=== PATIENT | female | born 1970 | race Caucasian/White ===

== ENCOUNTER 2020-05-02 20:05 | Inpatient (IN) ==
[2020-05-02] MEDS ORDERED: ONDANSETRON INJ 2 MG/ML 2 ML VIAL IV STA (20:33)
[2020-05-02] MEDS ORDERED: fentaNYL citrate 100 MCG/2 ML VIAL IV STA (20:33)
[2020-05-02 20:41] LABS: Basophils # (auto) 0.02 K/uL (0-0.2); Basophils % (auto) 0.2 %; Eosinophils # (auto) 0.12 K/uL (0-0.5); Eosinophils % (auto) 1.2 %; Hematocrit (blood only) 40.6 % (37-47); Hemoglobin 13.2 g/dL (12.0-16.0); Immature Granulocytes # (auto) 0.01 K/uL (0.00-0.02); Immature Granulocytes % (auto) 0.1 %; Lymphocytes # (auto) 3.33 K/uL (1.2-3.4); Mean Corpuscular Hemoglobin 27.8 pg (25-34); Mean Corpuscular Hgb Conc 32.5 g/dL (32-36); Mean Corpuscular Volume 85.7 fL (80-100); Mean Platelet Volume 11.4 fL (7.4-10.4); Monocytes % (auto) 7.9 %; Neutrophils # (auto) 5.82 K/uL (1.4-6.5); Neutrophils % (auto) 57.6 %; Platelet Count 267 K/uL (130-400); RDW Coefficient of Variation 12.8 % (11.5-14.5); RDW Standard Deviation 40.5 fL (36.4-46.3); Red Blood Count 4.74 M/uL (4.2-5.4)
--- NOTE | 2020-05-02 20:41 | Emergency Department Note ---
History of Present Illness General Chief complaint: Neuro Symptoms/Deficit Stated complaint: Eval for stoke symptoms, history of stroke Time Seen by Provider: 05/02/20 20:23 Source: patient History of Present Illness Provider complaint: Left-sided weakness Onset (ago): week(s) Location: face and lower extremity Radiation: non-radiation Severity: moderate Pain Consistency: + constant Maximum Pain Intensity: 5 Quality: + other (Weakness) Relieved By: + none Associated symptoms: + other (Left arm pain from contractures); no chest pain, no cough, no fever/chills, no headaches, no nausea/vomiting and no shortness of breath Treatments prior to arrival: other (Baclofen) This is a 49-year-old female with a history of prior CVA presenting with left- sided weakness starting 2 weeks ago. The patient stated that on her previous stroke she had left-sided weakness but had recovery of her strength in her leg and resolution of her facial droop. She normally walks independently without a cane or walker. She does have chronic contracture and weakness to the left arm. She states 2 weeks ago she started having drooling and left facial droop with weakness in the left arm. She has not been able to get around and her has been helping her. She did not come into the hospital because she was afraid of COVID-19. She denies any headache or injury. She has had no fevers, cough or cold symptoms, chest pain, vomiting or abdominal pain. She does complain of pain to the left arm which is chronic for her. She has chronic pain from her contractures and takes baclofen which did not help her today. She also took some Ativan which did not help. She denies any shortness of breath other than her chronic shortness of breath from her COPD which is unchanged. She does continue to smoke. She did take an extra aspirin today. Home Medications Home Medications Medication Instructions Recorded Confirmed Type aspirin [Aspir-81] 81 mg PO DAILY 09/03/19 05/02/20 History lisinopril 20 mg PO DAILY 09/03/19 05/02/20 History baclofen 20 mg PO TID 01/19/20 05/02/20 History omeprazole 20 mg PO BID 01/19/20 05/02/20 History levetiracetam 0 mg PO BID 02/03/20 05/02/20 History lorazepam [Ativan] 1 mg PO BID PRN 02/03/20 05/02/20 History ondansetron HCl [Zofran] 4 mg PO Q8H PRN 02/03/20 05/02/20 History rosuvastatin 40 mg PO DAILY 05/02/20 05/02/20 History gabapentin 300 mg PO BID 05/03/20 05/03/20 History Allergies Allergy/AdvReac Type Severity Reaction Status Date / Time cephalexin [From Keflex] Allergy Unknown Hives Verified 05/02/20 21:51 codeine Allergy Unknown Hives Verified 05/02/20 21:51 hydromorphone Allergy Unknown Difficulty Verified 05/02/20 21:51 Breathing Penicillins Allergy Unknown Hives Verified 05/02/20 21:51 bupropion [From Wellbutrin] AdvReac Unknown Seizure Verified 05/02/20 21:51 Past Med/Surg History Medical History Anxiety Bipolar 1 disorder Fibromyalgia History of stroke (Acute) Surgical History No pertinent past surgical history Family History Other No pertinent family history Social History Smoking Status: Current every day smoker Tobacco Type: Cigarettes Hx Substance Use: No Preferred Language: Georgian Visual Impairment: No Limitations Hearing Ability: Normal marital status: Current Living Situation: Family current occupational status: unemployed Feels Safe at Home: Yes Review of Systems See HPI for pertinent positives & negatives. and A total of 10 systems reviewed and were otherwise negative Physical Exam Vital Signs Vital Signs - 24 hr 05/02/20 20:09 05/02/20 20:22 05/02/20 20:32 Temperature 37.5 C Temperature Source Oral Pulse Rate 106 H 102 H 93 H Pulse Rate [Right Finger] Pulse Rate from SpO2 Sensor 114 H 94 H Respiratory Rate 12 22 17 Blood Pressure 135/98 135/98 135/86 Blood Pressure [Right Arm] Blood Pressure Mean 108 110 104 Blood Pressure Mean [Right Arm] Pulse Oximetry 95 93 94 Oxygen Delivery Method Sepsis Recent Fever Within 48 Hours No Sepsis New/Unexplained Change in Mental Status No Sepsis Action Taken by Nursing No Action Required 05/02/20 20:33 05/02/20 20:40 05/02/20 21:21 Temperature Temperature Source Pulse Rate 102 H 98 H Pulse Rate [Right Finger] Pulse Rate from SpO2 Sensor 103 H 100 H 81 Respiratory Rate 18 22 Blood Pressure 134/93 Blood Pressure [Right Arm] Blood Pressure Mean 100 Blood Pressure Mean [Right Arm] Pulse Oximetry 96 96 93 Oxygen Delivery Method Sepsis Recent Fever Within 48 Hours Sepsis New/Unexplained Change in Mental Status Sepsis Action Taken by Nursing 05/02/20 21:22 05/02/20 21:23 05/02/20 21:30 Temperature Temperature Source Pulse Rate Pulse Rate [Right Finger] 83 Pulse Rate from SpO2 Sensor 79 66 Respiratory Rate 19 Blood Pressure Blood Pressure [Right Arm] 134/94 Blood Pressure Mean Blood Pressure Mean [Right Arm] 107 Pulse Oximetry 95 98 95 Oxygen Delivery Method Sepsis Recent Fever Within 48 Hours Sepsis New/Unexplained Change in Mental Status Sepsis Action Taken by Nursing 05/02/20 21:31 05/02/20 21:40 05/02/20 22:01 Temperature Temperature Source Pulse Rate Pulse Rate [Right Finger] Pulse Rate from SpO2 Sensor 73 72 74 Respiratory Rate Blood Pressure 119/81 107/64 Blood Pressure [Right Arm] Blood Pressure Mean 83 72 Blood Pressure Mean [Right Arm] Pulse Oximetry 94 95 97 Oxygen Delivery Method Sepsis Recent Fever Within 48 Hours Sepsis New/Unexplained Change in Mental Status Sepsis Action Taken by Nursing 05/02/20 22:02 05/02/20 22:10 05/02/20 22:20 Temperature Temperature Source Pulse Rate Pulse Rate [Right Finger] Pulse Rate from SpO2 Sensor 74 77 73 Respiratory Rate Blood Pressure Blood Pressure [Right Arm] Blood Pressure Mean Blood Pressure Mean [Right Arm] Pulse Oximetry 95 94 96 Oxygen Delivery Method Sepsis Recent Fever Within 48 Hours Sepsis New/Unexplained Change in Mental Status Sepsis Action Taken by Nursing 05/02/20 22:30 05/02/20 22:31 05/02/20 22:40 Temperature Temperature Source Pulse Rate Pulse Rate [Right Finger] Pulse Rate from SpO2 Sensor 80 77 93 H Respiratory Rate Blood Pressure 122/80 Blood Pressure [Right Arm] Blood Pressure Mean 99 Blood Pressure Mean [Right Arm] Pulse Oximetry 97 96 93 Oxygen Delivery Method Sepsis Recent Fever Within 48 Hours Sepsis New/Unexplained Change in Mental Status Sepsis Action Taken by Nursing 05/03/20 00:37 Temperature Temperature Source Pulse Rate 93 H Pulse Rate [Right Finger] Pulse Rate from SpO2 Sensor Respiratory Rate 18 Blood Pressure 123/89 Blood Pressure [Right Arm] Blood Pressure Mean Blood Pressure Mean [Right Arm] Pulse Oximetry 96 Oxygen Delivery Method Room Air Sepsis Recent Fever Within 48 Hours Sepsis New/Unexplained Change in Mental Status Sepsis Action Taken by Nursing Constitutional: Vital signs reviewed. Eyes: Pupils are equal round reactive to light. Conjunctiva are noninjected. ENT: Pharynx is clear without erythema or exudate. Mucous membranes are moist. Neck supple without meningeal signs. Respiratory: Clear to auscultation bilaterally. Breath sounds are equal bilaterally. Cardiovascular: Regular rate and rhythm. No rubs or gallops. GI: Soft, nondistended and nontender. Bowel sounds are present. Musculoskeletal: No peripheral edema. Contracture of the left arm with normal distal pulses and without edema. Integumentary: No cyanosis. or jaundice. Neurologic: The patient is awake and alert. Cranial nerves II-XII are intact. No facial droop is noted. 3 out of 5 strength in the left lower extremity. Sensation is intact to light touch all extremities. Normal speech. Psychiatric: Normal affect. Not anxious appearing. Course Administered Medications Morphine Sulfate (Morphine Sulfate) 3 mg IV Q4H PRN PRN Reason: Pain Stop: 05/17/20 00:13 Last Admin: 05/03/20 00:22 Dose: 3 mg Documented by: [id number] Discontinued Medications Fentanyl Citrate (Fentanyl Citrate) 50 mcg IV NOW STA Stop: 05/02/20 20:34 Last Admin: 05/02/20 20:43 Dose: 50 mcg Documented by: [id number] Lorazepam (Ativan) 1 mg SL NOW STA Stop: 05/02/20 23:52 Last Admin: 05/02/20 23:56 Dose: 1 mg Documented by: [id number] Ondansetron HCl (Zofran) 4 mg IV NOW STA Stop: 05/02/20 20:34 Last Admin: 05/02/20 20:43 Dose: 4 mg Documented by: [id number] Medical Decision Making Differential Diagnosis CVA, ICH, intracranial mass, chronic pain syndrome, metabolic derangement Medical Records Attestation: I reviewed the patient's medical records. The patient was seen here in January for left arm pain from contractures. Home Medications Current Medication List: was personally reviewed by me Laboratory Data Attestation: I reviewed the patient's lab results. Result diagrams: 05/02/20 20:19 05/02/20 20:19 Lab Results 05/02/20 05/02/20 05/02/20 Range/Units 20:19 20:19 20:19 WBC 10.10 (4.8-10.8) K/uL RBC 4.74 (4.2-5.4) M/uL Hgb 13.2 (12.0-16.0) g/dL Hct 40.6 (37-47) % MCV 85.7 (80-100) fL MCH 27.8 (25-34) pg MCHC 32.5 (32-36) g/dL RDW Std Deviation 40.5 (36.4-46.3) fL RDW Coeff of Damian 12.8 (11.5-14.5) % Plt Count 267 (130-400) K/uL MPV 11.4 H (7.4-10.4) fL Immature Gran % (Auto) 0.1 % Neut % (Auto) 57.6 % Lymph % (Auto) 33.0 % [place] % (Auto) 7.9 % Eos % (Auto) 1.2 % Baso % (Auto) 0.2 % Neut # (Auto) 5.82 (1.4-6.5) K/uL Lymph # (Auto) 3.33 (1.2-3.4) K/uL [place] # (Auto) 0.80 H (0.11-0.59) K/uL Eos # (Auto) 0.12 (0-0.5) K/uL Baso # (Auto) 0.02 (0-0.2) K/uL Immature Gran # (Auto) 0.01 (0.00-0.02) K/uL PT 11.0 (9.0-12.0) Seconds INR 1.0 (0.9-1.1) APTT 23.6 (21.0-31.0) Seconds PTT Ratio 0.8 Sodium 141 (136-145) mmol/L Potassium 4.0 (3.5-5.1) mmol/L Chloride 107 (98-107) mmol/L Carbon Dioxide 26 (21-32) mmol/L Anion Gap 8.0 (3-11) BUN 16 (7-18) mg/dl Creatinine 1.10 (0.6-1.2) mg/dl Est Cr Clr Drug Dosing 47.9 ml/min Est GFR ( Amer) 67.3 Est GFR (Non-Af Amer) 58.1 BUN/Creatinine Ratio 14.9 (10-20) Glucose 173 H (70-99) mg/dl Calcium 9.8 (8.5-10.1) mg/dl Magnesium 1.8 (1.8-2.4) mg/dl Total Bilirubin 0.4 (0.2-1) mg/dl AST 22 (15-37) U/L ALT 22 (12-78) U/L Alkaline Phosphatase 76 (45-117) U/L Troponin I < 0.015 (0-0.045) ng/ml Total Protein 8.0 (6.4-8.2) gm/dl Albumin 3.9 (3.4-5.0) gm/dl Globulin 4.1 H (2.5-4.0) gm/dl Albumin/Globulin Ratio 1.0 (0.9-2) Imaging Data Radiologist's Impression: CT OF THE HEAD WITHOUT CONTRAST CLINICAL HISTORY: Stroke evaluation COMPARISON STUDY: Head CT January 19, 2020. CT DOSE: 1074.96 mGy.cm TECHNIQUE: Helical axial images of the head were obtained without IV contrast. Automated exposure control was utilized for the study. A dose lowering technique was utilized adhering to the principles of ALARA. FINDINGS: No acute intracranial hemorrhage, midline shift or mass effect is present. The ventricular system is stable. Multiple areas of encephalomalacia within the right cerebral hemisphere with volume loss are unchanged since head CT of January 19, 2020. No findings to suggest acute dural sinus thrombosis or acute territorial infarct. The basilar cisterns are patent. There are no extra axial collections. There are no significant calvarial abnormalities. IMPRESSION: 1. No acute intracranial findings. 2. No change in multiple areas of encephalomalacia within the right cerebral hemisphere with volume loss since prior head CT. These findings are chronic and favor infarcts. ACT 112: Negative or not required by law. Electronically signed by: Michael Arango M.D. 05/02/2020 8:57 PM Dictated: 05/02/202054 Transcribed: 05/02/202054 ECG Data Attestation: I personally reviewed and interpreted this ECG as follows: Indication: + other (Stroke symptoms) Rate (beats per minute): 99 Rhythm: + normal sinus ECG Intervals/blocks: no Left bundle branch block ECG ST segments: no ST elevation ECG Findings: + Other (Limited interpretation due to baseline artifact.); no PVCs Blood Pressure Blood Pressure Findings: Elevated blood pressure Blood Pressure Disposition: Referred to patients primary care provider MDM Narrative I did evaluate the patient as noted above. IV access was established. I did treat the patient with IV fentanyl and Zofran. I did place an order for continuous cardiac monitoring. The monitor showed normal sinus rhythm with a rate of 98 I did order and personally review the patient's 12-lead EKG as described above. There is motion artifact limiting interpretation but no obvious signs of acute ischemia are noted. I did order and review the patient's blood work as noted in the electronic medical record. CBC does not demonstrate leukocytosis or anemia. Electrolytes are unremarkable. I did order a CT of the head. I did review the images myself as well as the radiology report as described above. There is no evidence of acute intracranial abnormality. I did reassess the patient. She is feeling better. She is able to move her left arm better. She states that she has had intermittent weakness over the past 2 weeks. Given her prior history of stroke I did recommend hospitalization and MRI. I did discuss case with the hospitalist and case management rn. Impression & Plan Acute left-sided muscle weakness, Chronic pain of left upper extremity Discharge Plan Visit Data Chief Complaint: Neuro Symptoms/Deficit Stated Complaint: Eval for stoke symptoms, history of stroke ED Provider: Blaze Diaz Discharge Problem: Acute left-sided muscle weakness, Chronic pain of left upper extremity Patient Disposition: Being Evaluated by Hospitalist Condition: Good Discharge Instructions Interventions: ED Discharge Assessment Last Done: 05/03/20 00:37 Forms Stand Alone Forms: [employer] Prescriptions Prescriptions: No Action baclofen 20 mg tablet 20 mg PO TID RF: 0 omeprazole 20 mg capsule,delayed release(DR/EC) 20 mg PO BID RF: 0 ondansetron HCl [Zofran] 4 mg tablet 4 mg PO Q8H PRN (Reason: Nausea) RF: 0 levetiracetam 750 mg tablet 0 mg PO BID RF: 0 lorazepam [Ativan] 1 mg tablet 1 mg PO BID PRN (Reason: Anxiety) RF: 0 lisinopril 20 mg Tablet 20 mg PO DAILY RF: 0 aspirin [Aspir-81] 81 mg Tablet,Delayed Release (Dr/Ec) 81 mg PO DAILY RF: 0 rosuvastatin 40 mg tablet 40 mg PO DAILY RF: 0 gabapentin 300 mg capsule 300 mg PO BID RF: 0 Referrals Referrals: Denia Rivera MD [Primary Care Provider] -
[2020-05-02 20:51] LABS: Partial Thromboplastin Ratio 0.8; Partial Thromboplastin Time 23.6 Seconds (21.0-31.0)
[2020-05-02 20:53] LABS: Alanine Aminotransferase 22 U/L (12-78); Albumin Level 3.9 gm/dl (3.4-5.0); Aspartate Aminotransferase 22 U/L (15-37); BUN Creatinine Ratio 14.9 (10-20); Blood Urea Nitrogen 16 mg/dl (7-18); Calcium 9.8 mg/dl (8.5-10.1); Carbon Dioxide 26 mmol/L (21-32); Chloride 107 mmol/L (98-107); Creatinine Clr Calc Pharmacy 47.9 ml/min; Est GFR (African American) 67.3; Est GFR (Non-African American) 58.1; Glucose 173 mg/dl (70-99); Magnesium 1.8 mg/dl (1.8-2.4); Sodium 141 mmol/L (136-145)
[2020-05-02 20:57] LABS: Alkaline Phosphatase 76 U/L (45-117); Bilirubin,Total 0.4 mg/dl (0.2-1); Globulin 4.1 gm/dl (2.5-4.0); Troponin I < 0.015 ng/ml (0-0.045)
--- NOTE | 2020-05-02 20:59 | CT Scan Report ---
CT OF THE HEAD WITHOUT CONTRAST CLINICAL HISTORY: Stroke evaluation COMPARISON STUDY: Head CT January 19, 2020. CT DOSE: 1074.96 mGy.cm TECHNIQUE: Helical axial images of the head were obtained without IV contrast. Automated exposure con trol was utilized for the study. A dose lowering technique was utilized adhering to the principles o f ALARA. FINDINGS: No acute intracranial hemorrhage, midline shift or mass effect is present. The ventricular system is stable. Multiple areas of encephalomalacia within the right cerebral hemisphere with volume loss are unchanged since head CT of January 19, 2020. No findings to suggest acute dural sinus thrombos is or acute territorial infarct. The basilar cisterns are patent. There are no extra axial collection s. There are no significant calvarial abnormalities. IMPRESSION: 1. No acute intracranial findings. 2. No change in multiple areas of encephalomalacia within the right cerebral hemisphere with volume l oss since prior head CT. These findings are chronic and favor infarcts. ACT 112: Negative or not required by law. Electronically signed by: Michael Arango M.D. 05/02/2020 8:57 PM
[2020-05-02] MEDS ORDERED: LORazepam 1 MG TAB SL STA (23:51)
[2020-05-03] MEDS ORDERED: LORazepam 1 MG TAB PO PRN (00:14)
[2020-05-03] MEDS: MoRPHine SULFATE 4 MG/ML 1 ML CARP\\VIAL IV PRN ×2 (00:22→08:04)
[2020-05-03] MEDS ORDERED: ONDANSETRON INJ 2 MG/ML 2 ML VIAL IV PRN (00:59)
[2020-05-03] MEDS ORDERED: NITROGLYCERIN SL 0.4 MG/TAB TAB SL PRN (00:59)
[2020-05-03] MEDS ORDERED: ACETAMINOPHEN 325 MG TAB PO PRN (00:59)
[2020-05-03] MEDS ORDERED: HydrALAZINE HCL 20 MG/ML VIAL IV PRN (00:59)
[2020-05-03] MEDS ORDERED: PHARMACIST DISCHARGE MED REC CONSULT PRN (00:59)
[2020-05-03] MEDS ORDERED: SODIUM CHLORIDE 0.9% 1000ML 1,000 ML IV SCH (00:59)
--- NOTE | 2020-05-03 01:13 | History and Physical Report ---
DATE OF ADMISSION: 05/02/2020 CHIEF COMPLAINT: Left-sided weakness. HISTORY OF PRESENT ILLNESS: This is a 49-year-old female with past medical history significant for diet-controlled diabetes, hyperlipidemia, COPD, mild hypertension, chronic ischemic right MCA stroke with left spastic hemiplegia, GERD, atherosclerosis of aorta, depression, tobacco use disorder, complex partial seizures, anxiety who lives at home with her comes here because of increasing left sided weakness. The patient says she has stroke in 2016. She has since has some weakness in the left side and contractures in left extremities, but since about 2 weeks ago, the weakness is more, she also complains of on and off left facial droop. She normally walks independently without a cane or walker, but she thinks now she requires some support. She did not come earlier because of concern about COVID-19. Because it was not getting better and also she says she has some difficulty with speech came to ER today.But speech seems okay now. CT of the head was okay. Resting comfortably and hemodynamically stable. Complains of pain in the contractures and requests for pain medications. She also says she has some nausea, not able to eat much, ongoing for about a month now. She thinks she is dehydrated. Denies any fever, chills, no cough, no shortness of breath, no loss of sense of smell or taste. Has some headache. No blurred visions. No runny nose, no sore throat, no abdominal pain. Normal bowel and bladder movements. No rash. ALLERGIES: WELLBUTRIN, CODEINE, HYDROMORPHONE, KEFLEX, PENICILLIN G. PAST MEDICAL HISTORY: As mentioned above. PAST SURGICAL HISTORY: Enlargement of the left breast with implant, foot surgery, laparoscopic cholecystectomy, total abdominal hysterectomy with removal of the tubes. MEDICATIONS: The patient is on Crestor 40 mg p.o. daily, omeprazole 20 mg p.o. b.i.d., Zofran 4 mg p.o. 8 hours p.r.n., gabapentin 300 mg 1 a.m. and 2 at bedtime, baclofen 20 mg p.o. b.i.d., Ativan 1 mg p.o. b.i.d. p.r.n., Keppra 1500 mg p.o. b.i.d., aspirin 81 mg p.o. daily, Breo Ellipta 100/25 mcg 1 puff daily, lisinopril 20 mg p.o. daily. FAMILY HISTORY: Significant for maternal aunt has colon cancer. Mother has stroke. SOCIAL HISTORY: , smokes 1 pack a day for 37 years. No alcohol, no drug use. REVIEW OF SYMPTOMS: As per HPI. Rest of review of symptoms negative. PHYSICAL EXAMINATION: GENERAL: The patient is of moderate build, not in acute distress. VITAL SIGNS: Temperature 37.5, pulse 83, respiratory rate of 19, blood pressure 122/80, oxygen 93%. HEENT: No pallor, no icterus. Pupils equal, round, reactive to light. Extraocular muscles intact. NECK: No JVD, no neck masses. CARDIOVASCULAR: S1, S2, regular rate and rhythm, no murmur, no gallop. RESPIRATORY SYSTEM: Normal AP diameter. No accessory muscle use. No wheezing, no crackles. ABDOMEN: Soft, bowel sounds are present. Nontender. No distention. CENTRAL NERVOUS SYSTEM: Alert and oriented x3. Cannot move her left extremities, left lower extremity has contractures. Speech is clear. Mild left facial droop. Sensation is intact, position sense intact. Able to lift her right sided extremities. EXTREMITIES: No edema, no erythema seen. LABORATORY DATA: WBC 10.1, hemoglobin 13.2, hematocrit 40.6, platelets 267. PT 11, INR 1, APTT 23.6. Sodium 141, potassium 4, chloride 107, bicarbonate 26, BUN 16, creatinine 1.1, serum glucose 173, calcium 9.8, magnesium 1.8, total bilirubin 0.4, AST 22, ALT 22, alkaline phosphatase 76. Troponin I less than 0.015. IMAGING: CT of the head, no acute intracranial findings, no change in multiple areas of encephalomalacia within the right cerebral hemisphere with volume loss since prior head CT, these findings are chronic and favors infarcts. EKG: Poor data quality. Normal sinus rhythm with rate of 99, nonspecific ST abnormality. ASSESSMENT AND PLAN: This is a 49-year-old female who presents with history of CVA with left sided weakness comes with increased weakness in the left side. 1. Stroke-like symptoms, history of cerebrovascular accident in 2016 with left sided spastic hemiplegia with contractures: Ambulates without support at home, able to ambulate in the ER today with difficulty as per patient.,Increased left sided weakness since last [address] of the head is unremarkable. We will do a full stroke workup with MRI scan, echo, carotid Doppler, speech evaluation and neuro evaluation in a.m. Monitor in the tele floor. Continue her home aspirin and statin for now and hold lisinopril for permissive hypotension until MRI scans comes back. 2. History of mild chronic obstructive pulmonary disease: Continue home inhalers, currently stable. 3. Hyperlipidemia: Continue statin. Follow fasting lipid profile. 4. Gastroesophageal reflux disease: Continue Prilosec. 5. History of complex partial seizures. Continue her Keppra. 6. History of chronic pain from contractures: Continue her baclofen and gabapentin plus IV morphine p.r.n. 7. Anxiety: On Ativan p.r.n. 8. Htn. Holding lisinopril as above. iv hydralazine prn 9. Deep venous thrombosis prophylaxis: Sequential compression devices. DISPOSITION: Closely monitor in the tele floor. Level 1 full code. Expect discharge home and follow with family doctor. Social Service to help with discharge planning. ONESIMO
[2020-05-03] MEDS ORDERED: GADOBUTROL 65ML VIAL IV PRN (06:05)
--- NOTE | 2020-05-03 07:23 | Magnetic Resonance Report ---
MRI OF THE BRAIN COMBO CLINICAL HISTORY: Strokelike symptoms. Facial droop. COMPARISON STUDY: CT of the brain dated 05/02/2020. TECHNIQUE: MRI of the brain was performed utilizing various T1 and T2-weighted sequences in the axial , sagittal, and coronal planes. Contrast-enhanced sequences were acquired following the administratio n of 5.3 cc of Gadavist. FINDINGS: Brain parenchyma: There is age-related involutional change noting mild subcortical and periventricul ar microangiopathic disease. Foci of encephalomalacia throughout the right MCA territory is consisten t with a remote infarct. Wallerian degeneration is noted in the right aspect of the taylor. There is no hemorrhage or mass effect. There is no restricted diffusion to suggest acute ischemia. No enhancing mass lesion is identified on the postcontrast images. Uribe-white matter differentiation is preserved. No extra-axial fluid collection is seen. The cerebellar tonsils are normal in configuration. Ventricles, sulci, and cisterns: Prominent secondary to involutional change. There is ex vacuo dilata tion of the right lateral ventricle. Pituitary and sella: Unremarkable. Intracranial vasculature: Normal flow voids are maintained at the skull base. Orbits: The bony orbits are grossly intact. Orbital contents are normal in appearance. Sinuses and mastoids: Clear. Calvarium: Unremarkable. Cervical cord: Partially visualized cervical spinal cord is normal in morphology and signal intensity . IMPRESSION: 1. There is no acute intracranial abnormality. 2. Remote right MCA territory infarct. ACT 112: Negative or not required by law. Electronically signed by: Darwin Banks M.D. 05/03/2020 7:22 AM
--- NOTE | 2020-05-03 07:31 | Ultrasound Report ---
ULTRASOUND OF THE CAROTID ARTERIES CLINICAL HISTORY: Strokelike symptoms. Facial droop. COMPARISON STUDY: No priors. TECHNIQUE: Real-time, grayscale, and color Doppler sonography of the carotid arteries is performed. I mages are reviewed in the transverse and longitudinal planes. FINDINGS: Blood pressures were not assessed. The carotid arteries are patent bilaterally and demonstrate antegrade flow. There is mild atheroscler otic plaque seen in the carotid bulb. Normal doppler arterial waveforms are seen throughout. Velocity measurements are listed below. Common carotid peak systolic velocity (cm/sec): RIGHT: 72 LEFT: 76 ICA proximal peak systolic velocity (cm/sec): RIGHT: 68 LEFT: 93 ICA mid peak systolic velocity (cm/sec): RIGHT: 53 LEFT: 69 ICA distal peak systolic velocity (cm/sec): RIGHT: 78 LEFT: 87 ICA/CC peak systolic ratio: RIGHT: 1.1 LEFT: 1.2 Antegrade flow was shown in the vertebral arteries. The external carotid arteries are patent. Scattered low suspicion thyroid nodules measure up to 1.4 cm. IMPRESSION: 1. There is no sonographic evidence of hemodynamically significant stenosis in the right or left [place] arterial system. 2. Antegrade flow is shown in the vertebral arteries. ACT 112: Negative or not required by law. Electronically signed by: Darwin Banks M.D. 05/03/2020 7:30 AM
[2020-05-03 07:41] LABS: Basophils # (auto) 0.02 K/uL (0-0.2); Basophils % (auto) 0.3 %; Eosinophils % (auto) 1.5 %; Hematocrit (blood only) 39.8 % (37-47); Hemoglobin 12.9 g/dL (12.0-16.0); Immature Granulocytes # (auto) 0.02 K/uL (0.00-0.02); Immature Granulocytes % (auto) 0.3 %; Lymphocytes # (auto) 2.56 K/uL (1.2-3.4); Lymphocytes % (auto) 38.8 %; Mean Corpuscular Hemoglobin 27.9 pg (25-34); Mean Corpuscular Hgb Conc 32.4 g/dL (32-36); Mean Corpuscular Volume 86.1 fL (80-100); Mean Platelet Volume 11.1 fL (7.4-10.4); Monocytes # (auto) 0.64 K/uL (0.11-0.59); Monocytes % (auto) 9.7 %; Neutrophils # (auto) 3.26 K/uL (1.4-6.5); Neutrophils % (auto) 49.4 %; Platelet Count 228 K/uL (130-400); RDW Standard Deviation 41.4 fL (36.4-46.3); Red Blood Count 4.62 M/uL (4.2-5.4)
[2020-05-03 07:56] LABS: Estimated Average Glucose 131 mg/dl; Hemoglobin A1C 6.2 % (4.5-5.6)
[2020-05-03] MEDS: BACLOFEN 20 MG TAB PO SCH ×2 (08:08→13:14)
[2020-05-03 08:09] LABS: BUN Creatinine Ratio 20.7 (10-20); Calcium 9.2 mg/dl (8.5-10.1); Creatinine Clr Calc Pharmacy 53.4 ml/min; Est GFR (African American) 81.4; Est GFR (Non-African American) 70.2; Potassium 3.9 mmol/L (3.5-5.1)
[2020-05-03] MEDS ORDERED: PANTOprazole 40 MG TAB PO SCH (09:00)
[2020-05-03] MEDS ORDERED: ROSUVASTATIN CALCIUM 20 MG TAB PO SCH (09:00)
[2020-05-03] MEDS ORDERED: GABAPENTIN 300 MG CAP PO SCH ×2 (09:00→21:00)
[2020-05-03] MEDS ORDERED: ASPIRIN 81 MG ECTAB PO SCH (09:00)
[2020-05-03] MEDS ORDERED: levETIRAcetam 250 MG TAB PO SCH (09:00)
[2020-05-03] MEDS ORDERED: levETIRAcetam 500 MG TAB PO SCH (09:00)
[2020-05-03] MEDS ORDERED: MoRPHine SULFATE 4 MG/ML 1 ML CARP\\VIAL IV STA (10:45)
[2020-05-03] MEDS ORDERED: dexAMETHasone 4 MG in SYRINGE 0 ML IV SCH (11:00)
--- NOTE | 2020-05-03 11:01 | Consultation Report ---
DATE OF CONSULTATION: 05/03/2020 NEUROLOGY CONSULTATION CHIEF COMPLAINT: Left-sided weakness. 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 She does have a history of prior stroke in 2016. As a result of the previous stroke, she does have chronic left-sided weakness with spasticity and contractures. However, they have noticed in the last 2 weeks, the weakness seems to have progressed and has noted an intermittent left facial droop. She does walk with a cane and/or walker, but has noticed she is requiring more support. She did not present earlier to the hospital due to the concern for the COVID pandemic. As her symptoms had not improved and was noting some intermittent speech difficulty, she decided to come to the Emergency Department yesterday. At the time of arrival, her speech was okay. CT of the head was negative for acute hemorrhage or ischemic stroke. She was noting some pain on the left side predominantly where her contractures are. Otherwise, she denies any fever, chills or shortness of breath. ALLERGIES: WELLBUTRIN, CODEINE, HYDROMORPHONE, KEFLEX, AND PENICILLIN. PAST MEDICAL HISTORY: Ischemic right MCA stroke with residual left-sided weakness, type 2 diabetes, hyperlipidemia, COPD, hypertension, gastroesophageal reflux disease, depression, anxiety, and symptomatic epilepsy. PAST SURGICAL HISTORY: She has history of breast implant, foot surgery, laparoscopic cholecystectomy, total abdominal hysterectomy. MEDICATIONS: She is on Crestor 40 mg daily, omeprazole 20 mg twice daily, Zofran 4 mg as needed, gabapentin 300 mg in the morning and 600 mg at bedtime, baclofen 20 mg twice daily, Ativan 1 mg twice daily as needed. She is also on Keppra 1500 mg twice daily, aspirin 81 mg daily and lisinopril 20 mg daily. FAMILY HISTORY: Maternal aunt had colon cancer and her mother had a stroke. SOCIAL HISTORY: She is . She smokes 1 pack of cigarettes per day for 37 years. No alcohol or polysubstance abuse. REVIEW OF SYSTEMS: A 15-point review of systems was conducted and negative except as noted above in the HPI. PHYSICAL EXAMINATION: VITAL SIGNS: 130/83 mmHg, pulse was 58, respiratory rate was 20, temperature is 37.1, O2 sat was 97% on room air. EXAM: Constitutional: appears chronically ill, older than stated age Head and Face: normocephalic and atraumatic Eyes: normal lids, normal conjunctiva Neck: supple Respiratory: normal effort Cardiovascular: normal pulses Abdomen: non distended Skin: no rashes, lesions, or ulcers noted Psychiatric: normal mood NEUROLOGIC EXAMINATION: Appearance: no acute distress Orientation: awake, alert and oriented x 3 Mental Status: alert Memory: Ok Attention: normal Knowledge: appropriate Language: no aphasia Speech: no dysarthria Cranial Nerves: CN 2 - no visual defect on confrontation and pupils round, equal, reactive to light CN 3, 4, 6 - extra-ocular movements intact CN 5 - facial sensation intact CN 7 - left facial droop CN 8 - intact hearing CN 9, 10 - palate symmetric CN 11 - good shoulder shrug CN 12 - tongue midline Gait: deferrred Coordination: No tremor Sensory: intact to light touch Muscle Tone: right sided spasticity with fingers contracted Muscle exam: Residual right sided weakness compared to the left (UE>LE) Reflexes: DIAGNOSTIC AND LABORATORY TESTING: WBC is 6.60, hemoglobin is 12.9, platelet count is 228. INR is 1.0. Sodium is 143, potassium 3.9, chloride is 109, BUN is 20, creatinine is 0.94, hemoglobin A1c is 6.2, calcium is 9.2. LDL cholesterol is 89. Urinalysis showed 1+ protein and trace glucose, 5-10 epithelial cells, no bacteria. Transthoracic echocardiogram showed a normal left ventricular chamber size, ejection fraction was 55%-60%. Interatrial septum is intact with no evidence of an atrial septal defect. Injection of contrast documented no intraatrial shunt. No pericardial effusion. MRI of the brain without contrast: No acute intracranial abnormality. Remote right MCA territory infarct. There is no hemorrhage or mass effect. No restricted diffusion to suggest acute ischemia. Carotid ultrasound: There was no sonographic evidence of hemodynamically significant stenosis in the right or left carotid arterial system. ASSESSMENT AND PLAN: A 49-year-old woman with a history of prior right MCA ischemic stroke with residual left-sided weakness and spasticity, on aspirin and high intensity statin; admitted with progressive left-sided weakness over the last 2 weeks. Vital signs are stable with no signs of increased blood pressure. MRI brain with and without contrast was negative for ischemic stroke. Differential diagnosis certainly includes decompensation of prior ischemic stroke. Agree with continuing aspirin 81 mg daily and Crestor 40 mg daily for secondary stroke prevention. She is currently on Keppra 1500 mg twice daily for symptomatic epilepsy. Agree with PT, OT as there may be a component of deconditioning. Recommend restarting home Neurontin 300 mg TID and continue Baclofen 20 mg BID for spasticity as she believes the pain was contributing to her weakness. Follow up with Neurology as outpatient for spasticity in 8 weeks. Please call with any further questions or concerns. MTDD
--- NOTE | 2020-05-03 11:16 | Hospitalist Progress Note ---
Date of Service May 03, 2020 Assessment & Plan (1) History of stroke: -As per emergency room notes 05/02/2020 "This is a 49-year-old female with a history of prior CVA presenting with left-sided weakness starting 2 weeks ago. The patient stated that on her previous stroke she had left-sided weakness but had recovery of her strength in her leg and resolution of her facial droop. She normally walks independently without a cane or walker. She does have chronic contracture and weakness to the left arm. She states 2 weeks ago she started having drooling and left facial droop with weakness in the left arm. She has not been able to get around and her has been helping her. She did not come into the hospital because she was afraid of COVID-19. She denies any headache or injury. She has had no fevers, cough or cold symptoms, chest pain, vomiting or abdominal pain. She does complain of pain to the left arm which is chronic for her. She has chronic pain from her contractures and takes baclofen which did not help her today. She also took some Ativan which did not help. She denies any shortness of breath other than her chronic shortness of breath from her COPD which is unchanged. She does continue to smoke. She did take an extra aspirin today." -05/02/[address] " No acute intracranial findings. No change in multiple areas of encephalomalacia within the right cerebral hemisphere with volume loss since prior head CT. These findings are chronic and favor infarcts." -05/03/2020 Brain MRI: ". There is no acute intracranial abnormality. Remote right MCA territory infarct." -05/03/2020 "There is no sonographic evidence of hemodynamically significant stenosis in the right or left carotid arterial system. Antegrade flow is shown in the vertebral arteries." -The admitting hospitalist questions whether patient's symptoms as sequelae to old strokes and started aspirin daily. appreciate neurology consultation recommendations -The main issue as seen by day time hospitalist on 05/03/2020 is patient with pain of left hand and left hand contracture (chronic) that is painful despite recent morphine doses, already on baclofen and gabapentin History of complex partial seizures -Continue home dose Keppra as 1500 mg BID (2) Left hand pain: History of chronic pain from contractures -patient reports left had contractures are chronic but more painful -management as below (3) Left leg pain: -her left foot is in varus position and this is also chronic, she also reports leg pain -PT/OT evaluations -patient currently declining imaging of extremities and insists she had imaging before that ruled out fractures, she reports history of neck surgery in the past with hardware, hospitalist empirically starting decadron 4 mg IV q8 hours to see if any relief for pain of left extremities. request orthopedic consult and pain management consult Hypertension -can continue home dose lisinopril Anxiety -On Ativan p.r.n. Hyperlipidemia -on statin. -patient received IV fluids, check creatinine kinase History of mild chronic obstructive pulmonary disease -Continue home inhalers, on room air Gastroesophageal reflux disease -Continue Prilosec. Deep venous thrombosis prophylaxis: heparin subcutananeous Admission and Anticipated Discharge Date Admission Date: May 02, 2020 Subjective -The main issue as seen by day time hospitalist on 05/03/2020 is patient with pain of left hand and left hand contracture (chronic) that is painful despite recent morphine doses, already on baclofen and gabapentin no dizziness. no headache. denies recent neck trauma. no vomiting. no chest pain. no shortness of breath. on room air Review of Systems Review of Systems: All systems reviewed & are unremarkable except as noted in Subjective Physical Exam Eyes: PERRL, conjunctivae normal, anicteric sclerae EOM intact bilaterally ENMT: external ear and nose normal, oropharynx normal Neck: trachea midline, no thyromegaly normal visual inspection Respiratory: normal respiratory effort, lungs clear to auscultation Cardiovascular: Rate/Rhythm: regular rate and regular rhythm Gastrointestinal (Abdomen): normal bowel sounds, soft, nontender, no hepatosplenomegaly Musculoskeletal: left hand in a claw like position, left foot in varus position Neurologic: PERRL, EOMI, accommodation nl, no face palsy, no dysarthria Psychiatric: A+Ox3, euthymic affect Results & Data Results & Data ([facility]) Vital Signs (Past 12 Hours) Vital Signs Temp Pulse Pulse Resp BP BP Pulse Ox 05/03/20 11:04 36.7 C 76 17 143/98 H 94 05/03/20 08:00 58 L 05/03/20 07:45 37.1 C 71 20 130/83 97 05/03/20 01:00 69 05/03/20 00:50 36.9 C 74 18 113/76 95 05/03/20 00:37 93 H 18 123/89 96
[2020-05-03] MEDS ORDERED: POLYETHYLENE (MIRALAX) 17 GM PACK PO PRN (11:27)
[2020-05-03] MEDS ORDERED: SENNA 8.6 MG TAB PO SCH (11:45)
--- NOTE | 2020-05-03 18:27 | Discharge Summary ---
Date of Service May 03, 2020 Admission HPI Per Admitting Provider HISTORY OF PRESENT ILLNESS: This is a 49-year-old female with past medical history significant for diet-controlled diabetes, hyperlipidemia, COPD, mild hypertension, chronic ischemic right MCA stroke with left spastic hemiplegia, GERD, atherosclerosis of aorta, depression, tobacco use disorder, complex partial seizures, anxiety who lives at home with her comes here because of increasing left sided weakness. The patient says she has stroke in 2016. She has since has some weakness in the left side and contractures in left extremities, but since about 2 weeks ago, the weakness is more, she also complains of on and off left facial droop. She normally walks independently without a cane or walker, but she thinks now she requires some support. She did not come earlier because of concern about COVID-19. Because it was not getting better and also she says she has some difficulty with speech came to ER today.But speech seems okay now. CT of the head was okay. Resting comfortably and hemodynamically stable. Complains of pain in the contractures and requests for pain medications. She also says she has some nausea, not able to eat much, ongoing for about a month now. She thinks she is dehydrated. Denies any fever, chills, no cough, no shortness of breath, no loss of sense of smell or taste. Has some headache. No blurred visions. No runny nose, no sore throat, no abdominal pain. Normal bowel and bladder movements. No rash. Principal Diagnosis History of stroke in the past Left Hand pain, left leg pain Elevated creatinine kinase Hyperlipidemia History of complex partial seizures History of mild chronic obstructive pulmonary disease Discharge Exam Eyes PERRL, conjunctivae normal, anicteric sclerae EOM intact bilaterally ENMT external ear and nose normal, oropharynx normal Neck trachea midline, no thyromegaly normal visual inspection Respiratory normal respiratory effort, lungs clear to auscultation Cardiovascular Rate/Rhythm: regular rate and regular rhythm Gastrointestinal (Abdomen) normal bowel sounds, soft, nontender, no hepatosplenomegaly Musculoskeletal left hand contracture, left leg in varus Neurologic PERRL, EOMI, accommodation nl, no face palsy, no dysarthria Psychiatric A+Ox3, euthymic affect Discharge Data Allergies Allergy/AdvReac Type Severity Reaction Status Date / Time cephalexin [From Keflex] Allergy Unknown Hives Verified 05/02/20 21:51 codeine Allergy Unknown Hives Verified 05/02/20 21:51 hydromorphone Allergy Unknown Difficulty Verified 05/02/20 21:51 Breathing Penicillins Allergy Unknown Hives Verified 05/02/20 21:51 bupropion [From Wellbutrin] AdvReac Unknown Seizure Verified 05/02/20 21:51 Consultations 05/02/20 21:20 ED Decision to Admit Stat 05/03/20 00:59 Consult Case Management - Discharge Planning Routine Consult Case Management - Discharge Planning Routine 05/03/20 08:00 Consult Neurology Routine 05/03/20 10:47 Consult Pain Management Routine 05/03/20 10:48 Consult Orthopedic Surgery Routine Ordered Studies 05/02/20 20:33 CT head/brain wo con Stat 05/03/20 00:59 MR brain wo/w con Routine US carotid doppler BI Routine Hospital Course (1) History of stroke: -As per emergency room notes 05/02/2020 "This is a 49-year-old female with a history of prior CVA presenting with left-sided weakness starting 2 weeks ago. The patient stated that on her previous stroke she had left-sided weakness but had recovery of her strength in her leg and resolution of her facial droop. She normally walks independently without a cane or walker. She does have chronic contracture and weakness to the left arm. She states 2 weeks ago she started having drooling and left facial droop with weakness in the left arm. She has not been able to get around and her has been helping her. She did not come into the hospital because she was afraid of COVID-19. She denies any headache or injury. She has had no fevers, cough or cold symptoms, chest pain, vomiting or abdominal pain. She does complain of pain to the left arm which is chronic for her. She has chronic pain from her contractures and takes baclofen which did not help her today. She also took some Ativan which did not help. She denies any shortness of breath other than her chronic shortness of breath from her COPD which is unchanged. She does continue to smoke. She did take an extra aspirin today." -05/02/[address] " No acute intracranial findings. No change in multiple areas of encephalomalacia within the right cerebral hemisphere with volume loss since prior head CT. These findings are chronic and favor infarcts." -05/03/2020 Brain MRI: ". There is no acute intracranial abnormality. Remote right MCA territory infarct." -05/03/2020 "There is no sonographic evidence of hemodynamically significant stenosis in the right or left carotid arterial system. Antegrade flow is shown in the vertebral arteries." -The admitting hospitalist questions whether patient's symptoms as sequelae to old strokes and started aspirin daily. appreciate neurology consultation recommendations -The main issue as seen by day time hospitalist on 05/03/2020 is patient with pain of left hand and left hand contracture (chronic) that is painful despite recent morphine doses, already on baclofen and gabapentin hospitalist empirically starting decadron 4 mg IV q8 h, patient with improvements in pain, neurology doctor Dr. Keys discussed with me of increasing the gabapentin from 300 mg BID to TID, instead of waiting for further evaluation from pain management or orthopedics, patient wished to go home as she did not feel that she can tolerate spending a night in hospital away from her family History of complex partial seizures -Continue home dose Keppra as 1500 mg BID (2) Left hand pain: History of chronic pain from contractures -patient reports left had contractures are chronic but more painful -management as below (3) Left leg pain: -her left foot is in varus position and this is also chronic, she also reports leg pain -PT/OT evaluations -patient currently declining imaging of extremities and insists she had imaging before that ruled out fractures, she reports history of neck surgery in the past with hardware, ours to see if any relief for pain of left extremities. Hypertension -can continue home dose lisinopril Anxiety Hyperlipidemia -on statin. -check creatinine kinase 471 but patient had IV fluids and pain resolving with IV steroids and she wished to go home History of mild chronic obstructive pulmonary disease -Continue home inhalers, on room air Gastroesophageal reflux disease -Continue Prilosec. Total Time Total Time Spent Total Time Spent (In Minutes): 40 minutes Total Time Includes: Examination of the Patient, Discharge Planning, Medication Reconciliation and Communication With Other Providers Discharge Plan Discharge Items Patient Disposition: Home - Self-Care Reason For Visit: LEFT SIDED WEAKNESS Discharge Diagnosis: History of stroke in the past Left Hand pain, left leg pain Elevated creatinine kinase Hyperlipidemia History of complex partial seizures History of mild chronic obstructive pulmonary disease Condition on Discharge: Good Activity: Per Instructions section Non-emergency contact: Primary Care Provider Call non-emergency contact if: you have any medication questions Follow-up/Referrals: Denia Rivera MD [Primary Care Provider] - Diet: Carb Consistent or DM2 and Heart Healthy Addtl Attending Provider Instructions: discharge medications sent electronically to [address] , [place] [address] patient should follow up with primary medical doctor for checking of creatinine kinase levels Addtl Ice Rink Attendant Provider Instructions: continue aspirin 81 mg daily and rosuvastatin 40 mg daily Neurology recommend restarting home Neurontin 300 mg TID and continue Baclofen 20 mg BID for spasticity as she believes the pain was contributing to her weakness. Follow up with Neurology as outpatient for spasticity in 8 weeks. patient should see primary medical doctor and follow up with Neurology [address] [place] [address] , [place] [address] at [facility] Pending Studies at Discharge: No Stand-Alone Forms: [facility], Smoking Cessation Medications and DC Order Prescriptions: New levetiracetam [Keppra] 500 mg Tablet 1,500 mg PO BID 30 Days Qty: 180 RF: 0 baclofen 20 mg Tablet 20 mg PO TID 30 Days Qty: 90 RF: 0 gabapentin 300 mg Capsule 300 mg PO TID 30 Days Qty: 90 RF: 0 Continued baclofen 20 mg tablet 20 mg PO TID RF: 0 omeprazole 20 mg capsule,delayed release(DR/EC) 20 mg PO BID RF: 0 ondansetron HCl [Zofran] 4 mg tablet 4 mg PO Q8H PRN (Reason: Nausea) RF: 0 lorazepam [Ativan] 1 mg tablet 1 mg PO BID PRN (Reason: Anxiety) RF: 0 lisinopril 20 mg Tablet 20 mg PO DAILY RF: 0 aspirin [Aspir-81] 81 mg Tablet,Delayed Release (Dr/Ec) 81 mg PO DAILY RF: 0 rosuvastatin 40 mg tablet 40 mg PO DAILY RF: 0 Discontinued levetiracetam 750 mg tablet 0 mg PO BID RF: 0 gabapentin 300 mg capsule 300 mg PO BID RF: 0 Discharge Orders: Discharge Order (Routine); Ordered 05/03/20 Ordered By: Brad Lion/Other Patient Handouts: Prediabetes, A1C Admission Data Admit Date/Time: 05/02/20 23:57 Attending Provider: Brad Morales Admit Provider: Abiodun Langston Primary Care Provider: Denia Rivera Other Providers: Abiodun Langston ; Jessica Ingram ; Daryl Boo ; Jessica Stauffer ; Federico Keys ; Jennifer Crook ; Cristian Banegas
[2020-05-03] MEDS ORDERED: HEPARIN SOD 5,000 UNIT/0.5 ML VIAL SQ SCH (21:00)
--- NOTE | 2020-05-03 22:30 | Electrocardiogram Report ---
Test Reason : Blood Pressure : / mmHG Vent. Rate : 099 BPM Atrial Rate : 099 BPM P-R Int : 134 ms QRS Dur : 076 ms QT Int : 354 ms P-R-T Axes : 105 043 050 degrees QTc Int : 454 ms Poor data quality, interpretation may be adversely affected Normal sinus rhythm When compared with ECG of 19-JAN-2020 18:00, Vent. rate has increased BY 33 BPM Confirmed by Nba Tavares ([id number]) on 05/03/2020 10:30:39 PM Referred By: REFERRED SELF Confirmed By:Nba Tavares
[2020-05-04] MEDS ORDERED: lisinopriL 20 MG TAB PO SCH (09:00)
--- NOTE | 2020-05-04 15:18 | Communication Note ---
Date of Service: May 04, 2020 pt was discharged priorto being seen
--- NOTE | 2020-05-10 10:47 | Discharge Summary ---
Date of Service May 10, 2020 Admission HPI Per Admitting Provider HISTORY OF PRESENT ILLNESS: This is a 49-year-old female with past medical history significant for diet-controlled diabetes, hyperlipidemia, COPD, mild hypertension, chronic ischemic right MCA stroke with left spastic hemiplegia, GERD, atherosclerosis of aorta, depression, tobacco use disorder, complex partial seizures, anxiety who lives at home with her comes here because of increasing left sided weakness. The patient says she has stroke in 2016. She has since has some weakness in the left side and contractures in left extremities, but since about 2 weeks ago, the weakness is more, she also complains of on and off left facial droop. She normally walks independently without a cane or walker, but she thinks now she requires some support. She did not come earlier because of concern about COVID-19. Because it was not getting better and also she says she has some difficulty with speech came to ER today.But speech seems okay now. CT of the head was okay. Resting comfortably and hemodynamically stable. Complains of pain in the contractures and requests for pain medications. She also says she has some nausea, not able to eat much, ongoing for about a month now. She thinks she is dehydrated. Denies any fever, chills, no cough, no shortness of breath, no loss of sense of smell or taste. Has some headache. No blurred visions. No runny nose, no sore throat, no abdominal pain. Normal bowel and bladder movements. No rash. Discharge Data Allergies Allergy/AdvReac Type Severity Reaction Status Date / Time cephalexin [From Keflex] Allergy Unknown Hives Verified 05/07/20 06:23 codeine Allergy Unknown Hives Verified 05/07/20 06:23 hydromorphone Allergy Unknown Difficulty Verified 05/07/20 06:23 Breathing Penicillins Allergy Unknown Hives Verified 05/07/20 06:23 bupropion [From Wellbutrin] AdvReac Unknown Seizure Verified 05/07/20 06:23 Consultations 05/02/20 21:20 ED Decision to Admit Stat 05/03/20 00:59 Consult Case Management - Discharge Planning Routine Consult Case Management - Discharge Planning Routine 05/03/20 08:00 Consult Neurology Routine 05/03/20 10:47 Consult Pain Management Routine 05/03/20 10:48 Consult Orthopedic Surgery Routine Ordered Studies 05/02/20 20:33 CT head/brain wo con Stat 05/03/20 00:59 MR brain wo/w con Routine US carotid doppler BI Routine Discharge Plan Discharge Items Patient Disposition: Home - Self-Care Reason For Visit: LEFT SIDED WEAKNESS Discharge Diagnosis: History of stroke in the past Left Hand pain, left leg pain Elevated creatinine kinase Hyperlipidemia History of complex partial seizures History of mild chronic obstructive pulmonary disease Condition on Discharge: Good Activity: Per Instructions section Non-emergency contact: Primary Care Provider Call non-emergency contact if: you have any medication questions Follow-up/Referrals: Denia Rivera MD [Primary Care Provider] - Diet: Carb Consistent or DM2 and Heart Healthy Addtl Attending Provider Instructions: discharge medications sent electronically to [facility] [address] [place] [address] , [place] [address] patient should follow up with primary medical doctor for checking of creatinine kinase levels Addtl [employer] Provider Instructions: continue aspirin 81 mg daily and rosuvastatin 40 mg daily Neurology recommend restarting home Neurontin 300 mg TID and continue Baclofen 20 mg BID for spasticity as she believes the pain was contributing to her weakness. Follow up with Neurology as outpatient for spasticity in 8 weeks. patient should see primary medical doctor and follow up with Neurology [address] [place] [address] , [place] [address] at [facility] Pending Studies at Discharge: No Stand-Alone Forms: [facility] [employer], Smoking Cessation Medications and DC Order Prescriptions: New levetiracetam [Keppra] 500 mg Tablet 1,500 mg PO BID 30 Days Qty: 180 RF: 0 gabapentin 300 mg Capsule 300 mg PO TID 30 Days Qty: 90 RF: 0 Continued baclofen 20 mg tablet 20 mg PO TID RF: 0 omeprazole 20 mg capsule,delayed release(DR/EC) 20 mg PO BID RF: 0 lisinopril 20 mg Tablet 20 mg PO QAM RF: 0 aspirin [Aspir-81] 81 mg Tablet,Delayed Release (Dr/Ec) 81 mg PO QAM RF: 0 rosuvastatin 40 mg tablet 40 mg PO DAILY RF: 0 Discontinued levetiracetam 750 mg tablet 0 mg PO BID RF: 0 gabapentin 300 mg capsule 300 mg PO BID RF: 0 No Action lorazepam 1 mg tablet 1 mg PO BID PRN (Reason: Sleep or Pain) RF: 0 Discharge Orders: Discharge Order (Routine); Ordered 05/03/20 Ordered By: Brad Lion/Other Patient Handouts: Prediabetes, A1C Admission Data Admit Date/Time: 05/02/20 23:57 Attending Provider: Brad Morales Admit Provider: Abiodun Langston Primary Care Provider: Denia Rivera Other Providers: Abiodun Langston ; Jessica Ingram ; Daryl Boo Kathleen ; Federico Keys ; Jennifer Crook ; Cristian Banegas Other Interventions: Discharge Summary Assessment (RN) Last Done: 05/03/20 18:42 DC Date/Time DO NOT enter until pt leaves facility: 05/03/20 19:52
--- NOTE | 2020-05-10 10:49 | Orthopedic Consultation ---
Date of Consultation May 10, 2020 Assessment & Plan (1) Chronic pain of left upper extremity: patient was discharged prior to my ability to consult Present on Admission?: Yes History of Present Illness Attending Physician: Brad Morales MD Allergies Allergy/AdvReac Type Severity Reaction Status Date / Time cephalexin [From Keflex] Allergy Unknown Hives Verified 05/07/20 06:23 codeine Allergy Unknown Hives Verified 05/07/20 06:23 hydromorphone Allergy Unknown Difficulty Verified 05/07/20 06:23 Breathing Penicillins Allergy Unknown Hives Verified 05/07/20 06:23 bupropion [From Wellbutrin] AdvReac Unknown Seizure Verified 05/07/20 06:23 Home Medications Home Medications Medication Instructions Recorded Confirmed Type aspirin [Aspir-81] 81 mg PO QAM 09/03/19 05/07/20 History lisinopril 20 mg PO QAM 09/03/19 05/07/20 History baclofen 20 mg PO TID 01/19/20 05/07/20 History omeprazole 20 mg PO BID 01/19/20 05/07/20 History rosuvastatin 40 mg PO DAILY 05/02/20 05/07/20 History gabapentin 300 mg PO TID 30 Days #90 cap 05/03/20 05/07/20 Rx levetiracetam [Keppra] 1,500 mg PO BID 30 Days #180 tab 05/03/20 05/07/20 Rx lorazepam 1 mg PO BID PRN 05/06/20 05/07/20 History Patient History Medical History Anxiety Bipolar 1 disorder Fibromyalgia History of stroke (Acute) Surgical History No pertinent past surgical history Family History Other No pertinent family history Social History Smoking Status: Current every day smoker Tobacco Type: Cigarettes Hx Alcohol Use: Yes Alcohol type: beer Hx Substance Use: No Preferred Language: Iranian Communication Ability: Effective Visual Impairment: No Limitations Hearing Ability: Normal Beliefs That Will Affect Care: None marital status: Current Living Situation: Spouse current occupational status: unemployed Feels Safe at Home: Yes
== END 2020-05-03 19:52 | disposition home or self-care (01) | DRG 57 ==
LOC: ED 20:05 → 2S 23:57

== ENCOUNTER 2020-06-17 15:41 | Inpatient (IN) ==
[~2020-06-17 15:41] MED LIST: RAPID SEQUENCE INDUCTION BAG ONE
--- NOTE | 2020-06-17 16:09 | Emergency Department Note ---
Impression & Plan Unresponsive episode, History of CVA (cerebrovascular accident), Respiratory failure, Pupil dilation ED Provider Note NAME: GAIL ARREOLA AGE: 49 SEX: F : 1970 ARRIVES VIA: Ambulance INFORMANT: [ems] ED PROVIDER(S): [Darwin Hutson MD] First patient contact was when the ambulance brought her into the room. I did meet her in the room. CHIEF COMPLAINT: Unresponsive HISTORY OF PRESENT ILLNESS: The patient is a 49-year-old female who presents to the ER by EMS for an unresponsive episode. She was last seen well at [id number], an hour and a half ago. The patient's left the house at the request of his to olive picker a soda for her, when he returned, she seemed less responsive and within a very short timeframe became more and more unresponsive and sleepy. He was concerned and called EMS.. There was concern for potential overdose versus stroke. EMS did administer Narcan x2 intranasally. There was no response. Her pupils were noted to be quite dilated. The patient was breathing shallow. The patient was given some [id number] ventilations. The EMS team attempted to place an oral and nasal airway however, the patient did remove these devices. BSG was noted to be just over 100. The patient was noted to have some contraction deformities to her left upper extremity but these were by report chronic. Patient has had a previous stroke. She is on Keppra, no reported seizure activity. Given the circumstances, no further history obtainable. The patient is unresponsive. REVIEW OF SYSTEMS: Unobtainable given the unresponsive state. PMHx/PSHx: See Below SOCIAL HISTORY: See Below. PHYSICAL EXAM: GENERAL: Patient is in no acute distress. Quite somnolent/lethargic. HEENT: No acute trauma, normocephalic atraumatic, mucous membranes moist, no nasal congestion, no scleral icterus. Pupils are dilated and equal bilaterally. NECK: No stridor, no adenopathy, no meningismus, trachea is midline. LUNGS: Clear to auscultation bilaterally, no wheeze, no rhonchi, breath sounds equal. Shallow respiratory effort, decreased respiratory rate. HEART: Without murmurs gallops or rubs, regular rate and rhythm. ABDOMEN: Soft, nontender, bowel sounds positive, no hernias, no peritonitis. EXTREMITIES: No cyanosis or edema. There were some contracture deformities to the left upper extremity, no obvious acute trauma by my exam. There is an IO line in the left proximal humerus. NEUROLOGIC: There is no gag reflex. The patient responds to loud voice in that she opens her eyes. Minimal response to sternal rub. Pupils are large and dilated bilaterally, the pupils are equal bilaterally. SKIN: No rash, no jaundice, no diaphoresis. DIFFERENTIAL DIAGNOSIS: Infection, dehydration, metabolic abnormality, overdose, intracranial bleeding, stroke or TIA, hypo/hyperglycemia, electrolyte disturbance, anemia, hypoxia, cardiac sources, intracerebral event, toxicologic, neurologic, as well as other pathologies. EMERGENCY DEPARTMENT COURSE/PROCEDURES: ECG: Indication was unresponsive episode and possible stroke. The ECG shows a normal sinus rhythm with a rate of 70. There is no ST elevation, no PVCs. The QTc is 481. Continuous Cardiac Monitoring: An order was placed for continuous cardiac monitoring. The monitor shows a rate of 68 with normal sinus rhythm. Critical Care Note: I have personally spent greater than 66 minutes of critical care time in the direct management of this patient. This includes bedside care, interpretation of diagnostic studies, and testing, discussion with consultants, patient, and family members, and other required patient management activities. This 66 minutes is in excess of all separately billable procedures. Intubation: This procedure was performed by me. Patient received 6 mg of etomidate IV, 100 mg of succinylcholine IV. The patient was hyper oxygenated. Using rapid technique, the patient was intubated with a [place] two blade. Some suction was required. No complication. The endotracheal tube was placed at 21 centimeters at the the lips. Good O2 saturation noted afterwards. Good CO2 color change. Breath sounds equal bilaterally. Post intubation chest x-ray demonstrated the tube to be slightly high. The tube was advanced to 1 cm by respiratory care. MEDICAL DECISION MAKING: There is no leukocytosis or concerning anemia. There is a normal platelet count. No coagulopathy. ABG shows no acidosis, the PO2 was high, no CO2 retention. No significant electrolyte abnormality or kidney failure. No worrisome liver enzyme elevation. The patient appeared to be in a euthyroid state. ECG showed a sinus rhythm, no acute ischemia. Cardiac enzyme testing x1 is not consistent with acute cardiac injury. Urinalysis does not show infection. Urine tox does not show ecstasy. Alcohol level was undetectable. Chest film did not show pneumonia or CHF. Brain CT showed an old stroke, no acute bleed or mass-effect. A CT angiogram of the brain and neck were performed, there was some occasional narrowing but there was no thrombosis/vessel occlusion. No aneurysm. On exam, the patient presented unresponsive. She responded by opening her eyes to very loud noise. Minimal response to pain. There was no gag reflex and she had a decreased respiratory rate. The patient was aggressively managed given her circumstances. She was intubated to protect her airway and to address her respiratory failure. There were no complications with this procedure. The patient had 2 IVs initiated. We did use the left upper extremity in the right lower extremity. She received a liter of saline for hydration. She was placed on a propofol drip to help with sedation. The patient is stable. She is intubated. The cause for her presentation is unclear. I did speak to the at length. He does have concerns about possible overdose. This certainly would be a possibility with her dilated pu pils. Stroke was considered a possibility however, the story was not consistent with any weakness or slurred speech or any sudden change in her neurologic function. It was more consistent with a slow decline in her mental state. I do not think the patient is a candidate for TPA. I am not convinced this is a stroke although I suppose a midbrain stroke could cause her presentation. Overdose of course could cause her presentation as well. I did consider a seizure-like event with a post ictal phase however, no seizure activity was witnessed. I spoke to the at length, I talked to case management. I did speak with the bindery worker here at our hospital. I spoke with the on-call hospitalist. Admission is certainly warranted. Further work-up is warranted. Past Med/Surg History Medical History Anxiety Bipolar 1 disorder Fibromyalgia History of stroke Seizure disorder Surgical History History of cholecystectomy History of hysterectomy Family History (Updated 06/17/20 @ 19:21 by Nini Titus PA-C) Other Stroke Social History Smoking Status: Current every day smoker Tobacco Type: Cigarettes Hx Alcohol Use: Yes Alcohol type: beer Hx Substance Use: No Preferred Language: Polish Communication Ability: Effective Visual Impairment: No Limitations Hearing Ability: Normal Beliefs That Will Affect Care: None marital status: Current Living Situation: Spouse current occupational status: unemployed Feels Safe at Home: Yes Allergies Allergies Allergy/AdvReac Type Severity Reaction Status Date / Time cephalexin [From Keflex] Allergy Unknown Hives Verified 05/07/20 06:23 codeine Allergy Unknown Hives Verified 05/07/20 06:23 hydromorphone Allergy Unknown Difficulty Verified 05/07/20 06:23 Breathing Penicillins Allergy Unknown Hives Verified 05/07/20 06:23 bupropion [From Wellbutrin] AdvReac Unknown Seizure Verified 05/07/20 06:23 Home Meds Home Medications Medication Instructions Recorded Confirmed aspirin [Aspir-81] 81 mg PO QAM 09/03/19 06/17/20 lisinopril 20 mg PO QAM 09/03/19 06/17/20 baclofen 20 mg PO BID PRN 01/19/20 06/17/20 omeprazole 20 mg PO BID 01/19/20 06/17/20 rosuvastatin 40 mg PO DAILY 05/02/20 06/17/20 lorazepam 1 mg PO BID PRN 05/06/20 06/17/20 duloxetine 30 mg PO DAILY 06/17/20 06/17/20 fluticasone furoate-vilanterol 1 inh INHALATION DAILY 06/17/20 06/17/20 [Breo Ellipta] gabapentin See Rx Instructions .ROUTE .COMPLEX 06/17/20 06/17/20 levetiracetam 1,500 mg PO BID 06/17/20 06/17/20 Results & Data (ED) Vital Signs Vital Signs - 24 hr 06/17/20 15:30 06/17/20 15:50 06/17/20 15:54 Temperature 36.8 C Temperature Source Oral Pulse Rate 92 H 82 78 Pulse Rate from SpO2 Sensor 84 Respiratory Rate 12 18 Respiratory Effort / Characteristics Spontaneous Respiratory Depth Shallow Blood Pressure 139/87 139/87 Blood Pressure Mean 104 109 Blood Pressure Position Lying Pulse Oximetry 98 100 100 Oxygen Delivery Method Non-rebreather Fraction of Inspired Oxygen 60 Sepsis Recent Fever Within 48 Hours No Sepsis New/Unexplained Change in Mental Status Yes Sepsis Action Taken by Nursing No Action Required End-Tidal CO2 36 Pulse Oximetry Post Tiitration 06/17/20 15:56 06/17/20 16:00 06/17/20 16:15 Temperature Temperature Source Pulse Rate 101 H 88 73 Pulse Rate from SpO2 Sensor 101 H 88 70 Respiratory Rate Respiratory Effort / Characteristics Respiratory Depth Blood Pressure Blood Pressure Mean Blood Pressure Position Pulse Oximetry 100 100 100 Oxygen Delivery Method Fraction of Inspired Oxygen Sepsis Recent Fever Within 48 Hours Sepsis New/Unexplained Change in Mental Status Sepsis Action Taken by Nursing End-Tidal CO2 35 36 Pulse Oximetry Post Tiitration 06/17/20 16:16 06/17/20 16:20 06/17/20 16:30 Temperature Temperature Source Pulse Rate 73 66 Pulse Rate from SpO2 Sensor 72 65 Respiratory Rate 18 Respiratory Effort / Characteristics Respiratory Depth Blood Pressure 121/84 119/84 Blood Pressure Mean 92 91 Blood Pressure Position Pulse Oximetry 100 99 100 Oxygen Delivery Method Mechanical Vent Fraction of Inspired Oxygen Sepsis Recent Fever Within 48 Hours Sepsis New/Unexplained Change in Mental Status Sepsis Action Taken by Nursing End-Tidal CO2 36 33 Pulse Oximetry Post Tiitration 06/17/20 16:31 06/17/20 16:45 06/17/20 16:46 Temperature Temperature Source Pulse Rate 64 64 61 Pulse Rate from SpO2 Sensor 63 Respiratory Rate Respiratory Effort / Characteristics Respiratory Depth Blood Pressure 138/97 Blood Pressure Mean 108 Blood Pressure Position Pulse Oximetry 100 Oxygen Delivery Method Fraction of Inspired Oxygen Sepsis Recent Fever Within 48 Hours Sepsis New/Unexplained Change in Mental Status Sepsis Action Taken by Nursing End-Tidal CO2 33 Pulse Oximetry Post Tiitration 06/17/20 16:50 06/17/20 17:00 06/17/20 17:17 Temperature Temperature Source Pulse Rate 58 L Pulse Rate from SpO2 Sensor Respiratory Rate 18 Respiratory Effort / Characteristics Respiratory Depth Blood Pressure Blood Pressure Mean Blood Pressure Position Pulse Oximetry 100 100 100 Oxygen Delivery Method Fraction of Inspired Oxygen 50 40 40 Sepsis Recent Fever Within 48 Hours Sepsis New/Unexplained Change in Mental Status Sepsis Action Taken by Nursing End-Tidal CO2 37 Pulse Oximetry Post Tiitration 06/17/20 17:34 06/17/20 17:35 06/17/20 17:45 Temperature Temperature Source Pulse Rate 63 64 57 L Pulse Rate from SpO2 Sensor 63 65 58 L Respiratory Rate Respiratory Effort / Characteristics Respiratory Depth Blood Pressure 154/92 H 141/86 H Blood Pressure Mean 109 105 Blood Pressure Position Pulse Oximetry 100 100 100 Oxygen Delivery Method Fraction of Inspired Oxygen Sepsis Recent Fever Within 48 Hours Sepsis New/Unexplained Change in Mental Status Sepsis Action Taken by Nursing End-Tidal CO2 39 39 36 Pulse Oximetry Post Tiitration 06/17/20 17:46 06/17/20 18:00 06/17/20 18:01 Temperature Temperature Source Pulse Rate 55 L 55 L 52 L Pulse Rate from SpO2 Sensor 56 L 53 L Respiratory Rate Respiratory Effort / Characteristics Respiratory Depth Blood Pressure 118/81 Blood Pressure Mean 95 Blood Pressure Position Pulse Oximetry 100 100 Oxygen Delivery Method Fraction of Inspired Oxygen Sepsis Recent Fever Within 48 Hours Sepsis New/Unexplained Change in Mental Status Sepsis Action Taken by Nursing End-Tidal CO2 36 34 34 Pulse Oximetry Post Tiitration 06/17/20 18:09 06/17/20 18:15 06/17/20 18:30 Temperature Temperature Source Pulse Rate 53 L 55 L Pulse Rate from SpO2 Sensor 54 L 54 L Respiratory Rate Respiratory Effort / Characteristics Respiratory Depth Blood Pressure 112/78 126/86 Blood Pressure Mean 89 103 Blood Pressure Position Pulse Oximetry 100 100 Oxygen Delivery Method Mechanical Vent Mechanical Vent Mechanical Vent Fraction of Inspired Oxygen Sepsis Recent Fever Within 48 Hours Sepsis New/Unexplained Change in Mental Status Sepsis Action Taken by Nursing End-Tidal CO2 33 33 Pulse Oximetry Post Tiitration 100 06/17/20 18:45 06/17/20 19:00 06/17/20 19:15 Temperature Temperature Source Pulse Rate 55 L 60 57 L Pulse Rate from SpO2 Sensor 56 L 63 57 L Respiratory Rate Respiratory Effort / Characteristics Respiratory Depth Blood Pressure 135/88 145/97 H 140/97 Blood Pressure Mean 102 112 107 Blood Pressure Position Pulse Oximetry 100 100 100 Oxygen Delivery Method Mechanical Vent Mechanical Vent Mechanical Vent Fraction of Inspired Oxygen Sepsis Recent Fever Within 48 Hours Sepsis New/Unexplained Change in Mental Status Sepsis Action Taken by Nursing End-Tidal CO2 31 31 34 Pulse Oximetry Post Tiitration Home Medications Current Medication List: was personally reviewed by me Laboratory Data Attestation: I reviewed the patient's lab results. Result diagrams: 06/17/20 15:09 06/17/20 15:09 Lab Results 06/17/20 06/17/20 06/17/20 Range/Units 15:09 15:09 15:09 WBC 7.79 (4.8-10.8) K/uL RBC 4.52 (4.2-5.4) M/uL Hgb 12.6 (12.0-16.0) g/dL POC Hgb (12.0-16.0) g/dl Hct 38.8 (37-47) % POC Hct (37-47) % MCV 85.8 (80-100) fL MCH 27.9 (25-34) pg MCHC 32.5 (32-36) g/dL RDW Std Deviation 42.6 (36.4-46.3) fL RDW Coeff of Damian 13.5 (11.5-14.5) % Plt Count 192 (130-400) K/uL MPV 11.4 H (7.4-10.4) fL Immature Gran % (Auto) 0.4 % Neut % (Auto) 50.4 % Lymph % (Auto) 43.1 % [place] % (Auto) 5.0 % Eos % (Auto) 1.0 % Baso % (Auto) 0.1 % Neut # (Auto) 3.92 (1.4-6.5) K/uL Lymph # (Auto) 3.36 (1.2-3.4) K/uL [place] # (Auto) 0.39 (0.11-0.59) K/uL Eos # (Auto) 0.08 (0-0.5) K/uL Baso # (Auto) 0.01 (0-0.2) K/uL Immature Gran # (Auto) 0.03 H (0.00-0.02) K/uL ESR (0-21) mm/hr PT 10.6 (9.0-12.0) Seconds INR 1.0 (0.9-1.1) APTT 22.8 (21.0-31.0) Seconds PTT Ratio 0.8 ABG pH (7.35-7.45) ABG pCO2 (35-46) mmHg ABG pO2 (80-95) mmHg ABG HCO3 (19-24) mmol/L ABG O2 Saturation (90-95) % ABG Base Excess (-9-1.8) mEq/L Joseph Test (Pos) Barometric Pressure mm/Hg Oxygen Given POC Sodium (135-144) mmol/L Sodium 143 (136-145) mmol/L POC Potassium (3.3-5.0) mmol/L Potassium 4.1 (3.5-5.1) mmol/L POC Chloride (101-112) mmol/L Chloride 107 (98-107) mmol/L Carbon Dioxide 29 (21-32) mmol/L POC Total CO2 (24-31) mmol/L Anion Gap 7.0 (3-11) POC Anion Gap (16-25) mmol/L POC BUN (7-18) mg/dl BUN 9 (7-18) mg/dl Creatinine 0.77 (0.6-1.2) mg/dl POC Creatinine (0.6-1.3) mg/dl Est Cr Clr Drug Dosing Not Reportable Est GFR ( Amer) 103.6 Est GFR (Non-Af Amer) 89.4 BUN/Creatinine Ratio 11.6 (10-20) Glucose 106 H (70-99) mg/dl POC Glucose (other) (70-99) mg/dl Calcium 9.1 (8.5-10.1) mg/dl POC Ioniz Calcium Don (1.12-1.32) mmol/l Magnesium 2.1 (1.8-2.4) mg/dl Total Bilirubin 0.3 (0.2-1) mg/dl AST 23 (15-37) U/L ALT 24 (12-78) U/L Alkaline Phosphatase 58 (45-117) U/L Troponin I < 0.015 (0-0.045) ng/ml C-Reactive Protein (0-0.29) mg/dl Total Protein 7.1 (6.4-8.2) gm/dl Albumin 3.6 (3.4-5.0) gm/dl Globulin 3.5 (2.5-4.0) gm/dl Albumin/Globulin Ratio 1.0 (0.9-2) TSH 0.750 (0.300-4.500) uIu/ml Urine Color Urine Appearance (Clear) Urine pH (4.5-7.5) Ur Specific [place] (1.000-1.030) Urine Protein (Negative) Urine Glucose (UA) (Negative) Urine Ketones (Negative) Urine Blood (Negative) Urine Nitrite (Negative) Urine Bilirubin (Negative) Urine Urobilinogen (Negative) Ur Leukocyte Esterase (Negative) Urine Opiates Screen (Neg) Ur Methadone, Qual (Neg) Urine Barbiturates (Neg) Ur Phencyclidine (PCP) (Neg) U Amphetamin/Meth Scrn (Neg) MDMA (Ecstasy) Screen (Neg) U Benzodiazepines Scrn (Neg) Ur Cocaine Metabolite (Neg) U Marijuana (THC) Screen (Neg) Ethyl Alcohol mg/dL (0-3) mg/dl 06/17/20 06/17/20 06/17/20 Range/Units 15:09 15:09 16:15 WBC (4.8-10.8) K/uL RBC (4.2-5.4) M/uL Hgb (12.0-16.0) g/dL POC Hgb 12.6 (12.0-16.0) g/dl Hct (37-47) % POC Hct 37 (37-47) % MCV (80-100) fL MCH (25-34) pg MCHC (32-36) g/dL RDW Std Deviation (36.4-46.3) fL RDW Coeff of Damian (11.5-14.5) % Plt Count (130-400) K/uL MPV (7.4-10.4) fL Immature Gran % (Auto) % Neut % (Auto) % Lymph % (Auto) % [place] % (Auto) % Eos % (Auto) % Baso % (Auto) % Neut # (Auto) (1.4-6.5) K/uL Lymph # (Auto) (1.2-3.4) K/uL [place] # (Auto) (0.11-0.59) K/uL Eos # (Auto) (0-0.5) K/uL Baso # (Auto) (0-0.2) K/uL Immature Gran # (Auto) (0.00-0.02) K/uL ESR 12 (0-21) mm/hr PT (9.0-12.0) Seconds INR (0.9-1.1) APTT (21.0-31.0) Seconds PTT Ratio ABG pH (7.35-7.45) ABG pCO2 (35-46) mmHg ABG pO2 (80-95) mmHg ABG HCO3 (19-24) mmol/L ABG O2 Saturation (90-95) % ABG Base Excess (-9-1.8) mEq/L Joseph Test (Pos) Barometric Pressure mm/Hg Oxygen Given POC Sodium 141 (135-144) mmol/L Sodium (136-145) mmol/L POC Potassium 4.1 (3.3-5.0) mmol/L Potassium (3.5-5.1) mmol/L POC Chloride 104 (101-112) mmol/L Chloride (98-107) mmol/L Carbon Dioxide (21-32) mmol/L POC Total CO2 27 (24-31) mmol/L Anion Gap (3-11) POC Anion Gap 16.0 (16-25) mmol/L POC BUN 8 (7-18) mg/dl BUN (7-18) mg/dl Creatinine (0.6-1.2) mg/dl POC Creatinine 0.7 (0.6-1.3) mg/dl Est Cr Clr Drug Dosing Est GFR ( Amer) Est GFR (Non-Af Amer) BUN/Creatinine Ratio (10-20) Glucose (70-99) mg/dl POC Glucose (other) 111 H (70-99) mg/dl Calcium (8.5-10.1) mg/dl POC Ioniz Calcium Don 1.15 (1.12-1.32) mmol/l Magnesium (1.8-2.4) mg/dl Total Bilirubin (0.2-1) mg/dl AST (15-37) U/L ALT (12-78) U/L Alkaline Phosphatase (45-117) U/L Troponin I (0-0.045) ng/ml C-Reactive Protein < 0.29 (0-0.29) mg/dl Total Protein (6.4-8.2) gm/dl Albumin (3.4-5.0) gm/dl Globulin (2.5-4.0) gm/dl Albumin/Globulin Ratio (0.9-2) TSH (0.300-4.500) uIu/ml Urine Color Urine Appearance (Clear) Urine pH (4.5-7.5) Ur Specific [place] (1.000-1.030) Urine Protein (Negative) Urine Glucose (UA) (Negative) Urine Ketones (Negative) Urine Blood (Negative) Urine Nitrite (Negative) Urine Bilirubin (Negative) Urine Urobilinogen (Negative) Ur Leukocyte Esterase (Negative) Urine Opiates Screen (Neg) Ur Methadone, Qual (Neg) Urine Barbiturates (Neg) Ur Phencyclidine (PCP) (Neg) U Amphetamin/Meth Scrn (Neg) MDMA (Ecstasy) Screen (Neg) U Benzodiazepines Scrn (Neg) Ur Cocaine Metabolite (Neg) U Marijuana (THC) Screen (Neg) Ethyl Alcohol mg/dL (0-3) mg/dl 06/17/20 06/17/20 06/17/20 Range/Units 16:31 16:31 16:42 WBC (4.8-10.8) K/uL RBC (4.2-5.4) M/uL Hgb (12.0-16.0) g/dL POC Hgb (12.0-16.0) g/dl Hct (37-47) % POC Hct (37-47) % MCV (80-100) fL MCH (25-34) pg MCHC (32-36) g/dL RDW Std Deviation (36.4-46.3) fL RDW Coeff of Damian (11.5-14.5) % Plt Count (130-400) K/uL MPV (7.4-10.4) fL Immature Gran % (Auto) % Neut % (Auto) % Lymph % (Auto) % [place] % (Auto) % Eos % (Auto) % Baso % (Auto) % Neut # (Auto) (1.4-6.5) K/uL Lymph # (Auto) (1.2-3.4) K/uL [place] # (Auto) (0.11-0.59) K/uL Eos # (Auto) (0-0.5) K/uL Baso # (Auto) (0-0.2) K/uL Immature Gran # (Auto) (0.00-0.02) K/uL ESR (0-21) mm/hr PT (9.0-12.0) Seconds INR (0.9-1.1) APTT (21.0-31.0) Seconds PTT Ratio ABG pH (7.35-7.45) ABG pCO2 (35-46) mmHg ABG pO2 (80-95) mmHg ABG HCO3 (19-24) mmol/L ABG O2 Saturation (90-95) % ABG Base Excess (-9-1.8) mEq/L Joseph Test (Pos) Barometric Pressure mm/Hg Oxygen Given POC Sodium (135-144) mmol/L Sodium (136-145) mmol/L POC Potassium (3.3-5.0) mmol/L Potassium (3.5-5.1) mmol/L POC Chloride (101-112) mmol/L Chloride (98-107) mmol/L Carbon Dioxide (21-32) mmol/L POC Total CO2 (24-31) mmol/L Anion Gap (3-11) POC Anion Gap (16-25) mmol/L POC BUN (7-18) mg/dl BUN (7-18) mg/dl Creatinine (0.6-1.2) mg/dl POC Creatinine (0.6-1.3) mg/dl Est Cr Clr Drug Dosing Est GFR ( Amer) Est GFR (Non-Af Amer) BUN/Creatinine Ratio (10-20) Glucose (70-99) mg/dl POC Glucose (other) (70-99) mg/dl Calcium (8.5-10.1) mg/dl POC Ioniz Calcium Don (1.12-1.32) mmol/l Magnesium (1.8-2.4) mg/dl Total Bilirubin (0.2-1) mg/dl AST (15-37) U/L ALT (12-78) U/L Alkaline Phosphatase (45-117) U/L Troponin I (0-0.045) ng/ml C-Reactive Protein (0-0.29) mg/dl Total Protein (6.4-8.2) gm/dl Albumin (3.4-5.0) gm/dl Globulin (2.5-4.0) gm/dl Albumin/Globulin Ratio (0.9-2) TSH (0.300-4.500) uIu/ml Urine Color Yellow Urine Appearance Clear (Clear) Urine pH 5.5 (4.5-7.5) Ur Specific [place] 1.016 (1.000-1.030) Urine Protein Negative (Negative) Urine Glucose (UA) Negative (Negative) Urine Ketones Negative (Negative) Urine Blood Negative (Negative) Urine Nitrite Negative (Negative) Urine Bilirubin Negative (Negative) Urine Urobilinogen Negative (Negative) Ur Leukocyte Esterase Negative (Negative) Urine Opiates Screen Neg (Neg) Ur Methadone, Qual Neg (Neg) Urine Barbiturates Neg (Neg) Ur Phencyclidine (PCP) Neg (Neg) U Amphetamin/Meth Scrn Neg (Neg) MDMA (Ecstasy) Screen Pos H (Neg) U Benzodiazepines Scrn Neg (Neg) Ur Cocaine Metabolite Neg (Neg) U Marijuana (THC) Screen Neg (Neg) Ethyl Alcohol mg/dL < 3.0 (0-3) mg/dl 06/17/20 Range/Units 16:42 WBC (4.8-10.8) K/uL RBC (4.2-5.4) M/uL Hgb (12.0-16.0) g/dL POC Hgb (12.0-16.0) g/dl Hct (37-47) % POC Hct (37-47) % MCV (80-100) fL MCH (25-34) pg MCHC (32-36) g/dL RDW Std Deviation (36.4-46.3) fL RDW Coeff of Damian (11.5-14.5) % Plt Count (130-400) K/uL MPV (7.4-10.4) fL Immature Gran % (Auto) % Neut % (Auto) % Lymph % (Auto) % [place] % (Auto) % Eos % (Auto) % Baso % (Auto) % Neut # (Auto) (1.4-6.5) K/uL Lymph # (Auto) (1.2-3.4) K/uL [place] # (Auto) (0.11-0.59) K/uL Eos # (Auto) (0-0.5) K/uL Baso # (Auto) (0-0.2) K/uL Immature Gran # (Auto) (0.00-0.02) K/uL ESR (0-21) mm/hr PT (9.0-12.0) Seconds INR (0.9-1.1) APTT (21.0-31.0) Seconds PTT Ratio ABG pH 7.42 (7.35-7.45) ABG pCO2 42 (35-46) mmHg ABG pO2 240 H (80-95) mmHg ABG HCO3 27 H (19-24) mmol/L ABG O2 Saturation 99.7 H (90-95) % ABG Base Excess 2.4 H (-9-1.8) mEq/L Joseph Test POS (Pos) Barometric Pressure 734.5 mm/Hg Oxygen Given 60% O2 POC Sodium (135-144) mmol/L Sodium (136-145) mmol/L POC Potassium (3.3-5.0) mmol/L Potassium (3.5-5.1) mmol/L POC Chloride (101-112) mmol/L Chloride (98-107) mmol/L Carbon Dioxide (21-32) mmol/L POC Total CO2 (24-31) mmol/L Anion Gap (3-11) POC Anion Gap (16-25) mmol/L POC BUN (7-18) mg/dl BUN (7-18) mg/dl Creatinine (0.6-1.2) mg/dl POC Creatinine (0.6-1.3) mg/dl Est Cr Clr Drug Dosing Est GFR ( Amer) Est GFR (Non-Af Amer) BUN/Creatinine Ratio (10-20) Glucose (70-99) mg/dl POC Glucose (other) (70-99) mg/dl Calcium (8.5-10.1) mg/dl POC Ioniz Calcium Don (1.12-1.32) mmol/l Magnesium (1.8-2.4) mg/dl Total Bilirubin (0.2-1) mg/dl AST (15-37) U/L ALT (12-78) U/L Alkaline Phosphatase (45-117) U/L Troponin I (0-0.045) ng/ml C-Reactive Protein (0-0.29) mg/dl Total Protein (6.4-8.2) gm/dl Albumin (3.4-5.0) gm/dl Globulin (2.5-4.0) gm/dl Albumin/Globulin Ratio (0.9-2) TSH (0.300-4.500) uIu/ml Urine Color Urine Appearance (Clear) Urine pH (4.5-7.5) Ur Specific [place] (1.000-1.030) Urine Protein (Negative) Urine Glucose (UA) (Negative) Urine Ketones (Negative) Urine Blood (Negative) Urine Nitrite (Negative) Urine Bilirubin (Negative) Urine Urobilinogen (Negative) Ur Leukocyte Esterase (Negative) Urine Opiates Screen (Neg) Ur Methadone, Qual (Neg) Urine Barbiturates (Neg) Ur Phencyclidine (PCP) (Neg) U Amphetamin/Meth Scrn (Neg) MDMA (Ecstasy) Screen (Neg) U Benzodiazepines Scrn (Neg) Ur Cocaine Metabolite (Neg) U Marijuana (THC) Screen (Neg) Ethyl Alcohol mg/dL (0-3) mg/dl Administered Medications Propofol (Diprivan) 1,000 mg in 100 mls @ 3.888 mls/hr IV .Q24H [facility]; Protocol Stop: 06/20/20 15:59 Last Titration: 06/17/20 19:04 Dose: 12 mcg/kg/min, 3.9 mls/hr Documented by: [id number] Titration: 06/17/20 17:43 Dose: 10 mcg/kg/min, 3.2 mls/hr Documented by: [id number] Admin: 06/17/20 17:15 Dose: 5 mcg/kg/min, 1.6 mls/hr Documented by: [id number] Cosigned by: [id number] Discontinued Medications Sodium Chloride (Nss 1000ml) 1,000 mls @ 999 mls/hr IV .Q1H1M [facility] Stop: 06/17/20 17:15 Last Infusion: 06/17/20 18:03 Dose: 0 mls/hr Documented by: [id number] Admin: 06/17/20 16:55 Dose: 999 mls/hr Documented by: [id number] Ioversol (Optiray 320 125ml) 119 ml IV ONCE ONE Stop: 06/17/20 17:02 Last Admin: 06/17/20 17:06 Dose: 119 ml Documented by: [id number] Miscellaneous (Rapid Sequence Induction Bag) Confirm Administered Dose 1 ea .ROUTE .STK-MED ONE Stop: 06/17/20 15:39 Last Admin: 06/17/20 17:44 Dose: 1 ea Documented by: [id number] Imaging Data Radiologist's Impression: XR chest 1V portable HISTORY: 49 years-old Female intubation acute respiratory failure COMPARISON: Chest radiograph 05/05/2020 TECHNIQUE: Supine portable AP view of the chest. FINDINGS: Endotracheal tube terminates 2.5 cm superior to the isa. Cardiomediastinal and hilar silhouettes are within normal limits. No pneumothorax, pleural effusion, airspace consolidation or overt pulmonary edema. Degenerative changes of the shoulders and spine. Cholecystectomy. Mild gaseous distention of the colon. IMPRESSION: 1. Endotracheal tube terminates 2.5 cm superior to the isa. 2. The lungs appear clear. CT head/brain wo con CLINICAL HISTORY: 49 years-old Female with poss bleed. Acutely altered mental status with respiratory failure TECHNIQUE: Multiple axial CT images of the head were obtained without contrast. A dose lowering technique was utilized adhering to the principles of ALARA. COMPARISON: EGA had neck of same day, head CT 05/02/2020, MRI brain 05/03/2020. FINDINGS: No acute intracranial hemorrhage, midline shift, intracranial mass, hydrocephalus, territorial ischemia or abnormal extra-axial collection. Multiple areas of remote infarct with encephalomalacia redemonstrated throughout the ri ght cerebral hemisphere with ex vacuo ventriculomegaly of the right lateral ventricle, unchanged. The calvarium is intact. Secretions are noted within the nasopharynx. Partially imaged endotracheal tube. The paranasal sinuses, mastoid air cells, and middle ear cavities are clear. IMPRESSION: Chronic findings as above without acute intracranial abnormality. CT angio neck with con, CT angio head w con CLINICAL HISTORY: 49 years-old Female with poss stroke. Acute strokelike symptoms COMPARISON STUDY: Head CT of same day TECHNIQUE: Following the IV administration of 119 mL of Optiray 320, CT angiogram of the head and neck was performed from the aortic arch to the skull apex. Images are reviewed in the axial, sagittal, and coronal planes. 3-D MIPS images are created and assessed. IV contrast was administered without complication. All measurements were calculated based on NASCET criteria. A dose lowering technique was utilized adhering to the principles of ALARA. CT DOSE: 1022.94 mGy.cm FINDINGS: Imaged opacified pulmonary artery is unremarkable. Three-vessel morphology of the thoracic aortic arch. There is patency of the innominate and image bilateral subclavian arteries. Patent common and internal carotid arteries. Mild mixed plaque of the left carotid bulb results in less than 50% luminal narrowing. Moderate focal luminal narrowing involves the proximal right M1 segment, image 354 series 4. The left middle cerebral artery is patent. Anterior cerebral arteries are patent and unremarkable. Dominant left vertebral artery. Developmentally diminutive right vertebral artery probably terminates into the right PICA. Diminutive and patent basilar artery with origin of the left posterior cerebral artery. The bilateral posterior cerebral arteries are widely patent. The cerebral venous sinuses are patent. No abnormal intracranial enhancement. Multifocal areas of encephalomalacia throughout the right cerebral hemisphere from remote infarct redemonstrated. Endotracheal tube is noted within the trachea, distal tip not imaged on the axial series. Tracheal secretions. Enteric tube is noted within the esophagus, distal tip not imaged. No pneumothorax. Areas of nonspecific subcutaneous emphysema of the anterior right upper chest. Heterogeneous thyroid. Moderate secretions within the oral pharynx. Anterior fusion hardware C4-C6 appears intact. No acute fracture. IMPRESSION: 1. Moderate focal area of narrowing involves the proximal right M1 segment. 2. Mild mixed plaque of the left carotid bulb and proximal left ICA results in less than 50% luminal narrowing. 3. Otherwise unremarkable CTA of the head and neck. 4. Moderate secretions within the airway with partially imaged endotracheal and enteric tubes. 5. Encephalomalacia from multiple remote right cerebral hemisphere infarct redemonstrated. Blood Pressure Blood Pressure Findings: Elevated blood pressure Blood Pressure Disposition: further management by hospitalist Discharge Plan Visit Data Chief Complaint: Altered Mental Status Stated Complaint: OVERDOSE ED Provider: Darwin Hutson Discharge Problem: Unresponsive episode, History of CVA (cerebrovascular accident), Respiratory failure, Pupil dilation Patient Disposition: Admitted As Inpatient Condition: Serious Discharge Instructions Interventions: ED Discharge Assessment Last Done: 06/17/20 19:27 Forms Stand Alone Forms: [employer] [facility] [email or web address] Prescriptions Prescriptions: No Action baclofen 20 mg tablet 20 mg PO BID PRN (Reason: Muscle Spasm) RF: 0 omeprazole 20 mg capsule,delayed release(DR/EC) 20 mg PO BID RF: 0 lorazepam 1 mg tablet 1 mg PO BID PRN (Reason: Sleep or Pain/Muscle Spasm) RF: 0 lisinopril 20 mg Tablet 20 mg PO QAM RF: 0 aspirin [Aspir-81] 81 mg Tablet,Delayed Release (Dr/Ec) 81 mg PO QAM RF: 0 rosuvastatin 40 mg tablet 40 mg PO DAILY RF: 0 gabapentin 300 mg capsule See Rx Instructions .ROUTE .COMPLEX RF: 0 levetiracetam 750 mg tablet 1,500 mg PO BID RF: 0 duloxetine 30 mg capsule,delayed release(DR/EC) 30 mg PO DAILY RF: 0 Breo Ellipta 100-25 mcg/dose blister with device 1 inh INHALATION DAILY RF: 0 Referrals Referrals: Denia Rivera MD [Primary Care Provider] - Discharge Problem: Respiratory failure Qualifiers: Chronicity: acute Respiratory failure complication: unspecified whether with hypoxia or hypercapnia Qualified Code(s): J96.00 - Acute respiratory failure, unspecified whether with hypoxia or hypercapnia
[2020-06-17] MEDS ORDERED: SODIUM CHLORIDE 0.9% 1000ML 1,000 ML IV SCH (16:15)
--- NOTE | 2020-06-17 16:17 | XRay Report ---
XR chest 1V portable HISTORY: 49 years-old Female intubation acute respiratory failure COMPARISON: Chest radiograph 05/05/2020 TECHNIQUE: Supine portable AP view of the chest. FINDINGS: Endotracheal tube terminates 2.5 cm superior to the isa. Cardiomediastinal and hilar silhouettes a re within normal limits. No pneumothorax, pleural effusion, airspace consolidation or overt pulmonary edema. Degenerative changes of the shoulders and spine. Cholecystectomy. Mild gaseous distention of the colon. IMPRESSION: 1. Endotracheal tube terminates 2.5 cm superior to the isa. 2. The lungs appear clear. ACT 112: Negative or not required by law. The above report was generated using voice recognition software. It may contain grammatical, syntax o r spelling errors. Electronically signed by: Quang Isaacs M.D. 06/17/2020 4:16 PM
[2020-06-17 16:19] LABS: Basophils # (auto) 0.01 K/uL (0-0.2); Basophils % (auto) 0.1 %; Eosinophils # (auto) 0.08 K/uL (0-0.5); Hematocrit (blood only) 38.8 % (37-47); Hemoglobin 12.6 g/dL (12.0-16.0); Immature Granulocytes # (auto) 0.03 K/uL (0.00-0.02); Immature Granulocytes % (auto) 0.4 %; Lymphocytes # (auto) 3.36 K/uL (1.2-3.4); Lymphocytes % (auto) 43.1 %; Mean Corpuscular Hemoglobin 27.9 pg (25-34); Mean Corpuscular Hgb Conc 32.5 g/dL (32-36); Mean Corpuscular Volume 85.8 fL (80-100); Mean Platelet Volume 11.4 fL (7.4-10.4); Monocytes # (auto) 0.39 K/uL (0.11-0.59); Neutrophils # (auto) 3.92 K/uL (1.4-6.5); Neutrophils % (auto) 50.4 %; Platelet Count 192 K/uL (130-400); RDW Coefficient of Variation 13.5 % (11.5-14.5); RDW Standard Deviation 42.6 fL (36.4-46.3); Red Blood Count 4.52 M/uL (4.2-5.4); White Blood Count 7.79 K/uL (4.8-10.8)
[2020-06-17 16:27] LABS: iSTAT Creatinine 0.7 mg/dl (0.6-1.3); iSTAT Hemoglobin 12.6 g/dl (12.0-16.0); iSTAT Ionized Calcium 1.15 mmol/l (1.12-1.32); iSTAT Potassium 4.1 mmol/L (3.3-5.0)
[2020-06-17] MEDS ORDERED: SUCCINYLCHOLINE CHLORIDE 20 MG/ML 10 ML VIAL IV ONE (16:29)
[2020-06-17] MEDS ORDERED: ETOMIDATE 2 MG/ML 20 ML VIAL IV ONE (16:29)
[2020-06-17 16:30] LABS: Partial Thromboplastin Ratio 0.8; Partial Thromboplastin Time 22.8 Seconds (21.0-31.0); Prothrombin Time 10.6 Seconds (9.0-12.0)
[2020-06-17 16:37] LABS: Alanine Aminotransferase 24 U/L (12-78); Albumin Level 3.6 gm/dl (3.4-5.0); Aspartate Aminotransferase 23 U/L (15-37); BUN Creatinine Ratio 11.6 (10-20); Blood Urea Nitrogen 9 mg/dl (7-18); Calcium 9.1 mg/dl (8.5-10.1); Carbon Dioxide 29 mmol/L (21-32); Chloride 107 mmol/L (98-107); Est GFR (African American) 103.6; Est GFR (Non-African American) 89.4; Glucose 106 mg/dl (70-99); Magnesium 2.1 mg/dl (1.8-2.4); Potassium 4.1 mmol/L (3.5-5.1); Sodium 143 mmol/L (136-145)
[2020-06-17 16:48] LABS: Alkaline Phosphatase 58 U/L (45-117); Bilirubin,Total 0.3 mg/dl (0.2-1); Globulin 3.5 gm/dl (2.5-4.0); Total Protein 7.1 gm/dl (6.4-8.2); Troponin I < 0.015 ng/ml (0-0.045)
[2020-06-17 16:48] LABS: Appearance Urine Clear (Clear); Bilirubin Urine Negative (Negative); Blood Urine Negative (Negative); Color Urine Yellow; Glucose Urine UA Negative (Negative); Ketones Urine Negative (Negative); Leukocyte Esterase Urine Negative (Negative); Nitrite Urine Negative (Negative); Protein Urine Negative (Negative); Specific Gravity Urine 1.016 (1.000-1.030); Urobilinogen Urine Negative (Negative); pH Urine 5.5 (4.5-7.5)
[2020-06-17 17:00] LABS: Base Excess ABG 2.4 mEq/L (-9-1.8); HCO3 ABG 27 mmol/L (19-24); Oxygen Saturation ABG 99.7 % (90-95); PCO2 ABG 42 mmHg (35-46); PO2 ABG 240 mmHg (80-95); pH ABG 7.42 (7.35-7.45)
[2020-06-17 17:01] LABS: Allen Test POS (Pos)
[2020-06-17] MEDS ORDERED: OPTIRAY 320 125ml IV ONE (17:01)
[2020-06-17] MEDS: propofoL 1,000 MG/100 ML VIAL IV SCH (17:15)
[2020-06-17 17:16] LABS: Amphetamines+Metham, Urine Neg (Neg); Barbiturates, Urine Neg (Neg); Benzodiazepine, Urine Neg (Neg); Cocaine, Urine Neg (Neg); MDMA (Ecstacy), Urine Pos (Neg); Methadone, Urine Neg (Neg); Opiate, Urine Neg (Neg); Phencyclidine, Urine Neg (Neg)
--- NOTE | 2020-06-17 17:39 | CT Scan Report ---
CT head/brain wo con CLINICAL HISTORY: 49 years-old Female with poss bleed. Acutely altered mental status with respirator y failure TECHNIQUE: Multiple axial CT images of the head were obtained without contrast. A dose lowering tech nique was utilized adhering to the principles of ALARA. COMPARISON: EGA had neck of same day, head CT 05/02/2020, MRI brain 05/03/2020. FINDINGS: No acute intracranial hemorrhage, midline shift, intracranial mass, hydrocephalus, territorial ischem ia or abnormal extra-axial collection. Multiple areas of remote infarct with encephalomalacia redemon strated throughout the right cerebral hemisphere with ex vacuo ventriculomegaly of the right lateral ventricle, unchanged. The calvarium is intact. Secretions are noted within the nasopharynx. Partially imaged endotracheal t ube. The paranasal sinuses, mastoid air cells, and middle ear cavities are clear. IMPRESSION: Chronic findings as above without acute intracranial abnormality. ACT 112: Negative or not required by law. The above report was generated using voice recognition software. It may contain grammatical, syntax o r spelling errors. Electronically signed by: Quang Isaacs M.D. 06/17/2020 5:38 PM
--- NOTE | 2020-06-17 17:54 | CT Scan Report ---
CT angio neck with con, CT angio head w con CLINICAL HISTORY: 49 years-old Female with poss stroke. Acute strokelike symptoms COMPARISON STUDY: Head CT of same day TECHNIQUE: Following the IV administration of 119 mL of Optiray 320, CT angiogram of the head and nec k was performed from the aortic arch to the skull apex. Images are reviewed in the axial, sagittal, a nd coronal planes. 3-D MIPS images are created and assessed. IV contrast was administered without com plication. All measurements were calculated based on NASCET criteria. A dose lowering technique was utilized adhering to the principles of ALARA. CT DOSE: 1022.94 mGy.cm FINDINGS: Imaged opacified pulmonary artery is unremarkable. Three-vessel morphology of the thoracic aortic arc h. There is patency of the innominate and image bilateral subclavian arteries. Patent common and inte rnal carotid arteries. Mild mixed plaque of the left carotid bulb results in less than 50% luminal na rrowing. Moderate focal luminal narrowing involves the proximal right M1 segment, image 354 series 4. The left middle cerebral artery is patent. Anterior cerebral arteries are patent and unremarkable. D ominant left vertebral artery. Developmentally diminutive right vertebral artery probably terminates into the right PICA. Diminutive and patent basilar artery with origin of the left posterior cer ebral artery. The bilateral posterior cerebral arteries are widely patent. The cerebral venous sinuse s are patent. No abnormal intracranial enhancement. Multifocal areas of encephalomalacia throughout t he right cerebral hemisphere from remote infarct redemonstrated. Endotracheal tube is noted within the trachea, distal tip not imaged on the axial series. Tracheal se cretions. Enteric tube is noted within the esophagus, distal tip not imaged. No pneumothorax. Areas o f nonspecific subcutaneous emphysema of the anterior right upper chest. Heterogeneous thyroid. Modera te secretions within the oral pharynx. Anterior fusion hardware C4-C6 appears intact. No acute fractu re. IMPRESSION: 1. Moderate focal area of narrowing involves the proximal right M1 segment. 2. Mild mixed plaque of the left carotid bulb and proximal left ICA results in less than 50% luminal narrowing. 3. Otherwise unremarkable CTA of the head and neck. 4. Moderate secretions within the airway with partially imaged endotracheal and enteric tubes. 5. Encephalomalacia from multiple remote right cerebral hemisphere infarct redemonstrated. ACT 112: Negative or not required by law. The above report was generated using voice recognition software. It may contain grammatical, syntax o r spelling errors. Electronically signed by: Quang Isaacs M.D. 06/17/2020 5:53 PM
--- NOTE | 2020-06-17 18:50 | History & Physical Report ---
Date of Service June 17, 2020 Assessment & Plan (1) Unresponsive episode: Pt is 49 y/o F with PMH diet-controlled DM II, HTN, hyperlipidemia, COPD, h/o ischemic right MCA stroke with left spastic hemiplegia, GERD, atherosclerosis of aorta, depression, bipolar, tobacco use disorder, complex partial seizures, anxiety presented to ER for unresponsiveness. Reported pt unresponsive episode this afternoon approx 15 minutes after drinking soda. was away for 30 minutes prior to her drinking soda. Upon ER arrival it was noted patient had enlarged pupils. Patient was reported to initially slightly flutter eyes to verbal stimuli then was minimally responsive to sternal rub. Patient was sedated and intubated. In ER unremarkable labs, UA clear, urine drug screen positive for ecstasy with further reference lab pending. Negative for ETOH CXR: 1. Endotracheal tube terminates 2.5 cm superior to the isa. 2. The lungs appear clear. CT HEAD: Chronic findings as above without acute intracranial abnormality. CTA HEAD & CTA NECK IMPRESSION: 1. Moderate focal area of narrowing involves the proximal right M1 segment. 2. Mild mixed plaque of the left carotid bulb and proximal left ICA results in less than 50% luminal narrowing. 3. Otherwise unremarkable CTA of the head and neck. 4. Moderate secretions within the airway with partially imaged endotracheal and enteric tubes. 5. Encephalomalacia from multiple remote right cerebral hemisphere infarct redemonstrated. DDX: seizure, aspiration, drug use/overdose, stroke Pt to ICU Lactate, procalcitonin, prolactin, ESR, CRP, blood cultures pending Start zosyn for possible aspiration Neurology consult, may need to consider MRI, EEG Further plan per child welfare caseworker (2) History of CVA (cerebrovascular accident): H/O ischemic right MCA stroke with left spastic hemiplegia On Aspirin, rosuvastatin at home (3) Seizure disorder: On levetiracetam at home (4) Bipolar 1 disorder: On duloxetine, ativan at home (5) HTN (hypertension): On lisinopril at home Admit ICU Full Code as per discussion with pt's Follows with Dr Bryce Harris for routine care Pt was seen and care coordinated with Dr Morales. See addendum History of Present Illness Chief Complaint: unresponsive Primary Care Provider: Denia Harris MD Pt is 49 y/o F with PMH diet-controlled DM II, HTN, hyperlipidemia, COPD, h/o ischemic right MCA stroke with left spastic hemiplegia, GERD, atherosclerosis of aorta, depression, bipolar, tobacco use disorder, complex partial seizures, anxiety presented to ER for unresponsiveness. History obtained from ER provider secondary to patient being intubated. It is reported that patient asked her to go get her set up around 2:30 PM today. reported he was away from hospital approximately 30 minutes and returned. Reports patient drank some of her soda. He states approximately 15 minutes later checked on patient he thought she was sleeping however found patient was unarousable. EMS was called. reported he was concerned patient may have overdosed on her home medications. It is reported patient was given Narcan x 2 doses without response. EMS reported shallow breathing and was given some [id number] ventilations, oral and nasal airway attempted however, the patient removed devices. BSG was noted to be just over 100 Upon ER arrival it was noted patient had enlarged pupils. Patient was reported to initially slightly flutter eyes to verbal stimuli then was minimally responsive to sternal rub. Patient was sedated and intubated. In ER unremarkable labs, UA clear, urine drug screen positive for ecstasy with further reference lab pending. Negative for EtOH Allergies Allergy/AdvReac Type Severity Reaction Status Date / Time cephalexin [From Keflex] Allergy Unknown Hives Verified 05/07/20 06:23 codeine Allergy Unknown Hives Verified 05/07/20 06:23 hydromorphone Allergy Unknown Difficulty Verified 05/07/20 06:23 Breathing Penicillins Allergy Unknown Hives Verified 05/07/20 06:23 bupropion [From Wellbutrin] AdvReac Unknown Seizure Verified 05/07/20 06:23 Home Medications Home Medications Medication Instructions Recorded Confirmed Type aspirin [Aspir-81] 81 mg PO QAM 09/03/19 06/17/20 History lisinopril 20 mg PO QAM 09/03/19 06/17/20 History baclofen 20 mg PO BID PRN 01/19/20 06/17/20 History omeprazole 20 mg PO BID 01/19/20 06/17/20 History rosuvastatin 40 mg PO DAILY 05/02/20 06/17/20 History lorazepam 1 mg PO BID PRN 05/06/20 06/17/20 History duloxetine 30 mg PO DAILY 06/17/20 06/17/20 History fluticasone furoate-vilanterol 1 inh INHALATION DAILY 06/17/20 06/17/20 History [Breo Ellipta] gabapentin See Rx Instructions .ROUTE .COMPLEX 06/17/20 06/17/20 History levetiracetam 1,500 mg PO BID 06/17/20 06/17/20 History Past Med/Surg History Medical History Anxiety Bipolar 1 disorder Fibromyalgia History of stroke Seizure disorder Surgical History History of cholecystectomy History of hysterectomy Family History (Updated 06/17/20 @ 19:21 by Nini Titus PA-C) Other Stroke Social History Smoking Status: Current every day smoker Tobacco Type: Cigarettes Hx Alcohol Use: Yes Alcohol type: beer Hx Substance Use: No Preferred Language: Korean Communication Ability: Effective Visual Impairment: No Limitations Hearing Ability: Normal Beliefs That Will Affect Care: None marital status: Current Living Situation: Spouse current occupational status: unemployed Feels Safe at Home: Yes Review of Systems Review of Systems: Unobtainable due to endotracheal tube Physical Exam Physical Exam: General: pt sedated and intubated, obese Head: normocephalic, atraumatic Eyes: left pupil approx 4mm, right pupil approx 3mm, sluggish reactions to light, conjunctiva non-injected, anicteric ENT: normal inspection external ears, nose Neck: supple, trachea midline Lungs: +intubated, Breath sounds present throughout CV: regular rhythm, bradycardia, rate 56, no murmur, no pretibial edema Abd: normal BS, soft Ext: no cyanosis or erythema noted; left shoulder with IO in place; left hand contracted Neuro: sedated and intubated, does start to move arms Skin: warm, dry Results & Data Results & Data ([facility]) Vital Signs (Past 12 Hours) Vital Signs Temp Pulse Resp BP Pulse Ox 06/17/20 18:01 52 L 100 06/17/20 18:00 55 L 118/81 06/17/20 17:46 55 L 100 06/17/20 17:45 57 L 141/86 H 100 06/17/20 17:35 64 154/92 H 100 06/17/20 17:34 63 100 06/17/20 17:17 58 L 18 100 06/17/20 17:00 100 06/17/20 16:50 100 06/17/20 16:46 61 138/97 06/17/20 16:45 64 06/17/20 16:31 64 100 06/17/20 16:30 66 119/84 100 06/17/20 16:20 18 99 06/17/20 16:16 73 121/84 100 06/17/20 16:15 73 100 06/17/20 16:00 88 100 06/17/20 15:56 101 H 100 06/17/20 15:54 78 139/87 100 06/17/20 15:50 82 18 100 06/17/20 15:30 36.8 C 92 H 12 139/87 98 Laboratory Results Short CBC 06/17/20 Range/Units 15:09 WBC 7.79 (4.8-10.8) K/uL Hgb 12.6 (12.0-16.0) g/dL Hct 38.8 (37-47) % Plt Count 192 (130-400) K/uL BMP 06/17/20 15:09 Sodium 143 Potassium 4.1 Chloride 107 Carbon Dioxide 29 BUN 9 Creatinine 0.77 Glucose 106 H Calcium 9.1 Cardiac Enzymes 06/17/20 Range/Units 15:09 Troponin I < 0.015 (0-0.045) ng/ml Liver Function 06/17/20 Range/Units 15:09 Total Bilirubin 0.3 (0.2-1) mg/dl AST 23 (15-37) U/L ALT 24 (12-78) U/L Alkaline Phosphatase 58 (45-117) U/L Albumin 3.6 (3.4-5.0) gm/dl Urine 06/17/20 Range/Units 16:31 Urine Color Yellow Urine Appearance Clear (Clear) Urine pH 5.5 (4.5-7.5) Ur Specific Rosamond 1.016 (1.000-1.030) Urine Protein Negative (Negative) Urine Glucose (UA) Negative (Negative) Diagnostic Findings CT HEAD IMPRESSION: Chronic findings as above without acute intracranial abnormality. CTA HEAD & CTA NECK IMPRESSION: 1. Moderate focal area of narrowing involves the proximal right M1 segment. 2. Mild mixed plaque of the left carotid bulb and proximal left ICA results in less than 50% luminal narrowing. 3. Otherwise unremarkable CTA of the head and neck. 4. Moderate secretions within the airway with partially imaged endotracheal and enteric tubes. 5. Encephalomalacia from multiple remote right cerebral hemisphere infarct redemonstrated. CXR: IMPRESSION: 1. Endotracheal tube terminates 2.5 cm superior to the isa. 2. The lungs appear clear. Code Status & VTE Plan VTE Prophylaxis Plan VTE Prophylaxis will be ordered: Yes Supervising Physician Co-Signing Physician Notes I, Dr. Brad Morales, have seen and examined the patient Shagufta Rhodes with physician commercial assistant On physical Exam General/Neuro: intubated, on IV Propofol, patient was able to move the arms and the legs with tactile stimuli so at the time of hospitalist exam in the ER the Propofol had to be titrated up by nurse to prevent patient from self-extubation Lungs: on mechanical ventilation Heart: regular rate Abdomen: soft Assessment and Plan -This is a patient with stroke history and also has been on Keppra as seizure prophylaxis. She was at home and after drinking soda she was later found presumed to be sleeping but was found by family to be unresponsive. Patient was intubated on presentation to the ED. Patients at the bedside when hospitalist team came by to assess patient. His only corroboration of symptoms was that patient has been having vomiting recently for 3 weeks but she has been able to keep down fluids such as sodas. There are no witnessed generalized convulsions -although initial ED imaging does not show any lung infiltrates, hospitalist team questions whether patient could have had an aspiration event at home. Will empirically start IV antibiotics of Zosyn -initial CTA scans does not indicate a stroke but a Brain MRI may give more information. Neurology consult will be requested -hospitalist discussed with ICU team and there are no urgent plans to extubate for now. Likely that patient will be monitored overnight and then ICU team can determine whether patient is ready to be weaned off mechanical ventilation -agree with other assessment and plans as documented by physician commercial assistant My colleague hospitalist will be following the patient starting on 06/18/2020, appreciate the assistance of the ICU physician and ICU team
[2020-06-17] MEDS ORDERED: ICU PROTOCOL FOR HYPERGLYCEMIA PRN (20:04)
[2020-06-17] MEDS ORDERED: PIPERACILL/TAZOBAC CONSULT ACTIVE PRN (20:10)
--- NOTE | 2020-06-17 20:14 | Critical Care Consultation ---
Date of Consultation June 17, 2020 Assessment & Plan (1) Admitted to intensive care unit: Reason Critically Ill: 49-year-old female presenting with altered mental status of unknown source requiring endotracheal intubation for airway protection. NEURO - * CAM ICU: Unable to assess secondary to level of sedation. * Unresponsive/AMS: * Requiring endotracheal intubation for airway protection. * Not responsive to Narcan x2. * Known history of CVA and seizure disorder. No focal seizure activity noted pre-or post intubation. * Currently appropriately sedated with propofol. * CT head and CTA head/neck without acute findings. * Patient responds to painful stimuli and was attempting to remove ET tube on low-dose sedation. * Will add MRI brain. * A.m. EEG. CARDIAC/VASCULAR - * History of hypertension. * Continue home medications when appropriate. * Monitor on telemetry. RESPIRATORY - * Respiratory failure: * In the setting of altered mental status. * Wean down ventilator settings as tolerated. GI/NUTRITION - * N.p.o. * OG in place * Prophylaxis: Famotidine RENAL/LYTES - * No acute electrolyte derangements * IVF: Normosol at 80 mL's per hour - * No concerns at this time. * Flowers in place - Strict I&Os. ENDO - * No history of diabetes or hypothyroidism. * BSGs per unit protocol. ISS --> gtt per unit policy. HEME - * Stable H&H. ID - * Initially concerned with aspiration. * Chest x-ray without acute infiltrative findings. * On minimal ventilator settings at this point. * Lactate and pro-Yaron unremarkable. * No need for antibiotics at this point. LINES/IV ACCESS - * PIVs x3 * ET tube * Flowers catheter DVT PROPHYLAXIS - * Heparin * SCDs I have personally spent 45 minutes of critical care time in the direct management of this patient. This is a life/limb threatening event. This includes time spent evaluating patient, direct bedside care, chart review, placing orders, interpretation of diagnostic studies, discussion with consultants, patient, and family members, as well as other required patient management activities. This time is exclusive of all separately billable procedures, and teaching time and separate from and in addition to any other critical care service time. Thank you for allowing us to participate in the care of this patient. Please refer to my attending physician's documentation for any further recommendations. (2) Unresponsive episode: (3) Respiratory failure: (4) Seizure disorder: (5) HTN (hypertension): (6) History of stroke: (7) Anxiety: (8) Chronic pain of left upper extremity: (9) History of CVA (cerebrovascular accident): History of Present Illness Attending Physician: Brad Morales MD History of Present Illness Patient is an unfortunate 49-year-old female with a significant past medical history of CVA with LEFT-sided spastic hemiparesis, chronic pain of the LEFT upper extremity, and recent diagnosis of seizure disorder. Patient also has a history of hypertension. Apparently, patient was noted to be somewhat drowsy this afternoon. She was requesting soda and when her went to the store and return, she was noted to be at least somewhat awake enough to drink a bit of the soda. Shortly after, she was noted to be obtunded and difficult to arouse. EMS was contacted. Patient had nasal and oral airways placed which she did remove herself. She received Narcan without resolve symptoms. Upon arrival in the emergency department, she was increasingly obtunded and not protecting her airway. No seizure activity was noted. The patient was emergently intubated and placed on propofol. CT and CTA of the head and neck demonstrate no acute findings otherwise. Apparently, by the time the hospitalist team was evaluated the patient, she was attempting to self extubate. Her propofol was titrated up at this point. Case had been reviewed with my attending physician who evaluated the patient in the emergency department prior to my arrival. Plans for emergent MRI discussed with at bedside. Allergies Allergy/AdvReac Type Severity Reaction Status Date / Time cephalexin [From Keflex] Allergy Unknown Hives Verified 05/07/20 06:23 codeine Allergy Unknown Hives Verified 05/07/20 06:23 hydromorphone Allergy Unknown Difficulty Verified 05/07/20 06:23 Breathing Penicillins Allergy Unknown Hives Verified 05/07/20 06:23 bupropion [From Wellbutrin] AdvReac Unknown Seizure Verified 05/07/20 06:23 Home Medications Home Medications Medication Instructions Recorded Confirmed Type aspirin [Aspir-81] 81 mg PO QAM 09/03/19 06/17/20 History lisinopril 20 mg PO QAM 09/03/19 06/17/20 History baclofen 20 mg PO BID PRN 01/19/20 06/17/20 History omeprazole 20 mg PO BID 01/19/20 06/17/20 History rosuvastatin 40 mg PO DAILY 05/02/20 06/17/20 History lorazepam 1 mg PO BID PRN 05/06/20 06/17/20 History duloxetine 30 mg PO DAILY 06/17/20 06/17/20 History fluticasone furoate-vilanterol 1 inh INHALATION DAILY 06/17/20 06/17/20 History [Breo Ellipta] gabapentin See Rx Instructions .ROUTE .COMPLEX 06/17/20 06/17/20 History levetiracetam 1,500 mg PO BID 06/17/20 06/17/20 History Patient History Medical History Anxiety Bipolar 1 disorder Fibromyalgia History of stroke HTN (hypertension) Seizure disorder Surgical History History of cholecystectomy History of hysterectomy Family History Other Stroke Social History Smoking Status: Current every day smoker Tobacco Type: Cigarettes Hx Alcohol Use: Yes Alcohol type: beer Hx Substance Use: No Preferred Language: Liberian Communication Ability: Unable Visual Impairment: No Limitations Hearing Ability: Normal Beliefs That Will Affect Care: None marital status: Current Living Situation: Spouse current occupational status: unemployed Other Information That Helps Us Care for You: No Feels Safe at Home: Yes Safety Concerns: Feels Safe At This Time Review of Systems Review of Systems: Unobtainable due to endotracheal tube and Unobtainable due to reduced consciousness Physical Exam Physical Exam: VITAL SIGNS - Vital signs and nursing notes were reviewed. GENERAL - 49-year-old female appearing her stated age who is in no acute distress. Intubated and sedated. SKIN - Without rashes. HEAD - NC/AT. EYES - Pupillary dilation noted bilaterally. Sclera anicteric. Palpebral conjunctiva pink and moist with no injection noted. EARS - No deformities of external structures noted on gross examination bilaterally. NOSE - Midline and without cyanosis. No epistaxis or purulent drainage noted. MOUTH/OROPHARYNX - ET Tube in place. Without perioral cyanosis. Buccal mucosa pink and moist and without leukoplakia. NECK - Neck with FROM. Supple to palpation. No nuchal rigidity. LUNGS - Chest wall symmetric without accessory muscle use, intercostals retractions, or central cyanosis. Normal vesicular breath sounds CTA B/L. No wheezes, rales, or rhonchi appreciated. CARDIAC - RRR with S1/S2. No murmur, rubs, or gallops appreciated. ABDOMEN - Abdominal contour flat without pulsations or visible masses. BS normoactive all four quadrants. No tenderness, palpable masses, hepatosplenomegaly, or ascites noted. EXTREMITIES - Contracture of the LEFT upper extremity noted. No clubbing or peripheral cyanosis. No pretibial edema present. +3/5 radial and dorsalis pedis pulses palpated throughout. NEUROLOGIC - LUE contracture. Cranial nerves II through XII grossly intact. Limited exam secondary to sedation. Results & Data Results & Data ([facility]) Vital Signs (Past 12 Hours) Vital Signs Temp Pulse Resp BP Pulse Ox 06/17/20 19:15 57 L 140/97 06/17/20 19:00 60 145/97 H 06/17/20 18:45 55 L 135/88 06/17/20 18:30 55 L 126/86 06/17/20 18:15 53 L 112/78 06/17/20 18:01 52 L 06/17/20 18:00 55 L 118/81 06/17/20 17:46 55 L 06/17/20 17:45 57 L 141/86 H 06/17/20 17:35 64 154/92 H 06/17/20 17:34 63 06/17/20 17:17 58 L 18 06/17/20 17:00 06/17/20 16:50 06/17/20 16:46 61 138/97 06/17/20 16:45 64 06/17/20 16:31 64 06/17/20 16:30 66 119/84 06/17/20 16:20 18 99 06/17/20 16:16 73 121/84 06/17/20 16:15 73 06/17/20 16:00 88 06/17/20 15:56 101 H 06/17/20 15:54 78 139/87 100 06/17/20 15:50 82 18 100 06/17/20 15:30 36.8 C 92 H 12 139/87 98 Coding Level of Care Code Critical Care 1st 30-74 mins Diagnoses Admitted to intensive care unit Z78.9 Unresponsive episode R41.89 Respiratory failure J96.00 Chronicity: acute Respiratory failure complication: unspecified whether with hypoxia or hypercapnia Seizure disorder G40.909 HTN (hypertension) I10 History of stroke Z86.73 Anxiety F41.9 Chronic pain of left upper extremity M79.602; G89.29 History of CVA (cerebrovascular accident) Z86.73 Time Spent (min) 45 (1) Respiratory failure Chronicity: acute Respiratory failure complication: unspecified whether with hypoxia or hypercapnia Qualified Code(s): J96.00 - Acute respiratory failure, unspecified whether with hypoxia or hypercapnia
[2020-06-17] MEDS ORDERED: PATIENT'S HEIGHT AND/OR WEIGHT NEEDED SCH (20:30)
[2020-06-17] MEDS: NORMOSOL-R 1,000 ML IV SCH (22:41)
[2020-06-17] MEDS: FAMOTIDINE 20 MG in SYRINGE 3 ML IV SCH (22:41)
[2020-06-18] MEDS: fentaNYL citrate 100 MCG/2 ML VIAL IV PRN ×2 (02:08→04:53)
[2020-06-18 05:03] LABS: Basophils # (auto) 0.01 K/uL (0-0.2); Basophils % (auto) 0.1 %; Eosinophils # (auto) 0.09 K/uL (0-0.5); Eosinophils % (auto) 0.8 %; Hematocrit (blood only) 39.7 % (37-47); Hemoglobin 13.4 g/dL (12.0-16.0); Immature Granulocytes # (auto) 0.01 K/uL (0.00-0.02); Immature Granulocytes % (auto) 0.1 %; Lymphocytes # (auto) 2.64 K/uL (1.2-3.4); Lymphocytes % (auto) 23.3 %; Mean Corpuscular Hemoglobin 27.9 pg (25-34); Mean Corpuscular Hgb Conc 33.8 g/dL (32-36); Mean Corpuscular Volume 82.5 fL (80-100); Monocytes # (auto) 0.82 K/uL (0.11-0.59); Monocytes % (auto) 7.3 %; Neutrophils # (auto) 7.74 K/uL (1.4-6.5); Neutrophils % (auto) 68.4 %; Platelet Count 188 K/uL (130-400); RDW Coefficient of Variation 13.4 % (11.5-14.5); RDW Standard Deviation 40.5 fL (36.4-46.3); Red Blood Count 4.81 M/uL (4.2-5.4); White Blood Count 11.31 K/uL (4.8-10.8)
[2020-06-18 05:23] LABS: Albumin Level 3.7 gm/dl (3.4-5.0); BUN Creatinine Ratio 12.4 (10-20); Bilirubin Direct 0.2 mg/dl (0-0.2); Calcium 9.2 mg/dl (8.5-10.1); Est GFR (African American) 117.4; Est GFR (Non-African American) 101.3; Potassium 4.4 mmol/L (3.5-5.1)
[2020-06-18 05:26] LABS: Bilirubin,Total 0.7 mg/dl (0.2-1); Total Protein 7.2 gm/dl (6.4-8.2)
[2020-06-18 05:32] LABS: iSTAT Allen Test Pass; iSTAT Arterial Blood Gas HCO3 26 meg/L (19-24); iSTAT Arterial Blood Gas pCO2 29 mmHg (35-46); iSTAT Arterial Blood Gas pH 7.56 (7.35-7.45); iSTAT Arterial Blood Gas pO2 92 mmHg (80-95); iSTAT Carbon Dioxide 26 mmol/L (24-31); iSTAT FiO2 28 %; iSTAT Site R Radial
--- NOTE | 2020-06-18 07:05 | Electrocardiogram Report ---
Test Reason : Blood Pressure : / mmHG Vent. Rate : 070 BPM Atrial Rate : 070 BPM P-R Int : 158 ms QRS Dur : 090 ms QT Int : 446 ms P-R-T Axes : 067 041 053 degrees QTc Int : 481 ms Normal sinus rhythm Prolonged QT Abnormal ECG When compared with ECG of 05-MAY-2020 07:42, No significant change was found Confirmed by Nba Tavares ([id number]) on 06/18/2020 7:05:38 AM Referred By: Confirmed By:Nba Tavares
--- NOTE | 2020-06-18 08:38 | Magnetic Resonance Report ---
MRI OF THE BRAIN WITHOUT IV CONTRAST CLINICAL HISTORY: Seizure. Unresponsive. COMPARISON STUDY: CT of the brain dated 06/17/2020. MRI of the brain dated 05/03/2020. TECHNIQUE: MRI of the brain was performed utilizing various T1 and T2-weighted sequences in the axial , sagittal, and coronal planes. IV contrast was not administered for this examination. The examinatio n is performed using the seizure protocol. The examination is modestly degraded by motion artifact. FINDINGS: Brain parenchyma: There is age-related involutional change noting mild subcortical and periventricula r microangiopathic disease. Right hemispheric encephalomalacia is unchanged and consistent with a rem ote insult. There is no hemorrhage or mass effect. There is no restricted diffusion to suggest acute ischemia. Uribe-white matter differentiation is preserved. No extra-axial fluid collection is seen. Th e cerebellar tonsils are normal in configuration. Ventricles, sulci, and cisterns: Prominent secondary to involutional change. Pituitary and sella: Unremarkable. Intracranial vasculature: Normal flow voids are maintained at the skull base. Orbits: The bony orbits are grossly intact. Orbital contents are normal in appearance. Sinuses and mastoids: Clear. Calvarium: Unremarkable. Soft tissues: An endotracheal tube is in place. Fluid/secretions are present in the pharynx. Cervical cord: Partially visualized cervical spinal cord is normal in morphology and signal intensity . IMPRESSION: Chronic changes as above with no acute intracranial abnormality. ACT 112: Negative or not required by law. Electronically signed by: Darwin Banks M.D. 06/18/2020 8:36 AM
--- NOTE | 2020-06-18 08:50 | XRay Report ---
SINGLE VIEW CHEST CLINICAL HISTORY: Respiratory failure. FINDINGS: An AP, portable, semierect chest radiograph is compared to study dated 06/17/2020. The examin ation is degraded by portable technique and patient rotation. Endotracheal and enteric tubes are unch anged in position. The cardiomediastinal silhouette is unremarkable. The lungs and pleural spaces are clear. No pneumothorax is seen. The skeletal structures are osteopenic. The bony thorax is grossly i ntact. Fusion hardware is noted in the lower cervical spine. Cholecystectomy clips are seen in the ri t upper quadrant. IMPRESSION: 1. Stable lines and tubes. 2. No acute cardiopulmonary abnormality. ACT 112: Negative or not required by law. Electronically signed by: Darwin Banks M.D. 06/18/2020 8:48 AM
[2020-06-18] MEDS ORDERED: levETIRAcetam 1,500 MG in 0.9 % SODIUM CHLORIDE 100 ML IV ONE (09:15)
--- NOTE | 2020-06-18 09:26 | Critical Care Progress Note ---
Date of Service June 18, 2020 Assessment & Plan (1) Unresponsive episode: Reason Critically Ill: 49-year-old female presenting with altered mental status of unknown source requiring endotracheal intubation for airway protection. Neuro: - [facility] ICU: Unable to assess secondary to sedation and intubation - Unresponsive/AMS: - Requiring endotracheal intubation for airway protection. - Known history of CVA and seizure disorder. No focal seizure activity noted pre-or post intubation. - CT head and CTA head/neck without acute findings. - MRI Brain without acute intracranial findings - EEG ordered - restarted home Keppra 1500mg BID Cacrdiac/Vascular: - History of hypertension. - holding home regimen while intubated and sedated; Respiratory: - Respiratory failure: likely contributions from central sleep apnea - In the setting of altered mental status. - extubated at 1040 - started on BiPAP /, FiO2 40% GI/Nutrition: - N.p.o. - Pepcid Renal/Lytes: - No acute electrolyte derangements - Normosol @ 80 mL/hr : - Flowers in place - Strict I&Os. ENDO: - No history of diabetes or hypothyroidism. - ICU glycemic protocol HEME: - Stable H&H. ID: - Lactate and pro-Yaron unremarkable. No need for antibiotics at this point. Lines: - PIVs x3 - ET tube - Flowers catheter DVT prophylaxis: - Heparin SQ (2) Seizure disorder: (3) HTN (hypertension): (4) Respiratory failure: (5) History of stroke: (6) History of CVA (cerebrovascular accident): Admission and Anticipated Discharge Date Admission Date: June 17, 2020 Supervising Physician Co-Signing Physician Notes Jersey Klein was the resident-physician during care of patient. I separately evaluated patient for garcia portions of the history and the exam. I was present during the critical portion of medical decision making, and I discussed the case with the resident. I generally agree with the findings and plan except for any additions/exceptions noted. Patient seen and examined at bedside. Was on propofol 20 the time of examination. RASS -1. Initially when the patient was put on pressure support she had good tidal volume but was having apneic episodes. Pressure support trial was tried again after an hour where she still had some apneic episodes but was successfully extubated to BiPAP. MRI of the brain CT head and neck were negative. Patient is following commands unlikely that seizure is playing a role in her altered mental status. Keppra for the time being has been given IV. Patient could have central sleep apnea from the previous stroke that the patient had. I think she will benefit from an outpatient polysomnography to rule out sleep apnea. Patient's chest x-ray is clean. Procalcitonin negative. No clear signs of sepsis. No need to treat with antibiotics. Patient's UDS was positive for ecstasy. It could be false positive from 1 of the medication that she is taking at home. Etiology of altered mental status the time of presentation is still not clear. Could have been seizure being 1 of the cause. EEG has been ordered. Patient's was bedside and was explained about the patient's current condition. All the questions inquiries were answered in depth. I have personally spent 37 minutes of critical care time in the direct management of this patient. This is a life/limb threatening event. This includes time spent evaluating patient, direct bedside care, chart review, placing orders, interpretation of diagnostic studies, discussion with consultants, patient, and/or family members regarding treatment decisions, as well as other required patient management activities. This time is exclusive of all separately billable procedures, and teaching time and separate from and in addition to any other critical care service time. Subjective Patient had no acute events overnight, responded to verbal stimuli and moving right sided extremities appropriately. During spontaneous breathing trial this morning was persistently having intermittent episodes of apnea. Review of Systems Review of Systems: Unobtainable due to endotracheal tube and Unobtainable due to reduced consciousness Physical Exam Constitutional: WD/WN, vitals as above Eyes: PERRL, conjunctivae normal, anicteric sclerae ENMT: external ear and nose normal, oropharynx normal Respiratory: no labored breathing (intubated), no retractions and does not use accessory muscles Auscultation: + diminished lung sounds; no crackles, no rales and no rhonchi Cardiovascular: Rate/Rhythm: regular rhythm and + tachycardic Heart Sounds: no gallop, no murmur and no cardiac rub Vessels: normal peripheral pulses Gastrointestinal (Abdomen): normal bowel sounds, soft, nontender, no hepatosplenomegaly Neurologic: intubated with reduced sedation; responsive to verbal commands, moves RUE and RLE spontaneously Lymphatic: no cervical lymphadenopathy Results & Data Results & Data ([facility]) Vital Signs (Past 12 Hours) Vital Signs Temp Pulse Resp BP Pulse Ox 06/18/20 07:14 92 H 06/18/20 07:11 92 H 17 100 06/18/20 06:13 37.2 C 66 144/104 H 100 06/18/20 05:55 37.2 C 68 151/93 H 100 06/18/20 05:36 69 16 100 06/18/20 04:13 37 C 70 179/121 H 06/18/20 03:13 37 C 68 136/95 99 06/18/20 02:13 73 152/95 H 06/18/20 02:03 36.5 C 71 153/114 H 06/18/20 01:54 99 H 19 99 06/18/20 01:23 81 166/126 H 100 06/18/20 01:13 100 H 141/118 H 99 06/18/20 00:21 80 19 99 06/18/20 00:14 36.5 C 81 183/119 H 06/18/20 00:00 81 06/17/20 23:13 81 182/105 H 100 06/17/20 22:13 36.5 C 71 130/97 100 Laboratory Results 06/18/20 06/18/20 06/18/20 Range/Units 05:18 04:56 04:56 WBC 11.31 H (4.8-10.8) K/uL RBC 4.81 (4.2-5.4) M/uL Hgb 13.4 (12.0-16.0) g/dL POC Hgb (12.0-16.0) g/dl Hct 39.7 (37-47) % POC Hct (37-47) % MCV 82.5 (80-100) fL MCH 27.9 (25-34) pg MCHC 33.8 (32-36) g/dL RDW Std Deviation 40.5 (36.4-46.3) fL RDW Coeff of Damian 13.4 (11.5-14.5) % Plt Count 188 (130-400) K/uL MPV 11.0 H (7.4-10.4) fL Immature Gran % (Auto) 0.1 % Neut % (Auto) 68.4 % Lymph % (Auto) 23.3 % Rhea % (Auto) 7.3 % Eos % (Auto) 0.8 % Baso % (Auto) 0.1 % Neut # (Auto) 7.74 H (1.4-6.5) K/uL Lymph # (Auto) 2.64 (1.2-3.4) K/uL Rhea # (Auto) 0.82 H (0.11-0.59) K/uL Eos # (Auto) 0.09 (0-0.5) K/uL Baso # (Auto) 0.01 (0-0.2) K/uL Immature Gran # (Auto) 0.01 (0.00-0.02) K/uL ESR (0-21) mm/hr PT (9.0-12.0) Seconds INR (0.9-1.1) APTT (21.0-31.0) Seconds PTT Ratio Sample Site R Radial POC pH 7.56 H* (7.35-7.45) POC pCO2 29 L (35-46) mmHg POC pO2 92 (80-95) mmHg POC HCO3 26 H (19-24) tano/L POC Base Excess 3.0 H (-9-1.8) tano/L ABG pH (7.35-7.45) ABG pCO2 (35-46) mmHg ABG pO2 (80-95) mmHg ABG HCO3 (19-24) mmol/L POC ABG O2 Sat 98.0 H (90-95) % ABG O2 Saturation (90-95) % ABG Base Excess (-9-1.8) mEq/L Joseph Test Pass (Pos) Barometric Pressure mm/Hg Oxygen Given O2 Delivery Device Ventilator POC O2 Rate 18 Minute Ventilation 6.3 POC FiO2 28 % Tidal Volume 350 PEEP 5 POC Sodium (135-144) mmol/L Sodium 143 (136-145) mmol/L POC Potassium (3.3-5.0) mmol/L Potassium 4.4 (3.5-5.1) mmol/L POC Chloride (101-112) mmol/L Chloride 107 (98-107) mmol/L Carbon Dioxide 28 (21-32) mmol/L POC Total CO2 26 (24-31) mmol/L Anion Gap 8.0 (3-11) POC Anion Gap (16-25) mmol/L POC BUN (7-18) mg/dl BUN 8 (7-18) mg/dl Creatinine 0.68 (0.6-1.2) mg/dl POC Creatinine (0.6-1.3) mg/dl Est Cr Clr Drug Dosing 81.0 Est GFR ( Amer) 117.4 Est GFR (Non-Af Amer) 101.3 BUN/Creatinine Ratio 12.4 (10-20) Glucose 100 H (70-99) mg/dl POC Glucose (other) (70-99) mg/dl Lactate (0.4-2.0) mmol/L Calcium 9.2 (8.5-10.1) mg/dl POC Ioniz Calcium Don (1.12-1.32) mmol/l Phosphorus 3.0 (2.5-4.9) mg/dl Magnesium 2.0 (1.8-2.4) mg/dl Total Bilirubin 0.7 (0.2-1) mg/dl Direct Bilirubin 0.2 (0-0.2) mg/dl AST 24 (15-37) U/L ALT 25 (12-78) U/L Alkaline Phosphatase 65 (45-117) U/L Troponin I (0-0.045) ng/ml C-Reactive Protein (0-0.29) mg/dl Total Protein 7.2 (6.4-8.2) gm/dl Albumin 3.7 (3.4-5.0) gm/dl Globulin (2.5-4.0) gm/dl Albumin/Globulin Ratio (0.9-2) Procalcitonin (0-0.5) ng/ml TSH (0.300-4.500) uIu/ml Prolactin ng/ml Urine Color Urine Appearance (Clear) Urine pH (4.5-7.5) Ur Specific Reading (1.000-1.030) Urine Protein (Negative) Urine Glucose (UA) (Negative) Urine Ketones (Negative) Urine Blood (Negative) Urine Nitrite (Negative) Urine Bilirubin (Negative) Urine Urobilinogen (Negative) Ur Leukocyte Esterase (Negative) Nasal Screen MRSA (PCR) (Negative) Urine Opiates Screen (Neg) Ur Methadone, Qual (Neg) Urine Barbiturates (Neg) Ur Phencyclidine (PCP) (Neg) U Amphetamin/Meth Scrn (Neg) Urine MDEA MDMA (Ecstasy) Screen (Neg) MDMA Urine MDMA U Benzodiazepines Scrn (Neg) Ur Cocaine Metabolite (Neg) U Marijuana (THC) Screen (Neg) Ethyl Alcohol mg/dL (0-3) mg/dl 06/17/20 06/17/20 06/17/20 Range/Units 20:26 19:26 19:26 WBC (4.8-10.8) K/uL RBC (4.2-5.4) M/uL Hgb (12.0-16.0) g/dL POC Hgb (12.0-16.0) g/dl Hct (37-47) % POC Hct (37-47) % MCV (80-100) fL MCH (25-34) pg MCHC (32-36) g/dL RDW Std Deviation (36.4-46.3) fL RDW Coeff of Damian (11.5-14.5) % Plt Count (130-400) K/uL MPV (7.4-10.4) fL Immature Gran % (Auto) % Neut % (Auto) % Lymph % (Auto) % Rhea % (Auto) % Eos % (Auto) % Baso % (Auto) % Neut # (Auto) (1.4-6.5) K/uL Lymph # (Auto) (1.2-3.4) K/uL Rhea # (Auto) (0.11-0.59) K/uL Eos # (Auto) (0-0.5) K/uL Baso # (Auto) (0-0.2) K/uL Immature Gran # (Auto) (0.00-0.02) K/uL ESR (0-21) mm/hr PT (9.0-12.0) Seconds INR (0.9-1.1) APTT (21.0-31.0) Seconds PTT Ratio Sample Site POC pH (7.35-7.45) POC pCO2 (35-46) mmHg POC pO2 (80-95) mmHg POC HCO3 (19-24) tano/L POC Base Excess (-9-1.8) tano/L ABG pH (7.35-7.45) ABG pCO2 (35-46) mmHg ABG pO2 (80-95) mmHg ABG HCO3 (19-24) mmol/L POC ABG O2 Sat (90-95) % ABG O2 Saturation (90-95) % ABG Base Excess (-9-1.8) mEq/L Joseph Test (Pos) Barometric Pressure mm/Hg Oxygen Given O2 Delivery Device POC O2 Rate Minute Ventilation POC FiO2 % Tidal Volume PEEP POC Sodium (135-144) mmol/L Sodium (136-145) mmol/L POC Potassium (3.3-5.0) mmol/L Potassium (3.5-5.1) mmol/L POC Chloride (101-112) mmol/L Chloride (98-107) mmol/L Carbon Dioxide (21-32) mmol/L POC Total CO2 (24-31) mmol/L Anion Gap (3-11) POC Anion Gap (16-25) mmol/L POC BUN (7-18) mg/dl BUN (7-18) mg/dl Creatinine (0.6-1.2) mg/dl POC Creatinine (0.6-1.3) mg/dl Est Cr Clr Drug Dosing Est GFR ( Amer) Est GFR (Non-Af Amer) BUN/Creatinine Ratio (10-20) Glucose (70-99) mg/dl POC Glucose (other) (70-99) mg/dl Lactate (0.4-2.0) mmol/L Calcium (8.5-10.1) mg/dl POC Ioniz Calcium Don (1.12-1.32) mmol/l Phosphorus (2.5-4.9) mg/dl Magnesium (1.8-2.4) mg/dl Total Bilirubin (0.2-1) mg/dl Direct Bilirubin (0-0.2) mg/dl AST (15-37) U/L ALT (12-78) U/L Alkaline Phosphatase (45-117) U/L Troponin I (0-0.045) ng/ml C-Reactive Protein (0-0.29) mg/dl Total Protein (6.4-8.2) gm/dl Albumin (3.4-5.0) gm/dl Globulin (2.5-4.0) gm/dl Albumin/Globulin Ratio (0.9-2) Procalcitonin < 0.05 (0-0.5) ng/ml TSH (0.300-4.500) uIu/ml Prolactin 10.38 ng/ml Urine Color Urine Appearance (Clear) Urine pH (4.5-7.5) Ur Specific Reading (1.000-1.030) Urine Protein (Negative) Urine Glucose (UA) (Negative) Urine Ketones (Negative) Urine Blood (Negative) Urine Nitrite (Negative) Urine Bilirubin (Negative) Urine Urobilinogen (Negative) Ur Leukocyte Esterase (Negative) Nasal Screen MRSA (PCR) Negative (Negative) Urine Opiates Screen (Neg) Ur Methadone, Qual (Neg) Urine Barbiturates (Neg) Ur Phencyclidine (PCP) (Neg) U Amphetamin/Meth Scrn (Neg) Urine MDEA MDMA (Ecstasy) Screen (Neg) MDMA Urine MDMA U Benzodiazepines Scrn (Neg) Ur Cocaine Metabolite (Neg) U Marijuana (THC) Screen (Neg) Ethyl Alcohol mg/dL (0-3) mg/dl 06/17/20 06/17/20 06/17/20 Range/Units 19:22 16:42 16:42 WBC (4.8-10.8) K/uL RBC (4.2-5.4) M/uL Hgb (12.0-16.0) g/dL POC Hgb (12.0-16.0) g/dl Hct (37-47) % POC Hct (37-47) % MCV (80-100) fL MCH (25-34) pg MCHC (32-36) g/dL RDW Std Deviation (36.4-46.3) fL RDW Coeff of Damian (11.5-14.5) % Plt Count (130-400) K/uL MPV (7.4-10.4) fL Immature Gran % (Auto) % Neut % (Auto) % Lymph % (Auto) % Rhea % (Auto) % Eos % (Auto) % Baso % (Auto) % Neut # (Auto) (1.4-6.5) K/uL Lymph # (Auto) (1.2-3.4) K/uL Rhea # (Auto) (0.11-0.59) K/uL Eos # (Auto) (0-0.5) K/uL Baso # (Auto) (0-0.2) K/uL Immature Gran # (Auto) (0.00-0.02) K/uL ESR (0-21) mm/hr PT (9.0-12.0) Seconds INR (0.9-1.1) APTT (21.0-31.0) Seconds PTT Ratio Sample Site POC pH (7.35-7.45) POC pCO2 (35-46) mmHg POC pO2 (80-95) mmHg POC HCO3 (19-24) tano/L POC Base Excess (-9-1.8) tano/L ABG pH 7.42 (7.35-7.45) ABG pCO2 42 (35-46) mmHg ABG pO2 240 H (80-95) mmHg ABG HCO3 27 H (19-24) mmol/L POC ABG O2 Sat (90-95) % ABG O2 Saturation 99.7 H (90-95) % ABG Base Excess 2.4 H (-9-1.8) mEq/L Joseph Test POS (Pos) Barometric Pressure 734.5 mm/Hg Oxygen Given 60% O2 O2 Delivery Device POC O2 Rate Minute Ventilation POC FiO2 % Tidal Volume PEEP POC Sodium (135-144) mmol/L Sodium (136-145) mmol/L POC Potassium (3.3-5.0) mmol/L Potassium (3.5-5.1) mmol/L POC Chloride (101-112) mmol/L Chloride (98-107) mmol/L Carbon Dioxide (21-32) mmol/L POC Total CO2 (24-31) mmol/L Anion Gap (3-11) POC Anion Gap (16-25) mmol/L POC BUN (7-18) mg/dl BUN (7-18) mg/dl Creatinine (0.6-1.2) mg/dl POC Creatinine (0.6-1.3) mg/dl Est Cr Clr Drug Dosing Est GFR ( Amer) Est GFR (Non-Af Amer) BUN/Creatinine Ratio (10-20) Glucose (70-99) mg/dl POC Glucose (other) (70-99) mg/dl Lactate 1.2 (0.4-2.0) mmol/L Calcium (8.5-10.1) mg/dl POC Ioniz Calcium Don (1.12-1.32) mmol/l Phosphorus (2.5-4.9) mg/dl Magnesium (1.8-2.4) mg/dl Total Bilirubin (0.2-1) mg/dl Direct Bilirubin (0-0.2) mg/dl AST (15-37) U/L ALT (12-78) U/L Alkaline Phosphatase (45-117) U/L Troponin I (0-0.045) ng/ml C-Reactive Protein (0-0.29) mg/dl Total Protein (6.4-8.2) gm/dl Albumin (3.4-5.0) gm/dl Globulin (2.5-4.0) gm/dl Albumin/Globulin Ratio (0.9-2) Procalcitonin (0-0.5) ng/ml TSH (0.300-4.500) uIu/ml Prolactin ng/ml Urine Color Urine Appearance (Clear) Urine pH (4.5-7.5) Ur Specific Reading (1.000-1.030) Urine Protein (Negative) Urine Glucose (UA) (Negative) Urine Ketones (Negative) Urine Blood (Negative) Urine Nitrite (Negative) Urine Bilirubin (Negative) Urine Urobilinogen (Negative) Ur Leukocyte Esterase (Negative) Nasal Screen MRSA (PCR) (Negative) Urine Opiates Screen (Neg) Ur Methadone, Qual (Neg) Urine Barbiturates (Neg) Ur Phencyclidine (PCP) (Neg) U Amphetamin/Meth Scrn (Neg) Urine MDEA MDMA (Ecstasy) Screen (Neg) MDMA Urine MDMA U Benzodiazepines Scrn (Neg) Ur Cocaine Metabolite (Neg) U Marijuana (THC) Screen (Neg) Ethyl Alcohol mg/dL < 3.0 (0-3) mg/dl 06/17/20 06/17/20 06/17/20 Range/Units 16:31 16:31 16:31 WBC (4.8-10.8) K/uL RBC (4.2-5.4) M/uL Hgb (12.0-16.0) g/dL POC Hgb (12.0-16.0) g/dl Hct (37-47) % POC Hct (37-47) % MCV (80-100) fL MCH (25-34) pg MCHC (32-36) g/dL RDW Std Deviation (36.4-46.3) fL RDW Coeff of Damian (11.5-14.5) % Plt Count (130-400) K/uL MPV (7.4-10.4) fL Immature Gran % (Auto) % Neut % (Auto) % Lymph % (Auto) % Rhea % (Auto) % Eos % (Auto) % Baso % (Auto) % Neut # (Auto) (1.4-6.5) K/uL Lymph # (Auto) (1.2-3.4) K/uL Rhea # (Auto) (0.11-0.59) K/uL Eos # (Auto) (0-0.5) K/uL Baso # (Auto) (0-0.2) K/uL Immature Gran # (Auto) (0.00-0.02) K/uL ESR (0-21) mm/hr PT (9.0-12.0) Seconds INR (0.9-1.1) APTT (21.0-31.0) Seconds PTT Ratio Sample Site POC pH (7.35-7.45) POC pCO2 (35-46) mmHg POC pO2 (80-95) mmHg POC HCO3 (19-24) tano/L POC Base Excess (-9-1.8) tano/L ABG pH (7.35-7.45) ABG pCO2 (35-46) mmHg ABG pO2 (80-95) mmHg ABG HCO3 (19-24) mmol/L POC ABG O2 Sat (90-95) % ABG O2 Saturation (90-95) % ABG Base Excess (-9-1.8) mEq/L Joseph Test (Pos) Barometric Pressure mm/Hg Oxygen Given O2 Delivery Device POC O2 Rate Minute Ventilation POC FiO2 % Tidal Volume PEEP POC Sodium (135-144) mmol/L Sodium (136-145) mmol/L POC Potassium (3.3-5.0) mmol/L Potassium (3.5-5.1) mmol/L POC Chloride (101-112) mmol/L Chloride (98-107) mmol/L Carbon Dioxide (21-32) mmol/L POC Total CO2 (24-31) mmol/L Anion Gap (3-11) POC Anion Gap (16-25) mmol/L POC BUN (7-18) mg/dl BUN (7-18) mg/dl Creatinine (0.6-1.2) mg/dl POC Creatinine (0.6-1.3) mg/dl Est Cr Clr Drug Dosing Est GFR ( Amer) Est GFR (Non-Af Amer) BUN/Creatinine Ratio (10-20) Glucose (70-99) mg/dl POC Glucose (other) (70-99) mg/dl Lactate (0.4-2.0) mmol/L Calcium (8.5-10.1) mg/dl POC Ioniz Calcium Don (1.12-1.32) mmol/l Phosphorus (2.5-4.9) mg/dl Magnesium (1.8-2.4) mg/dl Total Bilirubin (0.2-1) mg/dl Direct Bilirubin (0-0.2) mg/dl AST (15-37) U/L ALT (12-78) U/L Alkaline Phosphatase (45-117) U/L Troponin I (0-0.045) ng/ml C-Reactive Protein (0-0.29) mg/dl Total Protein (6.4-8.2) gm/dl Albumin (3.4-5.0) gm/dl Globulin (2.5-4.0) gm/dl Albumin/Globulin Ratio (0.9-2) Procalcitonin (0-0.5) ng/ml TSH (0.300-4.500) uIu/ml Prolactin ng/ml Urine Color Yellow Urine Appearance Clear (Clear) Urine pH 5.5 (4.5-7.5) Ur Specific Reading 1.016 (1.000-1.030) Urine Protein Negative (Negative) Urine Glucose (UA) Negative (Negative) Urine Ketones Negative (Negative) Urine Blood Negative (Negative) Urine Nitrite Negative (Negative) Urine Bilirubin Negative (Negative) Urine Urobilinogen Negative (Negative) Ur Leukocyte Esterase Negative (Negative) Nasal Screen MRSA (PCR) (Negative) Urine Opiates Screen Neg (Neg) Ur Methadone, Qual Neg (Neg) Urine Barbiturates Neg (Neg) Ur Phencyclidine (PCP) Neg (Neg) U Amphetamin/Meth Scrn Neg (Neg) Urine MDEA Pending MDMA (Ecstasy) Screen Pos H (Neg) MDMA Pending Urine MDMA Pending U Benzodiazepines Scrn Neg (Neg) Ur Cocaine Metabolite Neg (Neg) U Marijuana (THC) Screen Neg (Neg) Ethyl Alcohol mg/dL (0-3) mg/dl 09/06/20 09/06/20 09/06/20 Range/Units 16:15 15:09 15:09 WBC (4.8-10.8) K/uL RBC (4.2-5.4) M/uL Hgb (12.0-16.0) g/dL POC Hgb 12.6 (12.0-16.0) g/dl Hct (37-47) % POC Hct 37 (37-47) % MCV (80-100) fL MCH (25-34) pg MCHC (32-36) g/dL RDW Std Deviation (36.4-46.3) fL RDW Coeff of Damian (11.5-14.5) % Plt Count (130-400) K/uL MPV (7.4-10.4) fL Immature Gran % (Auto) % Neut % (Auto) % Lymph % (Auto) % Rhea % (Auto) % Eos % (Auto) % Baso % (Auto) % Neut # (Auto) (1.4-6.5) K/uL Lymph # (Auto) (1.2-3.4) K/uL Rhea # (Auto) (0.11-0.59) K/uL Eos # (Auto) (0-0.5) K/uL Baso # (Auto) (0-0.2) K/uL Immature Gran # (Auto) (0.00-0.02) K/uL ESR 12 (0-21) mm/hr PT (9.0-12.0) Seconds INR (0.9-1.1) APTT (21.0-31.0) Seconds PTT Ratio Sample Site POC pH (7.35-7.45) POC pCO2 (35-46) mmHg POC pO2 (80-95) mmHg POC HCO3 (19-24) tano/L POC Base Excess (-9-1.8) tano/L ABG pH (7.35-7.45) ABG pCO2 (35-46) mmHg ABG pO2 (80-95) mmHg ABG HCO3 (19-24) mmol/L POC ABG O2 Sat (90-95) % ABG O2 Saturation (90-95) % ABG Base Excess (-9-1.8) mEq/L Joseph Test (Pos) Barometric Pressure mm/Hg Oxygen Given O2 Delivery Device POC O2 Rate Minute Ventilation POC FiO2 % Tidal Volume PEEP POC Sodium 141 (135-144) mmol/L Sodium (136-145) mmol/L POC Potassium 4.1 (3.3-5.0) mmol/L Potassium (3.5-5.1) mmol/L POC Chloride 104 (101-112) mmol/L Chloride (98-107) mmol/L Carbon Dioxide (21-32) mmol/L POC Total CO2 27 (24-31) mmol/L Anion Gap (3-11) POC Anion Gap 16.0 (16-25) mmol/L POC BUN 8 (7-18) mg/dl BUN (7-18) mg/dl Creatinine (0.6-1.2) mg/dl POC Creatinine 0.7 (0.6-1.3) mg/dl Est Cr Clr Drug Dosing Est GFR ( Amer) Est GFR (Non-Af Amer) BUN/Creatinine Ratio (10-20) Glucose (70-99) mg/dl POC Glucose (other) 111 H (70-99) mg/dl Lactate (0.4-2.0) mmol/L Calcium (8.5-10.1) mg/dl POC Ioniz Calcium Don 1.15 (1.12-1.32) mmol/l Phosphorus (2.5-4.9) mg/dl Magnesium (1.8-2.4) mg/dl Total Bilirubin (0.2-1) mg/dl Direct Bilirubin (0-0.2) mg/dl AST (15-37) U/L ALT (12-78) U/L Alkaline Phosphatase (45-117) U/L Troponin I (0-0.045) ng/ml C-Reactive Protein < 0.29 (0-0.29) mg/dl Total Protein (6.4-8.2) gm/dl Albumin (3.4-5.0) gm/dl Globulin (2.5-4.0) gm/dl Albumin/Globulin Ratio (0.9-2) Procalcitonin (0-0.5) ng/ml TSH (0.300-4.500) uIu/ml Prolactin ng/ml Urine Color Urine Appearance (Clear) Urine pH (4.5-7.5) Ur Specific Reading (1.000-1.030) Urine Protein (Negative) Urine Glucose (UA) (Negative) Urine Ketones (Negative) Urine Blood (Negative) Urine Nitrite (Negative) Urine Bilirubin (Negative) Urine Urobilinogen (Negative) Ur Leukocyte Esterase (Negative) Nasal Screen MRSA (PCR) (Negative) Urine Opiates Screen (Neg) Ur Methadone, Qual (Neg) Urine Barbiturates (Neg) Ur Phencyclidine (PCP) (Neg) U Amphetamin/Meth Scrn (Neg) Urine MDEA MDMA (Ecstasy) Screen (Neg) MDMA Urine MDMA U Benzodiazepines Scrn (Neg) Ur Cocaine Metabolite (Neg) U Marijuana (THC) Screen (Neg) Ethyl Alcohol mg/dL (0-3) mg/dl 06/17/20 06/17/20 06/17/20 Range/Units 15:09 15:09 15:09 WBC 7.79 (4.8-10.8) K/uL RBC 4.52 (4.2-5.4) M/uL Hgb 12.6 (12.0-16.0) g/dL POC Hgb (12.0-16.0) g/dl Hct 38.8 (37-47) % POC Hct (37-47) % MCV 85.8 (80-100) fL MCH 27.9 (25-34) pg MCHC 32.5 (32-36) g/dL RDW Std Deviation 42.6 (36.4-46.3) fL RDW Coeff of Damian 13.5 (11.5-14.5) % Plt Count 192 (130-400) K/uL MPV 11.4 H (7.4-10.4) fL Immature Gran % (Auto) 0.4 % Neut % (Auto) 50.4 % Lymph % (Auto) 43.1 % Rhea % (Auto) 5.0 % Eos % (Auto) 1.0 % Baso % (Auto) 0.1 % Neut # (Auto) 3.92 (1.4-6.5) K/uL Lymph # (Auto) 3.36 (1.2-3.4) K/uL Rhea # (Auto) 0.39 (0.11-0.59) K/uL Eos # (Auto) 0.08 (0-0.5) K/uL Baso # (Auto) 0.01 (0-0.2) K/uL Immature Gran # (Auto) 0.03 H (0.00-0.02) K/uL ESR (0-21) mm/hr PT 10.6 (9.0-12.0) Seconds INR 1.0 (0.9-1.1) APTT 22.8 (21.0-31.0) Seconds PTT Ratio 0.8 Sample Site POC pH (7.35-7.45) POC pCO2 (35-46) mmHg POC pO2 (80-95) mmHg POC HCO3 (19-24) tano/L POC Base Excess (-9-1.8) tano/L ABG pH (7.35-7.45) ABG pCO2 (35-46) mmHg ABG pO2 (80-95) mmHg ABG HCO3 (19-24) mmol/L POC ABG O2 Sat (90-95) % ABG O2 Saturation (90-95) % ABG Base Excess (-9-1.8) mEq/L Joseph Test (Pos) Barometric Pressure mm/Hg Oxygen Given O2 Delivery Device POC O2 Rate Minute Ventilation POC FiO2 % Tidal Volume PEEP POC Sodium (135-144) mmol/L Sodium 143 (136-145) mmol/L POC Potassium (3.3-5.0) mmol/L Potassium 4.1 (3.5-5.1) mmol/L POC Chloride (101-112) mmol/L Chloride 107 (98-107) mmol/L Carbon Dioxide 29 (21-32) mmol/L POC Total CO2 (24-31) mmol/L Anion Gap 7.0 (3-11) POC Anion Gap (16-25) mmol/L POC BUN (7-18) mg/dl BUN 9 (7-18) mg/dl Creatinine 0.77 (0.6-1.2) mg/dl POC Creatinine (0.6-1.3) mg/dl Est Cr Clr Drug Dosing Not Reportable Est GFR ( Amer) 103.6 Est GFR (Non-Af Amer) 89.4 BUN/Creatinine Ratio 11.6 (10-20) Glucose 106 H (70-99) mg/dl POC Glucose (other) (70-99) mg/dl Lactate (0.4-2.0) mmol/L Calcium 9.1 (8.5-10.1) mg/dl POC Ioniz Calcium Don (1.12-1.32) mmol/l Phosphorus (2.5-4.9) mg/dl Magnesium 2.1 (1.8-2.4) mg/dl Total Bilirubin 0.3 (0.2-1) mg/dl Direct Bilirubin (0-0.2) mg/dl AST 23 (15-37) U/L ALT 24 (12-78) U/L Alkaline Phosphatase 58 (45-117) U/L Troponin I < 0.015 (0-0.045) ng/ml C-Reactive Protein (0-0.29) mg/dl Total Protein 7.1 (6.4-8.2) gm/dl Albumin 3.6 (3.4-5.0) gm/dl Globulin 3.5 (2.5-4.0) gm/dl Albumin/Globulin Ratio 1.0 (0.9-2) Procalcitonin (0-0.5) ng/ml TSH 0.750 (0.300-4.500) uIu/ml Prolactin ng/ml Urine Color Urine Appearance (Clear) Urine pH (4.5-7.5) Ur Specific Reading (1.000-1.030) Urine Protein (Negative) Urine Glucose (UA) (Negative) Urine Ketones (Negative) Urine Blood (Negative) Urine Nitrite (Negative) Urine Bilirubin (Negative) Urine Urobilinogen (Negative) Ur Leukocyte Esterase (Negative) Nasal Screen MRSA (PCR) (Negative) Urine Opiates Screen (Neg) Ur Methadone, Qual (Neg) Urine Barbiturates (Neg) Ur Phencyclidine (PCP) (Neg) U Amphetamin/Meth Scrn (Neg) Urine MDEA MDMA (Ecstasy) Screen (Neg) MDMA Urine MDMA U Benzodiazepines Scrn (Neg) Ur Cocaine Metabolite (Neg) U Marijuana (THC) Screen (Neg) Ethyl Alcohol mg/dL (0-3) mg/dl Medications Administered Current Inpatient Medications Fentanyl Citrate (Fentanyl Citrate 100 Mcg/2 Ml Vial) 25 mcg IV Q2H PRN PRN Reason: Pain Stop: 07/02/20 01:30 Last Admin: 06/18/20 04:53 Dose: 25 mcg Documented by: Heparin Sodium (Porcine) (Heparin Sod 5,000 Unit/0.5 Ml Vial) 5,000 units SQ Q12 ALICIA Stop: 07/18/20 08:59 Last Admin: 06/18/20 10:05 Dose: 5,000 units Documented by: Propofol (Diprivan) 1,000 mg in 100 mls @ 0 mls/hr IV .Q0M ALICIA; Protocol Stop: 06/20/20 15:59 Last Titration: 06/18/20 08:00 Dose: 0 mcg/kg/min, 0 mls/hr Documented by: Parenteral Electrolytes (Normosol-R) 1,000 mls @ 80 mls/hr IV .[id number] [facility] Stop: 07/17/20 20:44 Last Admin: 06/17/20 22:41 Dose: 80 mls/hr Documented by: Famotidine 20 mg/ Syringe 5 mls @ 2.5 mls/min IV Q12H [facility] Stop: 07/17/20 20:44 Last Admin: 06/18/20 10:05 Dose: 2.5 mls/min Documented by: Levetiracetam 1,500 mg/ Sodium (Chloride) 115 mls @ 420 mls/hr IV Q12H [facility] Stop: 07/18/20 17:59 Miscellaneous (Icu Protocol For Hyperglycemia) 1 ea N/A PRN PRN; Protocol PRN Reason: Hyperglycemia Protocol Stop: 06/19/20 20:03 Resident Activity Tracking Resident Involvement: Resident Care Provided Care Provided: Adult Hospital Medicine (Critical Care) (1) Respiratory failure Chronicity: acute Respiratory failure complication: unspecified whether with hypoxia or hypercapnia Qualified Code(s): J96.00 - Acute respiratory failure, unspecified whether with hypoxia or hypercapnia
[2020-06-18] MEDS: FAMOTIDINE 20 MG in SYRINGE 3 ML IV SCH ×2 (10:05→21:23)
[2020-06-18] MEDS: HEPARIN SOD 5,000 UNIT/0.5 ML VIAL SQ SCH ×2 (10:05→21:23)
[2020-06-18] MEDS: NORMOSOL-R 1,000 ML IV SCH (10:13)
[2020-06-18] MEDS: propofoL 1,000 MG/100 ML VIAL IV SCH (10:27)
--- NOTE | 2020-06-18 10:29 | Hospitalist Progress Note ---
Date of Service June 18, 2020 Assessment & Plan (1) Unresponsive episode: Brought to ED because of decreased responsiveness. Intubated for airway protection. CT head showed old right hemispheric stroke, no acute findings. Tox screen positive for MDMA (confirmation pending). Blood alcohol level undetectable. Sedated this morning, but following some commands. Neurology consulted. 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 Resume aspirin and statin when able. (3) Seizure disorder: Continue levetiracetam. (4) DVT prophylaxis: SQ heparin. (5) Discharge planning issues: Discharge disposition to be determined. Medical follow-up with Dr. Daily. Admission and Anticipated Discharge Date Admission Date: June 17, 2020 Subjective Recheck for multiple problems. Patient seen in their room around 0730. 49 YO female with history of cerebrovascular disease and other problems. Brought to ED yesterday because of decreased responsiveness. Intubated for airway protection. Remains intubated / on mechanical ventilation. Sedated. Review of Systems: Unable to obtain due to pt's condition. Physical Exam Constitutional: + ill appearing Eyes: + anicteric sclerae ENMT: Mouth: + oropharynx abnormality (oral ETT, oral GT) Respiratory: no respiratory distress Auscultation: + rhonchi (few) Cardiovascular: Rate/Rhythm: regular rate and regular rhythm Vessels: no JVD Extremities: no calf tenderness and no edema Gastrointestinal (Abdomen): Inspection/Auscultation: normal bowel sounds (quiet) Percussion/Palpation: + abdomen tender and abdomen soft Musculoskeletal: Extremities: no cyanosis Skin: no rashes, warm and dry Neurologic: sedated follows some commands (right hand grasp) left pupil > right contractures left hand and left ankle at least moderate strength right hand grasp + right hip flexion Psychiatric: Orientation: alert and oriented x 3 Results & Data Results & Data ([facility]) Vital Signs (Past 12 Hours) Vital Signs Temp Pulse Resp BP Pulse Ox 06/18/20 07:14 92 H 06/18/20 07:11 92 H 17 06/18/20 06:13 37.2 C 66 144/104 H 06/18/20 05:55 37.2 C 68 151/93 H 100 06/18/20 05:36 69 16 06/18/20 04:13 37 C 70 179/121 H 06/18/20 03:13 37 C 68 136/95 99 06/18/20 02:13 73 152/95 H 100 06/18/20 02:03 36.5 C 71 153/114 H 100 06/18/20 01:54 99 H 19 99 06/18/20 01:23 81 166/126 H 100 06/18/20 01:13 100 H 141/118 H 99 06/18/20 00:21 80 19 99 06/18/20 00:14 36.5 C 81 183/119 H 06/18/20 00:00 81 06/17/20 23:13 81 182/105 H 100 Laboratory Results Laboratory Results - last 24 hr 06/17/20 06/17/20 06/17/20 15:09 15:09 15:09 WBC 7.79 RBC 4.52 Hgb 12.6 POC Hgb Hct 38.8 POC Hct MCV 85.8 MCH 27.9 MCHC 32.5 RDW Std Deviation 42.6 RDW Coeff of Damian 13.5 Plt Count 192 MPV 11.4 H Immature Gran % (Auto) 0.4 Neut % (Auto) 50.4 Lymph % (Auto) 43.1 [place] % (Auto) 5.0 Eos % (Auto) 1.0 Baso % (Auto) 0.1 Neut # (Auto) 3.92 Lymph # (Auto) 3.36 [place] # (Auto) 0.39 Eos # (Auto) 0.08 Baso # (Auto) 0.01 Immature Gran # (Auto) 0.03 H ESR PT 10.6 INR 1.0 APTT 22.8 PTT Ratio 0.8 Sample Site POC pH POC pCO2 POC pO2 POC HCO3 POC Base Excess ABG pH ABG pCO2 ABG pO2 ABG HCO3 POC ABG O2 Sat ABG O2 Saturation ABG Base Excess Joseph Test Barometric Pressure Oxygen Given O2 Delivery Device POC O2 Rate Minute Ventilation POC FiO2 Tidal Volume PEEP POC Sodium Sodium 143 POC Potassium Potassium 4.1 POC Chloride Chloride 107 Carbon Dioxide 29 POC Total CO2 Anion Gap 7.0 POC Anion Gap POC BUN BUN 9 Creatinine 0.77 POC Creatinine Est Cr Clr Drug Dosing Not Reportable Est GFR ( Amer) 103.6 Est GFR (Non-Af Amer) 89.4 BUN/Creatinine Ratio 11.6 Glucose 106 H POC Glucose (other) Lactate Calcium 9.1 POC Ioniz Calcium Don Phosphorus Magnesium 2.1 Total Bilirubin 0.3 Direct Bilirubin AST 23 ALT 24 Alkaline Phosphatase 58 Troponin I < 0.015 C-Reactive Protein Total Protein 7.1 Albumin 3.6 Globulin 3.5 Albumin/Globulin Ratio 1.0 Procalcitonin TSH 0.750 Prolactin Urine Color Urine Appearance Urine pH Ur Specific Gipsy Urine Protein Urine Glucose (UA) Urine Ketones Urine Blood Urine Nitrite Urine Bilirubin Urine Urobilinogen Ur Leukocyte Esterase Nasal Screen MRSA (PCR) Urine Opiates Screen Ur Methadone, Qual Urine Barbiturates Ur Phencyclidine (PCP) U Amphetamin/Meth Scrn Urine MDEA MDMA (Ecstasy) Screen MDMA Urine MDMA U Benzodiazepines Scrn Ur Cocaine Metabolite U Marijuana (THC) Screen Ethyl Alcohol mg/dL 06/17/20 06/17/20 06/17/20 15:09 15:09 16:15 WBC RBC Hgb POC Hgb 12.6 Hct POC Hct 37 MCV MCH MCHC RDW Std Deviation RDW Coeff of Damian Plt Count MPV Immature Gran % (Auto) Neut % (Auto) Lymph % (Auto) [place] % (Auto) Eos % (Auto) Baso % (Auto) Neut # (Auto) Lymph # (Auto) [place] # (Auto) Eos # (Auto) Baso # (Auto) Immature Gran # (Auto) ESR 12 PT INR APTT PTT Ratio Sample Site POC pH POC pCO2 POC pO2 POC HCO3 POC Base Excess ABG pH ABG pCO2 ABG pO2 ABG HCO3 POC ABG O2 Sat ABG O2 Saturation ABG Base Excess Joseph Test Barometric Pressure Oxygen Given O2 Delivery Device POC O2 Rate Minute Ventilation POC FiO2 Tidal Volume PEEP POC Sodium 141 Sodium POC Potassium 4.1 Potassium POC Chloride 104 Chloride Carbon Dioxide POC Total CO2 27 Anion Gap POC Anion Gap 16.0 POC BUN 8 BUN Creatinine POC Creatinine 0.7 Est Cr Clr Drug Dosing Est GFR ( Amer) Est GFR (Non-Af Amer) BUN/Creatinine Ratio Glucose POC Glucose (other) 111 H Lactate Calcium POC Ioniz Calcium Don 1.15 Phosphorus Magnesium Total Bilirubin Direct Bilirubin AST ALT Alkaline Phosphatase Troponin I C-Reactive Protein < 0.29 Total Protein Albumin Globulin Albumin/Globulin Ratio Procalcitonin TSH Prolactin Urine Color Urine Appearance Urine pH Ur Specific Gipsy Urine Protein Urine Glucose (UA) Urine Ketones Urine Blood Urine Nitrite Urine Bilirubin Urine Urobilinogen Ur Leukocyte Esterase Nasal Screen MRSA (PCR) Urine Opiates Screen Ur Methadone, Qual Urine Barbiturates Ur Phencyclidine (PCP) U Amphetamin/Meth Scrn Urine MDEA MDMA (Ecstasy) Screen MDMA Urine MDMA U Benzodiazepines Scrn Ur Cocaine Metabolite U Marijuana (THC) Screen Ethyl Alcohol mg/dL 06/17/20 06/17/20 06/17/20 16:31 16:31 16:31 WBC RBC Hgb POC Hgb Hct POC Hct MCV MCH MCHC RDW Std Deviation RDW Coeff of Damian Plt Count MPV Immature Gran % (Auto) Neut % (Auto) Lymph % (Auto) [place] % (Auto) Eos % (Auto) Baso % (Auto) Neut # (Auto) Lymph # (Auto) [place] # (Auto) Eos # (Auto) Baso # (Auto) Immature Gran # (Auto) ESR PT INR APTT PTT Ratio Sample Site POC pH POC pCO2 POC pO2 POC HCO3 POC Base Excess ABG pH ABG pCO2 ABG pO2 ABG HCO3 POC ABG O2 Sat ABG O2 Saturation ABG Base Excess Joseph Test Barometric Pressure Oxygen Given O2 Delivery Device POC O2 Rate Minute Ventilation POC FiO2 Tidal Volume PEEP POC Sodium Sodium POC Potassium Potassium POC Chloride Chloride Carbon Dioxide POC Total CO2 Anion Gap POC Anion Gap POC BUN BUN Creatinine POC Creatinine Est Cr Clr Drug Dosing Est GFR ( Amer) Est GFR (Non-Af Amer) BUN/Creatinine Ratio Glucose POC Glucose (other) Lactate Calcium POC Ioniz Calcium Don Phosphorus Magnesium Total Bilirubin Direct Bilirubin AST ALT Alkaline Phosphatase Troponin I C-Reactive Protein Total Protein Albumin Globulin Albumin/Globulin Ratio Procalcitonin TSH Prolactin Urine Color Yellow Urine Appearance Clear Urine pH 5.5 Ur Specific Gipsy 1.016 Urine Protein Negative Urine Glucose (UA) Negative Urine Ketones Negative Urine Blood Negative Urine Nitrite Negative Urine Bilirubin Negative Urine Urobilinogen Negative Ur Leukocyte Esterase Negative Nasal Screen MRSA (PCR) Urine Opiates Screen Neg Ur Methadone, Qual Neg Urine Barbiturates Neg Ur Phencyclidine (PCP) Neg U Amphetamin/Meth Scrn Neg Urine MDEA Pending MDMA (Ecstasy) Screen Pos H MDMA Pending Urine MDMA Pending U Benzodiazepines Scrn Neg Ur Cocaine Metabolite Neg U Marijuana (THC) Screen Neg Ethyl Alcohol mg/dL 06/17/20 06/17/20 06/17/20 16:42 16:42 19:22 WBC RBC Hgb POC Hgb Hct POC Hct MCV MCH MCHC RDW Std Deviation RDW Coeff of Damian Plt Count MPV Immature Gran % (Auto) Neut % (Auto) Lymph % (Auto) [place] % (Auto) Eos % (Auto) Baso % (Auto) Neut # (Auto) Lymph # (Auto) [place] # (Auto) Eos # (Auto) Baso # (Auto) Immature Gran # (Auto) ESR PT INR APTT PTT Ratio Sample Site POC pH POC pCO2 POC pO2 POC HCO3 POC Base Excess ABG pH 7.42 ABG pCO2 42 ABG pO2 240 H ABG HCO3 27 H POC ABG O2 Sat ABG O2 Saturation 99.7 H ABG Base Excess 2.4 H Joseph Test POS Barometric Pressure 734.5 Oxygen Given 60% O2 O2 Delivery Device POC O2 Rate Minute Ventilation POC FiO2 Tidal Volume PEEP POC Sodium Sodium POC Potassium Potassium POC Chloride Chloride Carbon Dioxide POC Total CO2 Anion Gap POC Anion Gap POC BUN BUN Creatinine POC Creatinine Est Cr Clr Drug Dosing Est GFR ( Amer) Est GFR (Non-Af Amer) BUN/Creatinine Ratio Glucose POC Glucose (other) Lactate 1.2 Calcium POC Ioniz Calcium Don Phosphorus Magnesium Total Bilirubin Direct Bilirubin AST ALT Alkaline Phosphatase Troponin I C-Reactive Protein Total Protein Albumin Globulin Albumin/Globulin Ratio Procalcitonin TSH Prolactin Urine Color Urine Appearance Urine pH Ur Specific Gipsy Urine Protein Urine Glucose (UA) Urine Ketones Urine Blood Urine Nitrite Urine Bilirubin Urine Urobilinogen Ur Leukocyte Esterase Nasal Screen MRSA (PCR) Urine Opiates Screen Ur Methadone, Qual Urine Barbiturates Ur Phencyclidine (PCP) U Amphetamin/Meth Scrn Urine MDEA MDMA (Ecstasy) Screen MDMA Urine MDMA U Benzodiazepines Scrn Ur Cocaine Metabolite U Marijuana (THC) Screen Ethyl Alcohol mg/dL < 3.0 06/17/20 06/17/20 06/17/20 19:26 19:26 20:26 WBC RBC Hgb POC Hgb Hct POC Hct MCV MCH MCHC RDW Std Deviation RDW Coeff of Damian Plt Count MPV Immature Gran % (Auto) Neut % (Auto) Lymph % (Auto) [place] % (Auto) Eos % (Auto) Baso % (Auto) Neut # (Auto) Lymph # (Auto) [place] # (Auto) Eos # (Auto) Baso # (Auto) Immature Gran # (Auto) ESR PT INR APTT PTT Ratio Sample Site POC pH POC pCO2 POC pO2 POC HCO3 POC Base Excess ABG pH ABG pCO2 ABG pO2 ABG HCO3 POC ABG O2 Sat ABG O2 Saturation ABG Base Excess Joseph Test Barometric Pressure Oxygen Given O2 Delivery Device POC O2 Rate Minute Ventilation POC FiO2 Tidal Volume PEEP POC Sodium Sodium POC Potassium Potassium POC Chloride Chloride Carbon Dioxide POC Total CO2 Anion Gap POC Anion Gap POC BUN BUN Creatinine POC Creatinine Est Cr Clr Drug Dosing Est GFR ( Amer) Est GFR (Non-Af Amer) BUN/Creatinine Ratio Glucose POC Glucose (other) Lactate Calcium POC Ioniz Calcium Don Phosphorus Magnesium Total Bilirubin Direct Bilirubin AST ALT Alkaline Phosphatase Troponin I C-Reactive Protein Total Protein Albumin Globulin Albumin/Globulin Ratio Procalcitonin < 0.05 TSH Prolactin 10.38 Urine Color Urine Appearance Urine pH Ur Specific Gipsy Urine Protein Urine Glucose (UA) Urine Ketones Urine Blood Urine Nitrite Urine Bilirubin Urine Urobilinogen Ur Leukocyte Esterase Nasal Screen MRSA (PCR) Negative Urine Opiates Screen Ur Methadone, Qual Urine Barbiturates Ur Phencyclidine (PCP) U Amphetamin/Meth Scrn Urine MDEA MDMA (Ecstasy) Screen MDMA Urine MDMA U Benzodiazepines Scrn Ur Cocaine Metabolite U Marijuana (THC) Screen Ethyl Alcohol mg/dL 06/18/20 06/18/20 06/18/20 04:56 04:56 05:18 WBC 11.31 H RBC 4.81 Hgb 13.4 POC Hgb Hct 39.7 POC Hct MCV 82.5 MCH 27.9 MCHC 33.8 RDW Std Deviation 40.5 RDW Coeff of Damian 13.4 Plt Count 188 MPV 11.0 H Immature Gran % (Auto) 0.1 Neut % (Auto) 68.4 Lymph % (Auto) 23.3 [place] % (Auto) 7.3 Eos % (Auto) 0.8 Baso % (Auto) 0.1 Neut # (Auto) 7.74 H Lymph # (Auto) 2.64 [place] # (Auto) 0.82 H Eos # (Auto) 0.09 Baso # (Auto) 0.01 Immature Gran # (Auto) 0.01 ESR PT INR APTT PTT Ratio Sample Site R Radial POC pH 7.56 H* POC pCO2 29 L POC pO2 92 POC HCO3 26 H POC Base Excess 3.0 H ABG pH ABG pCO2 ABG pO2 ABG HCO3 POC ABG O2 Sat 98.0 H ABG O2 Saturation ABG Base Excess Joseph Test Pass Barometric Pressure Oxygen Given O2 Delivery Device Ventilator POC O2 Rate 18 Minute Ventilation 6.3 POC FiO2 28 Tidal Volume 350 PEEP 5 POC Sodium Sodium 143 POC Potassium Potassium 4.4 POC Chloride Chloride 107 Carbon Dioxide 28 POC Total CO2 26 Anion Gap 8.0 POC Anion Gap POC BUN BUN 8 Creatinine 0.68 POC Creatinine Est Cr Clr Drug Dosing 81.0 Est GFR ( Amer) 117.4 Est GFR (Non-Af Amer) 101.3 BUN/Creatinine Ratio 12.4 Glucose 100 H POC Glucose (other) Lactate Calcium 9.2 POC Ioniz Calcium Don Phosphorus 3.0 Magnesium 2.0 Total Bilirubin 0.7 Direct Bilirubin 0.2 AST 24 ALT 25 Alkaline Phosphatase 65 Troponin I C-Reactive Protein Total Protein 7.2 Albumin 3.7 Globulin Albumin/Globulin Ratio Procalcitonin TSH Prolactin Urine Color Urine Appearance Urine pH Ur Specific Gipsy Urine Protein Urine Glucose (UA) Urine Ketones Urine Blood Urine Nitrite Urine Bilirubin Urine Urobilinogen Ur Leukocyte Esterase Nasal Screen MRSA (PCR) Urine Opiates Screen Ur Methadone, Qual Urine Barbiturates Ur Phencyclidine (PCP) U Amphetamin/Meth Scrn Urine MDEA MDMA (Ecstasy) Screen MDMA Urine MDMA U Benzodiazepines Scrn Ur Cocaine Metabolite U Marijuana (THC) Screen Ethyl Alcohol mg/dL
--- NOTE | 2020-06-18 15:22 | Communication Note ---
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 She also suffers from fibromyalgia bipolar disease and anxiety Medications at home include aspirin baclofen Cymbalta fluticasone gabapentin Keppra lisinopril lorazepam omeprazole and rosuvastatin It is not recorded when her last seizure might have occurred but I would assume that this is not been a major issue and she was last admitted to our hospital for treatment of some muscle spasms and was seen by Dr. Federico Keys in April Yesterday she apparently consumed a soda and then was found unresponsive in her home 30 minutes later. The history is a little vague. She is just emerging from sedation and intubation and has very little recall of yesterday other than the fact that she went to the bathroom but after that she does not recall wh ether or not she felt lightheaded lost consciousness struck her head etc. According to what I can tell from the notes she was brought to the emergency room in an unresponsive state had dilated pupils may have had some eye fluttering and was felt to be at risk for respiratory failure and it was probably paralyzed and intubated and was maintained in this condition overnight and is now just been extubated and is coming around more normal wakefulness Most laboratory studies have been unrevealing prolactin level was normal I do not see the cardiac enzymes were obtained CT angiography shows narrowing of the right middle cerebral artery segment compatible with her old stroke and both a CT and MRI show evidence for the encephalomalacia from the right hemispheric infarct no areas of new infarction are seen There is no indication of sepsis at this point and clinically no one saw anything that resembled seizure activity there was no evidence for lingual or buccal lacerations and there was no evidence for urinary incontinence or fecal incontinence The patient was not awake enough for me to obtain review of systems and I would refer the reader to the recorded intake history and physical and emergency room notes. Family history social history are also as recorded and really are not contributory at this point Exam currently reveals a blood pressure 144/104 pulse of 95 respirations 17 te mperature is 37.2 O2 saturations on mechanical ventilation recorded at 100% but I do not know her current saturations as she is just been extubated She is awake somewhat drowsy can be aroused to converse but unfortunately it is hard to understand her speech through her oxygen mask she knows she is in the hospital but has no idea how she got here in the last memory she professes to have is going to the bathroom and does not mention drinking the "soda" that is described in the history Examination is somewhat limited she has a dense left hemiparesis with spasms of the left arm and leg and contractures in right upper extremity lower extremity movements appear to be normal. There is increased tone in the left side she does not have clear-cut head or eye deviation to the right or left and I do not see any repetitive motor movements that cannot be explicable on the basis of spasticity (i.e. no seizure activity is noted clinically) sensory examination cannot be done accurately because of her lethargic state and there may be a slight left upper motor neuron facial paresis. Field of vision testing is also limited The only questionable abnormality is a urine tox screen that shows positive for MDMA and I suspect that some of this may be a cross-reactivity to her Cymbalta I am not sure we will ever establish what happened to this woman. This could have been a simple syncopal event with protracted time to recovery. It could have been a seizure with depressed mental status afterwards she may have had a mild closed head injury due to the syncopal event and was rendered poorly respo nsive due to that There is no history that she has been noncompliant with her medications and she is on 2 anticonvulsants in the form of Keppra and gabapentin although 1 could argue the latter is really not that effective and anticonvulsants at a dose of 300 mg 3 times a day An EEG is going to be done tomorrow but frankly I suspect it which showed nothing more than some mild slowing perhaps even some mild focal slowing over the right hemisphere from the old CVA At this point I am not going to recommend any change in her medications simply continue the combination of baclofen gabapentin and Keppra, would check a Keppra level in a day or 2 after she has been maintained on her regular 1500 mg twice daily dose and compared to a Keppra level that hopefully was obtained when she arrived to test to see if there is been some deviation from 100% compliance and home situation I will be looking at the EEG tomorrow and make another trip to her bedside and hopefully at that point she would have cleared a little more and we can get a more meaningful history Daryl Boo MD
--- NOTE | 2020-06-18 17:59 | Billing Data ---
Date of Service June 18, 2020 Coding Level of Care Code Critical Care 1st 30-74 mins Time Spent (min) 37
[2020-06-18] MEDS: levETIRAcetam 1,500 MG in 0.9 % SODIUM CHLORIDE 100 ML IV SCH (18:20)
[2020-06-19] MEDS: NORMOSOL-R 1,000 ML IV SCH (00:11)
[2020-06-19 04:44] LABS: Basophils # (auto) 0.01 K/uL (0-0.2); Basophils % (auto) 0.1 %; Eosinophils # (auto) 0.12 K/uL (0-0.5); Eosinophils % (auto) 1.8 %; Hematocrit (blood only) 33.5 % (37-47); Hemoglobin 10.9 g/dL (12.0-16.0); Lymphocytes # (auto) 2.04 K/uL (1.2-3.4); Lymphocytes % (auto) 30.4 %; Mean Corpuscular Hemoglobin 27.9 pg (25-34); Mean Corpuscular Hgb Conc 32.5 g/dL (32-36); Mean Corpuscular Volume 85.9 fL (80-100); Mean Platelet Volume 11.5 fL (7.4-10.4); Monocytes # (auto) 0.56 K/uL (0.11-0.59); Monocytes % (auto) 8.3 %; Neutrophils # (auto) 3.98 K/uL (1.4-6.5); Neutrophils % (auto) 59.4 %; Platelet Count 146 K/uL (130-400); RDW Coefficient of Variation 13.6 % (11.5-14.5); RDW Standard Deviation 42.8 fL (36.4-46.3); White Blood Count 6.71 K/uL (4.8-10.8)
[2020-06-19 05:06] LABS: Albumin Level 2.8 gm/dl (3.4-5.0); BUN Creatinine Ratio 15.2 (10-20); Bilirubin Direct 0.2 mg/dl (0-0.2); Bilirubin,Total 0.5 mg/dl (0.2-1); Calcium 8.4 mg/dl (8.5-10.1); Creatinine Clr Calc Pharmacy 105.9 ml/min; Est GFR (African American) 128.2; Est GFR (Non-African American) 110.6; Magnesium 2.3 mg/dl (1.8-2.4); Phosphorus 3.1 mg/dl (2.5-4.9); Potassium 3.4 mmol/L (3.5-5.1)
[2020-06-19] MEDS: levETIRAcetam 1,500 MG in 0.9 % SODIUM CHLORIDE 100 ML IV SCH (05:42)
[2020-06-19] MEDS: POTASSIUM CHLORIDE / WTR 10 MEQ/100 ML PLCT IV SCH ×3 (06:33→09:08)
[2020-06-19] MEDS: HEPARIN SOD 5,000 UNIT/0.5 ML VIAL SQ SCH (07:53)
[2020-06-19] MEDS: FAMOTIDINE 20 MG in SYRINGE 3 ML IV SCH (07:53)
--- NOTE | 2020-06-19 08:00 | XRay Report ---
XR chest 1V portable HISTORY: Status post extubation. COMPARISON: Chest 06/18/2020. FINDINGS: Slightly rotated study. The heart is normal in size. Cervical spinal fusion hardware is aga in noted. The lungs are clear. No pleural effusions. No pneumothorax. No evidence for pulmonary edema . The endotracheal tube and nasogastric tube have been removed. IMPRESSION: No acute process. ACT 112: Negative or not required by law. Electronically signed by: Harley Box M.D. 06/19/2020 7:58 AM
--- NOTE | 2020-06-19 08:31 | Critical Care Progress Note ---
Date of Service June 19, 2020 Assessment & Plan (1) Unresponsive episode: Reason Critically Ill: 49-year-old female presenting with altered mental status of unknown source extubated on 06/18 with continued stability on BiPAP. Stable for downgrade from ICU level of care following continued improvement in condition. Neuro: - [facility] ICU: negative - Unresponsive/AMS on arrival: - Requiring endotracheal intubation for airway protection; extubated on 06/18 - Known history of CVA and seizure disorder - CT head and CTA head/neck without acute findings. - MRI Brain without acute intracranial findings - EEG pending - continue home Keppra 1500mg BID PO Cacrdiac/Vascular: - History of hypertension. - resume home Lisinopril 20 QAM Respiratory: - Respiratory failure: - BiPAP 10/6 QHS for likely contributions from central sleep apnea GI/Nutrition: - passed bedside nursing swallow evaluation - start Low Salt, Low Fat Diet - Pepcid PO BID Renal/Lytes: - replete electrolytes per ICU protocol - d/c fluids : - d/c Flowers - monitor Is & Os ENDO: - No history of diabetes or hypothyroidism. - ICU glycemic protocol HEME: - Stable H&H - continue to monitor ID: - Lactate and pro-Yaron unremarkable. - No need for antibiotics at this point. Lines: - PIVs x3 DVT prophylaxis: - Heparin SQ (2) Seizure disorder: (3) HTN (hypertension): (4) Respiratory failure: (5) History of stroke: Admission and Anticipated Discharge Date Admission Date: June 17, 2020 Supervising Physician Co-Signing Physician Notes Jersey Klein was the resident-physician during care of patient. I separately evaluated patient for garcia portions of the history and the exam. I was present during the critical portion of medical decision making, and I discussed the case with the resident. I generally agree with the findings and plan except for any additions/exceptions noted. Patient seen and examined at bedside. Patient was successfully extubated on 06/28/2020. Patient is awake alert oriented x3 following commands. Patient will have EEG done with no show any signs of seizure. Patient was able to swallow it and now she is taking all her medications by [facility]. Given that every other aspect of her altered mental status has been ruled out the likelihood of her altered mental status was post ictal state possibly. DC Flowers today. Patient's electrolytes have been replaced. Patient mentally and hemodynamically stable to be downgraded to the medical floor. I would recommend patient to be on BiPAP nightly with backup rate. Patient can have outpatient polysomnography to see if the patient has central sleep apneas given that her respiratory rate goes very low sometimes. I have personally spent 36 minutes of critical care time in the direct managemen t of this patient. This is a life/limb threatening event. This includes time spent evaluating patient, direct bedside care, chart review, placing orders, interpretation of diagnostic studies, discussion with consultants, patient, and/or family members regarding treatment decisions, as well as other required patient management activities. This time is exclusive of all separately billable procedures, and teaching time and separate from and in addition to any other critical care service time. Subjective Overnight patient had no acute events, tolerated the BiPAP well without complications, and was subsequently transitioned to room air without complication this morning. This AM denies chest pain, shortness of breath, abdominal pain, fevers chills sweats. Review of Systems Review of Systems: All systems reviewed & are unremarkable except as noted in Subjective Physical Exam Constitutional: WD/WN, vitals as above Eyes: PERRL, conjunctivae normal, anicteric sclerae ENMT: external ear and nose normal, oropharynx normal Respiratory: no labored breathing (intubated), no retractions and does not use accessory muscles Auscultation: + diminished lung sounds; no crackles, no rales and no rhonchi Cardiovascular: Rate/Rhythm: regular rhythm and + tachycardic Heart Sounds: no gallop, no murmur and no cardiac rub Vessels: normal peripheral pulses Gastrointestinal (Abdomen): normal bowel sounds, soft, nontender, no hepatosplenomegaly Skin: no rashes, warm and dry Neurologic: residual contractures of LUE/LLE, moves RUE/RLE extremity spontaneously, RUE grasp strength intact, +2 pitting edema left upper extremity. Psychiatric: Orientation: alert and oriented x 3 Lymphatic: no cervical lymphadenopathy Results & Data Results & Data ([facility]) Vital Signs (Past 12 Hours) Vital Signs Temp Pulse Resp BP Pulse Ox 06/19/20 08:00 37.0 C 86 15 95 06/19/20 07:37 77 18 100 06/19/20 07:13 89 17 127/81 100 06/19/20 07:00 76 17 100 06/19/20 06:00 89 18 114/80 06/19/20 05:00 54 L 17 120/73 100 06/19/20 04:00 37 C 68 16 122/76 06/19/20 03:00 70 17 118/69 06/19/20 02:31 59 L 18 101/77 06/19/20 02:29 66 21 06/19/20 02:00 56 L 18 91/54 L 99 06/19/20 01:00 55 L 18 91/54 L 99 06/19/20 00:00 36.9 C 62 17 118/70 99 06/18/20 23:06 56 L 18 100 06/18/20 23:00 56 L 18 109/65 06/18/20 22:00 59 L 16 97/65 L 100 06/18/20 21:00 78 17 146/92 H 97 Laboratory Results 06/19/20 06/19/20 06/18/20 Range/Units 04:30 04:30 23:51 WBC 6.71 (4.8-10.8) K/uL RBC 3.90 L (4.2-5.4) M/uL Hgb 10.9 L (12.0-16.0) g/dL Hct 33.5 L (37-47) % MCV 85.9 (80-100) fL MCH 27.9 (25-34) pg MCHC 32.5 (32-36) g/dL RDW Std Deviation 42.8 (36.4-46.3) fL RDW Coeff of Damian 13.6 (11.5-14.5) % Plt Count 146 (130-400) K/uL MPV 11.5 H (7.4-10.4) fL Immature Gran % (Auto) 0.0 % Neut % (Auto) 59.4 % Lymph % (Auto) 30.4 % [place] % (Auto) 8.3 % Eos % (Auto) 1.8 % Baso % (Auto) 0.1 % Neut # (Auto) 3.98 (1.4-6.5) K/uL Lymph # (Auto) 2.04 (1.2-3.4) K/uL [place] # (Auto) 0.56 (0.11-0.59) K/uL Eos # (Auto) 0.12 (0-0.5) K/uL Baso # (Auto) 0.01 (0-0.2) K/uL Immature Gran # (Auto) 0.00 (0.00-0.02) K/uL Sodium 142 (136-145) mmol/L Potassium 3.4 L D (3.5-5.1) mmol/L Chloride 108 H (98-107) mmol/L Carbon Dioxide 27 (21-32) mmol/L Anion Gap 7.0 (3-11) BUN 8 (7-18) mg/dl Creatinine 0.52 L (0.6-1.2) mg/dl Est Cr Clr Drug Dosing 105.9 ml/min Est GFR ( Amer) 128.2 Est GFR (Non-Af Amer) 110.6 BUN/Creatinine Ratio 15.2 (10-20) Glucose 86 (70-99) mg/dl POC Glucose 86 (70-99) mg/dl Calcium 8.4 L (8.5-10.1) mg/dl Phosphorus 3.1 (2.5-4.9) mg/dl Magnesium 2.3 (1.8-2.4) mg/dl Total Bilirubin 0.5 (0.2-1) mg/dl Direct Bilirubin 0.2 (0-0.2) mg/dl AST 15 (15-37) U/L ALT 16 (12-78) U/L Alkaline Phosphatase 49 (45-117) U/L Total Protein 6.0 L (6.4-8.2) gm/dl Albumin 2.8 L (3.4-5.0) gm/dl 06/18/20 Range/Units 14:10 WBC (4.8-10.8) K/uL RBC (4.2-5.4) M/uL Hgb (12.0-16.0) g/dL Hct (37-47) % MCV (80-100) fL MCH (25-34) pg MCHC (32-36) g/dL RDW Std Deviation (36.4-46.3) fL RDW Coeff of Damian (11.5-14.5) % Plt Count (130-400) K/uL MPV (7.4-10.4) fL Immature Gran % (Auto) % Neut % (Auto) % Lymph % (Auto) % [place] % (Auto) % Eos % (Auto) % Baso % (Auto) % Neut # (Auto) (1.4-6.5) K/uL Lymph # (Auto) (1.2-3.4) K/uL [place] # (Auto) (0.11-0.59) K/uL Eos # (Auto) (0-0.5) K/uL Baso # (Auto) (0-0.2) K/uL Immature Gran # (Auto) (0.00-0.02) K/uL Sodium (136-145) mmol/L Potassium (3.5-5.1) mmol/L Chloride (98-107) mmol/L Carbon Dioxide (21-32) mmol/L Anion Gap (3-11) BUN (7-18) mg/dl Creatinine (0.6-1.2) mg/dl Est Cr Clr Drug Dosing ml/min Est GFR ( Amer) Est GFR (Non-Af Amer) BUN/Creatinine Ratio (10-20) Glucose (70-99) mg/dl POC Glucose 109 H (70-99) mg/dl Calcium (8.5-10.1) mg/dl Phosphorus (2.5-4.9) mg/dl Magnesium (1.8-2.4) mg/dl Total Bilirubin (0.2-1) mg/dl Direct Bilirubin (0-0.2) mg/dl AST (15-37) U/L ALT (12-78) U/L Alkaline Phosphatase (45-117) U/L Total Protein (6.4-8.2) gm/dl Albumin (3.4-5.0) gm/dl Medications Administered Current Inpatient Medications Fentanyl Citrate (Fentanyl Citrate 100 Mcg/2 Ml Vial) 25 mcg IV Q2H PRN PRN Reason: Pain Stop: 07/02/20 01:30 Last Admin: 06/18/20 04:53 Dose: 25 mcg Documented by: Heparin Sodium (Porcine) (Heparin Sod 5,000 Unit/0.5 Ml Vial) 5,000 units SQ Q12 ALICIA Stop: 07/18/20 08:59 Last Admin: 06/19/20 07:53 Dose: 5,000 units Documented by: Propofol (Diprivan) 1,000 mg in 100 mls @ 0 mls/hr IV .Q0M ALICIA; Protocol Stop: 06/20/20 15:59 Last Titration: 06/18/20 18:20 Dose: Infused Documented by: Parenteral Electrolytes (Normosol-R) 1,000 mls @ 80 mls/hr IV .[id number] ALICIA Stop: 07/17/20 20:44 Last Admin: 06/19/20 00:11 Dose: 80 mls/hr Documented by: Famotidine 20 mg/ Syringe 5 mls @ 2.5 mls/min IV Q12H ALICIA Stop: 07/17/20 20:44 Last Admin: 06/19/20 07:53 Dose: 2.5 mls/min Documented by: Levetiracetam 1,500 mg/ Sodium (Chloride) 115 mls @ 420 mls/hr IV Q12H [facility] Stop: 07/18/20 17:59 Last Infusion: 06/19/20 06:13 Dose: Infused Documented by: Potassium Chloride (K Alireza / Wtr) 10 meq in 100 mls @ 100 mls/hr IV Q1H [facility] Stop: 06/19/20 09:29 Last Admin: 06/19/20 07:53 Dose: 100 mls/hr Documented by: Miscellaneous (Icu Protocol For Hyperglycemia) 1 ea N/A PRN PRN; Protocol PRN Reason: Hyperglycemia Protocol Stop: 06/19/20 20:03 Resident Activity Tracking Resident Involvement: Resident Care Provided Care Provided: Adult Hospital Medicine (Critical Care) (1) Respiratory failure Chronicity: acute Respiratory failure complication: unspecified whether with hypoxia or hypercapnia Qualified Code(s): J96.00 - Acute respiratory failure, unspecified whether with hypoxia or hypercapnia
[2020-06-19] MEDS ORDERED: BACLOFEN 20 MG TAB PO PRN (09:58)
--- NOTE | 2020-06-19 11:08 | Electroencephalogram ---
EEG Procedure Note Date of Service June 19, 2020 Start / End Times Start Time: 0 730 End Time: Referring Physician Daryl Boo MD History Unresponsiveness with history of seizure disorder Home Medication List Home Medications Medication Instructions Recorded Confirmed Type aspirin [Aspir-81] 81 mg PO QAM 09/03/19 06/17/20 History lisinopril 20 mg PO QAM 09/03/19 06/17/20 History baclofen 20 mg PO BID PRN 01/19/20 06/17/20 History omeprazole 20 mg PO BID 01/19/20 06/17/20 History rosuvastatin 40 mg PO DAILY 05/02/20 06/17/20 History lorazepam 1 mg PO BID PRN 05/06/20 06/17/20 History duloxetine 30 mg PO DAILY 06/17/20 06/17/20 History fluticasone furoate-vilanterol 1 inh INHALATION DAILY 06/17/20 06/17/20 History [Breo Ellipta] gabapentin See Rx Instructions .ROUTE .COMPLEX 06/17/20 06/17/20 History levetiracetam 1,500 mg PO BID 06/17/20 06/17/20 History Inpatient Medication List Heparin Sodium (Porcine) (Heparin Sod 5,000 Unit/0.5 Ml Vial) 5,000 units SQ Q12 ALICIA Stop: 07/18/20 08:59 Last Admin: 06/19/20 07:53 Dose: 5,000 units Documented by: [id number] Cosigned by: [id number] Admin: 06/18/20 21:23 Dose: 5,000 units Documented by: [id number] Cosigned by: [id number] Admin: 06/18/20 10:05 Dose: 5,000 units Documented by: [id number] Cosigned by: [id number] Discontinued Medications Fentanyl Citrate (Fentanyl Citrate 100 Mcg/2 Ml Vial) 25 mcg IV Q2H PRN PRN Reason: Pain Stop: 07/02/20 01:30 Last Admin: 06/18/20 04:53 Dose: 25 mcg Documented by: [id number] Admin: 06/18/20 02:08 Dose: 25 mcg Documented by: [id number] Propofol (Diprivan) 1,000 mg in 100 mls @ 0 mls/hr IV .Q0M ALICIA; Protocol Stop: 06/20/20 15:59 Last Titration: 06/18/20 18:20 Dose: 0 mcg/kg/min, 0 mls/hr Documented by: [id number] Admin: 06/18/20 10:27 Dose: Not Given Documented by: [id number] Titration: 06/18/20 08:00 Dose: 0 mcg/kg/min, 0 mls/hr Documented by: [id number] Titration: 06/17/20 20:31 Dose: 20 mcg/kg/min, 6.5 mls/hr Documented by: [id number] Titration: 06/17/20 20:00 Dose: 15 mcg/kg/min, 4.9 mls/hr Documented by: [id number] Titration: 06/17/20 19:04 Dose: 12 mcg/kg/min, 3.9 mls/hr Documented by: [id number] Titration: 06/17/20 17:43 Dose: 10 mcg/kg/min, 3.2 mls/hr Documented by: [id number] Admin: 06/17/20 17:15 Dose: 5 mcg/kg/min, 1.6 mls/hr Documented by: [id number] Cosigned by: [id number] Sodium Chloride (Nss 1000ml) 1,000 mls @ 999 mls/hr IV .Q1H1M ALICIA Stop: 06/17/20 17:15 Last Infusion: 06/17/20 18:03 Dose: 0 mls/hr Documented by: [id number] Admin: 06/17/20 16:55 Dose: 999 mls/hr Documented by: [id number] Parenteral Electrolytes (Normosol-R) 1,000 mls @ 80 mls/hr IV .[id number] ALICIA Stop: 07/17/20 20:44 Last Infusion: 06/19/20 10:10 Dose: 0 mls/hr Documented by: [id number] Admin: 06/19/20 00:11 Dose: 80 mls/hr Documented by: [id number] Infusion: 06/18/20 22:43 Dose: 80 mls/hr Documented by: [id number] Admin: 06/18/20 10:13 Dose: 80 mls/hr Documented by: [id number] Infusion: 06/18/20 10:13 Dose: 80 mls/hr Documented by: [id number] Admin: 06/17/20 22:41 Dose: 80 mls/hr Documented by: [id number] Famotidine 20 mg/ Syringe 5 mls @ 2.5 mls/min IV Q12H ALICIA Stop: 07/17/20 20:44 Last Admin: 06/19/20 07:53 Dose: 2.5 mls/min Documented by: [id number] Admin: 06/18/20 21:23 Dose: 2.5 mls/min Documented by: [id number] Admin: 06/18/20 10:05 Dose: 2.5 mls/min Documented by: [id number] Admin: 06/17/20 22:41 Dose: 2.5 mls/min Documented by: [id number] Levetiracetam 1,500 mg/ Sodium (Chloride) 115 mls @ 440 mls/hr IV 0915 ONE Stop: 06/18/20 09:30 Last Infusion: 06/18/20 10:27 Dose: 0 mls/hr Documented by: [id number] Admin: 06/18/20 10:05 Dose: 440 mls/hr Documented by: [id number] Levetiracetam 1,500 mg/ Sodium (Chloride) 115 mls @ 420 mls/hr IV Q12H ALICIA Stop: 07/18/20 17:59 Last Infusion: 06/19/20 06:13 Dose: 0 mls/hr Documented by: [id number] Admin: 06/19/20 05:42 Dose: 420 mls/hr Documented by: [id number] Infusion: 06/18/20 18:39 Dose: 0 mls/hr Documented by: [id number] Admin: 06/18/20 18:20 Dose: 420 mls/hr Documented by: [id number] Potassium Chloride (K Alireza / Wtr) 10 meq in 100 mls @ 100 mls/hr IV Q1H ALICIA Stop: 06/19/20 09:29 Last Infusion: 06/19/20 10:09 Dose: 0 mls/hr Documented by: [id number] Admin: 06/19/20 09:08 Dose: 100 mls/hr Documented by: [id number] Infusion: 06/19/20 08:53 Dose: 100 mls/hr Documented by: [id number] Admin: 06/19/20 07:53 Dose: 100 mls/hr Documented by: [id number] Infusion: 06/19/20 07:33 Dose: 100 mls/hr Documented by: [id number] Admin: 06/19/20 06:33 Dose: 100 mls/hr Documented by: [id number] Ioversol (Optiray 320 125ml) 119 ml IV ONCE ONE Stop: 06/17/20 17:02 Last Admin: 06/17/20 17:06 Dose: 119 ml Documented by: [id number] Miscellaneous (Rapid Sequence Induction Bag) Confirm Administered Dose 1 ea .ROUTE .STK-MED ONE Stop: 06/17/20 15:39 Last Admin: 06/17/20 17:44 Dose: 1 ea Documented by: [id number] Description This is a 21 electrode EEG with a single channel dedicated to limited EKG. The electrodes were placed in accordance with the International 10-20 system. This EEG was done at the bedside on patient who appears to be awake. Unfortunately the video component of the recording was not available for review Under these conditions there appears to be a normal background rhythm in the alpha range of up to 9 Hz and maximum frequency and 20 V maximum amplitude, a mid frequency modest amplitude central region predominant and symmetrical theta pattern and bifrontal low voltage fast activity in the beta range The stimulation provokes a modest driving response without a photo myogenic or photoparoxysmal component Drowsiness light sleep not recorded At no time during the waking tracing is there evidence for potentially epileptic activity Interpretation This is a normal EEG during wakefulness Clinical Correlation This EEG is normal and indicates no evidence for focal generalized encephalopathy or for potential epileptogenic activity but does not exclude the diagnosis of seizure disorder which is clinically well-established in this case Daryl Boo MD
--- NOTE | 2020-06-19 13:37 | Billing Data ---
Date of Service June 19, 2020 Coding Level of Care Code Critical Care 1st 30-74 mins Time Spent (min) 36
--- NOTE | 2020-06-19 15:42 | Hospitalist Progress Note ---
Date of Service June 19, 2020 Assessment & Plan (1) Unresponsive episode: Brought to ED because of decreased responsiveness. Intubated for airway protection. CT & MRI head showed old right hemispheric stroke, no acute findings. Tox screen positive for MDMA (confirmation pending). Blood alcohol level undetectable. Neurology consulted. Neuro statu improved and extubated without incident. EEG was unrevealing. Neuro status back to baseline. Cause of altered consciousness not determined. No new cerebrovascular events per neuroimaging. No evidence of infection. No significant metabolic abnormalities. Possible seizure? Possible toxic encephalopathy due to accidental ingestion of meds? (MDMA noted on urine tox screen could be false positive) (2) Cerebrovascular disease: S/P old right hemispheric stroke with left hemiparesis. No new cerebrovascular events per neuroimaging. Continue aspirin and statin. (3) Seizure disorder: Known seizure disorder, but no apparent seizure activity associated with current illness. EEG unrevealing. Continue levetiracetam and gabapentin. Check levetiracetam level in clinic. (4) Hypokalemia: K as low as 3.4. Received replacement. Recheck in clinic. (5) DVT prophylaxis: SQ heparin. (6) Discharge planning issues: Discharge to home. Medical follow-up with Dr. Daily. Admission and Anticipated Discharge Date Admission Date: June 17, 2020 Subjective Recheck for multiple problems. Patient seen in their room around 1510. visiting. Extubated yesterday. Doing well today. Back to neurocognitive baseline. Would like to go home. Review of Systems: Constitutional- no fever. Cardiac- no chest pain. Pulmonary- no cough or SOB. GI- no nausea, vomiting, diarrhea, melena, hematochezia. - no urinary symptoms. Otherwise, as noted above. Physical Exam Constitutional: no acute distress Eyes: + anicteric sclerae Respiratory: normal respiratory effort, lungs clear to auscultation no respiratory distress Cardiovascular: Rate/Rhythm: regular rate and regular rhythm Vessels: no J VD Extremities: no calf tenderness and no edema Gastrointestinal (Abdomen): normal bowel sounds, soft, nontender, no he patosplenomegaly Musculoskeletal: Extremities: no cyanosis Skin: no rashes, warm and dry Neurologic: moderate weakness LUE with contracture of left hand (chronic) Psychiatric: Orientation: alert and oriented x 3 Results & Data Results & Data ([facility]) Vital Signs (Past 12 Hours) Vital Signs Temp Pulse Pulse Resp BP BP Pulse Ox 06/19/20 15:37 36.9 C 81 17 148/89 H 96 06/19/20 14:13 89 17 148/89 H 96 06/19/20 13:13 85 17 130/84 96 06/19/20 12:13 85 21 150/91 H 100 06/19/20 11:13 36.9 C 88 22 133/89 98 06/19/20 10:13 90 20 137/92 97 06/19/20 10:00 90 21 99 06/19/20 09:14 86 24 94 06/19/20 09:13 89 16 125/80 97 06/19/20 08:13 88 20 131/87 92 06/19/20 08:00 37.0 C 86 15 95 06/19/20 07:37 77 18 100 06/19/20 07:13 89 17 127/81 100 06/19/20 07:00 76 17 100 06/19/20 06:00 89 18 114/80 100 06/19/20 05:00 54 L 17 120/73 100 06/19/20 04:00 37 C 68 16 122/76 100 Laboratory Results Laboratory Results - last 24 hr 06/18/20 06/19/20 06/19/20 23:51 04:30 04:30 WBC 6.71 RBC 3.90 L Hgb 10.9 L Hct 33.5 L MCV 85.9 MCH 27.9 MCHC 32.5 RDW Std Deviation 42.8 RDW Coeff of Damian 13.6 Plt Count 146 MPV 11.5 H Immature Gran % (Auto) 0.0 Neut % (Auto) 59.4 Lymph % (Auto) 30.4 [place] % (Auto) 8.3 Eos % (Auto) 1.8 Baso % (Auto) 0.1 Neut # (Auto) 3.98 Lymph # (Auto) 2.04 [place] # (Auto) 0.56 Eos # (Auto) 0.12 Baso # (Auto) 0.01 Immature Gran # (Auto) 0.00 Sodium 142 Potassium 3.4 L D Chloride 108 H Carbon Dioxide 27 Anion Gap 7.0 BUN 8 Creatinine 0.52 L Est Cr Clr Drug Dosing 105.9 Est GFR ( Amer) 128.2 Est GFR (Non-Af Amer) 110.6 BUN/Creatinine Ratio 15.2 Glucose 86 POC Glucose 86 Calcium 8.4 L Phosphorus 3.1 Magnesium 2.3 Total Bilirubin 0.5 Direct Bilirubin 0.2 AST 15 ALT 16 Alkaline Phosphatase 49 Total Protein 6.0 L Albumin 2.8 L
--- NOTE | 2020-06-19 16:01 | Communication Note ---
Date of Service: June 19, 2020 I discussed Shagufta's case with Dr. Rosario today. She is awake and wants to go home her EEG is normal the MRI shows no evidence for a new vascular event and we still do not know what happened on the day of admission that caused her deep state of unresponsiveness to the point that the emergency room physicians felt her airway was compromised or potentially compromised and she needed intubated. This could have been a seizure nice to know what her Keppra level was but apparently this was not done and at this point without any significant evidence for seizure based on her clinical appearance and the lack of any lingual or buccal lacerations or urinary or fecal incontinence I really have no basis to raise her Keppra dose and would simply recommended be continued along with her gabapentin which is to some degree a second anticonvulsant although in the dose that she is taking probably would be marginally effective and I would have her follow-up with neurology in several weeks time. An ambulatory EEG may be something we could consider in the future and she certainly will need a Keppra level on her regular oral regimen and her compliance needs to be enforced as I am not sure that she has been compliant I am not going to visit her bedside today as apparently she is going to be discharged as per my discussion with Dr. Marlene Boo MD
[2020-06-19] MEDS ORDERED: levETIRAcetam 500 MG TAB PO SCH (21:00)
[2020-06-19] MEDS ORDERED: FAMOTIDINE 20 MG TAB PO SCH (21:00)
--- NOTE | 2020-06-19 22:41 | Discharge Summary ---
Date of Service Date of Admission: 06/17/20 Date of Discharge: 06/19/20 Admission HPI Per Admitting Provider Pt is 49 y/o F with PMH diet-controlled DM II, HTN, hyperlipidemia, COPD, h/o ischemic right MCA stroke with left spastic hemiplegia, GERD, atherosclerosis of aorta, depression, bipolar, tobacco use disorder, complex partial seizures, anxiety presented to ER for unresponsiveness. History obtained from ER provider secondary to patient being intubated. It is reported that patient asked her to go get her set up around 2:30 PM today. reported he was away from hospital approximately 30 minutes and returned. Reports patient drank some of her soda. He states approximately 15 minutes later checked on patient he thought she was sleeping however found patient was unarousable. EMS was called. reported he was concerned patient may have overdosed on her home medications. It is reported patient was given Narcan x 2 doses without response. EMS reported shallow breathing and was given some [id number] ventilations, oral and nasal airway attempted however, the patient removed devices. BSG was noted to be just over 100 Upon ER arrival it was noted patient had enlarged pupils. Patient was reported to initially slightly flutter eyes to verbal stimuli then was minimally responsive to sternal rub. Patient was sedated and intubated. In ER unremarkable labs, UA clear, urine drug screen positive for ecstasy with further reference lab pending. Negative for EtOH Principal Diagnosis alteration of consciousness Discharge Data Allergies Allergy/AdvReac Type Severity Reaction Status Date / Time cephalexin [From Keflex] Allergy Unknown Hives Verified 05/07/20 06:23 codeine Allergy Unknown Hives Verified 05/07/20 06:23 hydromorphone Allergy Unknown Difficulty Verified 05/07/20 06:23 Breathing Penicillins Allergy Unknown Hives Verified 05/07/20 06:23 bupropion [From Wellbutrin] AdvReac Unknown Seizure Verified 05/07/20 06:23 Consultations 06/17/20 18:18 ED Decision to Admit Stat 06/17/20 20:04 Consult Case Management - Discharge Planning Routine Consult Wool Tamper Routine Consult Neurology Routine Ordered Studies 06/17/20 16:00 CT head/brain wo con Stat 06/17/20 16:01 CT angio head w con Stat CT angio neck with con Stat 06/18/20 20:31 MR brain seizure wo con Urgent Hospital Course (1) Unresponsive episode: Brought to ED because of decreased responsiveness. Intubated for airway protection. CT & MRI head showed old right hemispheric stroke, no acute findings. Tox screen positive for MDMA (confirmation pending). Blood alcohol level undetectable. Neurology consulted. Neuro statu improved and extubated without incident. EEG was unrevealing. Neuro status back to baseline. Cause of altered consciousness not determined. No new cerebrovascular events per neuroimaging. No evidence of infection. No significant metabolic abnormalities. Possible seizure? Possible toxic encephalopathy due to accidental ingestion of meds? (MDMA noted on urine tox screen could be false positive) (2) Cerebrovascular disease: S/P old right hemispheric stroke with left hemiparesis. No new cerebrovascular events per neuroimaging. Continue aspirin and statin. (3) Seizure disorder: Known seizure disorder, but no apparent seizure activity associated with current illness. EEG unrevealing. Continue levetiracetam and gabapentin. Check levetiracetam level in clinic. (4) Hypokalemia: K as low as 3.4. Received replacement. Recheck in clinic. (5) DVT prophylaxis: SQ heparin. (6) Discharge planning issues: Discharged to home. Medical follow-up with Dr. Daily. Total Time Total Time Spent Total Time Spent (In Minutes): 45 Discharge Plan Discharge Items Patient Disposition: Home - Self-Care Reason For Visit: unresponsiveness Discharge Diagnosis: unresponsiveness Condition on Discharge: Good Activity: Resume your previous activity Non-emergency contact: Primary Care Provider, Hospitalist and Neurologist Call non-emergency contact if: you have any medication questions and your symptoms worsen Follow-up/Referrals: Federico Keys DO [Physician] - (07/26/2020 10:40 AM Federico Keys DO [facility]) Denia Rivera MD [Primary Care Provider] - (06/29/2020 1:40 PM Denia Harris MD) Diet: Heart Healthy Addtl Attending Provider Instructions: MEDICATION CHANGES: none SUMMARY OF TEST RESULTS: CT scan and MRI scan showed old stroke. No new strokes were seen. OTHER INSTRUCTIONS: Please do not smoke. It can cause strokes, heart attacks, cancer, lung disease, and other problems. Follow instructions for your medications. Do not take more than prescribed. Seek medical attention if you have: * temperature above 101 * chest pain or trouble breathing * abdominal pain, nausea, vomiting * diarrhea, dark stools or bloody stools * seizure activity * any unanswered questions or concerns Call 911 if symptoms are severe. Please take good care of yourself. Call if you have any questions or problems. You can reach a [facility] [address] hospitalist on duty at [facility] 24 hours a day by calling [phone]. My cell # is [phone]. Pending Studies at Discharge: No Stand-Alone Forms: My [facility], Smoking Cessation Medications and DC Order Prescriptions: Continued baclofen 20 mg tablet 20 mg PO BID PRN (Reason: Muscle Spasm) RF: 0 omeprazole 20 mg capsule,delayed release(DR/EC) 20 mg PO BID RF: 0 lorazepam 1 mg tablet 1 mg PO BID PRN (Reason: Sleep or Pain/Muscle Spasm) RF: 0 lisinopril 20 mg Tablet 20 mg PO QAM RF: 0 aspirin [Aspir-81] 81 mg Tablet,Delayed Release (Dr/Ec) 81 mg PO QAM RF: 0 rosuvastatin 40 mg tablet 40 mg PO DAILY RF: 0 gabapentin 300 mg capsule See Rx Instructions .ROUTE .COMPLEX RF: 0 levetiracetam 750 mg tablet 1,500 mg PO BID RF: 0 duloxetine 30 mg capsule,delayed release(DR/EC) 30 mg PO DAILY RF: 0 Breo Ellipta 100-25 mcg/dose blister with device 1 inh INHALATION DAILY RF: 0 Discharge Orders: Discharge Order (Routine); Ordered 06/19/20 Ordered By: Daryl Rosario Admission Data Admit Date/Time: 06/17/20 18:45 Attending Provider: Daryl Rosario Admit Provider: Brad Morales Primary Care Provider: Denia Rivera Other Providers: Brad Morales ; Daryl Boo ; Ariel Freeman Other Interventions: Discharge Summary Assessment (RN) Last Done: 06/19/20 15:37
[2020-06-20] MEDS ORDERED: ROSUVASTATIN CALCIUM 20 MG TAB PO SCH (09:00)
[2020-06-20] MEDS ORDERED: DULOXETINE HCL 30 MG CAP PO SCH (09:00)
[2020-06-20] MEDS ORDERED: lisinopriL 20 MG TAB PO SCH (09:00)
[2020-06-20] MEDS ORDERED: NICOTINE 21 MG/24 HR TDSY TD SCH (09:00)
[2020-06-22 16:36] LABS: MDA negative; MDEA negative; MDMA (Ecstasy) Urine, Confirm negative
== END 2020-06-19 16:30 | disposition home or self-care (01) | DRG 208 ==
LOC: ED 15:41 → SUATTDRO 18:45 → 1E 18:45

== ENCOUNTER 2021-07-09 19:42 | Inpatient (IN) ==
--- NOTE | 2021-07-09 19:55 | Emergency Department Note ---
Impression & Plan Drug overdose, intentional, Benzodiazepine overdose, Sedated due to medication ED Provider Note Name: GAIL ARREOLA Age: 50 Sex: F Arrives Via: Ambulance Informant: Patient (Poor historian due to somnolence), EMS, 302 paperwork ED Provider: Zohaib Richards MD Chief Complaint: mental health evaluation Impression: As above Medical Decision Makin yr old female with remote left sided weakness from stroke with worsening depression and not caring for self at home who has overdosed on her benzodiazepine medications. Also is on gabapentin unknown dose which could be contributing to somnolence. She is quite somnolent and acutely worsened while i n ED requiring NC O2. EKG Ok, labs unremarkable and vitals OK other than transient hypotension. Given worsening mental status I do not feel that she will clear from mental health evaluation standpoint for quite some time. With history felt that hospitalization indicated for clearance and mental health evaluation and management. Hospitalist consulted for further evaluation. Prior Medical Record and Triage/Nursing Notes reviewed by Me Additional history obtained from chart Differentials:Mood disorder, infection, hypoglycemia, electrolyte abnormalities, cardiac sources, intracerebral event, toxicologic, trauma, neurologic, as well as other pathologies. Vital Signs: reviewed and remarkable for no significant abnormalities Interventions: saline lock, nss infusion Labs:Reviewed and remarkable for no significant abnormalities Imaging:X ray results are stated below per my interpretation: Chest: 1 view: No infiltrate, no effusion, normal cardiac border. EKG:Per My Interpretation: Indication Overdose: NSR 98 bpm, qtc 467. No Ectopy. No Ischemia. Compared to EKG 10/24/20, no significant changes. Cardiac/Tele Monitoring: Cardiac Monitoring: An Order was placed for continuous cardiac monitoring. The monitor shows a rate of 60 with a normal sinus rhythm. Consults:Dr Dougie Bentley Hospitalist Plan: Disposition:Hospitalization. Condition: Good History of Present Illness:50 yr old female arrives for evaluation of depression. Patient with long history of depression and mental health disease. She notes worsening depression over the last few years since she had a stroke in 2016. She states she has chronic pain and discomfort for which she is on ativan and gabapentin. Admits she has been taking more and more ativan at a time to keep comfortable. Admits she rarely gets up nor moves around the house. Denies attempt to harm self and denies she is a risk to herself. Notes chronic pain. Denies overdose in attempt to harm self. She is here on 302 that states she is not taking care of herself, is overdosing on her medications and is unsafe at home. ROS: See above HPI for pertinent positives & negatives. A total of 10 systems reviewed and were otherwise negative. Past Medical History:See Below Past Surgical History:See Below Family History:See Below Social History:See Below Home Medications:See Below Allergies:See Below Vitals:Blood Pressure: 129/63, Pulse 64, RR 16, T 3.8C, O2 98% on 2LNC Physical Exam: GENERAL: Patient is somnolent appearing and in no distress. EYES: No scleral icterus, unremarkable pupils. ENT: Mucous membranes moist, no nasal congestion. NECK: No masses appreciated, nomeningismus, trachea is midline. RESPIRATORY: No dyspnea. Clear to auscultation and equal bilaterally. No wheeze, no rhonchi. CARDIOVASCULAR: Regular rate and rhythm.No murmurs, rubs, gallops appreciated. GASTROINTESTINAL: Abdomen soft, non-tender, no peritonitis.Bowel sounds positive.No masses appreciated. BACK: No midline tenderness, no CVA tenderness EXTREMITIES: Normal motion right extremities, no cyanosis, no edema, left sided contractures NEUROLOGIC: Somnolent, slurred speech, left sided weakness/contractures, no acute motor or sensory deficits SKIN: No rash, no jaundice, no diaphoresis. PSYCH: Somnolent, admits depression, denies suicidal ideation GCS: 15 ED Course: Times/Reassessments: gradually worsening somnolence/obtundation but protecting airway other than mild hypoxia Zohaib Richards MD Past Med/Surg History Medical History (Updated 07/10/21 @ 02:40 by Zohaib Richards MD) Anxiety Bipolar 1 disorder Cerebrovascular disease Fibromyalgia History of stroke Hypertension Seizure disorder Surgical History History of cholecystectomy History of hysterectomy Family History Other Stroke Social History Smoking Status: Current every day smoker Tobacco Type: Cigarettes Hx Alcohol Use: Yes Alcohol type: beer Hx Substance Use: No Preferred Language: Turkmen Communication Ability: Unable Visual Impairment: No Limitations Hearing Ability: Normal Beliefs That Will Affect Care: None marital status: Current Living Situation: Spouse current occupational status: unemployed Feels Safe at Home: Yes Assistive Devices: Oxygen - Continuous Allergies Allergies Allergy/AdvReac Type Severity Reaction Status Date / Time hydromorphone Allergy Severe Difficulty Verified 07/10/21 00:20 Breathing cephalexin [From Keflex] Allergy Intermediate Hives Verified 07/10/21 00:20 codeine Allergy Intermediate Hives Verified 07/10/21 00:20 Penicillins Allergy Intermediate Hives Verified 07/10/21 00:20 bupropion [From Wellbutrin] AdvReac Severe Seizure Verified 07/10/21 00:20 nickel AdvReac Mild SKIN Verified 07/10/21 00:20 IRRITATION Home Meds Home Medications Medication Instructions Recorded Confirmed lisinopril 20 mg tablet 20 mg PO QAM 09/03/19 07/10/21 omeprazole 20 mg capsule,delayed 20 mg PO BID 01/19/20 07/10/21 release lorazepam 1 mg tablet 1 mg PO BID PRN 05/06/20 07/10/21 fluticasone furoate 100 1 inh INHALATION DAILY 06/17/20 07/10/21 mcg-vilanterol 25 mcg/dose inhalation powder (Breo Ellipta) gabapentin 300 mg capsule See Rx Instructions .ROUTE .COMPLEX 06/17/20 07/10/21 levetiracetam 750 mg tablet 1,500 mg PO BID 06/17/20 07/10/21 aspirin 81 mg chewable tablet 81 mg PO QAM 11/07/20 07/10/21 duloxetine 60 mg capsule,delayed 60 mg PO QAM 11/07/20 07/10/21 release rosuvastatin 40 mg tablet (Crestor) 40 mg PO DAILY 07/09/21 07/10/21 Cold & Flu Nighttime 1 dose PO DIRECTED PRN 07/10/21 07/10/21 ibuprofen 200 mg-diphenhydramine 1 cap PO HS PRN 07/10/21 07/10/21 HCl 25 mg capsule (Advil PM Liqui-Gels) Results & Data (ED) Vital Signs Vital Signs - 24 hr 07/09/21 20:00 07/09/21 21:08 07/09/21 22:14 Temperature 36.8 C Temperature Source Oral Pulse Rate 105 H Pulse Rate [Right] 82 80 Pulse Rhythm [Right] Regular Pulse Strength [Right] Normal Respiratory Rate 16 16 16 Respiratory Effort / Characteristics Non-Labored Spontaneous Non-Labored Spontaneous Non-Labored Spontaneous Respiratory Depth Normal Normal Normal Blood Pressure 131/88 Blood Pressure [Right Arm] 97/67 L 85/59 L Blood Pressure Mean 102 Blood Pressure Mean [Right Arm] 77 67 Blood Pressure Position Sitting Blood Pressure Position [Right Arm] Lying Pulse Oximetry 99 98 97 Oxygen Delivery Method Room Air Room Air Room Air Oxygen Flow Rate Sepsis Recent Fever Within 48 Hours No Sepsis New/Unexplained Change in Mental Status N/A Sepsis Action Taken by Nursing No Action Required 07/09/21 23:54 07/10/21 00:53 07/10/21 02:23 Temperature Temperature Source Pulse Rate Pulse Rate [Right] 74 70 64 Pulse Rhythm [Right] Regular Regular Regular Pulse Strength [Right] Normal Respiratory Rate 16 16 16 Respiratory Effort / Characteristics Non-Labored Spontaneous Non-Labored Spontaneous Non-Labored Spontaneous Respiratory Depth Normal Normal Normal Blood Pressure Blood Pressure [Right Arm] 74/53 L 129/71 129/63 Blood Pressure Mean Blood Pressure Mean [Right Arm] 60 90 85 Blood Pressure Position Blood Pressure Position [Right Arm] Sitting Lying Lying Pulse Oximetry 99 98 98 Oxygen Delivery Method Nasal Cannula Room Air Nasal Cannula Oxygen Flow Rate 2 2 Sepsis Recent Fever Within 48 Hours Sepsis New/Unexplained Change in Mental Status Sepsis Action Taken by Nursing Laboratory Data Result diagrams: 07/09/21 20:22 07/09/21 20:22 Lab Results 07/09/21 07/09/21 07/09/21 Range/Units 20:16 20:16 20:18 WBC (4.8-10.8) K/uL RBC (4.2-5.4) M/uL Hgb (12.0-16.0) g/dL Hct (37-47) % MCV (80-100) fL MCH (25-34) pg MCHC (32-36) g/dL RDW Std Deviation (36.4-46.3) fL RDW Coeff of Damian (11.5-14.5) % Plt Count (130-400) K/uL MPV (7.4-10.4) fL Immature Gran % (Auto) % Neut % (Auto) % Lymph % (Auto) % [place] % (Auto) % Eos % (Auto) % Baso % (Auto) % Neut # (Auto) (1.4-6.5) K/uL Lymph # (Auto) (1.2-3.4) K/uL [place] # (Auto) (0.11-0.59) K/uL Eos # (Auto) (0-0.5) K/uL Baso # (Auto) (0-0.2) K/uL Immature Gran # (Auto) (0.00-0.02) K/uL Sodium (136-145) mmol/L Potassium (3.5-5.1) mmol/L Chloride (98-107) mmol/L Carbon Dioxide (21-32) mmol/L Anion Gap (3-11) BUN (7-18) mg/dl Creatinine (0.6-1.2) mg/dl Est Cr Clr Drug Dosing Est GFR ( Amer) ml/min Est GFR (Non-Af Amer) ml/min BUN/Creatinine Ratio (10-20) Glucose (70-99) mg/dl Lactate (0.4-2.0) mmol/L Calcium (8.5-10.1) mg/dl Magnesium (1.8-2.4) mg/dl Total Bilirubin (0.2-1) mg/dl AST (15-37) U/L ALT (12-78) U/L Alkaline Phosphatase (45-117) U/L Ammonia (11-32) umol/L Total Protein (6.4-8.2) gm/dl Albumin (3.4-5.0) gm/dl Globulin (2.5-4.0) gm/dl Albumin/Globulin Ratio (0.9-2) TSH (0.300-4.500) uIu/ml Urine Color Yellow Urine Appearance Clear (Clear) Urine pH 5.5 (4.5-7.5) Ur Specific [place] 1.018 (1.000-1.030) Urine Protein Negative (Negative) Urine Glucose (UA) Negative (Negative) Urine Ketones Negative (Negative) Urine Blood Negative (Negative) Urine Nitrite Negative (Negative) Urine Bilirubin Negative (Negative) Urine Urobilinogen Negative (Negative) Ur Leukocyte Esterase Negative (Negative) Salicylates (2.8-20) mg/dl Urine Opiates Screen (Neg) Ur Methadone, Qual (Neg) Acetaminophen (10-30) ug/ml Urine Barbiturates (Neg) Ur Phencyclidine (PCP) (Neg) U Amphetamin/Meth Scrn (Neg) MDMA (Ecstasy) Screen (Neg) U Benzodiazepines Scrn (Neg) Ur Cocaine Metabolite (Neg) U Marijuana (THC) Screen (Neg) Ethyl Alcohol mg/dL (0-3) mg/dl COVID-19 Eval [facility] SARS-[facility]-2, RNA, NAAT NEGATIVE (NEGATIVE) 07/09/21 07/09/21 07/09/21 Range/Units 20:18 20:22 20:22 WBC 8.59 (4.8-10.8) K/uL RBC 4.35 (4.2-5.4) M/uL Hgb 12.6 (12.0-16.0) g/dL Hct 38.0 (37-47) % MCV 87.4 (80-100) fL MCH 29.0 (25-34) pg MCHC 33.2 (32-36) g/dL RDW Std Deviation 46.0 (36.4-46.3) fL RDW Coeff of Damian 14.5 (11.5-14.5) % Plt Count 298 (130-400) K/uL MPV 9.8 (7.4-10.4) fL Immature Gran % (Auto) 0.1 % Neut % (Auto) 59.1 % Lymph % (Auto) 34.3 % [place] % (Auto) 5.8 % Eos % (Auto) 0.6 % Baso % (Auto) 0.1 % Neut # (Auto) 5.07 (1.4-6.5) K/uL Lymph # (Auto) 2.95 (1.2-3.4) K/uL [place] # (Auto) 0.50 (0.11-0.59) K/uL Eos # (Auto) 0.05 (0-0.5) K/uL Baso # (Auto) 0.01 (0-0.2) K/uL Immature Gran # (Auto) 0.01 (0.00-0.02) K/uL Sodium 142 (136-145) mmol/L Potassium 3.4 L (3.5-5.1) mmol/L Chloride 107 (98-107) mmol/L Carbon Dioxide 28 (21-32) mmol/L Anion Gap 7.0 (3-11) BUN 13 (7-18) mg/dl Creatinine 0.84 (0.6-1.2) mg/dl Est Cr Clr Drug Dosing Not Reportable Est GFR ( Amer) 92.6 ml/min Est GFR (Non-Af Amer) 79.9 ml/min BUN/Creatinine Ratio 15.3 (10-20) Glucose 157 H (70-99) mg/dl Lactate (0.4-2.0) mmol/L Calcium 9.2 (8.5-10.1) mg/dl Magnesium 2.2 (1.8-2.4) mg/dl Total Bilirubin 0.3 (0.2-1) mg/dl AST 22 (15-37) U/L ALT 64 (12-78) U/L Alkaline Phosphatase 82 (45-117) U/L Ammonia (11-32) umol/L Total Protein 7.4 (6.4-8.2) gm/dl Albumin 3.6 (3.4-5.0) gm/dl Globulin 3.8 (2.5-4.0) gm/dl Albumin/Globulin Ratio 0.9 (0.9-2) TSH 2.040 (0.300-4.500) uIu/ml Urine Color Urine Appearance (Clear) Urine pH (4.5-7.5) Ur Specific [place] (1.000-1.030) Urine Protein (Negative) Urine Glucose (UA) (Negative) Urine Ketones (Negative) Urine Blood (Negative) Urine Nitrite (Negative) Urine Bilirubin (Negative) Urine Urobilinogen (Negative) Ur Leukocyte Esterase (Negative) Salicylates (2.8-20) mg/dl Urine Opiates Screen Neg (Neg) Ur Methadone, Qual Neg (Neg) Acetaminophen (10-30) ug/ml Urine Barbiturates Neg (Neg) Ur Phencyclidine (PCP) Neg (Neg) U Amphetamin/Meth Scrn Neg (Neg) MDMA (Ecstasy) Screen Neg (Neg) U Benzodiazepines Scrn Neg (Neg) Ur Cocaine Metabolite Neg (Neg) U Marijuana (THC) Screen Neg (Neg) Ethyl Alcohol mg/dL (0-3) mg/dl COVID-19 Eval Order SARS-CoV-2, RNA, NAAT (NEGATIVE) 07/09/21 07/09/21 07/10/21 Range/Units 20:22 20:22 00:39 WBC (4.8-10.8) K/uL RBC (4.2-5.4) M/uL Hgb (12.0-16.0) g/dL Hct (37-47) % MCV (80-100) fL MCH (25-34) pg MCHC (32-36) g/dL RDW Std Deviation (36.4-46.3) fL RDW Coeff of Damian (11.5-14.5) % Plt Count (130-400) K/uL MPV (7.4-10.4) fL Immature Gran % (Auto) % Neut % (Auto) % Lymph % (Auto) % [place] % (Auto) % Eos % (Auto) % Baso % (Auto) % Neut # (Auto) (1.4-6.5) K/uL Lymph # (Auto) (1.2-3.4) K/uL [place] # (Auto) (0.11-0.59) K/uL Eos # (Auto) (0-0.5) K/uL Baso # (Auto) (0-0.2) K/uL Immature Gran # (Auto) (0.00-0.02) K/uL Sodium (136-145) mmol/L Potassium (3.5-5.1) mmol/L Chloride (98-107) mmol/L Carbon Dioxide (21-32) mmol/L Anion Gap (3-11) BUN (7-18) mg/dl Creatinine (0.6-1.2) mg/dl Est Cr Clr Drug Dosing Est GFR ( Amer) ml/min Est GFR (Non-Af Amer) ml/min BUN/Creatinine Ratio (10-20) Glucose (70-99) mg/dl Lactate 1.3 (0.4-2.0) mmol/L Calcium (8.5-10.1) mg/dl Magnesium (1.8-2.4) mg/dl Total Bilirubin (0.2-1) mg/dl AST (15-37) U/L ALT (12-78) U/L Alkaline Phosphatase (45-117) U/L Ammonia (11-32) umol/L Total Protein (6.4-8.2) gm/dl Albumin (3.4-5.0) gm/dl Globulin (2.5-4.0) gm/dl Albumin/Globulin Ratio (0.9-2) TSH (0.300-4.500) uIu/ml Urine Color Urine Appearance (Clear) Urine pH (4.5-7.5) Ur Specific [place] (1.000-1.030) Urine Protein (Negative) Urine Glucose (UA) (Negative) Urine Ketones (Negative) Urine Blood (Negative) Urine Nitrite (Negative) Urine Bilirubin (Negative) Urine Urobilinogen (Negative) Ur Leukocyte Esterase (Negative) Salicylates 3.7 (2.8-20) mg/dl Urine Opiates Screen (Neg) Ur Methadone, Qual (Neg) Acetaminophen < 2 L (10-30) ug/ml Urine Barbiturates (Neg) Ur Phencyclidine (PCP) (Neg) U Amphetamin/Meth Scrn (Neg) MDMA (Ecstasy) Screen (Neg) U Benzodiazepines Scrn (Neg) Ur Cocaine Metabolite (Neg) U Marijuana (THC) Screen (Neg) Ethyl Alcohol mg/dL < 3.0 (0-3) mg/dl COVID-19 Eval Order SARS-CoV-2, RNA, NAAT (NEGATIVE) 07/10/21 Range/Units 00:39 WBC (4.8-10.8) K/uL RBC (4.2-5.4) M/uL Hgb (12.0-16.0) g/dL Hct (37-47) % MCV (80-100) fL MCH (25-34) pg MCHC (32-36) g/dL RDW Std Deviation (36.4-46.3) fL RDW Coeff of Damian (11.5-14.5) % Plt Count (130-400) K/uL MPV (7.4-10.4) fL Immature Gran % (Auto) % Neut % (Auto) % Lymph % (Auto) % [place] % (Auto) % Eos % (Auto) % Baso % (Auto) % Neut # (Auto) (1.4-6.5) K/uL Lymph # (Auto) (1.2-3.4) K/uL [place] # (Auto) (0.11-0.59) K/uL Eos # (Auto) (0-0.5) K/uL Baso # (Auto) (0-0.2) K/uL Immature Gran # (Auto) (0.00-0.02) K/uL Sodium (136-145) mmol/L Potassium (3.5-5.1) mmol/L Chloride (98-107) mmol/L Carbon Dioxide (21-32) mmol/L Anion Gap (3-11) BUN (7-18) mg/dl Creatinine (0.6-1.2) mg/dl Est Cr Clr Drug Dosing Est GFR ( Amer) ml/min Est GFR (Non-Af Amer) ml/min BUN/Creatinine Ratio (10-20) Glucose (70-99) mg/dl Lactate (0.4-2.0) mmol/L Calcium (8.5-10.1) mg/dl Magnesium (1.8-2.4) mg/dl Total Bilirubin (0.2-1) mg/dl AST (15-37) U/L ALT (12-78) U/L Alkaline Phosphatase (45-117) U/L Ammonia 19.0 (11-32) umol/L Total Protein (6.4-8.2) gm/dl Albumin (3.4-5.0) gm/dl Globulin (2.5-4.0) gm/dl Albumin/Globulin Ratio (0.9-2) TSH (0.300-4.500) uIu/ml Urine Color Urine Appearance (Clear) Urine pH (4.5-7.5) Ur Specific [place] (1.000-1.030) Urine Protein (Negative) Urine Glucose (UA) (Negative) Urine Ketones (Negative) Urine Blood (Negative) Urine Nitrite (Negative) Urine Bilirubin (Negative) Urine Urobilinogen (Negative) Ur Leukocyte Esterase (Negative) Salicylates (2.8-20) mg/dl Urine Opiates Screen (Neg) Ur Methadone, Qual (Neg) Acetaminophen (10-30) ug/ml Urine Barbiturates (Neg) Ur Phencyclidine (PCP) (Neg) U Amphetamin/Meth Scrn (Neg) MDMA (Ecstasy) Screen (Neg) U Benzodiazepines Scrn (Neg) Ur Cocaine Metabolite (Neg) U Marijuana (THC) Screen (Neg) Ethyl Alcohol mg/dL (0-3) mg/dl COVID-19 Eval Order SARS-CoV-2, RNA, NAAT (NEGATIVE) Administered Medications Potassium Chloride 40 meq/ (Sodium Chloride) 1,020 mls @ 250 mls/hr IV .Q4H5M ONE Stop: 07/10/21 05:04 Last Admin: 07/10/21 01:02 Dose: 250 mls/hr Documented by: [id number] Discontinued Medications Sodium Chloride (Nss 1000ml) 1,000 mls @ 125 mls/hr IV .Q8H ALICIA Stop: 08/08/21 23:44 Last Admin: 07/09/21 23:53 Dose: 125 mls/hr Documented by: [id number] Sodium Chloride (Nss 1000ml) 1,000 mls @ 999 mls/hr IV .Q1H1M ONE Stop: 07/10/21 01:19 Last Infusion: 07/10/21 02:21 Dose: 0 mls/hr Documented by: [id number] Admin: 07/10/21 01:02 Dose: 999 mls/hr Documented by: [id number] Discharge Plan Visit Data Chief Complaint: Mental Health Evaluation Stated Complaint: 302 ED Provider: Zohaib Richards Discharge Problem: Drug overdose, intentional, Benzodiazepine overdose, Sedated due to medication Discharge Instructions Interventions: ED Discharge Assessment Last Done: 07/10/21 02:23 Forms Stand Alone Forms: [facility], Suicide Prevention Resources Prescriptions Prescriptions: No Action omeprazole 20 mg capsule,delayed release(DR/EC) 20 mg PO BID RF: 0 lorazepam 1 mg tablet 1 mg PO BID PRN (Reason: Sleep or Pain/Muscle Spasm) RF: 0 aspirin 81 mg tablet,chewable 81 mg PO QAM RF: 0 duloxetine 60 mg capsule,delayed release(DR/EC) 60 mg PO QAM RF: 0 lisinopril 20 mg Tablet 20 mg PO QAM RF: 0 gabapentin 300 mg capsule See Rx Instructions .ROUTE .COMPLEX RF: 0 levetiracetam 750 mg tablet 1,500 mg PO BID RF: 0 Breo Ellipta 100-25 mcg/dose blister with device 1 inh INHALATION DAILY RF: 0 rosuvastatin [Crestor] 40 mg tablet 40 mg PO DAILY RF: 0 Advil PM Liqui-Gels 200-25 mg Capsule 1 cap PO HS PRN (Reason: Pain) RF: 0 Cold & Flu Nighttime 1 dose PO DIRECTED PRN (Reason: PAIN/SLEEP) RF: 0 Referrals Referrals: Denia Rivera MD [Primary Care Provider] - Discharge Problem: Drug overdose, intentional Qualifiers: Encounter type: initial encounter Qualified Code(s): T50.902A - Poisoning by u nspecified drugs, medicaments and biological substances, intentional self-harm, initial encounter Benzodiazepine overdose Qualifiers: Encounter type: initial encounter Injury intent: intentional self-harm Qualified Code(s): T42.4X2A - Poisoning by benzodiazepines, intentional self-harm, initial encounter
[2021-07-09 20:35] LABS: Basophils # (auto) 0.01 K/uL (0-0.2); Basophils % (auto) 0.1 %; Eosinophils # (auto) 0.05 K/uL (0-0.5); Eosinophils % (auto) 0.6 %; Hemoglobin 12.6 g/dL (12.0-16.0); Immature Granulocytes # (auto) 0.01 K/uL (0.00-0.02); Immature Granulocytes % (auto) 0.1 %; Lymphocytes # (auto) 2.95 K/uL (1.2-3.4); Lymphocytes % (auto) 34.3 %; Mean Corpuscular Hgb Conc 33.2 g/dL (32-36); Mean Corpuscular Volume 87.4 fL (80-100); Mean Platelet Volume 9.8 fL (7.4-10.4); Monocytes % (auto) 5.8 %; Neutrophils # (auto) 5.07 K/uL (1.4-6.5); Neutrophils % (auto) 59.1 %; Platelet Count 298 K/uL (130-400); RDW Coefficient of Variation 14.5 % (11.5-14.5); Red Blood Count 4.35 M/uL (4.2-5.4); White Blood Count 8.59 K/uL (4.8-10.8)
[2021-07-09 20:37] LABS: Appearance Urine Clear (Clear); Bilirubin Urine Negative (Negative); Blood Urine Negative (Negative); Color Urine Yellow; Glucose Urine UA Negative (Negative); Ketones Urine Negative (Negative); Leukocyte Esterase Urine Negative (Negative); Nitrite Urine Negative (Negative); Protein Urine Negative (Negative); Specific Gravity Urine 1.018 (1.000-1.030); Urobilinogen Urine Negative (Negative); pH Urine 5.5 (4.5-7.5)
[2021-07-09 20:57] LABS: Alanine Aminotransferase 64 U/L (12-78); Albumin Level 3.6 gm/dl (3.4-5.0); Aspartate Aminotransferase 22 U/L (15-37); BUN Creatinine Ratio 15.3 (10-20); Blood Urea Nitrogen 13 mg/dl (7-18); Calcium 9.2 mg/dl (8.5-10.1); Carbon Dioxide 28 mmol/L (21-32); Chloride 107 mmol/L (98-107); Est GFR (African American) 92.6 ml/min; Est GFR (Non-African American) 79.9 ml/min; Glucose 157 mg/dl (70-99); Potassium 3.4 mmol/L (3.5-5.1); Sodium 142 mmol/L (136-145)
[2021-07-09 20:58] LABS: Acetaminophen < 2 ug/ml (10-30); Salicylate 3.7 mg/dl (2.8-20)
[2021-07-09 21:14] LABS: Amphetamines+Metham, Urine Neg (Neg); Barbiturates, Urine Neg (Neg); Benzodiazepine, Urine Neg (Neg); Cocaine, Urine Neg (Neg); MDMA (Ecstacy), Urine Neg (Neg); Methadone, Urine Neg (Neg); Opiate, Urine Neg (Neg); Phencyclidine, Urine Neg (Neg)
[2021-07-09 21:16] LABS: Albumin Globulin Ratio 0.9 (0.9-2); Alkaline Phosphatase 82 U/L (45-117); Bilirubin,Total 0.3 mg/dl (0.2-1); Globulin 3.8 gm/dl (2.5-4.0); Total Protein 7.4 gm/dl (6.4-8.2)
[2021-07-09] MEDS ORDERED: SODIUM CHLORIDE 0.9% 1000ML 1,000 ML IV SCH (23:45)
[2021-07-10 00:06] LABS: Magnesium 2.2 mg/dl (1.8-2.4)
[2021-07-10] MEDS ORDERED: POTASSIUM CHLORIDE 40 MEQ in SODIUM CHLORIDE 0.9% 1000ML 1,000 ML IV ONE ×2 (00:15→01:00)
[2021-07-10] MEDS ORDERED: SODIUM CHLORIDE 0.9% 1000ML 1,000 ML IV ONE (00:19)
--- NOTE | 2021-07-10 01:42 | History & Physical Report ---
Date of Service July 10, 2021 Assessment & Plan (1) Hypotension: Plan: ? Home BP medication overdose medication misuse as per records. Possible suicidality Worsening depression since 2016 CVA as per . hyperlipidemia on statin Rx COPD, pulmonary status seems stable complex partial seizures on Keppra prediabetes, hemoglobin A1c of 6.14 July 2020 Hypokalemia Ongoing tobacco abuse PCU IVF Appropriate to hold home BP and neuropsychotropic medications for now Check Keppra level Psych consult Re: Suboptimal depression, possible suicidality Replace potassium parenterally Social service RE discharge planning (Patient possibly unable to care for patient currently with her psychiatric issues.) Nicotine patch as needed DVT prophylaxis. Lovenox subcu Full code Patient requesting updates from providers. Mr. Greer Rhodes, contact #[phone]. Text document was generated using Sansan voice recognition software. It may contain grammatical or spelling errors. Kindly contact undersigned for clarification of any documentation item in question. History of Present Illness Chief Complaint: Depression, yelling a lot as per Primary Care Provider: Denia Harris MD History obtained from patient's family and records. Unable to obtain history from patient secondary to obtunded state. Medical history significant for CVA, hypertension, hyperlipidemia, COPD, ongoing tobacco abuse, anxiety/mood disorder, complex partial seizures as per records, prediabetes as per records, medication misuse as per records. Last confinement June 2020 for unresponsiveness, uncertain etiology. On recent outpatient PCP visit last March 2021, patient feeling depressed and irritable as per documentation. Outpatient Psychiatry referral contemplated. Patient depression worsening over the last few years as per after 2016 stroke. Patient yelling at at home, hitting and cursing him. Refusing to see her doctors. Patient overdosing on her medications as per . not sure if patient suicidal. Patient brought to the ER for evaluation. Subsequently noted to be unresponsive at the ER. SBP noted to be 70s. Medical History as above Surgical History : Breast surgery, foot/toe surgery, cholecystectomy, NADIA Family History : Colon cancer, stroke Personal/Social history : 1 pack daily, no EtOH intake, disabled Allergies Allergy/AdvReac Type Severity Reaction Status Date / Time hydromorphone Allergy Severe Difficulty Verified 07/10/21 00:20 Breathing cephalexin [From Keflex] Allergy Intermediate Hives Verified 07/10/21 00:20 codeine Allergy Intermediate Hives Verified 07/10/21 00:20 Penicillins Allergy Intermediate Hives Verified 07/10/21 00:20 bupropion [From Wellbutrin] AdvReac Severe Seizure Verified 07/10/21 00:20 nickel AdvReac Mild SKIN Verified 07/10/21 00:20 IRRITATION Home Medications Medication Instructions Recorded Confirmed Type lisinopril 20 mg tablet 20 mg PO QAM 09/03/19 07/10/21 History omeprazole 20 mg capsule,delayed 20 mg PO BID 01/19/20 07/10/21 History release lorazepam 1 mg tablet 1 mg PO BID PRN 05/06/20 07/10/21 History fluticasone furoate 100 1 inh INHALATION DAILY 06/17/20 07/10/21 History mcg-vilanterol 25 mcg/dose inhalation powder (Breo Ellipta) gabapentin 300 mg capsule See Rx Instructions .ROUTE .COMPLEX 06/17/20 07/10/21 History levetiracetam 750 mg tablet 1,500 mg PO BID 06/17/20 07/10/21 History aspirin 81 mg chewable tablet 81 mg PO QAM 11/07/20 07/10/21 History duloxetine 60 mg capsule,delayed 60 mg PO QAM 11/07/20 07/10/21 History release rosuvastatin 40 mg tablet (Crestor) 40 mg PO DAILY 07/09/21 07/10/21 History Cold & Flu Nighttime 1 dose PO DIRECTED PRN 07/10/21 07/10/21 History ibuprofen 200 mg-diphenhydramine 1 cap PO HS PRN 07/10/21 07/10/21 History HCl 25 mg capsule (Advil PM Liqui-Gels) Past Med/Surg History Medical History (Updated 07/10/21 @ 04:08 by Silverio Constantino MD) Anxiety Bipolar 1 disorder Cerebrovascular disease Fibromyalgia History of stroke Hypertension Seizure disorder Surgical History History of cholecystectomy History of hysterectomy Family History Other Stroke Social History Smoking Status: Current every day smoker Tobacco Type: Cigarettes Cigarettes Per Day: 20; Hx Alcohol Use: No Hx Substance Use: No Preferred Language: Polish Communication Ability: Effective Visual Impairment: No Limitations Hearing Ability: Normal Aeronautical Inspector Required: No Beliefs That Will Affect Care: None marital status: Current Living Situation: Spouse current occupational status: unemployed Other Information That Helps Us Care for You: No Feels Safe at Home: Yes Safety Concerns: Feels Safe At This Time Assistive Devices: Denture - Upper, Walker and Wheelchair Review of Systems Review of Systems: Could not be reliably obtained Physical Exam Physical Exam: GENERAL: Obtunded, no respiratory distress SKIN: Normal color, warm HEENT: [place] palpebral conjunctivae, no ptosis, dry buccal mucosa NECK : Supple, no tenderness CHEST : Decreased breath sounds, no tenderness HEART : RRR, no obvious murmurs ABDOMEN: Some distention, nontender EXTREMITIES : No LE swelling/tenderness, no other conspicuous deformities noted NEUROLOGIC : Obtunded, no facial asymmetry, no other gross focality Results & Data Results & Data ([facility]) Vital Signs (Past 12 Hours) Vital Signs Temp Pulse Pulse Resp BP BP Pulse Ox 07/09/21 23:54 74 16 74/53 L 99 07/09/21 22:14 80 16 85/59 L 97 07/09/21 21:08 82 16 97/67 L 98 07/09/21 20:00 36.8 C 105 H 16 131/88 99 Laboratory Results Laboratory Results WBC 8.59 K/uL (4.8-10.8) 07/09/21 20:22 RBC 4.35 M/uL (4.2-5.4) 07/09/21 20:22 Hgb 12.6 g/dL (12.0-16.0) 07/09/21 20:22 Hct 38.0 % (37-47) 07/09/21 20:22 MCV 87.4 fL (80-100) 07/09/21 20:22 MCH 29.0 pg (25-34) 07/09/21 20:22 MCHC 33.2 g/dL (32-36) 07/09/21 20:22 RDW Std Deviation 46.0 fL (36.4-46.3) 07/09/21 20:22 RDW Coeff of Damian 14.5 % (11.5-14.5) 07/09/21 20:22 Plt Count 298 K/uL (130-400) 07/09/21 20:22 MPV 9.8 fL (7.4-10.4) 07/09/21 20:22 Immature Gran % (Auto) 0.1 % 07/09/21 20: Neut % (Auto) 59.1 % 07/09/21 20: Lymph % (Auto) 34.3 % 07/09/21 20:22 [place] % (Auto) 5.8 % 07/09/21 20: Eos % (Auto) 0.6 % 07/09/21 20:22 Baso % (Auto) 0.1 % 07/09/21 20:22 Neut # (Auto) 5.07 K/uL (1.4-6.5) 07/09/21 20: Lymph # (Auto) 2.95 K/uL (1.2-3.4) 07/09/21 20:22 [place] # (Auto) 0.50 K/uL (0.11-0.59) 07/09/21 20: Eos # (Auto) 0.05 K/uL (0-0.5) 07/09/21 20:22 Baso # (Auto) 0.01 K/uL (0-0.2) 07/09/21 20: Immature Gran # (Auto) 0.01 K/uL (0.00-0.02) 07/09/21 20:22 Sodium 142 mmol/L (136-145) 07/09/21 20:22 Potassium 3.4 mmol/L (3.5-5.1) L 07/09/21 20: Chloride 107 mmol/L (98-107) 07/09/21 20:22 Carbon Dioxide 28 mmol/L (21-32) 07/09/21 20:22 Anion Gap 7.0 (3-11) 07/09/21 20: BUN 13 mg/dl (7-18) 07/09/21 20: Creatinine 0.84 mg/dl (0.6-1.2) 07/09/21 20: Est Cr Clr Drug Dosing Not Reportable 07/09/21 20: Est GFR ( Amer) 92.6 ml/min 07/09/21 20: Est GFR (Non-Af Amer) 79.9 ml/min 07/09/21 20:22 BUN/Creatinine Ratio 15.3 (10-20) 07/09/21 20:22 Glucose 157 mg/dl (70-99) H 07/09/21 20:22 Lactate 1.3 mmol/L (0.4-2.0) 07/10/21 00:39 Calcium 9.2 mg/dl (8.5-10.1) 07/09/21 20:22 Magnesium 2.2 mg/dl (1.8-2.4) 07/09/21 20:22 Total Bilirubin 0.3 mg/dl (0.2-1) 07/09/21 20:22 AST 22 U/L (15-37) 07/09/21 20:22 ALT 64 U/L (12-78) 07/09/21 20:22 Alkaline Phosphatase 82 U/L (45-117) 07/09/21 20:22 Ammonia 19.0 umol/L (11-32) 07/10/21 00:39 Total Protein 7.4 gm/dl (6.4-8.2) 07/09/21 20:22 Albumin 3.6 gm/dl (3.4-5.0) 07/09/21 20:22 Globulin 3.8 gm/dl (2.5-4.0) 07/09/21 20:22 Albumin/Globulin Ratio 0.9 (0.9-2) 07/09/21 20:22 TSH 2.040 uIu/ml (0.300-4.500) 07/09/21 20:22 Urine Color Yellow 07/09/21 20:18 Urine Appearance Clear (Clear) 07/09/21 20:18 Urine pH 5.5 (4.5-7.5) 07/09/21 20:18 Ur Specific [place] 1.018 (1.000-1.030) 07/09/21 20:18 Urine Protein Negative (Negative) 07/09/21 20:18 Urine Glucose (UA) Negative (Negative) 07/09/21 20:18 Urine Ketones Negative (Negative) 07/09/21 20:18 Urine Blood Negative (Negative) 07/09/21 20:18 Urine Nitrite Negative (Negative) 07/09/21 20:18 Urine Bilirubin Negative (Negative) 07/09/21 20:18 Urine Urobilinogen Negative (Negative) 07/09/21 20:18 Ur Leukocyte Esterase Negative (Negative) 07/09/21 20:18 Salicylates 3.7 mg/dl (2.8-20) 07/09/21 20:22 Urine Opiates Screen Neg (Neg) 07/09/21 20:18 Ur Methadone, Qual Neg (Neg) 07/09/21 20:18 Acetaminophen < 2 ug/ml (10-30) L 07/09/21 20:22 Urine Barbiturates Neg (Neg) 07/09/21 20:18 Ur Phencyclidine (PCP) Neg (Neg) 07/09/21 20:18 U Amphetamin/Meth Scrn Neg (Neg) 07/09/21 20:18 MDMA (Ecstasy) Screen Neg (Neg) 07/09/21 20:18 U Benzodiazepines Scrn Neg (Neg) 07/09/21 20:18 Ur Cocaine Metabolite Neg (Neg) 07/09/21 20:18 U Marijuana (THC) Screen Neg (Neg) 07/09/21 20:18 Ethyl Alcohol mg/dL < 3.0 mg/dl (0-3) 07/09/21 20:22 COVID-19 [facility] 07/09/21 20:16 SARS-CoV-2, RNA, NAAT NEGATIVE (NEGATIVE) 07/09/21 20:[address] head initial read: No acute or focal intracranial abnormalities. Encephalomalacia right cerebellar hemisphere may represent old infarct. Chest x-ray as per my interpretation elevated right hemidiaphragm, atelectasis EKG as per my interpretation : Rate 100, NSR, normal axis, no ischemia
[2021-07-10] MEDS ORDERED: GLUCOSE 10 TABS/TUBE PO PRN (03:30)
[2021-07-10] MEDS ORDERED: DEXTROSE 50% 50 ML SYRINGE IV PRN (03:30)
[2021-07-10] MEDS ORDERED: PROMETHAZINE HCL 12.5 MG in SODIUM CHLORIDE 0.9% 50 ML IV PRN (03:30)
[2021-07-10] MEDS ORDERED: CARBOHYDRATES FOR HYPOGLYCEMIA PO PRN (03:30)
[2021-07-10] MEDS ORDERED: GLUCOSE 40% GEL 15 GM TUBE PO PRN (03:30)
[2021-07-10] MEDS ORDERED: GLUCAGON FOR INJ 1 MG VIAL SQ PRN (03:30)
[2021-07-10] MEDS ORDERED: ACETAMINOPHEN 325 MG TAB PO PRN (03:30)
[2021-07-10 06:00] LABS: Basophils # (auto) 0.02 K/uL (0-0.2); Basophils % (auto) 0.2 %; Eosinophils # (auto) 0.12 K/uL (0-0.5); Eosinophils % (auto) 1.4 %; Hematocrit (blood only) 35.2 % (37-47); Hemoglobin 11.2 g/dL (12.0-16.0); Immature Granulocytes # (auto) 0.01 K/uL (0.00-0.02); Immature Granulocytes % (auto) 0.1 %; Lymphocytes # (auto) 3.35 K/uL (1.2-3.4); Lymphocytes % (auto) 39.6 %; Mean Corpuscular Hemoglobin 28.4 pg (25-34); Mean Corpuscular Hgb Conc 31.8 g/dL (32-36); Mean Corpuscular Volume 89.1 fL (80-100); Mean Platelet Volume 9.7 fL (7.4-10.4); Monocytes # (auto) 0.54 K/uL (0.11-0.59); Monocytes % (auto) 6.4 %; Neutrophils # (auto) 4.42 K/uL (1.4-6.5); Neutrophils % (auto) 52.3 %; Platelet Count 255 K/uL (130-400); RDW Coefficient of Variation 14.6 % (11.5-14.5); RDW Standard Deviation 47.8 fL (36.4-46.3); Red Blood Count 3.95 M/uL (4.2-5.4); White Blood Count 8.46 K/uL (4.8-10.8)
[2021-07-10 06:28] LABS: BUN Creatinine Ratio 18.4 (10-20); Calcium 8.3 mg/dl (8.5-10.1); Est GFR (African American) 109.7 ml/min; Est GFR (Non-African American) 94.7 ml/min; Potassium 4.2 mmol/L (3.5-5.1)
[2021-07-10] MEDS ORDERED: LACTATED RINGER'S 1,000 ML IV ONE (06:42)
[2021-07-10 07:20] LABS: Estimated Average Glucose 137 mg/dl; Hemoglobin A1C 6.4 % (4.5-5.6)
--- NOTE | 2021-07-10 07:24 | Hospitalist Progress Note ---
Date of Service July 10, 2021 Assessment & Plan (1) Drug overdose, intentional: (2) Hypotension: Plan: ? Home BP medication overdose medication misuse as per records. Possible suicidality Worsening depression since 2016 CVA as per . Complex partial seizures on Keppra PCU IVF Appropriate to hold home BP and neuropsychotropic medications for now BP now normal, continue to monitor Check Keppra level - pending Psychiatry consulted Re: Suboptimal depression, possible suicidality Social service RE discharge planning (Patient possibly unable to care for patient currently with her psychiatric issues.) Hyperlipidemia on statin Rx COPD, pulmonary status seems stable Prediabetes -hemoglobin A1c of 6.14 July 2020 Current Hb A1c 6.4% Hypokalemia - replete and monitor Ongoing tobacco abuse Nicotine patch ordered DVT prophylaxis. Lovenox subcu Full code Patient's , Mr. Greer Rhodes, to be contacted at #[phone]. Admission and Anticipated Discharge Date Admission Date: July 10, 2021 Subjective Patient seen in follow-up of possibly misusing her medications, and hypotension Currently laying in bed in no acute distress She is breathing comfortably on room air She is alert oriented answering questions appropriately Denies any chest pain shortness of breath abdominal pain nausea vomiting She is asking about smoking/nicotine patch Seen by psychiatry Review of Systems Review of Systems: All systems reviewed & are unremarkable except as noted in Subjective Physical Exam Physical Exam: GENERAL: WD/WN F in NAD HEENT: NC/AT, EOMI, PERRL NECK : Supple, no tenderness CHEST : Decreased breath sounds, no tenderness HEART : RRR, no obvious murmurs ABDOMEN: Soft, nontender, + bowel sounds EXTREMITIES : No LE swelling/tenderness, moves extremities NEUROLOGIC : Awake and alert, answering questions mostly appropriately, no facial asymmetry, speech fluent, moves extremities SKIN: Normal color, warm Results & Data Results & Data ([facility]) Vital Signs (Past 12 Hours) Vital Signs Temp Pulse Pulse Pulse Resp BP BP 07/10/21 05:57 61 17 124/76 07/10/21 04:57 62 15 97/60 L 07/10/21 04:00 36.4 C L 07/10/21 03:57 65 20 134/86 07/10/21 02:50 74 18 165/101 H 07/10/21 02:23 64 16 129/63 07/10/21 00:53 70 16 129/71 07/09/21 23:54 74 16 74/53 L 07/09/21 22:14 80 16 85/59 L 07/09/21 21:08 82 16 97/67 L 07/09/21 20:00 36.8 C 105 H 16 131/88 Pulse Ox 07/10/21 05:57 07/10/21 04:57 07/10/21 04:00 07/10/21 03:57 100 07/10/21 02:50 100 07/10/21 02:23 98 07/10/21 00:53 98 07/09/21 23:54 99 07/09/21 22:14 97 07/09/21 21:08 98 07/09/21 20:00 99 Laboratory Results 07/10/21 07/10/21 07/10/21 Range/Units 07:02 05:29 05:29 WBC (4.8-10.8) K/uL RBC (4.2-5.4) M/uL Hgb (12.0-16.0) g/dL Hct (37-47) % MCV (80-100) fL MCH (25-34) pg MCHC (32-36) g/dL RDW Std Deviation (36.4-46.3) fL RDW Coeff of Damian (11.5-14.5) % Plt Count (130-400) K/uL MPV (7.4-10.4) fL Immature Gran % (Auto) % Neut % (Auto) % Lymph % (Auto) % [place] % (Auto) % Eos % (Auto) % Baso % (Auto) % Neut # (Auto) (1.4-6.5) K/uL Lymph # (Auto) (1.2-3.4) K/uL [place] # (Auto) (0.11-0.59) K/uL Eos # (Auto) (0-0.5) K/uL Baso # (Auto) (0-0.2) K/uL Immature Gran # (Auto) (0.00-0.02) K/uL Sodium 141 (136-145) mmol/L Potassium 4.2 D (3.5-5.1) mmol/L Chloride 113 H (98-107) mmol/L Carbon Dioxide 27 (21-32) mmol/L Anion Gap 1.0 L (3-11) BUN 13 (7-18) mg/dl Creatinine 0.73 (0.6-1.2) mg/dl Est Cr Clr Drug Dosing 68.0 Est GFR ( Amer) 109.7 ml/min Est GFR (Non-Af Amer) 94.7 ml/min BUN/Creatinine Ratio 18.4 (10-20) Glucose 83 (70-99) mg/dl POC Glucose 77 (70-99) mg/dl Estimat Average Glucose mg/dl Hemoglobin A1c (4.5-5.6) % Lactate (0.4-2.0) mmol/L Calcium 8.3 L (8.5-10.1) mg/dl Magnesium (1.8-2.4) mg/dl Total Bilirubin (0.2-1) mg/dl AST (15-37) U/L ALT (12-78) U/L Alkaline Phosphatase (45-117) U/L Ammonia (11-32) umol/L Total Protein (6.4-8.2) gm/dl Albumin (3.4-5.0) gm/dl Globulin (2.5-4.0) gm/dl Albumin/Globulin Ratio (0.9-2) TSH (0.300-4.500) uIu/ml Urine Color Urine Appearance (Clear) Urine pH (4.5-7.5) Ur Specific Issue (1.000-1.030) Urine Protein (Negative) Urine Glucose (UA) (Negative) Urine Ketones (Negative) Urine Blood (Negative) Urine Nitrite (Negative) Urine Bilirubin (Negative) Urine Urobilinogen (Negative) Ur Leukocyte Esterase (Negative) Salicylates (2.8-20) mg/dl Urine Opiates Screen (Neg) Ur Methadone, Qual (Neg) Acetaminophen (10-30) ug/ml Urine Barbiturates (Neg) Levetiracetam Pending Ur Phencyclidine (PCP) (Neg) U Amphetamin/Meth Scrn (Neg) MDMA (Ecstasy) Screen (Neg) U Benzodiazepines Scrn (Neg) Ur Cocaine Metabolite (Neg) U Marijuana (THC) Screen (Neg) Ethyl Alcohol mg/dL (0-3) mg/dl COVID-19 Eval Order SARS-CoV-2, RNA, NAAT (NEGATIVE) 07/10/21 07/10/21 07/10/21 Range/Units 05:29 00:39 00:39 WBC 8.46 (4.8-10.8) K/uL RBC 3.95 L (4.2-5.4) M/uL Hgb 11.2 L (12.0-16.0) g/dL Hct 35.2 L (37-47) % MCV 89.1 (80-100) fL MCH 28.4 (25-34) pg MCHC 31.8 L (32-36) g/dL RDW Std Deviation 47.8 H (36.4-46.3) fL RDW Coeff of Damian 14.6 H (11.5-14.5) % Plt Count 255 (130-400) K/uL MPV 9.7 (7.4-10.4) fL Immature Gran % (Auto) 0.1 % Neut % (Auto) 52.3 % Lymph % (Auto) 39.6 % [place] % (Auto) 6.4 % Eos % (Auto) 1.4 % Baso % (Auto) 0.2 % Neut # (Auto) 4.42 (1.4-6.5) K/uL Lymph # (Auto) 3.35 (1.2-3.4) K/uL [place] # (Auto) 0.54 (0.11-0.59) K/uL Eos # (Auto) 0.12 (0-0.5) K/uL Baso # (Auto) 0.02 (0-0.2) K/uL Immature Gran # (Auto) 0.01 (0.00-0.02) K/uL Sodium (136-145) mmol/L Potassium (3.5-5.1) mmol/L Chloride (98-107) mmol/L Carbon Dioxide (21-32) mmol/L Anion Gap (3-11) BUN (7-18) mg/dl Creatinine (0.6-1.2) mg/dl Est Cr Clr Drug Dosing Est GFR ( Amer) ml/min Est GFR (Non-Af Amer) ml/min BUN/Creatinine Ratio (10-20) Glucose (70-99) mg/dl POC Glucose (70-99) mg/dl Estimat Average Glucose mg/dl Hemoglobin A1c (4.5-5.6) % Lactate 1.3 (0.4-2.0) mmol/L Calcium (8.5-10.1) mg/dl Magnesium (1.8-2.4) mg/dl Total Bilirubin (0.2-1) mg/dl AST (15-37) U/L ALT (12-78) U/L Alkaline Phosphatase (45-117) U/L Ammonia 19.0 (11-32) umol/L Total Protein (6.4-8.2) gm/dl Albumin (3.4-5.0) gm/dl Globulin (2.5-4.0) gm/dl Albumin/Globulin Ratio (0.9-2) TSH (0.300-4.500) uIu/ml Urine Color Urine Appearance (Clear) Urine pH (4.5-7.5) Ur Specific Issue (1.000-1.030) Urine Protein (Negative) Urine Glucose (UA) (Negative) Urine Ketones (Negative) Urine Blood (Negative) Urine Nitrite (Negative) Urine Bilirubin (Negative) Urine Urobilinogen (Negative) Ur Leukocyte Esterase (Negative) Salicylates (2.8-20) mg/dl Urine Opiates Screen (Neg) Ur Methadone, Qual (Neg) Acetaminophen (10-30) ug/ml Urine Barbiturates (Neg) Levetiracetam Ur Phencyclidine (PCP) (Neg) U Amphetamin/Meth Scrn (Neg) MDMA (Ecstasy) Screen (Neg) U Benzodiazepines Scrn (Neg) Ur Cocaine Metabolite (Neg) U Marijuana (THC) Screen (Neg) Ethyl Alcohol mg/dL (0-3) mg/dl COVID-19 Eval Order SARS-CoV-2, RNA, NAAT (NEGATIVE) 07/09/21 07/09/21 07/09/21 Range/Units 20:22 20:22 20:22 WBC (4.8-10.8) K/uL RBC (4.2-5.4) M/uL Hgb (12.0-16.0) g/dL Hct (37-47) % MCV (80-100) fL MCH (25-34) pg MCHC (32-36) g/dL RDW Std Deviation (36.4-46.3) fL RDW Coeff of Damian (11.5-14.5) % Plt Count (130-400) K/uL MPV (7.4-10.4) fL Immature Gran % (Auto) % Neut % (Auto) % Lymph % (Auto) % [place] % (Auto) % Eos % (Auto) % Baso % (Auto) % Neut # (Auto) (1.4-6.5) K/uL Lymph # (Auto) (1.2-3.4) K/uL [place] # (Auto) (0.11-0.59) K/uL Eos # (Auto) (0-0.5) K/uL Baso # (Auto) (0-0.2) K/uL Immature Gran # (Auto) (0.00-0.02) K/uL Sodium (136-145) mmol/L Potassium (3.5-5.1) mmol/L Chloride (98-107) mmol/L Carbon Dioxide (21-32) mmol/L Anion Gap (3-11) BUN (7-18) mg/dl Creatinine (0.6-1.2) mg/dl Est Cr Clr Drug Dosing Est GFR ( Amer) ml/min Est GFR (Non-Af Amer) ml/min BUN/Creatinine Ratio (10-20) Glucose (70-99) mg/dl POC Glucose (70-99) mg/dl Estimat Average Glucose 137 mg/dl Hemoglobin A1c 6.4 H (4.5-5.6) % Lactate (0.4-2.0) mmol/L Calcium (8.5-10.1) mg/dl Magnesium (1.8-2.4) mg/dl Total Bilirubin (0.2-1) mg/dl AST (15-37) U/L ALT (12-78) U/L Alkaline Phosphatase (45-117) U/L Ammonia (11-32) umol/L Total Protein (6.4-8.2) gm/dl Albumin (3.4-5.0) gm/dl Globulin (2.5-4.0) gm/dl Albumin/Globulin Ratio (0.9-2) TSH (0.300-4.500) uIu/ml Urine Color Urine Appearance (Clear) Urine pH (4.5-7.5) Ur Specific Issue (1.000-1.030) Urine Protein (Negative) Urine Glucose (UA) (Negative) Urine Ketones (Negative) Urine Blood (Negative) Urine Nitrite (Negative) Urine Bilirubin (Negative) Urine Urobilinogen (Negative) Ur Leukocyte Esterase (Negative) Salicylates 3.7 (2.8-20) mg/dl Urine Opiates Screen (Neg) Ur Methadone, Qual (Neg) Acetaminophen < 2 L (10-30) ug/ml Urine Barbiturates (Neg) Levetiracetam Ur Phencyclidine (PCP) (Neg) U Amphetamin/Meth Scrn (Neg) MDMA (Ecstasy) Screen (Neg) U Benzodiazepines Scrn (Neg) Ur Cocaine Metabolite (Neg) U Marijuana (THC) Screen (Neg) Ethyl Alcohol mg/dL < 3.0 (0-3) mg/dl COVID-19 Eval Order SARS-CoV-2, RNA, NAAT (NEGATIVE) 07/09/21 07/09/21 07/09/21 Range/Units 20:22 20:22 20:18 WBC 8.59 (4.8-10.8) K/uL RBC 4.35 (4.2-5.4) M/uL Hgb 12.6 (12.0-16.0) g/dL Hct 38.0 (37-47) % MCV 87.4 (80-100) fL MCH 29.0 (25-34) pg MCHC 33.2 (32-36) g/dL RDW Std Deviation 46.0 (36.4-46.3) fL RDW Coeff of Damian 14.5 (11.5-14.5) % Plt Count 298 (130-400) K/uL MPV 9.8 (7.4-10.4) fL Immature Gran % (Auto) 0.1 % Neut % (Auto) 59.1 % Lymph % (Auto) 34.3 % [place] % (Auto) 5.8 % Eos % (Auto) 0.6 % Baso % (Auto) 0.1 % Neut # (Auto) 5.07 (1.4-6.5) K/uL Lymph # (Auto) 2.95 (1.2-3.4) K/uL [place] # (Auto) 0.50 (0.11-0.59) K/uL Eos # (Auto) 0.05 (0-0.5) K/uL Baso # (Auto) 0.01 (0-0.2) K/uL Immature Gran # (Auto) 0.01 (0.00-0.02) K/uL Sodium 142 (136-145) mmol/L Potassium 3.4 L (3.5-5.1) mmol/L Chloride 107 (98-107) mmol/L Carbon Dioxide 28 (21-32) mmol/L Anion Gap 7.0 (3-11) BUN 13 (7-18) mg/dl Creatinine 0.84 (0.6-1.2) mg/dl Est Cr Clr Drug Dosing Not Reportable Est GFR ( Amer) 92.6 ml/min Est GFR (Non-Af Amer) 79.9 ml/min BUN/Creatinine Ratio 15.3 (10-20) Glucose 157 H (70-99) mg/dl POC Glucose (70-99) mg/dl Estimat Average Glucose mg/dl Hemoglobin A1c (4.5-5.6) % Lactate (0.4-2.0) mmol/L Calcium 9.2 (8.5-10.1) mg/dl Magnesium 2.2 (1.8-2.4) mg/dl Total Bilirubin 0.3 (0.2-1) mg/dl AST 22 (15-37) U/L ALT 64 (12-78) U/L Alkaline Phosphatase 82 (45-117) U/L Ammonia (11-32) umol/L Total Protein 7.4 (6.4-8.2) gm/dl Albumin 3.6 (3.4-5.0) gm/dl Globulin 3.8 (2.5-4.0) gm/dl Albumin/Globulin Ratio 0.9 (0.9-2) TSH 2.040 (0.300-4.500) uIu/ml Urine Color Urine Appearance (Clear) Urine pH (4.5-7.5) Ur Specific Issue (1.000-1.030) Urine Protein (Negative) Urine Glucose (UA) (Negative) Urine Ketones (Negative) Urine Blood (Negative) Urine Nitrite (Negative) Urine Bilirubin (Negative) Urine Urobilinogen (Negative) Ur Leukocyte Esterase (Negative) Salicylates (2.8-20) mg/dl Urine Opiates Screen Neg (Neg) Ur Methadone, Qual Neg (Neg) Acetaminophen (10-30) ug/ml Urine Barbiturates Neg (Neg) Levetiracetam Ur Phencyclidine (PCP) Neg (Neg) U Amphetamin/Meth Scrn Neg (Neg) MDMA (Ecstasy) Screen Neg (Neg) U Benzodiazepines Scrn Neg (Neg) Ur Cocaine Metabolite Neg (Neg) U Marijuana (THC) Screen Neg (Neg) Ethyl Alcohol mg/dL (0-3) mg/dl COVID-19 Eval Order SARS-CoV-2, RNA, NAAT (NEGATIVE) 07/09/21 07/09/21 07/09/21 Range/Units 20:18 20:16 20:16 WBC (4.8-10.8) K/uL RBC (4.2-5.4) M/uL Hgb (12.0-16.0) g/dL Hct (37-47) % MCV (80-100) fL MCH (25-34) pg MCHC (32-36) g/dL RDW Std Deviation (36.4-46.3) fL RDW Coeff of Damian (11.5-14.5) % Plt Count (130-400) K/uL MPV (7.4-10.4) fL Immature Gran % (Auto) % Neut % (Auto) % Lymph % (Auto) % [place] % (Auto) % Eos % (Auto) % Baso % (Auto) % Neut # (Auto) (1.4-6.5) K/uL Lymph # (Auto) (1.2-3.4) K/uL [place] # (Auto) (0.11-0.59) K/uL Eos # (Auto) (0-0.5) K/uL Baso # (Auto) (0-0.2) K/uL Immature Gran # (Auto) (0.00-0.02) K/uL Sodium (136-145) mmol/L Potassium (3.5-5.1) mmol/L Chloride (98-107) mmol/L Carbon Dioxide (21-32) mmol/L Anion Gap (3-11) BUN (7-18) mg/dl Creatinine (0.6-1.2) mg/dl Est Cr Clr Drug Dosing Est GFR ( Amer) ml/min Est GFR (Non-Af Amer) ml/min BUN/Creatinine Ratio (10-20) Glucose (70-99) mg/dl POC Glucose (70-99) mg/dl Estimat Average Glucose mg/dl Hemoglobin A1c (4.5-5.6) % Lactate (0.4-2.0) mmol/L Calcium (8.5-10.1) mg/dl Magnesium (1.8-2.4) mg/dl Total Bilirubin (0.2-1) mg/dl AST (15-37) U/L ALT (12-78) U/L Alkaline Phosphatase (45-117) U/L Ammonia (11-32) umol/L Total Protein (6.4-8.2) gm/dl Albumin (3.4-5.0) gm/dl Globulin (2.5-4.0) gm/dl Albumin/Globulin Ratio (0.9-2) TSH (0.300-4.500) uIu/ml Urine Color Yellow Urine Appearance Clear (Clear) Urine pH 5.5 (4.5-7.5) Ur Specific Issue 1.018 (1.000-1.030) Urine Protein Negative (Negative) Urine Glucose (UA) Negative (Negative) Urine Ketones Negative (Negative) Urine Blood Negative (Negative) Urine Nitrite Negative (Negative) Urine Bilirubin Negative (Negative) Urine Urobilinogen Negative (Negative) Ur Leukocyte Esterase Negative (Negative) Salicylates (2.8-20) mg/dl Urine Opiates Screen (Neg) Ur Methadone, Qual (Neg) Acetaminophen (10-30) ug/ml Urine Barbiturates (Neg) Levetiracetam Ur Phencyclidine (PCP) (Neg) U Amphetamin/Meth Scrn (Neg) MDMA (Ecstasy) Screen (Neg) U Benzodiazepines Scrn (Neg) Ur Cocaine Metabolite (Neg) U Marijuana (THC) Screen (Neg) Ethyl Alcohol mg/dL (0-3) mg/dl COVID-19 [facility], RNA, NAAT NEGATIVE (NEGATIVE) Medications Administered Current Inpatient Medications Acetaminophen (Acetaminophen 325 Mg Tab) 650 mg PO Q4H PRN PRN Reason: Pain or Fever Stop: 08/09/21 03:29 Dextrose (Dextrose 50% 50 Ml Syringe) 25 - 50 ml IV UD PRN; Protocol PRN Reason: Hypoglycemia Protocol Stop: 08/09/21 03:29 Enoxaparin Sodium (Enoxaparin Inj 40 Mg/0.4 Ml Syr) 40 mg SQ QAM ALICIA Stop: 08/09/21 08:59 Glucagon (Glucagon For Inj 1 Mg Vial) 1 mg SQ UD PRN; Protocol PRN Reason: Hypoglycemia Protocol Stop: 08/09/21 03:29 Glucose (Glucose 10 Tabs/Tube) 4 - 8 tabs PO UD PRN; Protocol PRN Reason: Hypoglycemia Protocol Stop: 08/09/21 03:29 Glucose (Glucose 40% Gel 15 Gm Tube) 15 - 30 gm PO UD PRN; Protocol PRN Reason: Hypoglycemia Protocol Stop: 08/09/21 03:29 Promethazine HCl 12.5 mg/ (Sodium Chloride) 50.5 mls @ 202 mls/hr IV Q6H PRN PRN Reason: Nausea And Vomiting Stop: 08/09/21 03:29 Lactated Ringer's (Lr) 1,000 mls @ 100 mls/hr IV .Q10H ONE Stop: 07/10/21 16:41 Last Admin: 07/10/21 07:16 Dose: 100 mls/hr Documented by: Insulin Aspart (Insulin Aspart 100 Units/Ml 3 Ml Pen) 0 units SC [facility] Stop: 08/09/21 07:29 Miscellaneous (Carbohydrates For Hypoglycemia ) 15 - 30 gm PO UD PRN PRN Reason: Hypoglycemia Protocol Stop: 08/09/21 03:29 (1) Drug overdose, intentional Encounter type: initial encounter Qualified Code(s): T50.902A - Poisoning by unspecified drugs, medicaments and biological substances, intentional self-harm, initial encounter
--- NOTE | 2021-07-10 07:33 | CT Scan Report ---
CT head/brain wo con Clinical Indication: Altered mental status. Technique: Contiguous axial CT images of the head were acquired from the base of the skull to the marck david without intravenous contrast administration. Images were viewed in brain, subdural and bone [facility]. Automated dose lowering techniques and/or adjustment according to patient size were utilized for this exam. Comparison: Comparison is made to CT head 06/17/2020 Findings: Areas of decreased attenuation are present in the periventricular and subcortical white matter bilate rally consistent with small vessel ischemic disease. Generalized cerebral atrophy with commensurate e nlargement of the ventricles, sulci, and cisterns is also present. There is no acute intracranial hem orrhage or evidence of acute territorial infarction. No shift of the midline structures, mass effect, or extra-axial abnormalities are shown. Atherosclerotic calcifications are present in the intracran ial segments of the internal carotid arteries. Encephalomalacia is seen in the right parietal region which may represent prior stroke. Imaged portions of the paranasal sinuses and mastoid air cells are clear. The orbits appear normal. There are no acute fractures of the calvaria or scalp swelling. Impression: No acute intracranial hemorrhage, evidence of acute territorial infarction, or other acute intracrani al disease process. ACT 112: Negative or not required by law. Electronically signed by: Ben Gomez M.D. 07/10/2021 7:32 AM
--- NOTE | 2021-07-10 07:57 | XRay Report ---
XR chest 1V portable HISTORY: overdose, hypoxia COMPARISON: Chest 10/24/2020. FINDINGS: The lungs are clear. The heart is normal in size. Slightly rotated study. No pleural effusi ons. No pneumothorax. Cervical spinal fusion hardware is again noted. IMPRESSION: No acute process. ACT 112: Negative or not required by law. Electronically signed by: Harley Box M.D. 07/10/2021 7:56 AM
[2021-07-10] MEDS: ENOXAPARIN INJ 40 MG/0.4 ML SYR SQ SCH (08:33)
[2021-07-10] MEDS: INSULIN ASPART 100 UNITS/ML 3 ML PEN SC SCH ×4 (08:34→20:19)
[2021-07-10] MEDS: NICOTINE 14 MG/24 HR PATCH TD SCH (13:48)
--- NOTE | 2021-07-10 15:51 | Psychiatric Consultation ---
Date of Consultation July 10, 2021 Impression / Recommendations Impression This is a 50-year-old woman, status post stroke, who carries a diagnosis of bipolar 2 disorder and presents with lack of self-care concerns. Upon evaluating the patient she is without any acute psychiatric symptoms except for a history of auditory hallucinations in the recent past which may possibly be be explained by her benzo use and abrupt withdrawal. Patient is agreeable to medication changes at this time to target her symptoms as well as help with her sleep. We will likely prescribe medications, get the patient connected with outpatient services, and return her to her home following medical clearance. (1) Bipolar 2 disorder: Start Seroquel 200 mg p.o. nightly, 100 mg p.o. every morning Psychiatry liaison service to assist with aftercare It would be recommended that visiting nurse services be involved in this patient's case as well. Psych History Chief Complaint "I just want a cigarette". History of Present Illness Patient is a 50-year-old female who presented somewhat obtunded with complaints from her of patient not maintaining her care for self. HPI as per psychiatric liaison "Talked with pt at bedside with Dr. Wooten. Pt said that she was wanting a cigarette and that there is "nothing wrong" with her that she needs to be in the hospital. Pt is denying suicidal ideation. She is denying any thoughts to harm others. She is oriented to person, place and time. Pt talks about "negative charades," where voices from drug dealers neil her around places like the grocery store and that she has to use a high pitch tone in her vocal chords to get them to go away. Pt said that she takes care of herself at home, has no troubles with bathing or eating. Pt said that she sees a PCP named Allison Harris but has not taken medications in a month. Pt was agreeable to signing a release of information for her , Greer." Patient was calm and cooperative with us. Patient is a former stroke patient does have some deficits at baseline. She does acknowledge occasional auditory hallucinations, but denies that they are distressing to her. Patient reports that she has been here for several years, but feels that they have been worse for her in the past week or so since running out of her medications. She is denying any homicidal or suicidal ideation. She is denying any paranoia or other psychosis. Patient is agreeable to medication changes in order to target the symptoms. Upon speaking to her , patient's is okay with her returning home, but feels that she at times can be a little bit disorganized and would benefit from some medication to help treat this. He states that she would also benefit from visiting nurse services to help her with medication services as she frequently gets confused and he feels that her potentially taking the wrong medications is the cause of a lot of her symptoms. Allergies Allergy/AdvReac Type Severity Reaction Status Date / Time hydromorphone Allergy Severe Difficulty Verified 07/10/21 00:20 Breathing cephalexin [From Keflex] Allergy Intermediate Hives Verified 07/10/21 00:20 codeine Allergy Intermediate Hives Verified 07/10/21 00:20 Penicillins Allergy Intermediate Hives Verified 07/10/21 00:20 bupropion [From Wellbutrin] AdvReac Severe Seizure Verified 07/10/21 00:20 nickel AdvReac Mild SKIN Verified 07/10/21 00:20 IRRITATION Home Medications Medication Instructions Recorded Confirmed Type lisinopril 20 mg tablet 20 mg PO QAM 09/03/19 07/10/21 History omeprazole 20 mg capsule,delayed 20 mg PO BID 01/19/20 07/10/21 History release lorazepam 1 mg tablet 1 mg PO BID PRN 05/06/20 07/10/21 History fluticasone furoate 100 1 inh INHALATION DAILY 06/17/20 07/10/21 History mcg-vilanterol 25 mcg/dose inhalation powder (Breo Ellipta) gabapentin 300 mg capsule See Rx Instructions .ROUTE .COMPLEX 06/17/20 07/10/21 History levetiracetam 750 mg tablet 1,500 mg PO BID 06/17/20 07/10/21 History aspirin 81 mg chewable tablet 81 mg PO QAM 11/07/20 07/10/21 History duloxetine 60 mg capsule,delayed 60 mg PO QAM 11/07/20 07/10/21 History release rosuvastatin 40 mg tablet (Crestor) 40 mg PO DAILY 07/09/21 07/10/21 History Cold & Flu Nighttime 1 dose PO DIRECTED PRN 07/10/21 07/10/21 History ibuprofen 200 mg-diphenhydramine 1 cap PO HS PRN 07/10/21 07/10/21 History HCl 25 mg capsule (Advil PM Liqui-Gels) Personal History Beliefs That Will Affect Care: None Patient History Medical History (Updated 07/10/21 @ 15:57 by Tank Wooten MD) Anxiety Bipolar 1 disorder Cerebrovascular disease Fibromyalgia History of stroke Hypertension Seizure disorder Surgical History History of cholecystectomy History of hysterectomy Family History Other Stroke Social History Smoking Status: Current every day smoker Tobacco Type: Cigarettes Cigarettes Per Day: 20; Hx Alcohol Use: No Hx Substance Use: No Preferred Language: Irish Communication Ability: Effective Visual Impairment: No Limitations Hearing Ability: Normal 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 Beliefs That Will Affect Care: None marital status: Current Living Situation: Spouse current occupational status: unemployed Other Information That Helps Us Care for You: No Feels Safe at Home: Yes Safety Concerns: Feels Safe At This Time Assistive Devices: Walker and Wheelchair Physical Exam Psychiatric: Orientation: alert, oriented to person and oriented to place Apperance: appropriately dressed Eye Contact: + fair eye contact Motor Behavior: no abnormal motor movements Speech: normal rate/rhythm/volume of speech Affect: euthymic affect Mood: no depressed mood and no anxious mood Thought Process: + concrete thought process Thought Content: reality based without delusions Suicidal Thoughts: denies suicidal thoughts Homicidal Thoughts: denies homicidal thoughts Reports history of auditory hallucinations, but denies current. Cognition: recent memory grossly intact Estimated Intelligence: consistent with education level Insight: + fair insight Judgement: + fair judgement Vital Signs (Past 24 Hours): Last Vital Signs Temp 36.7 C 07/10/21 11:57 Pulse 73 07/10/21 11:57 Resp 17 07/10/21 11:57 BP 130/76 07/10/21 11:57 Pulse Ox 100 07/10/21 03:57 Review of Systems All systems reviewed & are unremarkable except as noted in HPI & below Results & Data (PSY) Medications Administered Enoxaparin Sodium (Enoxaparin Inj 40 Mg/0.4 Ml Syr) 40 mg SQ QAM [facility] Stop: 08/09/21 08:59 Last Admin: 07/10/21 08:33 Dose: 40 mg Documented by: [id number] Lactated Ringer's (Lr) 1,000 mls @ 100 mls/hr IV .Q10H ONE Stop: 07/10/21 16:41 Last Admin: 07/10/21 07:16 Dose: 100 mls/hr Documented by: [id number] Insulin Aspart (Insulin Aspart 100 Units/Ml 3 Ml Pen) 0 units SC ACHS [facility] Stop: 08/09/21 07:29 Last Admin: 07/10/21 12:37 Dose: Not Given Documented by: [id number] Cosigned by: [id number] Admin: 07/10/21 08:34 Dose: Not Given Documented by: [id number] Nicotine (Nicotine 14 Mg/24 Hr Patch) 14 mg TD QAM [facility] Stop: 08/09/21 13:14 Last Admin: 07/10/21 13:48 Dose: 14 mg Documented by: [id number] Coding Level of Care Code 09041 U Intl Hosp Care Lvl 2 Diagnoses Bipolar 2 disorder F31.81 Time Spent (min) 45
[2021-07-10] MEDS ORDERED: LORazepam 0.5 MG TAB PO STA (18:27)
[2021-07-10] MEDS: QUEtiapine FUMARATE 200 MG TAB PO SCH (20:17)
--- NOTE | 2021-07-11 05:14 | Electrocardiogram Report ---
Test Reason : Blood Pressure : / mmHG Vent. Rate : 098 BPM Atrial Rate : 098 BPM P-R Int : 122 ms QRS Dur : 094 ms QT Int : 366 ms P-R-T Axes : 026 043 050 degrees QTc Int : 467 ms Normal sinus rhythm Normal ECG When compared with ECG of 24-OCT-2020 12:56, No significant change Confirmed by Nba Tavares ([id number]) on 07/11/2021 5:13:28 AM Referred By: REFERRED SELF Confirmed By:Nba Tavares
[2021-07-11 06:19] LABS: Hematocrit (blood only) 33.5 % (37-47); Hemoglobin 10.8 g/dL (12.0-16.0); Mean Corpuscular Hemoglobin 28.8 pg (25-34); Mean Corpuscular Hgb Conc 32.2 g/dL (32-36); Mean Corpuscular Volume 89.3 fL (80-100); Mean Platelet Volume 9.9 fL (7.4-10.4); Platelet Count 251 K/uL (130-400); RDW Coefficient of Variation 14.8 % (11.5-14.5); RDW Standard Deviation 47.8 fL (36.4-46.3); Red Blood Count 3.75 M/uL (4.2-5.4); White Blood Count 6.29 K/uL (4.8-10.8)
[2021-07-11 06:55] LABS: BUN Creatinine Ratio 11.9 (10-20); Calcium 8.5 mg/dl (8.5-10.1); Est GFR (African American) 116.6 ml/min; Est GFR (Non-African American) 100.6 ml/min; Magnesium 2.1 mg/dl (1.8-2.4); Phosphorus 3.6 mg/dl (2.5-4.9); Potassium 4.1 mmol/L (3.5-5.1)
--- NOTE | 2021-07-11 07:11 | Hospitalist Progress Note ---
Date of Service July 11, 2021 Assessment & Plan (1) Drug overdose, intentional: (2) Hypotension: Plan: ? Home BP medication overdose medication misuse as per records. Possible suicidality Worsening depression since 2016 CVA as per . Complex partial seizures on Keppra PCU IVF Appropriate to hold home BP and neuropsychotropic medications for now BP now normal, continue to monitor Check Keppra level - pending Psychiatry consulted Re: Suboptimal depression, possible suicidality Bipolar 2 disorder: Start Seroquel 200 mg p.o. nightly, 100 mg p.o. every morning Psychiatry liaison service to assist with aftercare It would be recommended that visiting nurse services be involved in this patient's case as well. Discussed with psychiatry, okay to continue her home medications Social service RE discharge planning (Patient possibly unable to care for patient currently with her psychiatric issues.) Hyperlipidemia on statin Rx COPD, pulmonary status seems stable Prediabetes -hemoglobin A1c of 6.14 July 2020 Current Hb A1c 6.4% Hypokalemia - replete and monitor Ongoing tobacco abuse Nicotine patch ordered DVT prophylaxis. Lovenox subcu Full code Disposition: Likely discharge home tomorrow Patient's , Mr. Greer Rhodes, to be contacted at #[phone]. Admission and Anticipated Discharge Date Admission Date: July 10, 2021 Subjective Patient seen in follow-up of possibly misusing her medications, and hypotension Currently laying in bed in no acute distress She is breathing comfortably on room air She is alert oriented answering questions appropriately Denies any chest pain shortness of breath abdominal pain nausea vomiting Seen by psychiatry -started on Seroquel Review of Systems Review of Systems: All systems reviewed & are unremarkable except as noted in Subjective Physical Exam Physical Exam: GENERAL: WD/WN F in NAD HEENT: NC/AT, EOMI, PERRL NECK : Supple, no tenderness CHEST : CTAB HEART : RRR, no obvious murmurs ABDOMEN: Soft, nontender, + bowel sounds EXTREMITIES : No LE swelling/tenderness, moves extremities NEUROLOGIC : Awake and alert, answering questions appropriately, no facial asymmetry, speech fluent, moves extremities SKIN: Normal color, warm Results & Data Results & Data ([facility]) Vital Signs (Past 12 Hours) Vital Signs Temp Pulse Pulse Resp BP Pulse Ox 07/11/21 03:24 36.7 C 97 H 16 97/66 L 97 07/11/21 00:00 84 09/29/21 23:26 36.8 C 93 H 16 102/67 96 07/10/21 19:35 37.0 C 75 17 134/78 98 Laboratory Results 07/11/21 07/11/21 07/10/21 Range/Units 05:34 05:34 20:03 WBC 6.29 (4.8-10.8) K/uL RBC 3.75 L (4.2-5.4) M/uL Hgb 10.8 L (12.0-16.0) g/dL Hct 33.5 L (37-47) % MCV 89.3 (80-100) fL MCH 28.8 (25-34) pg MCHC 32.2 (32-36) g/dL RDW Std Deviation 47.8 H (36.4-46.3) fL RDW Coeff of Damian 14.8 H (11.5-14.5) % Plt Count 251 (130-400) K/uL MPV 9.9 (7.4-10.4) fL Sodium 145 (136-145) mmol/L Potassium 4.1 (3.5-5.1) mmol/L Chloride 112 H (98-107) mmol/L Carbon Dioxide 30 (21-32) mmol/L Anion Gap 3.0 (3-11) BUN 8 D (7-18) mg/dl Creatinine 0.68 (0.6-1.2) mg/dl Est Cr Clr Drug Dosing 73.0 ml/min Est GFR ( Amer) 116.6 ml/min Est GFR (Non-Af Amer) 100.6 ml/min BUN/Creatinine Ratio 11.9 (10-20) Glucose 80 (70-99) mg/dl POC Glucose 83 (70-99) mg/dl Estimat Average Glucose mg/dl Hemoglobin A1c (4.5-5.6) % Calcium 8.5 (8.5-10.1) mg/dl Phosphorus 3.6 (2.5-4.9) mg/dl Magnesium 2.1 (1.8-2.4) mg/dl 07/10/21 07/10/21 07/09/21 Range/Units 16:09 11:12 20:22 WBC (4.8-10.8) K/uL RBC (4.2-5.4) M/uL Hgb (12.0-16.0) g/dL Hct (37-47) % MCV (80-100) fL MCH (25-34) pg MCHC (32-36) g/dL RDW Std Deviation (36.4-46.3) fL RDW Coeff of Damian (11.5-14.5) % Plt Count (130-400) K/uL MPV (7.4-10.4) fL Sodium (136-145) mmol/L Potassium (3.5-5.1) mmol/L Chloride (98-107) mmol/L Carbon Dioxide (21-32) mmol/L Anion Gap (3-11) BUN (7-18) mg/dl Creatinine (0.6-1.2) mg/dl Est Cr Clr Drug Dosing ml/min Est GFR ( Amer) ml/min Est GFR (Non-Af Amer) ml/min BUN/Creatinine Ratio (10-20) Glucose (70-99) mg/dl POC Glucose 142 H 100 H (70-99) mg/dl Estimat Average Glucose 137 mg/dl Hemoglobin A1c 6.4 H (4.5-5.6) % Calcium (8.5-10.1) mg/dl Phosphorus (2.5-4.9) mg/dl Magnesium (1.8-2.4) mg/dl Medications Administered Current Inpatient Medications Acetaminophen (Acetaminophen 325 Mg Tab) 650 mg PO Q4H PRN PRN Reason: Pain or Fever Stop: 08/09/21 03:29 Dextrose (Dextrose 50% 50 Ml Syringe) 25 - 50 ml IV UD PRN; Protocol PRN Reason: Hypoglycemia Protocol Stop: 08/09/21 03:29 Enoxaparin Sodium (Enoxaparin Inj 40 Mg/0.4 Ml Syr) 40 mg SQ QAM [facility] Stop: 08/09/21 08:59 Last Admin: 07/10/21 08:33 Dose: 40 mg Documented by: Glucagon (Glucagon For Inj 1 Mg Vial) 1 mg SQ UD PRN; Protocol PRN Reason: Hypoglycemia Protocol Stop: 08/09/21 03:29 Glucose (Glucose 10 Tabs/Tube) 4 - 8 tabs PO UD PRN; Protocol PRN Reason: Hypoglycemia Protocol Stop: 08/09/21 03:29 Glucose (Glucose 40% Gel 15 Gm Tube) 15 - 30 gm PO UD PRN; Protocol PRN Reason: Hypoglycemia Protocol Stop: 08/09/21 03:29 Promethazine HCl 12.5 mg/ (Sodium Chloride) 50.5 mls @ 202 mls/hr IV Q6H PRN PRN Reason: Nausea And Vomiting Stop: 08/09/21 03:29 Insulin Aspart (Insulin Aspart 100 Units/Ml 3 Ml Pen) 0 units SC ACHS [facility] Stop: 08/09/21 07:29 Last Admin: 07/10/21 20:19 Dose: Not Given Documented by: Miscellaneous (Carbohydrates For Hypoglycemia ) 15 - 30 gm PO UD PRN PRN Reason: Hypoglycemia Protocol Stop: 08/09/21 03:29 Miscellaneous (Remove Nicoderm Patch) 1 ea N/A DAILY@0859 [facility] Stop: 08/10/21 08:58 Nicotine (Nicotine 14 Mg/24 Hr Patch) 14 mg TD QAM [facility] Stop: 08/09/21 13:14 Last Admin: 07/10/21 13:48 Dose: 14 mg Documented by: Quetiapine Fumarate (Quetiapine Fumarate 200 Mg Tab) 200 mg PO HS [facility] Stop: 08/09/21 20:59 Last Admin: 07/10/21 20:17 Dose: 200 mg Documented by: Quetiapine Fumarate (Quetiapine Fumarate 100 Mg Tablet) 100 mg PO QAM [facility] Stop: 08/10/21 08:59 (1) Drug overdose, intentional Encounter type: initial encounter Qualified Code(s): T50.902A - Poisoning by unspecified drugs, medicaments and biological substances, intentional self-harm, initial encounter
[2021-07-11] MEDS: ENOXAPARIN INJ 40 MG/0.4 ML SYR SQ SCH (07:51)
[2021-07-11] MEDS: NICOTINE 14 MG/24 HR PATCH TD SCH (07:51)
[2021-07-11] MEDS: QUEtiapine FUMARATE 100 MG TABLET PO SCH (07:51)
[2021-07-11] MEDS: INSULIN ASPART 100 UNITS/ML 3 ML PEN SC SCH ×4 (07:52→20:52)
[2021-07-11] MEDS ORDERED: LORazepam 0.5 MG TAB PO PRN (16:46)
[2021-07-11] MEDS ORDERED: levETIRAcetam ORAL SOLN 100MG/ML PO SCH (18:45)
[2021-07-11] MEDS: QUEtiapine FUMARATE 200 MG TAB PO SCH (20:07)
[2021-07-12] MEDS ORDERED: levETIRAcetam 500 MG TAB PO SCH (06:00)
--- NOTE | 2021-07-12 07:49 | Hospitalist Progress Note ---
Date of Service July 12, 2021 Assessment & Plan (1) Drug overdose, intentional: (2) Hypotension: Plan: ? Home BP medication overdose medication misuse as per records. Possible suicidality Worsening depression since 2016 CVA as per . Patient admitted to take more benzodiazepine than prescribed Also has hx of Complex partial seizures on Keppra Appropriate to hold home BP and neuropsychotropic medications initially BP now normal, continue to monitor Recommend to discharge on lower dose of lisinopril, 10 mg daily, home BP monitoring discussed with the patient, PCP follow-up Check Keppra level - pending Psychiatry consulted Re: Suboptimal depression, possible suicidality, Bipolar disorder Bipolar 2 disorder: Start Seroquel 200 mg p.o. nightly, 100 mg p.o. every morning Psychiatry liaison service to assist with aftercare It would be recommended that visiting nurse services be involved in this patient's case as well. Discussed with psychiatry, okay to continue her home medications in addition to Seroquel Hyperlipidemia on statin Rx COPD, pulmonary status seems stable Prediabetes -hemoglobin A1c of 6.14 July 2020 Current Hb A1c 6.4% Hypokalemia - replete and monitor Ongoing tobacco abuse Nicotine patch ordered Counseling provided DVT prophylaxis. Lovenox subcu Full code Disposition: Plan to DC home today Patient's , Mr. Greer Rhodes, to be contacted at #[phone]. Admission and Anticipated Discharge Date Admission Date: July 10, 2021 Subjective Patient seen in follow-up of possibly misusing her medications/ benzodiazepam overdose, and hypotension Currently laying in bed in no acute distress She is breathing comfortably on room air She is alert oriented answering questions appropriately Denies any chest pain shortness of breath abdominal pain nausea vomiting Seen by psychiatry - started on Seroquel Plan to DC home Review of Systems Review of Systems: All systems reviewed & are unremarkable except as noted in Subjective Physical Exam Physical Exam: GENERAL: WD/WN F in NAD HEENT: NC/AT, EOMI, PERRL NECK : Supple, no tenderness CHEST : CTAB HEART : RRR, no obvious murmurs ABDOMEN: Soft, nontender, + bowel sounds EXTREMITIES : No LE swelling/tenderness, moves extremities NEUROLOGIC : Awake and alert, answering questions appropriately, no facial asymmetry, speech fluent, moves extremities SKIN: Normal color, warm Results & Data Results & Data ([facility]) Vital Signs (Past 12 Hours) Vital Signs Temp Pulse Resp BP Pulse Ox 07/12/21 01:47 36.7 C 79 16 109/73 95 07/12/21 01:32 102/68 07/11/21 23:49 36.9 C 75 20 91/60 L 99 Laboratory Results 07/12/21 07/12/21 07/12/21 Range/Units 08:16 08:16 08:02 WBC 5.36 (4.8-10.8) K/uL RBC 3.90 L (4.2-5.4) M/uL Hgb 11.2 L (12.0-16.0) g/dL Hct 34.6 L (37-47) % MCV 88.7 (80-100) fL MCH 28.7 (25-34) pg MCHC 32.4 (32-36) g/dL RDW Std Deviation 47.1 H (36.4-46.3) fL RDW Coeff of Damian 14.6 H (11.5-14.5) % Plt Count 248 (130-400) K/uL MPV 9.8 (7.4-10.4) fL Sodium 142 (136-145) mmol/L Potassium 4.0 (3.5-5.1) mmol/L Chloride 109 H (98-107) mmol/L Carbon Dioxide 29 (21-32) mmol/L Anion Gap 4.0 (3-11) BUN 9 (7-18) mg/dl Creatinine 0.70 (0.6-1.2) mg/dl Est Cr Clr Drug Dosing 70.9 ml/min Est GFR ( Amer) 115.5 ml/min Est GFR (Non-Af Amer) 99.6 ml/min BUN/Creatinine Ratio 12.5 (10-20) Glucose 79 (70-99) mg/dl POC Glucose 75 (70-99) mg/dl Calcium 8.8 (8.5-10.1) mg/dl Phosphorus 4.0 (2.5-4.9) mg/dl Magnesium 2.3 (1.8-2.4) mg/dl 07/11/21 07/11/21 07/11/21 Range/Units 20:49 16:35 11:21 WBC (4.8-10.8) K/uL RBC (4.2-5.4) M/uL Hgb (12.0-16.0) g/dL Hct (37-47) % MCV (80-100) fL MCH (25-34) pg MCHC (32-36) g/dL RDW Std Deviation (36.4-46.3) fL RDW Coeff of Damian (11.5-14.5) % Plt Count (130-400) K/uL MPV (7.4-10.4) fL Sodium (136-145) mmol/L Potassium (3.5-5.1) mmol/L Chloride (98-107) mmol/L Carbon Dioxide (21-32) mmol/L Anion Gap (3-11) BUN (7-18) mg/dl Creatinine (0.6-1.2) mg/dl Est Cr Clr Drug Dosing ml/min Est GFR ( Amer) ml/min Est GFR (Non-Af Amer) ml/min BUN/Creatinine Ratio (10-20) Glucose (70-99) mg/dl POC Glucose 118 H 128 H 93 (70-99) mg/dl Calcium (8.5-10.1) mg/dl Phosphorus (2.5-4.9) mg/dl Magnesium (1.8-2.4) mg/dl Medications Administered Current Inpatient Medications Acetaminophen (Acetaminophen 325 Mg Tab) 650 mg PO Q4H PRN PRN Reason: Pain or Fever Stop: 08/09/21 03:29 Dextrose (Dextrose 50% 50 Ml Syringe) 25 - 50 ml IV UD PRN; Protocol PRN Reason: Hypoglycemia Protocol Stop: 08/09/21 03:29 Enoxaparin Sodium (Enoxaparin Inj 40 Mg/0.4 Ml Syr) 40 mg SQ QAM [facility] Stop: 08/09/21 08:59 Last Admin: 07/11/21 07:51 Dose: 40 mg Documented by: Glucagon (Glucagon For Inj 1 Mg Vial) 1 mg SQ UD PRN; Protocol PRN Reason: Hypoglycemia Protocol Stop: 08/09/21 03:29 Glucose (Glucose 10 Tabs/Tube) 4 - 8 tabs PO UD PRN; Protocol PRN Reason: Hypoglycemia Protocol Stop: 08/09/21 03:29 Glucose (Glucose 40% Gel 15 Gm Tube) 15 - 30 gm PO UD PRN; Protocol PRN Reason: Hypoglycemia Protocol Stop: 08/09/21 03:29 Promethazine HCl 12.5 mg/ (Sodium Chloride) 50.5 mls @ 202 mls/hr IV Q6H PRN PRN Reason: Nausea And Vomiting Stop: 08/09/21 03:29 Insulin Aspart (Insulin Aspart 100 Units/Ml 3 Ml Pen) 0 units SC ACHS [facility] Stop: 08/09/21 07:29 Last Admin: 07/11/21 20:52 Dose: Not Given Documented by: Levetiracetam (Levetiracetam 500 Mg Tab) 1,500 mg PO BID [facility] Stop: 08/11/21 05:59 Last Admin: 07/12/21 06:03 Dose: 1,500 mg Documented by: Lisinopril (Lisinopril 20 Mg Tab) 20 mg PO [facility] Stop: 08/11/21 08:59 Lorazepam (Lorazepam 0.5 Mg Tab) 0.5 mg PO BID PRN PRN Reason: Anxiety Stop: 08/10/21 16:45 Miscellaneous (Carbohydrates For Hypoglycemia ) 15 - 30 gm PO UD PRN PRN Reason: Hypoglycemia Protocol Stop: 08/09/21 03:29 Miscellaneous (Remove Nicoderm Patch) 1 ea N/A DAILY@0859 [facility] Stop: 08/10/21 08:58 Last Admin: 07/11/21 07:50 Dose: 1 ea Documented by: Nicotine (Nicotine 14 Mg/24 Hr Patch) 14 mg TD [facility] Stop: 08/09/21 13:14 Last Admin: 07/11/21 07:51 Dose: 14 mg Documented by: Pantoprazole Sodium (Pantoprazole 40 Mg Tab) 40 mg PO DAILY@0800,1700 [facility]; Protocol Stop: 08/11/21 07:59 Quetiapine Fumarate (Quetiapine Fumarate 200 Mg Tab) 200 mg PO HS [facility] Stop: 08/09/21 20:59 Last Admin: 07/11/21 20:07 Dose: 200 mg Documented by: Quetiapine Fumarate (Quetiapine Fumarate 100 Mg Tablet) 100 mg PO [facility] Stop: 08/10/21 08:59 Last Admin: 07/11/21 07:51 Dose: 100 mg Documented by: (1) Drug overdose, intentional Encounter type: initial encounter Qualified Code(s): T50.902A - Poisoning by unspecified drugs, medicaments and biological substances, intentional self-harm, initial encounter
[2021-07-12] MEDS ORDERED: PANTOprazole 40 MG TAB PO SCH (08:00)
[2021-07-12 08:55] LABS: Hematocrit (blood only) 34.6 % (37-47); Hemoglobin 11.2 g/dL (12.0-16.0); Mean Corpuscular Hemoglobin 28.7 pg (25-34); Mean Corpuscular Hgb Conc 32.4 g/dL (32-36); Mean Corpuscular Volume 88.7 fL (80-100); Mean Platelet Volume 9.8 fL (7.4-10.4); Platelet Count 248 K/uL (130-400); RDW Coefficient of Variation 14.6 % (11.5-14.5); RDW Standard Deviation 47.1 fL (36.4-46.3); White Blood Count 5.36 K/uL (4.8-10.8)
[2021-07-12] MEDS ORDERED: ASPIRIN 81 MG CHEW PO SCH (09:00)
[2021-07-12] MEDS ORDERED: FLUTICASONE/VILANTEROL 100/25MCG 14 PUFFS/INHALER INH SCH (09:00)
[2021-07-12] MEDS ORDERED: DULoxetine HCL 60 MG CAP PO SCH (09:00)
[2021-07-12] MEDS ORDERED: lisinopril 20 MG TAB PO SCH (09:00)
[2021-07-12] MEDS: QUEtiapine FUMARATE 100 MG TABLET PO SCH (09:13)
[2021-07-12] MEDS: NICOTINE 14 MG/24 HR PATCH TD SCH (09:13)
[2021-07-12 09:32] LABS: BUN Creatinine Ratio 12.5 (10-20); Calcium 8.8 mg/dl (8.5-10.1); Creatinine Clr Calc Pharmacy 70.9 ml/min; Est GFR (African American) 115.5 ml/min; Est GFR (Non-African American) 99.6 ml/min; Magnesium 2.3 mg/dl (1.8-2.4)
--- NOTE | 2021-07-12 09:45 | Discharge Summary ---
Date of Service July 12, 2021 Admission HPI Per Admitting Provider History obtained from patient's family and records. Unable to obtain history from patient secondary to obtunded state. Medical history significant for CVA, hypertension, hyperlipidemia, COPD, ongoing tobacco abuse, anxiety/mood disorder, complex partial seizures as per records, prediabetes as per records, medication misuse as per records. Last confinement June 2020 for unresponsiveness, uncertain etiology. On recent outpatient PCP visit last March 2021, patient feeling depressed and irritable as per documentation. Outpatient Psychiatry referral contemplated. Patient depression worsening over the last few years as per after 2016 stroke. Patient yelling at at home, hitting and cursing him. Refusing to see her doctors. Patient overdosing on her medications as per . not sure if patient suicidal. Patient brought to the ER for evaluation. Subsequently noted to be unresponsive at the ER. SBP noted to be 70s. Medical History as above Surgical History : Breast surgery, foot/toe surgery, cholecystectomy, NADIA Family History : Colon cancer, stroke Personal/Social history : 1 pack daily, no EtOH intake, disabled Admission Exam Per Admitting Provider GENERAL: Obtunded, no respiratory distress SKIN: Normal color, warm HEENT: [place] palpebral conjunctivae, no ptosis, dry buccal mucosa NECK : Supple, no tenderness CHEST : Decreased breath sounds, no tenderness HEART : RRR, no obvious murmurs ABDOMEN: Some distention, nontender EXTREMITIES : No LE swelling/tenderness, no other conspicuous deformities noted NEUROLOGIC : Obtunded, no facial asymmetry, no other gross focality Principal Diagnosis Medication misuse, benzodiazepine overdose Hypotension Bipolar 2 disorder Discharge Exam GENERAL: WD/WN F in NAD HEENT: NC/AT, EOMI, PERRL NECK : Supple, no tenderness CHEST : CTAB HEART : RRR, no obvious murmurs ABDOMEN: Soft, nontender, + bowel sounds EXTREMITIES : No LE swelling/tenderness, moves extremities NEUROLOGIC : Awake and alert, answering questions appropriately, no facial asymmetry, speech fluent, moves extremities SKIN: Normal color, warm Discharge Data Allergies Allergy/AdvReac Type Severity Reaction Status Date / Time hydromorphone Allergy Severe Difficulty Verified 07/10/21 00:20 Breathing cephalexin [From Keflex] Allergy Intermediate Hives Verified 07/10/21 00:20 codeine Allergy Intermediate Hives Verified 07/10/21 00:20 Penicillins Allergy Intermediate Hives Verified 07/10/21 00:20 bupropion [From Wellbutrin] AdvReac Severe Seizure Verified 07/10/21 00:20 nickel AdvReac Mild SKIN Verified 07/10/21 00:20 IRRITATION Consultations 07/09/21 23:42 ED Decision to Admit Stat 07/10/21 03:30 Consult Psychiatry Routine Ordered Studies 07/10/21 00:23 CT head/brain wo con Urgent Impression: No acute intracranial hemorrhage, evidence of acute territorial infarction, or other acute intracranial disease process. Hospital Course (1) Drug overdose, intentional: (2) Hypotension: ? Home BP medication overdose medication misuse as per records. Possible suicidality Worsening depression since 2016 CVA as per . Patient admitted to take more benzodiazepine than prescribed Also has hx of Complex partial seizures on Keppra Appropriate to hold home BP and neuropsychotropic medications initially BP now normal, continue to monitor Recommend to discharge on lower dose of lisinopril, 10 mg daily, home BP monitoring discussed with the patient, PCP follow-up Check Keppra level - pending Psychiatry consulted Re: Suboptimal depression, possible suicidality, Bipolar disorder Bipolar 2 disorder: Start Seroquel 200 mg p.o. nightly, 100 mg p.o. every morning Psychiatry liaison service to assist with aftercare It would be recommended that visiting nurse services be involved in this patient's case as well. Discussed with psychiatry, okay to continue her home medications in addition to Seroquel Hyperlipidemia on statin Rx COPD, pulmonary status seems stable Prediabetes -hemoglobin A1c of 6.14 July 2020 Current Hb A1c 6.4% Hypokalemia - replete and monitor - resolved Ongoing tobacco abuse Nicotine patch ordered Counseling provided DVT prophylaxis. Lovenox subcu Full code Disposition: Plan to DC home today Patient's , Mr. Greer Rhodes, to be contacted at #[phone]. Total Time Total Time Spent Total Time Spent (In Minutes): 35 Discharge Plan Discharge Items Patient Disposition: Home - Self-Care Reason For Visit: HYPOTENSION Discharge Diagnosis: Medication misuse, benzodiazepine overdose Hypotension Bipolar 2 disorder Activity: Per Instructions section Non-emergency contact: Primary Care Provider and Psychiatrist Call non-emergency contact if: you have any medication questions and your symptoms worsen Follow-up/Referrals: Denia Rivera MD [Primary Care Provider] - (Date & Time 07/18/2021 12:00 PM Provider Denia Harris MD Department Family Medicine [facility] ) Diet: Carb Consistent or DM2 Addtl Attending Provider Instructions: Follow-up with your primary care doctor, the appointment was scheduled for you for July 18. You were started on a new medication, quetiapine/Seroquel, take 100 mg in the morning and 200 mg at night. Prescription was sent to your pharmacy. Your primary care doctor or your psychiatrist will prescribe this medication further. Make sure you do not take more of lorazepam than you are prescribed. This is the main reason why you ended up in the hospital as it is very dangerous to take more of this medication than prescribed. Your blood pressure was on the lower side, therefore do not take lisinopril 20 mg, and instead take only 10 mg daily. If you are able to monitor your blood pressure at home, do so and record these numbers. Discuss with your healthcare providers if your blood pressure medications need to be further adjusted. It is recommended that you consider quitting smoking. Nicotine patches were prescribed to your pharmacy. Consider calling [employer], which is a free smoking cessation line. Pending Studies at Discharge: No Stand-Alone Forms: [facility], Sm[facility] Cessation Medications and DC Order Prescriptions: New nicotine 7 mg/24 hr Patch 24 Hour 14 mg transdermal QAM Qty: 14 RF: 0 lisinopril 10 mg tablet 10 mg PO DAILY Qty: 20 RF: 0 quetiapine [Seroquel] 200 mg Tablet 200 mg PO HS Qty: 30 RF: 0 quetiapine 100 mg Tablet 100 mg PO QAM Qty: 30 RF: 0 Continued omeprazole 20 mg capsule,delayed release(DR/EC) 20 mg PO BID RF: 0 lorazepam 1 mg tablet 1 mg PO BID PRN (Reason: Sleep or Pain/Muscle Spasm) RF: 0 aspirin 81 mg tablet,chewable 81 mg PO QAM RF: 0 duloxetine 60 mg capsule,delayed release(DR/EC) 60 mg PO QAM RF: 0 gabapentin 300 mg capsule See Rx Instructions .ROUTE .COMPLEX RF: 0 levetiracetam 750 mg tablet 1,500 mg PO BID RF: 0 Breo Ellipta 100-25 mcg/dose blister with device 1 inh INHALATION DAILY RF: 0 rosuvastatin [Crestor] 40 mg tablet 40 mg PO DAILY RF: 0 Advil PM Liqui-Gels 200-25 mg Capsule 1 cap PO HS PRN (Reason: Pain) RF: 0 Cold & Flu Nighttime 1 dose PO DIRECTED PRN (Reason: PAIN/SLEEP) RF: 0 Discontinued lisinopril 20 mg Tablet 20 mg PO QAM RF: 0 Discharge Orders: Discharge Order (Routine); Ordered 07/12/21 Ordered By: Marlo Lion/Other Patient Handouts: A1C, 5 Steps for Eating Healthier, Exercise: Why Fitness Matters Admission Data Admit Date/Time: 07/10/21 00:23 Attending Provider: Marlo Mcintosh Admit Provider: Silverio Constantino Primary Care Provider: Denia Rivera Other Providers: Silverio Constantino ; Ingrid Dhillon ; Jessica Hairston ; Martha Hernández ; Tank Wooten
[2021-07-12] MEDS: ENOXAPARIN INJ 40 MG/0.4 ML SYR SQ SCH (09:56)
[2021-07-12] MEDS: INSULIN ASPART 100 UNITS/ML 3 ML PEN SC SCH (09:57)
== END 2021-07-12 12:00 | disposition home or self-care (01) | DRG 917 ==
LOC: ED 19:42 → 1E 07-10 00:23 → 2S 07-10 19:17 → 2W 07-12 01:44
DX: F31.81 Bipolar II disorder; Z88.0 Allergy status to penicillin; I10 Essential (primary) hypertension; Z88.5 Allergy status to narcotic agent; T42.4X2A Poisoning by benzodiazepines, intentional self-harm, initial encounter; E87.6 Hypokalemia; Z88.1 Allergy status to other antibiotic agents; F17.210 Nicotine dependence, cigarettes, uncomplicated; J44.9 Chronic obstructive pulmonary disease, unspecified; G40.209 Localization-related (focal) (partial) symptomatic epilepsy and epileptic syndromes with complex partial seizures, not intractable, without status epilepticus; E78.5 Hyperlipidemia, unspecified; I69.354 Hemiplegia and hemiparesis following cerebral infarction affecting left non-dominant side; Y92.009 Unspecified place in unspecified non-institutional (private) residence as the place of occurrence of the external cause; G92.8 Other toxic encephalopathy; R73.03 Prediabetes

== ENCOUNTER 2024-11-04 12:31 | Observation (INO) ==
[~2024-11-04 12:31] MED LIST changes: -RAPID SEQUENCE INDUCTION BAG ONE; +ROCURONIUM BROMIDE 10 MG/ML 5 ML VIAL IV ONE
[2024-11-04 13:16] LABS: Basophils # (auto) 0.05 K/uL (0.00-0.20); Basophils % (auto) 0.4 %; Eosinophils # (auto) 0.11 K/uL (0.00-0.50); Eosinophils % (auto) 0.9 %; Hemoglobin 12.4 g/dl (12.0-16.0); Immature Granulocytes # (auto) 0.05 K/uL (0.01-0.20); Immature Granulocytes % (auto) 0.4 %; Lymphocytes # (auto) 2.53 K/uL (1.20-3.40); Lymphocytes % (auto) 20.4 %; Mean Corpuscular Hemoglobin 28.8 pg (25.0-34.0); Mean Corpuscular Hgb Conc 32.6 g/dL (32.0-36.0); Mean Corpuscular Volume 88.2 fL (80.0-100.0); Mean Platelet Volume 11.1 fL (9.4-12.4); Monocytes # (auto) 0.88 K/uL (0.11-0.59); Monocytes % (auto) 7.1 %; Neutrophils # (auto) 8.79 K/uL (1.40-6.50); Neutrophils % (auto) 70.8 %; Platelet Count 239 K/uL (130-400); RDW Coefficient of Variation 13.7 % (11.5-14.5); RDW Standard Deviation 44.6 fL (36.4-46.3); Red Blood Count 4.31 M/uL (4.20-5.40); White Blood Count 12.41 K/ul (4.8-10.8)
--- NOTE | 2024-11-04 13:16 | XRay Report ---
XR chest 1V portable HISTORY: 54 years-old Female post intub acute respiratory failure COMPARISON: 07/09/2021 TECHNIQUE: AP view of the chest FINDINGS: Cardiac silhouette is enlarged. Endotracheal tube overlies the midline: 0.5 cm superior to the isa . Mild linear bibasilar opacities. No pneumothorax, pleural effusion or overt pulmonary edema. Cholec ystectomy clips. Bones appear grossly intact. Cervical spinal fusion hardware. IMPRESSION: 1. Endotracheal tube overlies the midline, 1.5 cm superior to the isa. 2. Mild bibasilar opacities suggest atelectasis. ACT 112: Negative or not required by law. The above report was generated using voice recognition software. It may contain grammatical, syntax o r spelling errors. Electronically signed by: Venkat Isaacs M.D. 11/04/2024 1:15 PM
--- NOTE | 2024-11-04 13:17 | CT Scan Report ---
CT head/brain wo con CLINICAL HISTORY: altered. TECHNIQUE: Multiple axial CT images of the head were obtained without contrast. A dose lowering tech nique was utilized adhering to the principles of ALARA. CT DOSE: 657.02 mGy.cm COMPARISON: 07/10/2021 FINDINGS: Stable mild right periventricular encephalomalacia with mild ex vacuo dilatation of the rig ht lateral ventricle. No intracranial hemorrhage seen. No mass effect, midline shift, or progressive hydrocephalus. No skull fracture. Visualized paranasal sinuses and mastoid air cells are clear. IMPRESSION: No acute findings. ACT 112: Negative or not required by law. The above report was generated using voice recognition software. It may contain grammatical, syntax o r spelling errors. Electronically signed by: Martin Thrasher M.D. 11/04/2024 1:15 PM
[2024-11-04] MEDS: SODIUM CHLORIDE 0.9% 500 ML IV ONE ×2 (13:22→13:50)
[2024-11-04 13:28] LABS: Appearance Urine Cloudy (Clear); Bacteria Urine Automated 4+ (None Seen); Bilirubin Urine Negative (Negative); Blood Urine Trace (Negative); Color Urine Yellow; Glucose Urine UA Negative (Negative); Ketones Urine Negative (Negative); Leukocyte Esterase Urine 1+ (Negative); Nitrite Urine Positive (Negative); Protein Urine 2+ (Negative); Specific Gravity Urine 1.017 (1.000-1.030); Urobilinogen Urine Negative (Negative); pH Urine 5.5 (4.5-7.5)
[2024-11-04 13:37] LABS: Albumin Globulin Ratio 1.3 (0.9-2); BUN Creatinine Ratio 17.3 (10-20); Bilirubin,Total 0.3 mg/dl (0.2-1.0); Calcium 8.7 mg/dl (8.6-10.3); Creatinine Clr Calc Pharmacy 46.9 ml/min; Potassium 4.7 mmol/L (3.5-5.1)
[2024-11-04 13:39] LABS: Amphetamines+Metham, Urine Neg (Neg); Barbiturates, Urine Neg (Neg); Benzodiazepine, Urine Neg (Neg); Cocaine, Urine Neg (Neg); Fentanyl, Urine Neg (Neg); MDMA (Ecstacy), Urine Neg (Neg); Marijuana, Urine Neg (Neg); Methadone, Urine Neg (Neg); Opiate, Urine Neg (Neg); Phencyclidine, Urine Neg (Neg)
--- NOTE | 2024-11-04 13:39 | Emergency Department Note ---
Impression & Plan Unresponsive state, Urinary tract infection, Respiratory failure requiring intubation, History of CVA (cerebrovascular accident) ED Provider Note NAME: GAIL ARREOLA AGE: 54 SEX: F : 1970 ARRIVES VIA: Ambulance INFORMANT: [EMS] ED PROVIDER(S): [Darwin Hutson MD] CHIEF COMPLAINT: Unresponsive HISTORY OF PRESENT ILLNESS: The patient is a 54-year-old female who was found unresponsive by her today around 9 AM. He eventually called the ambulance. It is unknown how long she was in this state. The patient can provide no history as she is quite somnolent. As per the EMS crew. The patient had granules of what they thought may have been medication in her mouth. She was not responding to pain or suctioning. She did not respond when they placed a nasal airway. Her initial saturation was 85% but this improved with facemask oxygen. As per report, she is a full code. She has a history of previous CVA with a nearly flaccid left side as a result of the CVA. Of note, no seizure activity reported by family or EMS. PMHx/PSHx/Social Hx: See Below PHYSICAL EXAM: GENERAL: Patient is in no acute distress. HEENT: No acute trauma, normocephalic atraumatic, mucous membranes moist, no nasal congestion. There is some drool from the right side of her mouth. There is a nasal airway in place. The left pupil is somewhat larger than the right. Both pupils are somewhat dilated. NECK: No stridor, no adenopathy, no meningismus, trachea is midline. LUNGS: No respiratory distress, there are rhonchi bilaterally. Breath sounds equal. HEART: Without murmurs gallops or rubs, regular rate and rhythm. ABDOMEN: Soft, no distention. EXTREMITIES: No cyanosis. No gross deformities. NEUROLOGIC: Breathing spontaneously but not moving any extremities spontaneously. No response to pain. SKIN: No jaundice, no diaphoresis. DIFFERENTIAL DIAGNOSIS: Medication overdose, intracranial bleeding, stroke, sepsis or bacteremia, electrolyte imbalance, dysrhythmia, among others. EMERGENCY DEPARTMENT PROCEDURES: Intubation: This procedure was performed by de. Patient received 80 mg of rocuronium IV. The patient was hyper oxygenated. Using rapid technique, the patient was intubated with a Cedillo two blade. Some suction was required. No complication. The endotracheal tube was placed at 22 centimeters at the the lips. Good O2 saturation noted afterwards. Good CO2 color change. Breath sounds equal bilaterally. Post intubation chest x-ray demonstrated the tube to be in good position. MEDICAL DECISION MAKING: There is a mild leukocytosis, this could be consistent with infection or potentially the stress of her presentation. There was a normal hemoglobin and platelet count. INR was normal. ABG showed a mild acidosis with a very subtle elevation to the CO2. After the ABG findings, the patient's respiratory it was increased from 16-20. No concerning electrolyte abnormality. Lactic acid level was not elevated making severe sepsis less likely. There was no concerning liver enzyme elevation. Ammonia level was not elevated. Patient appeared to be in a euthyroid state. ECG showed a sinus rhythm, no ischemia. Cardiac enzyme testing x 1 was not consistent with acute cardiac injury. Urinalysis does suggest infection. Aspirin, Tylenol and alcohol levels were undetectable. Urine tox was negative. Respiratory bio fire was negative. Chest x-ray shows clear lungs, the endotracheal tube was in proper position. Brain CT showed no acute bleed or mass effect. The patient presented unresponsive. She had sonorous respirations with no response to pain or airway suctioning. Intubation was felt warranted. The patient was intubated without difficulty. A significant amount of secretion was suctioned from her airway prior to endotracheal tube placement. An orogastric tube and Flowers catheter were placed. Patient received a liter of IV saline for hydration. She was given IV ertapenem as broad-spectrum antibiotic coverage. The cause for the unresponsive state is unclear. Medication ingestion, medication overdose, seizure are possibilities. Of note, the patient was intubated without sedation as she was already quite oversedated. After intubation, she remained unresponsive to painful stimuli or suctioning. I did speak with the ICU, I spoke with case management, the on-call hospitalist was consulted. Further workup, care and monitoring is warranted. Prior/Outside records/notes reviewed: Today's EMS notes describing her presentation and transport to this hospital. ECG per my interpretation: Indication was unresponsive. The ECG shows a normal sinus rhythm with a rate of 84. There is no ST elevation, no PVCs. The QTc is 491. Continuous Cardiac Monitoring per my interpretation: An order was placed for continuous cardiac monitoring. The monitor shows a rate of 79 with normal sinus rhythm. Imaging/x-ray results per my interpretation: Chest x-ray shows the endotracheal tube to be in proper position. No pneumonia or CHF. Chronic Medical/Social conditions affecting care: History of previous CVA. Care/Management discussed with: ICU-Dr. Freeman. Case management and the on- call hospitalist. Level of care consideration(s): After review of the information above and other included data: --I believe the patient requires escalation of care to admission Critical Care Note: I have personally spent 62 minutes of critical care time in the direct management of this patient. This includes bedside care, interpretation of diagnostic studies, and testing, discussion with consultants, patient, and family members, and other required patient management activities. This 62 minutes is in excess of all separately billable procedures. DISPOSITION: Admission Past Med/Surg History Problem List (Updated 11/04/24 @ 18:26 by Darwin Hutson MD) History of CVA (cerebrovascular accident) (Acute) Unresponsive state (Acute) Respiratory failure requiring intubation (Acute) Urinary tract infection (Acute) Medical History Bipolar 2 disorder Benzodiazepine overdose Drug overdose, intentional Cerebrovascular disease Hypertension Seizure disorder Anxiety Fibromyalgia History of stroke Surgical History History of cholecystectomy History of hysterectomy Family History Other Stroke Social History Smoking Status: Unknown if ever smoked Tobacco Type: Cigarettes Cigarettes Per Day: 20; Hx Alcohol Use: No (uncertain) Hx Substance Use: No (uncertain) Preferred Language: Bengali Communication Ability: Effective Visual Impairment: No Limitations Hearing Ability: Normal Lamination Assembler Required: No Beliefs That Will Affect Care: None marital status: Current Living Situation: Spouse current occupational status: unemployed Feels Safe at Home: Yes Assistive Devices: Walker and Wheelchair Allergies Allergies Allergy/AdvReac Type Severity Reaction Status Date / Time hydromorphone Allergy Severe Difficulty Verified 07/10/21 00:20 Breathing cephalexin [From Keflex] Allergy Intermediate Hives Verified 07/10/21 00:20 codeine Allergy Intermediate Hives Verified 07/10/21 00:20 Penicillins Allergy Intermediate Hives Verified 07/10/21 00:20 bupropion [From Wellbutrin] AdvReac Severe Seizure Verified 07/10/21 00:20 nickel AdvReac Mild SKIN Verified 07/10/21 00:20 IRRITATION Home Meds Home Medications Medication Instructions Recorded Confirmed omeprazole 20 mg capsule,delayed 20 mg PO BID 01/19/20 11/04/24 release fluticasone furoate 100 1 inh inhalation DAILY 06/17/20 11/04/24 mcg-vilanterol 25 mcg/dose inhalation powder (Breo Ellipta) gabapentin 300 mg capsule 300 mg PO DAILY 06/17/20 11/04/24 levetiracetam 750 mg tablet 1,500 mg PO BID 06/17/20 11/04/24 aspirin 81 mg chewable tablet 81 mg PO QAM 11/07/20 11/04/24 duloxetine 60 mg capsule,delayed 60 mg PO QAM 11/07/20 11/04/24 release rosuvastatin 40 mg tablet (Crestor) 40 mg PO DAILY 07/09/21 11/04/24 ibuprofen 200 mg-diphenhydramine 1 cap PO HS PRN Pain 07/10/21 11/04/24 HCl 25 mg capsule (Advil PM Liqui-Gels) gabapentin 300 mg capsule 600 mg PO HS 11/04/24 11/04/24 Previous Rx's Medication Instructions Recorded lisinopril 10 mg tablet 10 mg PO DAILY #20 tabs 07/12/21 nicotine 7 mg/24 hr daily 14 mg transdermal QAM #14 ea 07/12/21 transdermal patch quetiapine 100 mg tablet 100 mg PO QAM #30 tabs 07/12/21 quetiapine 200 mg tablet (Seroquel) 200 mg PO HS #30 tabs 07/12/21 quetiapine 100 mg tablet (Seroquel) 100 mg PO QAM #30 tabs 12/11/22 quetiapine 200 mg tablet (Seroquel) 200 mg PO HS #30 tabs 12/11/22 Results & Data (ED) Vital Signs Vital Signs - 24 hr 11/04/24 12:30 11/04/24 12:45 11/04/24 12:48 Temperature 36.5 C Temperature Source Oral Pulse Rate 86 85 111 H Pulse Rate from SpO2 Sensor 111 H Respiratory Rate 22 16 Blood Pressure 168/82 H 151/110 H Blood Pressure Mean 110 123 Pulse Oximetry 95 100 Oxygen Delivery Method Fraction of Inspired Oxygen Sepsis Recent Fever Within 48 Hours No Sepsis New/Unexplained Change in Mental Status Yes Sepsis Action Taken by Nursing Physician Notified End-Tidal CO2 11/04/24 12:55 11/04/24 13:15 11/04/24 13:18 Temperature Temperature Source Pulse Rate 97 H 98 H 97 H Pulse Rate from SpO2 Sensor Respiratory Rate 16 16 16 Blood Pressure 115/80 Blood Pressure Mean 91 Pulse Oximetry 100 99 100 Oxygen Delivery Method Mechanical Vent Fraction of Inspired Oxygen 50 Sepsis Recent Fever Within 48 Hours Sepsis New/Unexplained Change in Mental Status Sepsis Action Taken by Nursing End-Tidal CO2 39 11/04/24 13:30 11/04/24 13:39 11/04/24 13:44 Temperature Temperature Source Pulse Rate 99 H 91 H Pulse Rate from SpO2 Sensor 99 H 92 H Respiratory Rate 16 16 20 Blood Pressure 92/68 L 99/71 L Blood Pressure Mean 76 80 Pulse Oximetry 100 100 Oxygen Delivery Method Fraction of Inspired Oxygen Sepsis Recent Fever Within 48 Hours Sepsis New/Unexplained Change in Mental Status Sepsis Action Taken by Nursing End-Tidal CO2 38 37 11/04/24 13:45 11/04/24 13:50 11/04/24 13:55 Temperature Temperature Source Pulse Rate 89 90 90 Pulse Rate from SpO2 Sensor 90 Respiratory Rate 20 20 20 Blood Pressure 100/74 107/76 131/88 Blood Pressure Mean 82 82 99 Pulse Oximetry 100 100 100 Oxygen Delivery Method Fraction of Inspired Oxygen Sepsis Recent Fever Within 48 Hours Sepsis New/Unexplained Change in Mental Status Sepsis Action Taken by Nursing End-Tidal CO2 35 35 35 11/04/24 14:06 11/04/24 14:12 11/04/24 14:22 Temperature Temperature Source Pulse Rate 83 81 80 Pulse Rate from SpO2 Sensor 83 80 Respiratory Rate 20 20 20 Blood Pressure 124/84 126/85 119/60 Blood Pressure Mean 97 98 79 Pulse Oximetry 100 100 100 Oxygen Delivery Method Fraction of Inspired Oxygen Sepsis Recent Fever Within 48 Hours Sepsis New/Unexplained Change in Mental Status Sepsis Action Taken by Nursing End-Tidal CO2 32 31 30 11/04/24 14:25 11/04/24 14:35 11/04/24 14:40 Temperature Temperature Source Pulse Rate 80 73 79 Pulse Rate from SpO2 Sensor Respiratory Rate 20 20 Blood Pressure 110/76 118/73 114/77 Blood Pressure Mean 83 92 79 Pulse Oximetry 100 100 100 Oxygen Delivery Method Fraction of Inspired Oxygen Sepsis Recent Fever Within 48 Hours Sepsis New/Unexplained Change in Mental Status Sepsis Action Taken by Nursing End-Tidal CO2 30 30 30 Home Medications Current Medication List: was personally reviewed by me Laboratory Data Attestation: I reviewed the patient's lab results. 11/04/24 12:45 11/04/24 12:45 Lab Results 11/04/24 11/04/24 11/04/24 Range/Units 12:45 12:57 13:15 WBC 12.41 H (4.8-10.8) K/ul RBC 4.31 (4.20-5.40) M/uL Hgb 12.4 (12.0-16.0) g/dl Hct 38.0 (37.0-47.0) % MCV 88.2 (80.0-100.0) fL MCH 28.8 (25.0-34.0) pg MCHC 32.6 (32.0-36.0) g/dL RDW Std Deviation 44.6 (36.4-46.3) fL RDW Coeff of Damian 13.7 (11.5-14.5) % Plt Count 239 (130-400) K/uL MPV 11.1 (9.4-12.4) fL Immature Gran % (Auto) 0.4 % Neut % (Auto) 70.8 % Lymph % (Auto) 20.4 % Sargent % (Auto) 7.1 % Eos % (Auto) 0.9 % Baso % (Auto) 0.4 % Neut # (Auto) 8.79 H (1.40-6.50) K/uL Lymph # (Auto) 2.53 (1.20-3.40) K/uL Sargent # (Auto) 0.88 H (0.11-0.59) K/uL Eos # (Auto) 0.11 (0.00-0.50) K/uL Baso # (Auto) 0.05 (0.00-0.20) K/uL Immature Gran # (Auto) 0.05 (0.01-0.20) K/uL PT 11.0 (9.0-12.0) Seconds INR 1.0 (0.9-1.1) Sodium 139 (136-145) mmol/L Potassium 4.7 (3.5-5.1) mmol/L Chloride 107 (98-107) mmol/L Carbon Dioxide 22 (21-32) mmol/L Anion Gap 10 (3-11) BUN 24 H (6-23) mg/dl Creatinine 1.39 H (0.6-1.2) mg/dl Est Cr Clr Drug Dosing 46.9 ml/min eGFR 44.54 BUN/Creatinine Ratio 17.3 (10-20) Glucose 214 H (70-99(Fasting)) mg/dl Lactate 2.0 (0.4-2.0) mmol/L Calcium 8.7 (8.6-10.3) mg/dl Magnesium 2.0 (1.7-2.4) mg/dl Total Bilirubin 0.3 (0.2-1.0) mg/dl AST 25 (13-39) U/L ALT 22 (7-52) U/L Alkaline Phosphatase 73 (34-104) U/L Ammonia 35.0 (18-72) umol/L Total Creatine Kinase 95 (26-192) U/L Troponin I High Sens 3.5 (0-14) pg/ml Total Protein 7.0 (6.0-8.3) gm/dl Albumin 4.0 (3.4-5.0) gm/dl Globulin 3.0 (2.5-4.0) gm/dl Albumin/Globulin Ratio 1.3 (0.9-2) TSH 0.949 (0.300-4.500) uIu/ml Prolactin 71.90 ng/ml Urine Color Yellow Urine Appearance Cloudy A (Clear) Urine pH 5.5 (4.5-7.5) Ur Specific [place] 1.017 (1.000-1.030) Urine Protein 2+ H (Negative) Urine Glucose (UA) Negative (Negative) Urine Ketones Negative (Negative) Urine Blood Trace H (Negative) Urine Nitrite Positive A (Negative) Urine Bilirubin Negative (Negative) Urine Urobilinogen Negative (Negative) Ur Leukocyte Esterase 1+ H (Negative) Urine WBC (Auto) 11-20 H (0-5) /hpf Urine RBC (Auto) 3-5 H (0-2) /hpf U Hyaline Cast (Auto) 11-20 H (0-2) /lpf U Epithel Cells (Auto) 11-20 H (0-2) /hpf Urine Bacteria (Auto) 4+ H (None Seen) Urine Opiates Screen Neg (Neg) Ur Methadone, Qual Neg (Neg) Urine Fentanyl Screen Neg (Neg) Urine Barbiturates Neg (Neg) Ur Phencyclidine (PCP) Neg (Neg) U Amphetamin/Meth Scrn Neg (Neg) MDMA (Ecstasy) Screen Neg (Neg) U Benzodiazepines Scrn Neg (Neg) Ur Cocaine Metabolite Neg (Neg) U Marijuana (THC) Screen Neg (Neg) Administered Medications Parenteral Electrolytes (Plasma-Lyte A Ph 7.4) 2,000 mls @ 999 mls/hr IV .Q2H1M ONE Stop: 11/04/24 18:27 Last Admin: 11/04/24 16:45 Dose: 999 mls/hr Documented By: AMS Discontinued Medications Sodium Chloride (Nss) 500 mls @ 999 mls/hr IV .Q31M ONE Stop: 11/04/24 13:21 Last Infusion: 11/04/24 13:57 Dose: Infused Documented By: Admin: 11/04/24 13:22 Dose: 999 mls/hr Documented By: QGV Ertapenem (Invanz 1000mg) 1,000 mg in 10 mls @ 2 mls/min IV NOW STA Stop: 11/04/24 13:38 Last Admin: 11/04/24 13:50 Dose: 2 mls/min Documented By: QGV Sodium Chloride (Nss) 500 mls @ 999 mls/hr IV .Q31M ONE Stop: 11/04/24 14:14 Last Infusion: 11/04/24 14:36 Dose: Infused Documented By: Admin: 11/04/24 13:50 Dose: 999 mls/hr Documented By: QGV Miscellaneous (Rapid Sequence Induction Bag) Confirm Administered Dose 1 each N/A .STK-MED ONE Stop: 11/04/24 12:44 Last Admin: 11/04/24 13:50 Dose: 1 each Documented By: QGV Imaging Data Radiologist's Impression: Chest X-Ray 11/04/24 12:51 XR chest 1V portable HISTORY: 54 years-old Female post intub acute respiratory failure COMPARISON: 07/09/2021 TECHNIQUE: AP view of the chest FINDINGS: Cardiac silhouette is enlarged. Endotracheal tube overlies the midline: 0.5 cm superior to the isa. Mild linear bibasilar opacities. No pneumothorax, pleural effusion or overt pulmonary edema. Cholecystectomy clips. Bones appear grossly intact. Cervical spinal fusion hardware. IMPRESSION: 1. Endotracheal tube overlies the midline, 1.5 cm superior to the isa. 2. Mild bibasilar opacities suggest atelectasis. ACT 112: Negative or not required by law. The above report was generated using voice recognition software. It may contain grammatical, syntax or spelling errors. Electronically signed by: Venkat Isaacs M.D. 11/04/2024 1:[address] 11/04/24 12:51 CT head/brain wo con CLINICAL HISTORY: altered. TECHNIQUE: Multiple axial CT images of the head were obtained without contrast. A dose lowering technique was utilized adhering to the principles of ALARA. CT DOSE: 657.02 mGy.cm COMPARISON: 07/10/2021 FINDINGS: Stable mild right periventricular encephalomalacia with mild ex vacuo dilatation of the right lateral ventricle. No intracranial hemorrhage seen. No mass effect, midline shift, or progressive hydrocephalus. No skull fracture. Visualized paranasal sinuses and mastoid air cells are clear. IMPRESSION: No acute findings. ACT 112: Negative or not required by law. The above report was generated using voice recognition software. It may contain grammatical, syntax or spelling errors. Electronically signed by: Martin Thrasher M.D. 11/04/2024 1:15 PM Discharge Plan Visit Data Chief Complaint: Unresponsive Stated Complaint: UNRESPONSIVE ED Provider: Darwin Hutson Discharge Problem: Unresponsive state, Urinary tract infection, Respiratory failure requiring intubation, History of CVA (cerebrovascular accident) Patient Disposition: Admitted As Inpatient Condition: Serious Discharge Instructions Interventions: ED Discharge Assessment Last Done: 11/04/24 15:12 Discharge Problem: Urinary tract infection Qualifiers: Urinary tract infection type: acute cystitis Hematuria presence: without hematuria Qualified Code(s): N30.00 - Acute cystitis without hematuria
[2024-11-04 13:43] LABS: Troponin I High Sensitivity 3.5 pg/ml (0-14)
[2024-11-04] MEDS: [UNRECOGNIZED DRUG - OTHER] IV STA (13:50)
[2024-11-04] MEDS: RAPID SEQUENCE INDUCTION BAG ONE (13:50)
[2024-11-04] MEDS: ERTAPENEM IV STA (13:50)
[2024-11-04 13:52] LABS: Thyroid Stimulating Hormone 0.949 uIu/ml (0.300-4.500)
--- NOTE | 2024-11-04 14:43 | History & Physical Report ---
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 In ED, patient afebrile but not responsive to painful stimuli and was intubated in the ED. Slight leukocytosis of 12.4 1K, ABG reassuring postintubation. BEAR noted with creatinine 1.39 (baseline 0.7). UA abnormal. Urine toxicology negative. Respiratory viral panel negative. CT head without acute intracranial abnormality. Does have history of partial seizures and is on Keppra. ROS unobtainable due to reduced consciousness. Was started on IV or ertapenem for possible UTI and given a total of 1 L normal saline. History of similar a dmission a few years ago in the setting of benzodiazepine overdose. Unresponsiveness Acute metabolic/toxic encephalopathic state in setting of medication overdose vs stroke or seizure not yet excluded WBC 12.4 1K, ABG reassuring, urine toxicology negative, respiratory viral panel negative. CT head without acute intracranial abnormality. CK, TSH, prolactin, ammonia levels all within normal range Admitting to ICU for further mgmt by heel varnisher - holding sedating medications (Duloxetine, keppra, gabapentin, Advil PM, seroquel per updated home med list per ), obtain EEG and CTA head and neck rule out basilar artery occlusion Continue IV fluids BEAR Cr 1.39, baseline ~0.7 Continue IV fluids, repeat BMP in AM Possible UTI Abnormal UA. Continue Ertapenem, follow urine and blood cultures History of CVA with left hemiplegia On asa 81mg and statin at home DM II A1c 7.6 in February 2024 Hold home agents Glycemic consult while in ICU BSG Q6H DVT Ppx: SQ heparin Code status: DNR/DNI per ICU PCP: Killian Dispo: Admitted to ICU. Patient seen in collaboration with Dr. Concepcion. Please see addendum. I spent a total of 75 minutes coordinating, documenting, and providing care for this patient excluding time spent in the performance of separately billed services or time spent by another provider/[facility]. 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 This was first noted around 0900 and initially thought she was just sleeping but when she remained unarousable he called EMS and she was brought in for further evaluation. History provided by ED physician secondary to patient being intubated no family at bedside. History of similar admission a few years ago in the setting of benzodiazepine overdose. In ED, patient afebrile but not responsive to painful stimuli and was intubated in the ED. Slight leukocytosis of 12.4 1K, ABG reassuring postintubation. BEAR noted with creatinine 1.39 (baseline 0.7). UA abnormal. Urine toxicology negative. Respiratory viral panel negative. CT head without acute intracranial abnormality. Does have history of partial seizures and is on Keppra. ROS unobtainable due to reduced consciousness. Was started on IV or ertapenem for possible UTI and given a total of 1 L normal saline. Allergies Allergy/AdvReac Type Severity Reaction Status Date / Time hydromorphone Allergy Severe Difficulty Verified 07/10/21 00:20 Breathing cephalexin [From Keflex] Allergy Intermediate Hives Verified 07/10/21 00:20 codeine Allergy Intermediate Hives Verified 07/10/21 00:20 Penicillins Allergy Intermediate Hives Verified 07/10/21 00:20 bupropion [From Wellbutrin] AdvReac Severe Seizure Verified 07/10/21 00:20 nickel AdvReac Mild SKIN Verified 07/10/21 00:20 IRRITATION Home Medications Medication Instructions Recorded Confirmed Type omeprazole 20 mg capsule,delayed 20 mg PO BID 01/19/20 11/04/24 History release fluticasone furoate 100 1 inh inhalation DAILY 06/17/20 11/04/24 History mcg-vilanterol 25 mcg/dose inhalation powder (Breo Ellipta) gabapentin 300 mg capsule 300 mg PO DAILY 06/17/20 11/04/24 History levetiracetam 750 mg tablet 1,500 mg PO BID 06/17/20 11/04/24 History aspirin 81 mg chewable tablet 81 mg PO QAM 11/07/20 11/04/24 History duloxetine 60 mg capsule,delayed 60 mg PO QAM 11/07/20 11/04/24 History release rosuvastatin 40 mg tablet (Crestor) 40 mg PO DAILY 07/09/21 11/04/24 History ibuprofen 200 mg-diphenhydramine 1 cap PO HS PRN Pain 07/10/21 11/04/24 History HCl 25 mg capsule (Advil PM Liqui-Gels) lisinopril 10 mg tablet 10 mg PO DAILY #20 tabs 07/12/21 11/04/24 Rx gabapentin 300 mg capsule 600 mg PO HS 11/04/24 11/04/24 History quetiapine 200 mg tablet (Seroquel) 200 mg PO DAILY 11/04/24 11/04/24 History quetiapine 300 mg tablet 300 mg PO HS 11/04/24 11/04/24 History Past Med/Surg History Problem List History of CVA (cerebrovascular accident) (Acute) Unresponsive state (Acute) Respiratory failure requiring intubation (Acute) Urinary tract infection (Acute) Medical History Bipolar 2 disorder Benzodiazepine overdose Drug overdose, intentional Cerebrovascular disease Hypertension Seizure disorder Anxiety Fibromyalgia History of stroke Surgical History History of cholecystectomy History of hysterectomy Family History Other Stroke Social History Smoking Status: Unknown if ever smoked Tobacco Type: Cigarettes Cigarettes Per Day: 20; Hx Alcohol Use: No (uncertain) Hx Substance Use: No (uncertain) Preferred Language: Macanese Communication Ability: Effective Visual Impairment: No Limitations Hearing Ability: Normal Library Services Coordinator Required: No Beliefs That Will Affect Care: None marital status: Current Living Situation: Spouse current occupational status: unemployed Feels Safe at Home: Yes Assistive Devices: Walker and Wheelchair Review of Systems Review of Systems: Unobtainable due to reduced consciousness Physical Exam Physical Exam: Please see Dr. Concepcion's addendum for physical exam. Results & Data Results & Data Vital Signs (Past 12 Hours) Vital Signs Temp Pulse Resp BP Pulse Ox O2 Del Method FiO2 11/04/24 14:12 81 20 126/85 100 11/04/24 14:06 83 20 124/84 100 11/04/24 13:55 90 20 131/88 100 11/04/24 13:50 90 20 107/76 100 11/04/24 13:45 89 20 100/74 100 11/04/24 13:44 20 11/04/24 13:39 91 H 16 99/71 L 100 11/04/24 13:30 99 H 16 92/68 L 100 11/04/24 13:18 97 H 16 100 Mechanical Vent 11/04/24 13:15 98 H 16 99 50 11/04/24 12:55 97 H 16 115/80 100 11/04/24 12:48 111 H 16 151/110 H 100 11/04/24 12:45 85 11/04/24 12:30 36.5 C 86 22 168/82 H 95 Laboratory Results Short CBC 11/04/24 Range/Units 12:45 WBC 12.41 H (4.8-10.8) K/ul Hgb 12.4 (12.0-16.0) g/dl Hct 38.0 (37.0-47.0) % Plt Count 239 (130-400) K/uL BMP 11/04/24 12:45 Sodium 139 Potassium 4.7 Chloride 107 Carbon Dioxide 22 BUN 24 H Creatinine 1.39 H Glucose 214 H Calcium 8.7 Cardiac Enzymes 11/04/24 Range/Units 12:45 Total Creatine Kinase 95 (26-192) U/L Liver Function 11/04/24 Range/Units 12:45 Total Bilirubin 0.3 (0.2-1.0) mg/dl AST 25 (13-39) U/L ALT 22 (7-52) U/L Alkaline Phosphatase 73 (34-104) U/L Albumin 4.0 (3.4-5.0) gm/dl Urine 11/04/24 Range/Units 12:57 Urine Color Yellow Urine Appearance Cloudy A (Clear) Urine pH 5.5 (4.5-7.5) Ur Specific Gays 1.017 (1.000-1.030) Urine Protein 2+ H (Negative) Urine Glucose (UA) Negative (Negative) Diagnostic Findings Chest X-Ray 11/04/24 12:51 XR chest 1V portable HISTORY: 54 years-old Female post intub acute respiratory failure COMPARISON: 07/09/2021 TECHNIQUE: AP view of the chest FINDINGS: Cardiac silhouette is enlarged. Endotracheal tube overlies the midline: 0.5 cm superior to the isa. Mild linear bibasilar opacities. No pneumothorax, pleural effusion or overt pulmonary edema. Cholecystectomy clips. Bones appear grossly intact. Cervical spinal fusion hardware. IMPRESSION: 1. Endotracheal tube overlies the midline, 1.5 cm superior to the isa. 2. Mild bibasilar opacities suggest atelectasis. ACT 112: Negative or not required by law. The above report was generated using voice recognition software. It may contain grammatical, syntax or spelling errors. Electronically signed by: Venkat Isaacs M.D. 11/04/2024 1:[address] 11/04/24 12:51 CT head/brain wo con CLINICAL HISTORY: altered. TECHNIQUE: Multiple axial CT images of the head were obtained without contrast. A dose lowering technique was utilized adhering to the principles of ALARA. CT DOSE: 657.02 mGy.cm COMPARISON: 07/10/2021 FINDINGS: Stable mild right periventricular encephalomalacia with mild ex vacuo dilatation of the right lateral ventricle. No intracranial hemorrhage seen. No mass effect, midline shift, or progressive hydrocephalus. No skull fracture. Visualized paranasal sinuses and mastoid air cells are clear. IMPRESSION: No acute findings. ACT 112: Negative or not required by law. The above report was generated using voice recognition software. It may contain grammatical, syntax or spelling errors. Electronically signed by: Martin Thrasher M.D. 11/04/2024 1:15 PM ECG Additional Comments: NSR, qtc 491 Code Status & VTE Plan VTE Prophylaxis Plan VTE Prophylaxis will be ordered: Yes Supervising Physician Co-Signing Physician Notes Patient is a 54-year-old female with history of CVA with left-sided hemiparesis, hypertension, COPD, tobacco use disorder, mood disorder, complex partial seizur es and other medical problems presents with change in mental status. Patient currently was not obtunded and intubated. Unable to obtain any history from the patient. Most of the history is obtained from old records, ER physician. Please review HPI for complete details of presentation. I personally reviewed blood work and imaging studies. CT head showed no acute process. Chest x-ray suggestive of atelectasis. Talk screen negative. Blood work suggestive of leukocytosis 12.4 1K, creatinine 1.39, urinalysis suggestive of possible UTI. EKG showed normal sinus rhythm with prolonged QT. Patient was unresponsive to pain stimulus when evaluated by ED physician, given significant lethargy patient was intubated while in ED. Physical Exam: Vitals signs as noted above General Appearance: Unresponsive, intubated Head: normocephalic, Atraumatic Eyes: normal inspection, pupils left dilated when compared to the right. Pupils sluggishly reactive to light. Neck: supple, Trachea midline Respiratory/Chest: Normal breath sounds, CTA, No accessory muscle use Cardiovascular: S1, S2, No murmur Abdomen/GI:Soft, Non tender, Bowel sounds present Extremities/Musculoskeletal:normal inspection, no edema Neurologic/Psych: Obtunded and intubated. Unable to perform complete neurological exam. Skin: normal color, warm Altered mental status/unconscious state DD: Intentional/accidental drug overdose, postictal state, rule out CVA, metabolic encephalopathy due to UTI CT head showed no acute process Tox screen negative Hold all sedating medications for now Obtain MRI brain, EEG Empirically started on IV ertapenem Blood, urine cultures pending Vent management as per ICU team Check Keppra levels Consider psychiatry evaluation when appropriate Acute kidney injury Suspected UTI Avoid nephrotoxic agents as able Continue IV fluids Monitor renal function Empirically on IV ertapenem for UTI for now Follow-up cultures I personally interviewed and examined the patient at bedside. I have reviewed the advanced practitioner's documentation on the date of service referred in note and agree with plan. Patient's care is coordinated with Sandra Kennedy PA-C. Please refer to the documentation above for details of patient's presentation and for discussion of other issues. I spent a total [id number] coordinating, documenting, and providing care for this patient excluding time spent in the performance of separately billed services or time spent by another provider/[facility].
[2024-11-04 15:47] LABS: Adenovirus PCR Not Detected (NotDetected); Bordetella parapertussis PCR Not Detected (NotDetected); Bordetella pertussis PCR Not Detected (NotDetected); Chlamydia pneumoniae PCR Not Detected (NotDetected); Coronavirus 229E PCR Not Detected (NotDetected); Coronavirus CoV-2 (COVID19)PCR Not Detected (NotDetected); Coronavirus HKU1 PCR Not Detected (NotDetected); Coronavirus NL63 PCR Not Detected (NotDetected); Coronavirus OC43PCR Not Detected (NotDetected); Human Metapneumovirus PCR Not Detected (NotDetected); Influenza A PCR Not Detected (NotDetected); Influenza B PCR Not Detected (NotDetected); Mycoplasma pneumoniae PCR Not Detected (NotDetected); Parainfluenza Virus 1 PCR Not Detected (NotDetected); Parainfluenza Virus 2 PCR Not Detected (NotDetected); Parainfluenza Virus 3 PCR Not Detected (NotDetected); Parainfluenza Virus 4 PCR Not Detected (NotDetected); Respiratory Syncytial VirusPCR Not Detected (NotDetected); Rhinovirus/Enterovirus PCR Not Detected (NotDetected)
--- NOTE | 2024-11-04 16:17 | Critical Care Consultation ---
Date of Consultation November 04, 2024 Assessment & Plan (1) Respiratory failure requiring intubation: (2) Urinary tract infection: (3) Cerebrovascular disease: (4) History of stroke: (5) Hypertension: Plan Reason Critically Ill: found unresponsive for unknown duration, nonresponsive to pain or suction, unable to respirate on her own requiring mechanical ventilation PLAN: Neuro: presently unresponsive to pain, requires mechanical ventilation - history of CVA to R MCA resulting in L-sided spastic hemiplegia - CT head 11/04/24 unremarkable for acute process: FINDINGS: Stable mild right periventricular encephalomalacia with mild ex vacuo dilatation of the right lateral ventricle - tox screen presently all negative, only pending keppra and EtOH levels patient became alert but still not oriented around 5:40pm 11/04/24 -> will hold off on CTA head & neck and MRI for now - still to obtain EEG for possible seizure - neurology consult Resp: was receiving endotracheal mechanical ventilation satting 100%, FiO2 39% - > became alert around 5:40pm 11/04/24 -> successful extubation satting 94% on oxymask at 4L/min - cxr with mild bibasilar opacities, ET tube midline 1.5cm superior to isa - COPD hx: Breo Ellipta Cardiovascular: not currently requiring vasopressor support but will add if sustained MAP<65 - received 1L NS in ER -> plasmalyte ICU - EKG 11/04/24 with NSR, QTc 491, avoid QT-prolonging drugs when possible Fluids/Renal: BEAR- creatinine 1.39 (previous 0.7 in 2020) - up about 300ccs fluid: good urine output of about 700ccs by 5pm 11/04/24 - electrolytes essentially unremarkable, receiving plasmalyte ID: significant UTI: WBCs 12.4; UA 11/04/24 showing 4+ bacteria, + nitrites, trace blood, +leuk esterase - on ertapenem empirically, awaiting urine micros and urine / blood cultures GI/Nutrition: successful extubation, dietitian consulted : UA showing 4+ bacteria, + nitrites, trace blood, +leuk esterase - treating with ertapenem currently - watch for urine micro, culture, blood cultures Heme: Hgb 12.4 Endocrine: elevated glucose to 214 - likely to resolve as patient is NPO, consider adding insulin if persists - ICU hypoglycemia protocol in place Lines: R upper arm peripheral IV VTE Prophylaxis - heparin SQ Diet - NPO at this time due to lack of orientation, unknown present baseline Disposition - ICU Supervising Physician Co-Signing Physician Notes Dr. Gastelum was resident physician during care of patient. I separately evaluated patient for garcia portions of the history and the exam. I was present during the critical portion of medical decision making, and I discussed the case with the resident. I generally agree with the findings and plan. Patient with history of prior CVA and acute kidney injury who has been unresponsive for several hours. Certainly at risk for seizure, on Keppra at baseline. Also has prescriptions for numerous sedating medications. Keppra level ordered in the ED. Urine drug screen negative including benzodiazepines, medication list includes Benadryl through Advil PM, duloxetine, gabapentin (could accumulate in the setting of acute kidney injury) Ativan, Seroquel. Doubtful sending gabapentin level would be utility as this is a reference level, QTc mildly elevated at 491 QRS within normal limits not withstanding. No clear toxidrome to indicate anticholinergic intoxication, monitoring QRS obtain EEG and MRI (patient has underwent MRI in June 2020. Neurology consult. Sending Tylenol and salicylate and alcohol for completeness, no evidence of high gap metabolic acidosis: Lactic acid negative normal anion gap Discussed with neurology: GFR greater than 40, will give liter bolus and then obtain stat CTA head and neck rule out basilar artery occlusion I have personally spent 70 minutes of critical care time in the direct management of this patient. This is a life/limb threatening event. This includes time spent evaluating patient, direct bedside care, chart review, placing orders, interpretation of diagnostic studies, discussion with consultants, patient, and/or family members regarding treatment decisions, as well as other required patient management activities. This time is exclusive of all separately billable procedures, and teaching time and separate from and in addition to any other critical care service time. Clinical update [id number]: Patient had prompt and rapid improvement in mental status sitting up in bed, this occurred when patient was attempted to be suctioned. Previously patient was not responding to noxious stimuli including suctioning. Updated neurology, patient was able to be extubated, will defer advanced imaging at this point: Still obtaining EEG. Also discussed with family via telephone, hard of hearing utilized patient's brother to facilitate communication through the telephone. Both stated patient would not want heroic measures undertaken in event of cardiac arrest. Accordingly we will update CODE STATUS to represent DNR/DNI in event of cardiac arrest. History of Present Illness Reason for Consultation: found unresponsive for unknown duration, nonresponsive to pain or suction, unable to respirate on her own requiring mechanical ventilation Attending Physician: Chandler Concepcion MD History of Present Illness Shagufta is a 54yo female with PMHx right MCA stroke in 2016, per prior documentation from past patient report, resulting L spastic hemiplegia. Additionally HTN, seizure disorder on keppra, COPD with tobacco smoking history, prior intentional drug overdose with benzos, bipolar 2 disorder who was found by her at home unresponsive for unknown duration around 9am, EMS arrived around 12pm meaning patient was likely unresponsive for a few hours. It is unclear when exactly 911 was called. Patient was found to have 85% O2 and hypercarbic prior to NC by EMS, unresponsive to pain and suctioning. Patient was then intubated for mechanical ventilation. It was reported that there were some "granules" in patient's mouth, hinting that patient may have consumed something prior to being found unresponsive. In ER: still unresponsive, given 1L IVF, started on ertapenem, requiring mech ventilation but not requiring vasopressor support. In ICU: Patient currently on mechanical ventilation, now receiving plasmalyte still not requiring vasopressor support. Still unresponsive to loud voice or pain, thus unable to obtain firsthand history. UPDATE: around 5:40pm patient became alert during suctioning -> extubation with transition to oxymask 4L successful. Still unable to gauge orientation and has unknown baseline presently. Allergies Allergy/AdvReac Type Severity Reaction Status Date / Time hydromorphone Allergy Severe Difficulty Verified 07/10/21 00:20 Breathing cephalexin [From Keflex] Allergy Intermediate Hives Verified 07/10/21 00:20 codeine Allergy Intermediate Hives Verified 07/10/21 00:20 Penicillins Allergy Intermediate Hives Verified 07/10/21 00:20 bupropion [From Wellbutrin] AdvReac Severe Seizure Verified 07/10/21 00:20 nickel AdvReac Mild SKIN Verified 07/10/21 00:20 IRRITATION Home Medications Medication Instructions Recorded Confirmed Type omeprazole 20 mg capsule,delayed 20 mg PO BID 01/19/20 11/04/24 History release fluticasone furoate 100 1 inh inhalation DAILY 06/17/20 11/04/24 History mcg-vilanterol 25 mcg/dose inhalation powder (Breo Ellipta) gabapentin 300 mg capsule 300 mg PO DAILY 06/17/20 11/04/24 History levetiracetam 750 mg tablet 1,500 mg PO BID 06/17/20 11/04/24 History aspirin 81 mg chewable tablet 81 mg PO QAM 11/07/20 11/04/24 History duloxetine 60 mg capsule,delayed 60 mg PO QAM 11/07/20 11/04/24 History release rosuvastatin 40 mg tablet (Crestor) 40 mg PO DAILY 07/09/21 11/04/24 History ibuprofen 200 mg-diphenhydramine 1 cap PO HS PRN Pain 07/10/21 11/04/24 History HCl 25 mg capsule (Advil PM Liqui-Gels) lisinopril 10 mg tablet 10 mg PO DAILY #20 tabs 07/12/21 11/04/24 Rx nicotine 7 mg/24 hr daily 14 mg transdermal QAM #14 ea 07/12/21 11/04/24 Rx transdermal patch quetiapine 100 mg tablet 100 mg PO QAM #30 tabs 07/12/21 11/04/24 Rx quetiapine 200 mg tablet (Seroquel) 200 mg PO HS #30 tabs 07/12/21 11/04/24 Rx quetiapine 100 mg tablet (Seroquel) 100 mg PO QAM #30 tabs 12/11/22 11/04/24 Rx quetiapine 200 mg tablet (Seroquel) 200 mg PO HS #30 tabs 12/11/22 11/04/24 Rx gabapentin 300 mg capsule 600 mg PO HS 11/04/24 11/04/24 History Patient History Medical History (Updated 11/04/24 @ 17:20 by Sandra Kennedy PA-C) Bipolar 2 disorder Benzodiazepine overdose Drug overdose, intentional Cerebrovascular disease Hypertension Seizure disorder Anxiety Fibromyalgia History of stroke Surgical History History of cholecystectomy History of hysterectomy Family History Other Stroke Social History Smoking Status: Unknown if ever smoked Tobacco Type: Cigarettes Cigarettes Per Day: 20; Hx Alcohol Use: No Hx Substance Use: No Preferred Language: Barbadian Communication Ability: Effective Visual Impairment: No Limitations Hearing Ability: Normal Stain Remover Required: No Beliefs That Will Affect Care: None marital status: Current Living Situation: Spouse current occupational status: unemployed Feels Safe at Home: Yes Assistive Devices: None Physical Exam Physical Exam: Constitutional: unresponsive to pain or verbal stimuli, ET tube and OGT in place, being mechanically ventilated with FiO2 39% HEENT: NC/AT, L pupil dilated and non-reactive to light, R pupil slightly more reactive to pen light with some constriction, anicteric sclerae, unable to gauge EOM, tongue appearing dry NECK: trachea midline Respiratory: mechanically ventilated with shallow breaths, clear to auscultation, no wheeze/rales/rhonchi heard Cardiovascular: RRR, no murmurs/rubs/gallops - Pulses: 2+ carotid pulses b/l, unable to palpate b/l radial pulses but cap refill of fingers <2sec, unable to palpate distal LE pulses but cap refill of toes <2sec GI/abdomen: hypoactive soft BS, abdomen soft, majority of L abdomen skin appearing to have scarring with tough leathery texture, otherwise nontympanitic, no response to deep palpation of all abdominal quadrants MSK: unable to gauge strength as pt is unresponsive; no significant peripheral edema observed, 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 Neuro: non-responsive to stimuli as noted above, L pupil appears non-responsive but R pupil contracts to light Skin: abdominal findings as noted above, warts noted on lateral feet, no active sores or bleeding noted Results & Data Results & Data Vital Signs (Past 12 Hours) Vital Signs Temp Pulse Resp BP Pulse Ox O2 Del Method FiO2 11/04/24 15:52 86 21 100 50 11/04/24 14:40 79 20 114/77 100 11/04/24 14:35 73 118/73 100 11/04/24 14:25 80 20 110/76 100 11/04/24 14:22 80 20 119/60 100 11/04/24 14:12 81 20 126/85 100 11/04/24 14:06 83 20 124/84 100 11/04/24 13:55 90 20 131/88 100 11/04/24 13:50 90 20 107/76 100 11/04/24 13:45 89 20 100/74 100 11/04/24 13:44 20 11/04/24 13:39 91 H 16 99/71 L 100 11/04/24 13:30 99 H 16 92/68 L 100 11/04/24 13:18 97 H 16 100 Mechanical Vent 11/04/24 13:15 98 H 16 99 50 11/04/24 12:55 97 H 16 115/80 100 11/04/24 12:48 111 H 16 151/110 H 100 11/04/24 12:45 85 11/04/24 12:30 36.5 C 86 22 168/82 H 95 Laboratory Results 11/04/24 11/04/24 11/04/24 Range/Units 14:56 14:47 13:15 WBC (4.8-10.8) K/ul RBC (4.20-5.40) M/uL Hgb (12.0-16.0) g/dl Hct (37.0-47.0) % MCV (80.0-100.0) fL MCH (25.0-34.0) pg MCHC (32.0-36.0) g/dL RDW Std Deviation (36.4-46.3) fL RDW Coeff of Damian (11.5-14.5) % Plt Count (130-400) K/uL MPV (9.4-12.4) fL Immature Gran % (Auto) % Neut % (Auto) % Lymph % (Auto) % [place] % (Auto) % Eos % (Auto) % Baso % (Auto) % Neut # (Auto) (1.40-6.50) K/uL Lymph # (Auto) (1.20-3.40) K/uL [place] # (Auto) (0.11-0.59) K/uL Eos # (Auto) (0.00-0.50) K/uL Baso # (Auto) (0.00-0.20) K/uL Immature Gran # (Auto) (0.01-0.20) K/uL PT (9.0-12.0) Seconds INR (0.9-1.1) Sodium (136-145) mmol/L Potassium (3.5-5.1) mmol/L Chloride (98-107) mmol/L Carbon Dioxide (21-32) mmol/L Anion Gap (3-11) BUN (6-23) mg/dl Creatinine (0.6-1.2) mg/dl Est Cr Clr Drug Dosing ml/min eGFR BUN/Creatinine Ratio (10-20) Glucose (70-99(Fasting)) mg/dl Lactate 2.0 (0.4-2.0) mmol/L Calcium (8.6-10.3) mg/dl Magnesium (1.7-2.4) mg/dl Total Bilirubin (0.2-1.0) mg/dl AST (13-39) U/L ALT (7-52) U/L Alkaline Phosphatase (34-104) U/L Ammonia 35.0 (18-72) umol/L Total Creatine Kinase (26-192) U/L Troponin I High Sens (0-14) pg/ml Total Protein (6.0-8.3) gm/dl Albumin (3.4-5.0) gm/dl Globulin (2.5-4.0) gm/dl Albumin/Globulin Ratio (0.9-2) TSH (0.300-4.500) uIu/ml Prolactin ng/ml Urine Color Urine Appearance (Clear) Urine pH (4.5-7.5) Ur Specific [place] (1.000-1.030) Urine Protein (Negative) Urine Glucose (UA) (Negative) Urine Ketones (Negative) Urine Blood (Negative) Urine Nitrite (Negative) Urine Bilirubin (Negative) Urine Urobilinogen (Negative) Ur Leukocyte Esterase (Negative) Urine WBC (Auto) (0-5) /hpf Urine RBC (Auto) (0-2) /hpf U Hyaline Cast (Auto) (0-2) /lpf U Epithel Cells (Auto) (0-2) /hpf Urine Bacteria (Auto) (None Seen) Urine Opiates Screen (Neg) Ur Methadone, Qual (Neg) Urine Fentanyl Screen (Neg) Urine Barbiturates (Neg) Levetiracetam Pending Ur Phencyclidine (PCP) (Neg) U Amphetamin/Meth Scrn (Neg) MDMA (Ecstasy) Screen (Neg) U Benzodiazepines Scrn (Neg) Ur Cocaine Metabolite (Neg) U Marijuana (THC) Screen (Neg) Adenovirus (PCR) Not Detected (NotDetected) B. pertussis DNA (PCR) Not Detected (NotDetected) B.parapertussis DNA PCR Not Detected (NotDetected) C. pneumoniae DNA (PCR) Not Detected (NotDetected) Coronavirus OC43 (PCR) Not Detected (NotDetected) Coronavirus HKU1 (PCR) Not Detected (NotDetected) Coronavirus 229E (PCR) Not Detected (NotDetected) SARS-CoV-2 (PCR) Not Detected (NotDetected) Coronavirus NL63 (PCR) Not Detected (NotDetected) Human Metapneumovir PCR Not Detected (NotDetected) Influenza Type A (PCR) Not Detected (NotDetected) Influenza Type B (PCR) Not Detected (NotDetected) M. pneumoniae (PCR) Not Detected (NotDetected) Parainfluenza 1 (PCR) Not Detected (NotDetected) Parainfluenza 2 (PCR) Not Detected (NotDetected) Parainfluenza 3 (PCR) Not Detected (NotDetected) Parainfluenza 4 (PCR) Not Detected (NotDetected) RSV (PCR) Not Detected (NotDetected) Entero/Rhino (PCR) Not Detected (NotDetected) 11/04/24 11/04/24 Range/Units 12:57 12:45 WBC 12.41 H (4.8-10.8) K/ul RBC 4.31 (4.20-5.40) M/uL Hgb 12.4 (12.0-16.0) g/dl Hct 38.0 (37.0-47.0) % MCV 88.2 (80.0-100.0) fL MCH 28.8 (25.0-34.0) pg MCHC 32.6 (32.0-36.0) g/dL RDW Std Deviation 44.6 (36.4-46.3) fL RDW Coeff of Damian 13.7 (11.5-14.5) % Plt Count 239 (130-400) K/uL MPV 11.1 (9.4-12.4) fL Immature Gran % (Auto) 0.4 % Neut % (Auto) 70.8 % Lymph % (Auto) 20.4 % [place] % (Auto) 7.1 % Eos % (Auto) 0.9 % Baso % (Auto) 0.4 % Neut # (Auto) 8.79 H (1.40-6.50) K/uL Lymph # (Auto) 2.53 (1.20-3.40) K/uL [place] # (Auto) 0.88 H (0.11-0.59) K/uL Eos # (Auto) 0.11 (0.00-0.50) K/uL Baso # (Auto) 0.05 (0.00-0.20) K/uL Immature Gran # (Auto) 0.05 (0.01-0.20) K/uL PT 11.0 (9.0-12.0) Seconds INR 1.0 (0.9-1.1) Sodium 139 (136-145) mmol/L Potassium 4.7 (3.5-5.1) mmol/L Chloride 107 (98-107) mmol/L Carbon Dioxide 22 (21-32) mmol/L Anion Gap 10 (3-11) BUN 24 H (6-23) mg/dl Creatinine 1.39 H (0.6-1.2) mg/dl Est Cr Clr Drug Dosing 46.9 ml/min eGFR 44.54 BUN/Creatinine Ratio 17.3 (10-20) Glucose 214 H (70-99(Fasting)) mg/dl Lactate (0.4-2.0) mmol/L Calcium 8.7 (8.6-10.3) mg/dl Magnesium 2.0 (1.7-2.4) mg/dl Total Bilirubin 0.3 (0.2-1.0) mg/dl AST 25 (13-39) U/L ALT 22 (7-52) U/L Alkaline Phosphatase 73 (34-104) U/L Ammonia (18-72) umol/L Total Creatine Kinase 95 (26-192) U/L Troponin I High Sens 3.5 (0-14) pg/ml Total Protein 7.0 (6.0-8.3) gm/dl Albumin 4.0 (3.4-5.0) gm/dl Globulin 3.0 (2.5-4.0) gm/dl Albumin/Globulin Ratio 1.3 (0.9-2) TSH 0.949 (0.300-4.500) uIu/ml Prolactin 71.90 ng/ml Urine Color Yellow Urine Appearance Cloudy A (Clear) Urine pH 5.5 (4.5-7.5) Ur Specific [place] 1.017 (1.000-1.030) Urine Protein 2+ H (Negative) Urine Glucose (UA) Negative (Negative) Urine Ketones Negative (Negative) Urine Blood Trace H (Negative) Urine Nitrite Positive A (Negative) Urine Bilirubin Negative (Negative) Urine Urobilinogen Negative (Negative) Ur Leukocyte Esterase 1+ H (Negative) Urine WBC (Auto) 11-20 H (0-5) /hpf Urine RBC (Auto) 3-5 H (0-2) /hpf U Hyaline Cast (Auto) 11-20 H (0-2) /lpf U Epithel Cells (Auto) 11-20 H (0-2) /hpf Urine Bacteria (Auto) 4+ H (None Seen) Urine Opiates Screen Neg (Neg) Ur Methadone, Qual Neg (Neg) Urine Fentanyl Screen Neg (Neg) Urine Barbiturates Neg (Neg) Levetiracetam Ur Phencyclidine (PCP) Neg (Neg) U Amphetamin/Meth Scrn Neg (Neg) MDMA (Ecstasy) Screen Neg (Neg) U Benzodiazepines Scrn Neg (Neg) Ur Cocaine Metabolite Neg (Neg) U Marijuana (THC) Screen Neg (Neg) Adenovirus (PCR) (NotDetected) B. pertussis DNA (PCR) (NotDetected) B.parapertussis DNA PCR (NotDetected) C. pneumoniae DNA (PCR) (NotDetected) Coronavirus OC43 (PCR) (NotDetected) Coronavirus HKU1 (PCR) (NotDetected) Coronavirus 229E (PCR) (NotDetected) SARS-CoV-2 (PCR) (NotDetected) Coronavirus NL63 (PCR) (NotDetected) Human Metapneumovir PCR (NotDetected) Influenza Type A (PCR) (NotDetected) Influenza Type B (PCR) (NotDetected) M. pneumoniae (PCR) (NotDetected) Parainfluenza 1 (PCR) (NotDetected) Parainfluenza 2 (PCR) (NotDetected) Parainfluenza 3 (PCR) (NotDetected) Parainfluenza 4 (PCR) (NotDetected) RSV (PCR) (NotDetected) Entero/Rhino (PCR) (NotDetected) Resident Activity Tracking Resident Involvement: Resident Care Provided Care Provided: Adult Hospital Medicine
--- NOTE | 2024-11-04 16:17 | Billing Data ---
Date of Service November 04, 2024 Coding Level of Care Code 69922 CRITICAL CARE
[2024-11-04] MEDS ORDERED: ICU Protocol for HYPERglycemia SCH ×2 (16:30→21:00)
[2024-11-04] MEDS: PLASMA-LYTE A 2,000 ML IV ONE (16:45)
[2024-11-04 16:53] LABS: Base Excess VBG -6.3 mEq/L; HCO3 VBG 20 mmol/L; Oxygen Saturation VBG 71.4 %; PCO2 VBG 40 mmHg (38-50); PO2 VBG 44 mmHg
[2024-11-04 17:14] LABS: Acetaminophen < 3 ug/ml (10-30); Salicylate < 3.0 mg/dl (3.0-30)
--- NOTE | 2024-11-04 17:23 | Electrocardiogram Report ---
Test Reason : Blood Pressure : */* mmHG Vent. Rate : 84 BPM Atrial Rate : 84 BPM P-R Int : 168 ms QRS Dur : 94 ms QT Int : 416 ms P-R-T Axes : 49 16 61 degrees QTcB Int : 491 ms Normal sinus rhythm Prolonged QT Abnormal ECG When compared with ECG of 09-Jul-2021 19:54, No significant change was found Confirmed by Isaiah Leiva [id number] on 11/04/2024 5:23:11 PM Referred By: REFERRED SELF Confirmed By: Isaiah Leiva
[2024-11-04] MEDS ORDERED: GLUCOSE 40% GEL 15 GM TUBE PO PRN ×2 (17:33)
[2024-11-04] MEDS ORDERED: DEXTROSE 50% 50 ML SYRINGE IV PRN ×2 (17:33)
[2024-11-04] MEDS ORDERED: GLUCOSE 10 TAB/TUBE PO PRN ×2 (17:33)
[2024-11-04] MEDS ORDERED: CARBOHYDRATES FOR HYPOGLYCEMIA PO PRN ×2 (17:33)
[2024-11-04] MEDS ORDERED: GLUCAGON FOR INJ 1 MG VIAL SQ PRN ×2 (17:33)
[2024-11-04] MEDS ORDERED: PHARMACY GLYCEMIC MGMT CONSULT PRN (17:33)
--- OUTSIDE RECORDS SUMMARY | 2024-11-04 19:04 | External Medical Summary | Summary of Care ---
Author Name Unknown Organization [facility] Address [address] [place] [address] Phone [phone] Care Team Providers Care Formula Maker Name Role Phone Hanna Smith MD Primary Care Prov ider Reason for Visit * Reason Comments eRx-Medication Refill Encounter Details Date Type Department Care Team (Late st Contact Info) Description 07/25/2024 Refill Family Medicine [address] [phone] Hanna Smith MD [address] [place] [address] [place], [place] [id number] Chronic obstructive pulmonary disease, unspecified (HCC) Allergies Active Allergy Reactions Criticality Noted Date Comments Codeine Hives Medium 05/02/2019 Hydromorphone Other (Please comment) Medium 05/02/2019 Cephalexin Hives Medium 05/02/2019 Nickel 10/26/2020 Dermatology issues Penicillin G Hives Medium 05/02/2019 Bupropion Hcl Seizure High 05/02/2019 documented as of this encounter (statuses as of 07/27/2024) Medications Medication Sig Dispensed Refills Start Date End Date Status Advil PM 200-25 MG Oral Capsule (Ibuprofen-diphen hydrAMINE HCl) Take by mouth as needed for Pain. Active Cold & Flu Nighttime 15-6.25-325 MG/15ML Oral Liquid (MT-Mknwowzboz-Zt etaminophen) Take by mouth as needed for Pain, Severe. Active Gabapentin 300 MG Oral Capsule (Neurontin)Indica tions:Left spastic hemiplegia (HCC) TAKE 1 CAPSULE BY MOUTH EVERY MORNING AND 2 CAPSULES AT BEDTIME 84 Capsule 5 12/18/2022 Active levETIRAcetam 750 MG Oral TabletIndications :Localization-rel ated focal epilepsy with complex partial seizures (HCC) TAKE TWO TABLETS BY MOUTH TWICE DAILY 120 Tablet 5 03/04/2023 Active Aspirin 81 MG Oral Tablet Chewable TAKE ONE TABLET IN THE MORNING 30 Tablet 09/24/2023 Active Lisinopril 10 MG Oral Tablet (Prinivil)Indicat ions:Hypertension goal BP (blood pressure) < 140/90 TAKE ONE TABLET IN THE MORNING 30 Tablet 09/24/2023 Active Rosuvastatin Calcium 40 MG Oral Tablet (Crestor)Indicati ons:Hyperlipidemi a with target LDL less than 70 TAKE ONE TABLET IN THE MORNING 30 Tablet 09/24/2023 Active Omeprazole 20 MG Oral Capsule Delayed Release (PriLOSEC)Indicat ions:Gastroesopha geal reflux disease without esophagitis TAKE 1 CAPSULE BY MOUTH TWICE A DAY 60 Capsule 09/24/2023 Active DULoxetine HCl 60 MG Oral Capsule Delayed Release Particles (Cymbalta)Indicat ions:Left spastic hemiplegia (HCC) TAKE ONE CAPSULE BY MOUTH EVERY DAY 90 Capsule 3 03/03/2024 Active metFORMIN HCl ER 500 MG Oral Tablet Extended Release 24 Hour (Glucophage XR) Take 1 Tablet by mouth in the morning. 90 Tablet 3 03/03/2024 Active Breo Ellipta 200-25 MCG/ACT Inhalation Aerosol Powder Breath Activated (fluticasone furoate-vilantero l)Indications:Chr onic obstructive pulmonary disease, unspecified (HCC) INHALE ONE PUFF BY MOUTH EVERY DAY 60 Blister Dosing Unit 5 07/27/2024 Active Breo Ellipta 200-25 MCG/ACT Inhalation Aerosol Powder Breath Activated (fluticasone furoate-vilantero l)Indications:Chr onic obstructive pulmonary disease, unspecified (HCC) INHALE ONE PUFF BY MOUTH EVERY DAY 60 Blister Dosing Unit 5 07/17/2023 4 Discontinued documented as of this encounter (statuses as of 07/27/2024) Active Problems Problem Noted Date Diagnosed Date Misuse of medication 11/26/2020 Overview: Overdosed on baclofen. Uses controlled substances (lorazepam, oxycodone) heavily and beyond what is prescribed. Dr Daily stopped prescribing in 08/2020 due to misuse/ overdose. COPD, group A, by GOLD 2017 classification 08/20 Overview: Per COPD GOLD Classification Atherosclerosis of aorta 02/09/2020 Localization-related focal e pilepsy with complex partial seizures 01/23/2020 Chronic ischemic right MCA stroke 01/23/2020 Gastroesophageal reflux disease without esophagi tis 12/28/2019 Hypertension goal BP (blood pressure) < 140/90 0 11/11/2019 Left spastic hemiplegia 07/05/2019 Left hemiparesis 07/05/2019 Hyperlipidemia with target LDL less than 70 06/13 DM type 2, not at goal 07/05/2019 Moderate episode of recurrent major depressive d isorder 07/05/2019 Tobacco use disorder 07/05/2019 Abnormal mammogram 07/05/2019 Overview: Needs repeat right mammo 11/2019 Depressive disorder Anxiety documented as of this encounter (statuses as of 07/27/2024) Resolved Problems Problem Noted Date Diagnosed Date Resolved Date Prediabetes 07/17/2020 03/08/2024 Status epilepticus 01/23/2020 0 COPD, mild 11/11/2019 08/23/2020 Overview: Per COPD GOLD Classification Acute respiratory failure with hypoxia 01/25/2020 Accidental drug overdose documented as of this encounter (statuses as of 07/27/2024) Immunizations Name Administration Dates Next Due COVID-19 mRNA, LNP-s, No Pre serve, 2-Dose Series (Pfizer) 02/16/2021 Pneumococcal Conjugate Vaccine, 20-valent (Prevn ar20) 05/22/2022 Pneumococcal Polysaccharide PPV23 (Pneumovax) Seasonal Influenza, PF, 6 M & above, IM , (FluLaval or Fluzone) 07/17/2020,07/05/2019 Zoster Vaccine Recombinant (Shingrix) 03/24/2020 documented as of this encounter Social History Tobacco Use Types Packs/Day Years Used Date Smoking Tobacco: Every Day Cigarettes 1 37 Smokeless Tobacco: Never Alcohol Use Standard Drinks/Week Comments Not Currently 0 (1 standard drink = 0.6 oz pur e alcohol) AUDIT-C Answer Date Recorded Frequency of Alcohol Consumption Monthly or less 05/02/2019 Average Number of Drinks 1 or 2 019 Frequency of Binge Drinking Less than monthly PHQ-2 Answer Date Recorded PHQ-2 Score 0 08/17/2020 Hunger Vital Sign Answer Date Recorded Worried About Running Out of Food in the Last Ye ar Never true 08/17/2020 Ran Out of Food in the Last Year Never true 08/17/2020 Utilities Answer Date Recorded Do you have trouble paying y our heating, water, or electric bill? (Adult - for ages 18 years and over) Not on file 03/29/2024 Is your family able to pay t he heat, water, or electric bill? (Household - for ages 0-17 years) Not on file 03/29/2024 Does your family have access to good internet? (Household - for ages 0-17 years) Not on file 03/29/2024 Social Connections Answer Date Recorded How often do you feel lonely or isolated from those around you? (Adult - for ages 18 years and over) Not on file 03/29/2024 Sex and Gender Information Value Date Recorded Sex Assigned at Not on file Gender Identity Not on file Sexual Orientation Not on file Job Start Date Occupation Industry Not on file Not on file Not on file documented as of this encounter Functional Status Functional Status Response Date of Assess ment Do you have serious difficul ty walking or climbing stairs? (5 years old or older) Yes 01/20/2020 documented as of this encounter Miscellaneous Notes * Telephone Encounter - Pete Kearns [facility] - 07/27/2024 6:30 AM EDT Signed Prescriptions: Disp Refills Breo Ellipta 200-25 MCG/ACT Inhalation Aer*60 Bli*5 Sig: INHALE ONE PUFF BY MOUTH EVERY DAY Authorizing Provider: HANNA SMITH Ordering User: PETE KEARNS * Telephone Encounter - Pete Kearns [facility] - 07/27/2024 6:30 AM EDT Signed Prescriptions: Disp Refills Breo Ellipta 200-25 MCG/ACT Inhalation Aer*60 Bli*5 Sig: INHALE ONE PUFF BY MOUTH EVERY DAY Authorizing Provider: HANNA SMITH Ordering User: PETE KEARNS * Telephone Encounter - Sophia Downing facility attendant - 07/25/2024 11:47 AM EDT Did you pend patient's preferred pharmacy and medication before forwarding?yes Pharmacy: [facility], [address] [place] Pending Prescriptions: Disp Refills Breo Ellipta 200-25 MCG/ACT Inhalation Ae*60 Bli*5 Sig: INHALE ONE PUFF BY MOUTH EVERY DAY Last Visit: 03/02/2024 (in office), Visit date not found (telemedicine) Next Visit: 11/02/2024 If no future appointments scheduled, and last appointment is greater than a year ago, please schedule patient for a follow-up appointment Last date the medication was ordered: 07/17/2023 Is this request for a controlled substance?No Urine Drug Screen: Results for orders placed or performed during the hospital encounter of 01/20/20 TOX SCREEN, URINE, W/ CONFIRMATION Result Value Amphetamine NEGATIVE Benzodiazepines POSITIVE (A) Cannabinoids NEGATIVE Cocaine Metabolite NEGATIVE HYDROCODONE NEGATIVE Morphine / Codeine NEGATIVE METHADONE METABOLITE NEGATIVE OXYCODONE NEGATIVE TOX COMMENT THE ABOVE SCREENING RESULTS ARE PRESUMPTIVE AND CAN ONLY BE USED FOR MEDICAL PURPOSES. POSITIVE RESULTS REFLEX TO CONFIRMATORY TESTING. Cutoff Concentration Patient Phone Numbers Labs: Lab Results Component Value Date/Time CREAT 0.8 03/02/2024 10:47 AM CREAT 0.8 07/18/2020 08:32 AM POTASSIUM 3.9 03/02/2024 10:47 AM POTASSIUM 3.8 07/18/2020 08:32 AM LDL 72 03/02/2024 10:47 AM LDL 52 07/18/2020 08:32 AM ALT 40 (H) 03/02/2024 10:47 AM ALT 24 07/18/2020 08:32 AM HGBA1C 7.6 (H) 03/02/2024 10:47 AM HGBA1C 6.3 (H) 07/18/2020 08:32 AM documented in this encounter Plan of Treatment Upcoming Encounters Date Type Department Care Team (Late st Contact Info) Description 11/02/2024 11:40 AM EST Office Visit Family Medicine [address] [place] [address] Hanna Smith MD [address] [place] [address] [place] [phone] Scheduled Procedures Name Priority Associated Diagnoses Date/Ti me COLONOSCOPY FLEXIBLE PROXIMA L DIAGNOSTIC Recall Special screening for malignant neoplasms, colon Health Maintenance Due Date Last Done Comments DISCUSS TOBACCO CESSATION (REFER TO SMARTSET #4154) 1970 Alpha-1 Antitrypsin 1986 Diabetic Eye Exam 1986 Diabetic Foot Exam 1986 Hepatitis B Vaccine (1 of 3 - 19+ 3-dose series) 1987 Cologuard 2013 Colonoscopy 2013 Colorectal Cancer Screening 2013 Fecal Occult Blood Test 2013 Sigmoidoscopy 2013 Lung Cancer Screening 2018 Mammogram 06/10/2020 06/10/2019 Depression Monitoring 08/17/2021 08/17/2020 COVID-19 Vaccine ( season) 2024 02/16/2021 Influenza Vaccine (FLU shot) (#1) 2024 07/17/2020, 07/05/2019, 07/05/2019 HbA1c 09/02/2024 03/02/2024, 05/12, 07/18/2020, Additional history exists Albumin/Creatinine Ratio 03/02/2025 03/02/2024 GFR 03/02/2025 03/02/2024, 05/12, 07/18/2020, Additional history exists O2 ASSESSMENT COMPLETED IN PAST YEAR FOR COPD 03/02/2025 03/02/2024 DTap/Tdap Vaccines (2 - Td or Tdap) 08/17/2030 08/17/2020 (Not indicated) Zoster Vaccines Completed 08/17/2020, 04/11, 03/24/2020 Pneumococcal Vaccine: Pediatrics (0 to 5 Years) and At-Risk Patients (6 to 64 Years) Completed 05/22/2022, 07/05/2019 HPV (Gardasil) Vaccine Aged Out No lo nger eligible based on patient's age to complete this topic MENINGOCOCCAL (MENACTRA/MENVEO) Aged Out No longer eligible based on patient's age to complete this topic documented as of this encounter Medical Devices Not on filedocumented as of this encounter Visit Diagnoses Diagnosis Chronic obstructive pulmonary disease, unspecified (HCC) documented in this encounter Advance Directives * Full Code (Latest Code Status on File) Date Activated Date Inactivated Comments 01/21/2020 1:35 AM 01/25/2020 8:25 PM This order r eflects the patients wishes and were consensually agreed upon. Care Teams Formula Maker Relationship Specialty Start Date End Date Hanna Smith MD [address] [place] [address] [place] [phone] PCP - General Family Medicine 04/24/24 documented as of this encounter
--- OUTSIDE RECORDS SUMMARY | 2024-11-04 19:04 | External Medical Summary | Summary of Care ---
Author Name Unknown Organization [facility] Address [address] [place] [address] Phone [phone] Care Team Providers Care Social Media Community Manager Name Role Phone Denia Rivera MD Primary Care Prov ider Reason for Visit * Reason Onset Date Comments Medical Records Request 06/24/2024 [facility] Encounter Details Date Type Department Care Team (Late st Contact Info) Description 06/24/2024 Telephone Family Medicine [address] [phone] Denia Rivera MD [address] [place] [address] [place] [id number] Medical Records Request ([facility]) Allergies Active Allergy Reactions Criticality Noted Date Comments Codeine Hives Medium 05/02/2019 Hydromorphone Other (Please comment) Medium 05/02/2019 Cephalexin Hives Medium 05/02/2019 Nickel 10/26/2020 Dermatology issues Penicillin G Hives Medium 05/02/2019 Bupropion Hcl Seizure High 05/02/2019 documented as of this encounter (statuses as of 06/24/2024) Medications Medication Sig Dispensed Refills Start Date End Date Status Advil PM 200-25 MG Oral Capsule (Ibuprofen-diphenhy drAMINE HCl) Take by mouth as needed for Pain. Active Cold & Flu Nighttime 15-6.25-325 MG/15ML Oral Liquid (SE-Tnjpjbofoa-Vtej aminophen) Take by mouth as needed for Pain, Severe. Active Gabapentin 300 MG Oral Capsule (Neurontin)Indicati ons:Left spastic hemiplegia (HCC) TAKE 1 CAPSULE BY MOUTH EVERY MORNING AND 2 CAPSULES AT BEDTIME 84 Capsule 5 12/18/2022 Active levETIRAcetam 750 MG Oral TabletIndications:L ocalization-related focal epilepsy with complex partial seizures (HCC) TAKE TWO TABLETS BY MOUTH TWICE DAILY 120 Tablet 5 03/04/2023 Active Breo Ellipta 200-25 MCG/ACT Inhalation Aerosol Powder Breath Activated (fluticasone furoate-vilanterol) Indications:Chronic obstructive pulmonary disease, unspecified (HCC) INHALE ONE PUFF BY MOUTH EVERY DAY 60 Blister Dosing Unit 5 07/17/2023 Active Aspirin 81 MG Oral Tablet Chewable TAKE ONE TABLET IN THE MORNING 30 Tablet 09/24/2023 Active Lisinopril 10 MG Oral Tablet (Prinivil)Indicatio ns:Hypertension goal BP (blood pressure) < 140/90 TAKE ONE TABLET IN THE MORNING 30 Tablet 09/24/2023 Active Rosuvastatin Calcium 40 MG Oral Tablet (Crestor)Indication s:Hyperlipidemia with target LDL less than 70 TAKE ONE TABLET IN THE MORNING 30 Tablet 09/24/2023 Active Omeprazole 20 MG Oral Capsule Delayed Release (PriLOSEC)Indicatio ns:Gastroesophageal reflux disease without esophagitis TAKE 1 CAPSULE BY MOUTH TWICE A DAY 60 Capsule 09/24/2023 Active DULoxetine HCl 60 MG Oral Capsule Delayed Release Particles (Cymbalta)Indicatio ns:Left spastic hemiplegia (HCC) TAKE ONE CAPSULE BY MOUTH EVERY DAY 90 Capsule 3 03/03/2024 Active metFORMIN HCl ER 500 MG Oral Tablet Extended Release 24 Hour (Glucophage XR) Take 1 Tablet by mouth in the morning. 90 Tablet 3 03/03/2024 Active documented as of this encounter (statuses as of 06/24/2024) Active Problems Problem Noted Date Diagnosed Date [...] as of this encounter (statuses as of 06/24/2024) Resolved Problems Problem Noted Date Diagnosed Date Resolved Date Prediabetes 07/17/2020 03/08/2024 Status epilepticus 01/23/2020 0 COPD, mild 11/11/2019 08/23/2020 Overview: Per COPD GOLD Classification Acute respiratory failure with hypoxia 01/25/2020 Accidental drug overdose documented as of this encounter (statuses as of 06/24/2024) Immunizations Name Administration Dates Next Due COVID-19 mRNA, LNP-s, No Pre serve, 2-Dose Series (Megathread) 02/16/2021 Pneumococcal Conjugate Vaccine, 20-valent (Prevn ar20) [...] encounter Miscellaneous Notes * Telephone Encounter - Nimco Smith OSA - 06/24/2024 11:13 AM EDT Rec'd request for records 06/24/24 from [facility]. I sent auth to HIM [id number] on 06/24/24. To check status of records, please call HIM directly at [phone]. documented in this encounter Plan of Treatment Upcoming Encounters Date Type Department Care Team (Late st Contact Info) Description 06/27/2024 2:30 PM EDT Imaging Radiology Sridhar Ash [address] [place], [place] [id number] [place] [phone] 11/02/2024 11:40 AM EST Office Visit Family Medicine [address] [place] [phone] Denia Rivera MD [address] [place] [address] [place] [phone] Scheduled Procedures Name Priority Associated Diagnoses Date/Ti me COLONOSCOPY FLEXIBLE PROXIMA L DIAGNOSTIC Recall Special screening for malignant neoplasms, colon Health Maintenance Due Date Last Done Comments DISCUSS TOBACCO CESSATION (REFER TO SMARTSET #5585) 1968 Alpha-1 Antitrypsin 1986 Diabetic Eye Exam [...] Not on filedocumented as of this encounter Advance Directives * Full Code (Latest Code Status on File) Date Activated Date Inactivated Comments 01/21/2020 1:35 AM 01/25/2020 8:25 PM This order r eflects the patients wishes and were consensually agreed upon. Care Teams Social Media Community Manager Relationship Specialty Start Date End Date Denia Rivera MD [address] [place] [address] [place] [phone] PCP - General Family Medicine 04/24/24 documented as of this encounter
[2024-11-04 19:39] LABS: Base Excess VBG -3.9 mEq/L; HCO3 VBG 22 mmol/L; Oxygen Saturation VBG 96.2 %; PCO2 VBG 43 mmHg (38-50); PO2 VBG 80 mmHg; pH VBG 7.32 (7.36-7.41)
[2024-11-04] MEDS: INSULIN ASPART PER UNIT CHARGE SC SCH (19:54)
[2024-11-04] MEDS: levETIRAcetam 500 MG/5 ML VIAL IV SCH (19:56)
[2024-11-04] MEDS: OPTIRAY 320 125ml IV ONE (20:28)
[2024-11-04] MEDS ORDERED: INSULIN ASPART PER UNIT CHARGE SC SCH (21:00)
[2024-11-04] MEDS: THIAMINE HCL 500 MG in SODIUM CHLORIDE 0.9% 50 ML IV SCH (21:15)
--- NOTE | 2024-11-04 21:49 | CT Scan Report ---
Exam(s): CTA HEAD With Contrast IV Amt: 119 ml optiray 320 EXAM: CT Angiography Head With Intravenous Contrast CLINICAL HISTORY: Reason for exam: obtunded. TECHNIQUE: Axial computed tomographic angiography images of the head with intravenous contrast. CTDI is 16.61 mGy and DLP is 468.03 mGy-cm. Automated exposure control was utilized for the study. A dose lowering technique was utilized adhering to the principles of ALARA. MIP reconstructed images were created and reviewed. CONTRAST: Patient received 119 ml optiray 320 of IV contrast COMPARISON: No relevant prior studies available. FINDINGS: The dural venous sinuses are patent. Right internal carotid artery: No acute findings. Intracranial segment is patent with no significant stenosis. No aneurysm. Right anterior cerebral artery: Unremarkable. No occlusion or significant stenosis. No aneurysm. Right middle cerebral artery: Unremarkable. No occlusion or significant stenosis. No aneurysm. Right posterior cerebral artery: Unremarkable. No occlusion or significant stenosis. No aneurysm. Right vertebral artery: Unremarkable as visualized. Left internal carotid artery: No acute findings. Intracranial segment is patent with no significant stenosis. No aneurysm. Left anterior cerebral artery: Unremarkable. No occlusion or significant stenosis. No aneurysm. Left middle cerebral artery: Unremarkable. No occlusion or significant stenosis. No aneurysm. Left posterior cerebral artery: Unremarkable. No occlusion or significant stenosis. No aneurysm. Left vertebral artery: Unremarkable as visualized. Basilar artery: Unremarkable. No occlusion or significant stenosis. No aneurysm. IMPRESSION: Negative CT angiogram of the head. Electronically signed by: Kim Cutler MD 11/04/24 21:49 PM
--- NOTE | 2024-11-04 21:56 | CT Scan Report ---
Exam(s): CTA NECK With Contrast IV Amt: 119 ml optiray 320 EXAM: CT Angiography Neck With Intravenous Contrast CLINICAL HISTORY: Reason for exam: obtunded. TECHNIQUE: Routine carotid CT angiography protocol was performed with intravenous contrast. NASCET criteria using the distal ICAs for comparison were used for evaluation of stenoses. CTDI is 16.61 mGy and DLP is 468.03 mGy-cm. Automated exposure control was utilized for the study. A dose lowering technique was utilized adhering to the principles of ALARA. MIP reconstructed images were created and reviewed. CONTRAST: Patient received 119 ml optiray 320 of IV contrast COMPARISON: None. FINDINGS: VASCULATURE: Right common carotid artery: Unremarkable. No occlusion or significant stenosis. No dissection. Right internal carotid artery: Unremarkable. Extracranial segment is patent with no occlusion or significant stenosis. No dissection. Right external carotid artery: Unremarkable. No occlusion. Right vertebral artery: Unremarkable. No occlusion or significant stenosis. No dissection. Left common carotid artery: Unremarkable. No occlusion or significant stenosis. No dissection. Left internal carotid artery: Unremarkable. Extracranial segment is patent with no occlusion or significant stenosis. No dissection. Left external carotid artery: Unremarkable. No occlusion. Left vertebral artery: Unremarkable. No occlusion or significant stenosis. No dissection. NECK: Bones/joints: Status post anterior fusion of C4-C6. No acute fracture. Soft tissues: Bilateral thyroid nodules. Lung apices: Bronchitis with pneumonitis.. CAROTID STENOSIS REFERENCE USING NASCET CRITERIA: % ICA stenosis = (1 - narrowest ICA diameter/diameter of distal cervical ICA) x 100. Mild - <50% stenosis. Moderate - 50-69% stenosis. Severe - 70-94% stenosis. Near occlusion - 95-99% stenosis. Occluded - 100% stenosis. IMPRESSION: Negative CTA neck. Electronically signed by: Kim Cutler MD 11/04/24 21:55 PM
[2024-11-04] MEDS: HEPARIN SOD 5,000 UNIT/0.5 ML VIAL SQ SCH (22:38)
--- NOTE | 2024-11-05 02:48 | Communication Note ---
Date of Service: November 05, 2024 Notified by RN patient suddenly hypertensive, tachycardic. Blankly staring. Patient seen at bedside. Findings are consistent with complex partial seizure, lack of awareness. Rigid LUE. Given this event lasting > 5 minutes I did treat with 1mg IV Ativan x1 with improvement. Patient now aware of surroundings, following commands. Tells me she has been taking her Keppra at home. Remainder of history is limited due to hoarseness of voice. Hypertension and tachycardia improved. Keppra level remains pending. Continue home dose. EEG also pending. Monitor for seizure recurrence. Neurology consultation in AM, appreciate recommendations. Coding Level of Care Code None
[2024-11-05] MEDS: LORazepam 2 MG/1 ML VIAL IV STA (02:55)
[2024-11-05] MEDS: LORazepam 2 MG/1 ML VIAL ONE (02:55)
[2024-11-05 05:03] LABS: Basophils # (auto) 0.04 K/uL (0.00-0.20); Basophils % (auto) 0.3 %; Eosinophils # (auto) 0.08 K/uL (0.00-0.50); Eosinophils % (auto) 0.6 %; Hematocrit (blood only) 38.9 % (37.0-47.0); Hemoglobin 12.2 g/dl (12.0-16.0); Immature Granulocytes # (auto) 0.06 K/uL (0.01-0.20); Immature Granulocytes % (auto) 0.5 %; Lymphocytes # (auto) 2.48 K/uL (1.20-3.40); Lymphocytes % (auto) 18.8 %; Mean Corpuscular Hemoglobin 27.7 pg (25.0-34.0); Mean Corpuscular Hgb Conc 31.4 g/dL (32.0-36.0); Mean Corpuscular Volume 88.2 fL (80.0-100.0); Mean Platelet Volume 10.8 fL (9.4-12.4); Monocytes # (auto) 1.16 K/uL (0.11-0.59); Monocytes % (auto) 8.8 %; Neutrophils # (auto) 9.38 K/uL (1.40-6.50); Platelet Count 237 K/uL (130-400); RDW Coefficient of Variation 13.6 % (11.5-14.5); Red Blood Count 4.41 M/uL (4.20-5.40)
[2024-11-05 05:13] LABS: Albumin Globulin Ratio 1.4 (0.9-2); Albumin Level 3.8 gm/dl (3.4-5.0); BUN Creatinine Ratio 15.1 (10-20); Bilirubin,Total 0.3 mg/dl (0.2-1.0); Calcium 8.2 mg/dl (8.6-10.3); Creatinine Clr Calc Pharmacy 61.1 ml/min; Globulin 2.8 gm/dl (2.5-4.0); Magnesium 2.1 mg/dl (1.7-2.4); Potassium 4.6 mmol/L (3.5-5.1); Total Protein 6.6 gm/dl (6.0-8.3)
[2024-11-05 07:23] LABS: Estimated Average Glucose 214 mg/dl; Hemoglobin A1C 9.1 % (4.5-5.6)
--- NOTE | 2024-11-05 07:54 | Hospitalist Progress Note ---
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 In the ED, patient was not responsive to painful stimuli and was intubated in the ED. Acute metabolic/toxic encephalopathy Loss of consciousness Complicated urinary tract Infection Seizures Pt presenting with concern for LOC Required intubation in the ED Head CT unremarkable Head CTA unremarkable Neck CTA noting no acute pathology but noting thyroid nodules and bronchitis Brain MRI unremarkable VBG with pH 7.32, CO2 43, HCO3 22 Respiratory panel negative Chest XRAY unremarkable UA suggestive of infection, urine cx currently growing E coli Blood cx x 2 sets NGTD CK, TSH, prolactin, ammonia levels all within normal range Toxicology screen unremarkable Admitted to the ICU, intubated and currently extubated On IV Rocephin currently for UTI Reports of seizures overnight, continue with Keppra Continue to monitor Possible sepsis Complicated Urinary tract Infection Bronchitis Pt presented unconscious, with leukocytosis and hypothermia UA suggestive of infection, urine cx currently growing E coli Neck CTA noting "bronchitis with pneumonitis" at the lung apices Blood Cx x 2 sets pending Was initially on Ertpenem, has been transitioned to Rocephin Continue to monitor Acute Kidney Injury Cr 1.39 on admission, baseline ~0.7 On IV fluids Avoid nephrotoxic meds Improving Prolonged qtc EKG noting qtc of 491 Avoid qtc prolonging meds Continue to monitor Thyroid Nodules Neck CTA noting bilateral thyroid nodules TSH normal PCP followup History of CVA with left hemiplegia On asa 81mg and statin at home DM II A1c 9.1 Hold home agents Glycemic consult while in ICU BSG Q6H Basal/bolus insulin DVT Ppx: SQ heparin Code status: DNR/DNI per ICU PCP: [facility] Dispo: per PT/OT once medically stable Admission and Anticipated Discharge Date Admission Date: November 04, 2024 Subjective pt was seen with nursing at bedside AAOx2 notes a hx of short term memory loss States now having neck pain Per nursing she has been able to eat without issue Review of Systems Review of Systems: All systems reviewed & are unremarkable except as noted in Subjective Physical Exam Physical Exam: General: Alert, orientedx2. No acute distress Skin: warts noted on plantar side of right foot Neuro: AAOx 2 HEENT: difficulty with neck movements CV: RRR Resp: Breath sounds clear bilaterally, no increased effort of breathing Abdomen:Soft, nontender Extremities: warts noted on plantar side of right foot Results & Data Results & Data Vital Signs (Past 12 Hours) Vital Signs Temp Pulse Resp BP Pulse Ox O2 Del Method O2 Flow Rate 11/05/24 06:03 37.3 C 99 H 0 L 11/05/24 06:01 163/104 H 11/05/24 05:45 37.2 C 98 H 14 98 11/05/24 05:30 37.2 C 96 H 14 98 11/05/24 05:12 37.2 C 96 H 14 98 11/05/24 05:03 37.2 C 96 H 15 97 11/05/24 05:00 176/110 H 11/05/24 05:00 176/110 H 11/05/24 05:00 176/110 H 11/05/24 04:54 37.1 C 98 H 15 97 11/05/24 04:51 37.1 C 98 H 15 98 11/05/24 04:48 37.1 C 100 H 15 97 11/05/24 04:21 37.1 C 96 H 15 98 11/05/24 04:12 37.1 C 96 H 12 98 11/05/24 04:06 37.0 C 97 H 13 98 11/05/24 03:51 37.0 C 91 H 12 98 11/05/24 03:42 37.1 C 92 H 15 98 11/05/24 03:33 37.1 C 91 H 13 98 11/05/24 03:15 37.0 C 93 H 13 98 11/05/24 03:06 37.0 C 92 H 13 98 11/05/24 03:00 165/127 H 11/05/24 02:57 37.1 C 94 H 12 98 11/05/24 02:48 37.1 C 95 H 14 98 11/05/24 02:39 37.0 C 94 H 16 98 11/05/24 02:39 150/122 H 11/05/24 02:21 37.0 C 91 H 13 98 11/05/24 02:19 172/111 H 11/05/24 02:03 37.0 C 87 13 99 11/05/24 02:00 179/105 H 11/05/24 02:00 179/105 H 11/05/24 02:00 179/105 H 11/05/24 02:00 36.9 C 90 13 99 11/05/24 01:54 36.9 C 90 12 100 11/05/24 01:45 36.9 C 90 13 100 11/05/24 01:21 36.9 C 95 H 20 97 11/05/24 01:12 36.8 C 88 13 99 11/05/24 01:09 36.8 C 88 14 99 11/05/24 01:04 162/98 H 11/05/24 01:03 36.8 C 89 12 99 11/05/24 01:00 36.8 C 89 13 99 11/05/24 00:51 36.8 C 86 12 99 11/05/24 00:42 36.8 C 87 12 99 11/05/24 00:39 36.8 C 87 12 99 11/05/24 00:21 36.7 C 90 12 100 11/05/24 00:01 149/117 H 11/05/24 00:01 149/117 H 11/05/24 00:01 149/117 H 11/05/24 00:00 36.7 C 81 13 99 11/04/24 23:57 36.7 C 81 25 H 98 11/04/24 23:33 36.7 C 81 13 99 11/04/24 23:12 36.7 C 75 14 99 11/04/24 23:05 Oxymask 3 11/04/24 23:03 36.7 C 75 14 99 11/04/24 23:00 127/79 11/04/24 23:00 127/79 11/04/24 22:57 36.7 C 77 13 99 11/04/24 22:45 126/74 11/04/24 22:24 36.7 C 80 14 99 11/04/24 22:21 36.7 C 79 13 99 11/04/24 22:15 108/78 11/04/24 22:12 36.7 C 81 13 99 11/04/24 22:03 36.7 C 85 12 99 11/04/24 22:00 132/89 11/04/24 22:00 132/89 11/04/24 22:00 132/89 11/04/24 21:57 36.7 C 87 11 L 99 11/04/24 21:54 36.7 C 87 13 99 11/04/24 21:45 36.7 C 90 12 99 11/04/24 21:30 108/87 11/04/24 21:12 36.7 C 90 14 99 11/04/24 21:00 119/80 11/04/24 21:00 119/80 11/04/24 21:00 36.7 C 87 11 L 92 11/04/24 20:51 36.7 C 90 12 91 11/04/24 20:45 116/73 11/04/24 20:45 116/73 11/04/24 20:45 116/73 11/04/24 20:42 36.7 C 91 H 12 93 11/04/24 20:36 113/76 11/04/24 20:33 94 H 18 91 11/04/24 20:03 36.8 C 86 18 98 Diagnostic Findings Chest X-Ray 11/04/24 12:51 XR chest 1V portable HISTORY: 54 years-old Female post intub acute respiratory failure COMPARISON: 07/09/2021 TECHNIQUE: AP view of the chest FINDINGS: Cardiac silhouette is enlarged. Endotracheal tube overlies the midline: 0.5 cm superior to the isa. Mild linear bibasilar opacities. No pneumothorax, pleural effusion or overt pulmonary edema. Cholecystectomy clips. Bones appear grossly intact. Cervical spinal fusion hardware. IMPRESSION: 1. Endotracheal tube overlies the midline, 1.5 cm superior to the isa. 2. Mild bibasilar opacities suggest atelectasis. ACT 112: Negative or not required by law. The above report was generated using voice recognition software. It may contain grammatical, syntax or spelling errors. Electronically signed by: Venkat Isaacs M.D. 11/04/2024 1:[address] 11/04/24 12:51 CT head/brain wo con CLINICAL HISTORY: altered. TECHNIQUE: Multiple axial CT images of the head were obtained without contrast. A dose lowering technique was utilized adhering to the principles of ALARA. CT DOSE: 657.02 mGy.cm COMPARISON: 07/10/2021 FINDINGS: Stable mild right periventricular encephalomalacia with mild ex vacuo dilatation of the right lateral ventricle. No intracranial hemorrhage seen. No mass effect, midline shift, or progressive hydrocephalus. No skull fracture. Visualized paranasal sinuses and mastoid air cells are clear. IMPRESSION: No acute findings. ACT 112: Negative or not required by law. The above report was generated using voice recognition software. It may contain grammatical, syntax or spelling errors. Electronically signed by: Martin Thrasher M.D. 11/04/2024 1:15 PM Brain MRI 11/04/24 16:14 MR brain seizure wo/w con CLINICAL HISTORY: unresponsive . Possible seizure. Clinical concern for infarction. TECHNIQUE: Ultimately planar multisequence MRI of the brain before and after IV gadolinium. COMPARISON STUDY: 06/17/[address] yesterday. FINDINGS: There is motion artifact. There is stable right periventricular encephalomalacia ankylosis consistent with given history of prior infarction with stable ex vacuo dilatation of the right lateral ventricle. No restricted diffusion seen to suggest acute infarction. No mass effect, midline shift, or progressive hydrocephalus. No abnormal enhancement seen in the brain. IMPRESSION: 1. No evidence of acute infarction. 2. Stable chronic findings with no adverse change seen. ACT 112: Negative or not required by law. Electronically signed by: Martin Thrasher M.D. 11/05/2024 9:22 AM Head CTA 11/04/24 16:27 Exam(s): CTA HEAD With Contrast IV Amt: 119 ml optiray 320 EXAM: CT Angiography Head With Intravenous Contrast CLINICAL HISTORY: Reason for exam: obtunded. TECHNIQUE: Axial computed tomographic angiography images of the head with intravenous contrast. CTDI is 16.61 mGy and DLP is 468.03 mGy-cm. Automated exposure control was utilized for the study. A dose lowering technique was utilized adhering to the principles of ALARA. MIP reconstructed images were created and reviewed. CONTRAST: Patient received 119 ml optiray 320 of IV contrast COMPARISON: No relevant prior studies available. FINDINGS: The dural venous sinuses are patent. Right internal carotid artery: No acute findings. Intracranial segment is patent with no significant stenosis. No aneurysm. Right anterior cerebral artery: Unremarkable. No occlusion or significant stenosis. No aneurysm. Right middle cerebral artery: Unremarkable. No occlusion or significant stenosis. No aneurysm. Right posterior cerebral artery: Unremarkable. No occlusion or significant stenosis. No aneurysm. Right vertebral artery: Unremarkable as visualized. Left internal carotid artery: No acute findings. Intracranial segment is patent with no significant stenosis. No aneurysm. Left anterior cerebral artery: Unremarkable. No occlusion or significant stenosis. No aneurysm. Left middle cerebral artery: Unremarkable. No occlusion or significant stenosis. No aneurysm. Left posterior cerebral artery: Unremarkable. No occlusion or significant stenosis. No aneurysm. Left vertebral artery: Unremarkable as visualized. Basilar artery: Unremarkable. No occlusion or significant stenosis. No aneurysm. IMPRESSION: Negative CT angiogram of the head. Electronically signed by: Kim Cutler MD 11/04/24 21:49 PM Neck CTA 11/04/24 16:27 Exam(s): CTA NECK With Contrast IV Amt: 119 ml optiray 320 EXAM: CT Angiography Neck With Intravenous Contrast CLINICAL HISTORY: Reason for exam: obtunded. TECHNIQUE: Routine carotid CT angiography protocol was performed with intravenous contrast. NASCET criteria using the distal ICAs for comparison were used for evaluation of stenoses. CTDI is 16.61 mGy and DLP is 468.03 mGy-cm. Automated exposure control was utilized for the study. A dose lowering technique was utilized adhering to the principles of ALARA. MIP reconstructed images were created and reviewed. CONTRAST: Patient received 119 ml optiray 320 of IV contrast COMPARISON: None. FINDINGS: VASCULATURE: Right common carotid artery: Unremarkable. No occlusion or significant stenosis. No dissection. Right internal carotid artery: Unremarkable. Extracranial segment is patent with no occlusion or significant stenosis. No dissection. Right external carotid artery: Unremarkable. No occlusion. Right vertebral artery: Unremarkable. No occlusion or significant stenosis. No dissection. Left common carotid artery: Unremarkable. No occlusion or significant stenosis. No dissection. Left internal carotid artery: Unremarkable. Extracranial segment is patent with no occlusion or significant stenosis. No dissection. Left external carotid artery: Unremarkable. No occlusion. Left vertebral artery: Unremarkable. No occlusion or significant stenosis. No dissection. NECK: Bones/joints: Status post anterior fusion of C4-C6. No acute fracture. Soft tissues: Bilateral thyroid nodules. Lung apices: Bronchitis with pneumonitis.. CAROTID STENOSIS REFERENCE USING NASCET CRITERIA: % ICA stenosis = (1 - narrowest ICA diameter/diameter of distal cervical ICA) x 100. Mild - <50% stenosis. Moderate - 50-69% stenosis. Severe - 70-94% stenosis. Near occlusion - 95-99% stenosis. Occluded - 100% stenosis. IMPRESSION: Negative CTA neck. Electronically signed by: Kim Cutler MD 11/04/24 21:55 PM (3) Urinary tract infection Hematuria presence: without hematuria Urinary tract infection type: acute cystitis Qualified Code(s): N30.00 - Acute cystitis without hematuria
[2024-11-05] MEDS: GADOBUTROL 30ML VIAL IV ONE (08:58)
--- NOTE | 2024-11-05 09:24 | Magnetic Resonance Report ---
MR brain seizure wo/w con CLINICAL HISTORY: unresponsive . Possible seizure. Clinical concern for infarction. TECHNIQUE: Ultimately planar multisequence MRI of the brain before and after IV gadolinium. COMPARISON STUDY: 06/17/[address] yesterday. FINDINGS: There is motion artifact. There is stable right periventricular encephalomalacia ankylosis consistent with given history of prior infarction with stable ex vacuo dilatation of the right latera l ventricle. No restricted diffusion seen to suggest acute infarction. No mass effect, midline shift, or progressive hydrocephalus. No abnormal enhancement seen in the brain. IMPRESSION: 1. No evidence of acute infarction. 2. Stable chronic findings with no adverse change seen. ACT 112: Negative or not required by law. Electronically signed by: Martin Thrasher M.D. 11/05/2024 9:22 AM
--- NOTE | 2024-11-05 09:50 | Critical Care Progress Note ---
Date of Service November 05, 2024 Assessment & Plan (1) Respiratory failure requiring intubation: (2) Unresponsive state: (3) Urinary tract infection: Plan Reason Critically Ill: found unresponsive for unknown duration, nonresponsive to pain or suction, unable to respirate on her own requiring mechanical ventilation. Extubated after arrival in the ICU. Questionable seizure activity noted last evening. EEG, MRI, and neurology consultation pending PLAN: Neuro: Nonfocal exam. Await formal read on EEG as well as MRI scan. Await neurology consultation. Continue Keppra and thiamine. Resp: Intubated due to altered mental status. Extubated. Weaning oxygen. Cardiovascular: No current issues Fluids/Renal: Kidney function improved. Continue to trend. ICU electrolyte replacement protocol ID: E. coli in urine. Doubt she needs carbapenem. De-escalate to Rocephin. Reported hives from Keflex and penicillin but will rechallenge in a monitored setting as the patient does not recall this reaction. GI/Nutrition: Advance diet as tolerated : Flowers catheter. Can likely discontinue Heme: No current issues Endocrine: Poorly controlled diabetes. Continue glycemic control Lines: R upper arm peripheral IV VTE Prophylaxis - heparin SQ Diet - NPO at this time due to lack of orientation, unknown present baseline Disposition - ICU Monitor in the ICU pending improvement in neurological status but if MRI EEG and neurology consultation unrevealing and the patient is felt to be stable to transfer to the floor, she may be downgraded and critical care services will sign off Admission and Anticipated Discharge Date Admission Date: November 04, 2024 Subjective Patient seen and examined. EMR reviewed. Discussed with bedside critical care nurse and on multidisciplinary rounds. Discussed with overnight critical care DUSTIN as well Patient had of potential abstinence/complex seizure activity last night. This resolved. She has not had any recurrent activity. EEG was apparently performed but has not yet been interpreted. Neurology consultation pending. Patient is currently awake alert and conversant. She reports no new neurological complaints Review of Systems Review of Systems: All systems reviewed & are unremarkable except as noted in Subjective Physical Exam Constitutional: WD/WN, vitals as above Neck: trachea midline, no thyromegaly Respiratory: normal respiratory effort, lungs clear to auscultation Cardiovascular: RRR, no murmur, no edema Gastrointestinal (Abdomen): normal bowel sounds, soft, nontender, no hepatosplenomegaly Musculoskeletal: Extremities: extremities normal to inspection Skin: no rashes, warm and dry Neurologic: Slightly contracted left upper extremity. Otherwise nonfocal exam Lymphatic: no cervical lymphadenopathy Results & Data Results & Data Vital Signs (Past 12 Hours) Vital Signs Temp Pulse Resp BP Pulse Ox O2 Del Method O2 Flow Rate 11/05/24 06:03 37.3 C 99 H 0 L 11/05/24 06:01 163/104 H 11/05/24 05:45 37.2 C 98 H 14 98 11/05/24 05:30 37.2 C 96 H 14 98 11/05/24 05:12 37.2 C 96 H 14 98 11/05/24 05:03 37.2 C 96 H 15 97 11/05/24 05:00 176/110 H 11/05/24 05:00 176/110 H 11/05/24 05:00 176/110 H 11/05/24 04:54 37.1 C 98 H 15 97 11/05/24 04:51 37.1 C 98 H 15 98 11/05/24 04:48 37.1 C 100 H 15 97 11/05/24 04:21 37.1 C 96 H 15 98 11/05/24 04:12 37.1 C 96 H 12 98 11/05/24 04:06 37.0 C 97 H 13 98 11/05/24 03:51 37.0 C 91 H 12 98 11/05/24 03:42 37.1 C 92 H 15 98 11/05/24 03:33 37.1 C 91 H 13 98 11/05/24 03:15 37.0 C 93 H 13 98 11/05/24 03:06 37.0 C 92 H 13 98 11/05/24 03:00 165/127 H 11/05/24 02:57 37.1 C 94 H 12 98 11/05/24 02:48 37.1 C 95 H 14 98 11/05/24 02:39 37.0 C 94 H 16 98 11/05/24 02:39 150/122 H 11/05/24 02:21 37.0 C 91 H 13 98 11/05/24 02:19 172/111 H 11/05/24 02:03 37.0 C 87 13 99 11/05/24 02:00 179/105 H 11/05/24 02:00 179/105 H 11/05/24 02:00 179/105 H 11/05/24 02:00 36.9 C 90 13 99 11/05/24 01:54 36.9 C 90 12 100 11/05/24 01:45 36.9 C 90 13 100 11/05/24 01:21 36.9 C 95 H 20 97 11/05/24 01:12 36.8 C 88 13 99 11/05/24 01:09 36.8 C 88 14 99 11/05/24 01:04 162/98 H 11/05/24 01:03 36.8 C 89 12 99 11/05/24 01:00 36.8 C 89 13 99 11/05/24 00:51 36.8 C 86 12 99 11/05/24 00:42 36.8 C 87 12 99 11/05/24 00:39 36.8 C 87 12 99 11/05/24 00:21 36.7 C 90 12 100 11/05/24 00:01 149/117 H 11/05/24 00:01 149/117 H 11/05/24 00:01 149/117 H 11/05/24 00:00 36.7 C 81 13 99 11/04/24 23:57 36.7 C 81 25 H 98 11/04/24 23:33 36.7 C 81 13 99 11/04/24 23:12 36.7 C 75 14 99 11/04/24 23:05 Oxymask 3 11/04/24 23:03 36.7 C 75 14 99 11/04/24 23:00 127/79 11/04/24 23:00 127/79 11/04/24 22:57 36.7 C 77 13 99 11/04/24 22:45 126/74 11/04/24 22:24 36.7 C 80 14 99 11/04/24 22:21 36.7 C 79 13 99 11/04/24 22:15 108/78 11/04/24 22:12 36.7 C 81 13 99 11/04/24 22:03 36.7 C 85 12 99 11/04/24 22:00 132/89 11/04/24 22:00 132/89 11/04/24 22:00 132/89 11/04/24 21:57 36.7 C 87 11 L 99 11/04/24 21:54 36.7 C 87 13 99 11/04/24 21:45 36.7 C 90 12 99 Critical Care Results & Data Vital Signs (Past 12 Hours) Vital Signs Temp Pulse Resp BP Pulse Ox O2 Del Method O2 Flow Rate 11/05/24 06:03 37.3 C 99 H 0 L 11/05/24 06:01 163/104 H 11/05/24 05:45 37.2 C 98 H 14 98 11/05/24 05:30 37.2 C 96 H 14 98 11/05/24 05:12 37.2 C 96 H 14 98 11/05/24 05:03 37.2 C 96 H 15 97 11/05/24 05:00 176/110 H 11/05/24 05:00 176/110 H 11/05/24 05:00 176/110 H 11/05/24 04:54 37.1 C 98 H 15 97 11/05/24 04:51 37.1 C 98 H 15 98 11/05/24 04:48 37.1 C 100 H 15 97 11/05/24 04:21 37.1 C 96 H 15 98 11/05/24 04:12 37.1 C 96 H 12 98 11/05/24 04:06 37.0 C 97 H 13 98 11/05/24 03:51 37.0 C 91 H 12 98 11/05/24 03:42 37.1 C 92 H 15 98 11/05/24 03:33 37.1 C 91 H 13 98 11/05/24 03:15 37.0 C 93 H 13 98 11/05/24 03:06 37.0 C 92 H 13 98 11/05/24 03:00 165/127 H 11/05/24 02:57 37.1 C 94 H 12 98 11/05/24 02:48 37.1 C 95 H 14 98 11/05/24 02:39 37.0 C 94 H 16 98 11/05/24 02:39 150/122 H 11/05/24 02:21 37.0 C 91 H 13 98 11/05/24 02:19 172/111 H 11/05/24 02:03 37.0 C 87 13 99 11/05/24 02:00 179/105 H 11/05/24 02:00 179/105 H 11/05/24 02:00 179/105 H 11/05/24 02:00 36.9 C 90 13 99 11/05/24 01:54 36.9 C 90 12 100 11/05/24 01:45 36.9 C 90 13 100 11/05/24 01:21 36.9 C 95 H 20 97 11/05/24 01:12 36.8 C 88 13 99 11/05/24 01:09 36.8 C 88 14 99 11/05/24 01:04 162/98 H 11/05/24 01:03 36.8 C 89 12 99 11/05/24 01:00 36.8 C 89 13 99 11/05/24 00:51 36.8 C 86 12 99 11/05/24 00:42 36.8 C 87 12 99 11/05/24 00:39 36.8 C 87 12 99 11/05/24 00:21 36.7 C 90 12 100 11/05/24 00:01 149/117 H 11/05/24 00:01 149/117 H 11/05/24 00:01 149/117 H 11/05/24 00:00 36.7 C 81 13 99 11/04/24 23:57 36.7 C 81 25 H 98 11/04/24 23:33 36.7 C 81 13 99 11/04/24 23:12 36.7 C 75 14 99 11/04/24 23:05 Oxymask 3 11/04/24 23:03 36.7 C 75 14 99 11/04/24 23:00 127/79 11/04/24 23:00 127/79 11/04/24 22:57 36.7 C 77 13 99 11/04/24 22:45 126/74 11/04/24 22:24 36.7 C 80 14 99 11/04/24 22:21 36.7 C 79 13 99 11/04/24 22:15 108/78 11/04/24 22:12 36.7 C 81 13 99 11/04/24 22:03 36.7 C 85 12 99 11/04/24 22:00 132/89 11/04/24 22:00 132/89 11/04/24 22:00 132/89 11/04/24 21:57 36.7 C 87 11 L 99 11/04/24 21:54 36.7 C 87 13 99 Lab & Micro Results (Past 24 Hours) RBC 4.41 M/uL (4.20-5.40) 11/05/24 WBC 13.20 K/ul (4.8-10.8) H 11/05/24 Hgb 12.2 g/dl (12.0-16.0) 11/05/24 Hct 38.9 % (37.0-47.0) 11/05/24 MCV 88.2 fL (80.0-100.0) 11/05/24 MCH 27.7 pg (25.0-34.0) 11/05/24 MCHC 31.4 g/dL (32.0-36.0) L 11/05/24 RDW Standard Deviation 44.0 fL (36.4-46.3) 11/05/24 RDW Coefficient of Variation 13.6 % (11.5-14.5) 11/05/24 Plt Count 237 K/uL (130-400) 11/05/24 MPV 10.8 fL (9.4-12.4) 11/05/24 Neutrophils (%) (Auto) 71.0 % 11/05/24 Lymphocytes (%) (Auto) 18.8 % 11/05/24 Monocytes # (Auto) 1.16 K/uL (0.11-0.59) H 11/05/24 Eosinophils # (Auto) 0.08 K/uL (0.00-0.50) 11/05/24 Immature Granulocyte % (Auto) 0.5 % 11/05/24 Neutrophils # (Auto) 9.38 K/uL (1.40-6.50) H 11/05/24 Lymphocytes # (Auto) 2.48 K/uL (1.20-3.40) 11/05/24 Monocytes # (Auto) 1.16 K/uL (0.11-0.59) H 11/05/24 Eosinophils # (Auto) 0.08 K/uL (0.00-0.50) 11/05/24 Basophils # (Auto) 0.04 K/uL (0.00-0.20) 11/05/24 Immature Granulocyte # (Auto) 0.06 K/uL (0.01-0.20) 5 Na 144 mmol/L (136-145) 11/05/24 K 4.6 mmol/L (3.5-5.1) 11/05/24 Cl 110 mmol/L (98-107) H 11/05/24 CO2 27 mmol/L (21-32) 11/05/24 Anion Gap 7 (3-11) 11/05/24 BUN 16 mg/dl (6-23) 11/05/24 Creatinine 1.06 mg/dl (0.6-1.2) 11/05/24 BUN/Creatinine Ratio 15.1 (10-20) 11/05/24 Glu 135 mg/dl (70-99(Fasting)) H 11/05/24 Ca 8.2 mg/dl (8.6-10.3) L 11/05/24 Phosphorus Level 3.0 mg/dl (2.5-4.9) 11/05/24 Total Bilirubin 0.3 mg/dl (0.2-1.0) 11/05/24 AST 21 U/L (13-39) 11/05/24 ALT 19 U/L (7-52) 11/05/24 Alkaline Phosphatase 75 U/L (34-104) 11/05/24 TP 6.6 gm/dl (6.0-8.3) 11/05/24 Albumin 3.8 gm/dl (3.4-5.0) 11/05/24 Globulin 2.8 gm/dl (2.5-4.0) 11/05/24 Albumin/Globulin Ratio 1.4 (0.9-2) 11/05/24 Mg 2.1 mg/dl (1.7-2.4) 11/05/24 04:35 Calcium Level 8.2 mg/dl (8.6-10.3) L 11/05/24 04:35 Prothromb Time International Ratio 1.0 (0.9-1.1) 11/04/24 12:4 5 Venous Blood pH 7.32 (7.36-7.41) L 11/04/24 19:28 Venous Blood Partial Pressure CO2 43 mmHg (38-50) 11/04/24 19:2 8 Venous Blood Partial Pressure O2 80 mmHg 11/04/24 19:28 Venous Blood HCO3 22 mmol/L 11/04/24 19:28 Venous Blood Base Excess -3.9 mEq/L 11/04/24 19:28 Venous Blood Oxygen Saturation 96.2 % 11/04/24 19:28 Microbiology 11/04/24 12:57 Urine Culture - Preliminary Urine,Straight Cath Escherichia coli Diagnostic Findings (Past 24 Hours) Chest X-Ray 11/04/24 12:51 XR chest 1V portable HISTORY: 54 years-old Female post intub acute respiratory failure COMPARISON: 07/09/2021 TECHNIQUE: AP view of the chest FINDINGS: Cardiac silhouette is enlarged. Endotracheal tube overlies the midline: 0.5 cm superior to the isa. Mild linear bibasilar opacities. No pneumothorax, pleural effusion or overt pulmonary edema. Cholecystectomy clips. Bones appear grossly intact. Cervical spinal fusion hardware. IMPRESSION: 1. Endotracheal tube overlies the midline, 1.5 cm superior to the isa. 2. Mild bibasilar opacities suggest atelectasis. ACT 112: Negative or not required by law. The above report was generated using voice recognition software. It may contain grammatical, syntax or spelling errors. Electronically signed by: Venkat Isaacs M.D. 11/04/2024 1:[address] 11/04/24 12:51 CT head/brain wo con CLINICAL HISTORY: altered. TECHNIQUE: Multiple axial CT images of the head were obtained without contrast. A dose lowering technique was utilized adhering to the principles of ALARA. CT DOSE: 657.02 mGy.cm COMPARISON: 07/10/2021 FINDINGS: Stable mild right periventricular encephalomalacia with mild ex vacuo dilatation of the right lateral ventricle. No intracranial hemorrhage seen. No mass effect, midline shift, or progressive hydrocephalus. No skull fracture. Visualized paranasal sinuses and mastoid air cells are clear. IMPRESSION: No acute findings. ACT 112: Negative or not required by law. The above report was generated using voice recognition software. It may contain grammatical, syntax or spelling errors. Electronically signed by: Martin Thrasher M.D. 11/04/2024 1:15 PM Brain MRI 11/04/24 16:14 MR brain seizure wo/w con CLINICAL HISTORY: unresponsive . Possible seizure. Clinical concern for infarction. TECHNIQUE: Ultimately planar multisequence MRI of the brain before and after IV gadolinium. COMPARISON STUDY: 06/17/[address] yesterday. FINDINGS: There is motion artifact. There is stable right periventricular encephalomalacia ankylosis consistent with given history of prior infarction with stable ex vacuo dilatation of the right lateral ventricle. No restricted diffusion seen to suggest acute infarction. No mass effect, midline shift, or progressive hydrocephalus. No abnormal enhancement seen in the brain. IMPRESSION: 1. No evidence of acute infarction. 2. Stable chronic findings with no adverse change seen. ACT 112: Negative or not required by law. Electronically signed by: Martin Thrasher M.D. 11/05/2024 9:22 AM Head CTA 11/04/24 16:27 Exam(s): CTA HEAD With Contrast IV Amt: 119 ml optiray 320 EXAM: CT Angiography Head With Intravenous Contrast CLINICAL HISTORY: Reason for exam: obtunded. TECHNIQUE: Axial computed tomographic angiography images of the head with intravenous contrast. CTDI is 16.61 mGy and DLP is 468.03 mGy-cm. Automated exposure control was utilized for the study. A dose lowering technique was utilized adhering to the principles of ALARA. MIP reconstructed images were created and reviewed. CONTRAST: Patient received 119 ml optiray 320 of IV contrast COMPARISON: No relevant prior studies available. FINDINGS: The dural venous sinuses are patent. Right internal carotid artery: No acute findings. Intracranial segment is patent with no significant stenosis. No aneurysm. Right anterior cerebral artery: Unremarkable. No occlusion or significant stenosis. No aneurysm. Right middle cerebral artery: Unremarkable. No occlusion or significant stenosis. No aneurysm. Right posterior cerebral artery: Unremarkable. No occlusion or significant stenosis. No aneurysm. Right vertebral artery: Unremarkable as visualized. Left internal carotid artery: No acute findings. Intracranial segment is patent with no significant stenosis. No aneurysm. Left anterior cerebral artery: Unremarkable. No occlusion or significant stenosis. No aneurysm. Left middle cerebral artery: Unremarkable. No occlusion or significant stenosis. No aneurysm. Left posterior cerebral artery: Unremarkable. No occlusion or significant stenosis. No aneurysm. Left vertebral artery: Unremarkable as visualized. Basilar artery: Unremarkable. No occlusion or significant stenosis. No aneurysm. IMPRESSION: Negative CT angiogram of the head. Electronically signed by: Kim Cutler MD 11/04/24 21:49 PM Neck CTA 11/04/24 16:27 Exam(s): CTA NECK With Contrast IV Amt: 119 ml optiray 320 EXAM: CT Angiography Neck With Intravenous Contrast CLINICAL HISTORY: Reason for exam: obtunded. TECHNIQUE: Routine carotid CT angiography protocol was performed with intravenous contrast. NASCET criteria using the distal ICAs for comparison were used for evaluation of stenoses. CTDI is 16.61 mGy and DLP is 468.03 mGy-cm. Automated exposure control was utilized for the study. A dose lowering technique was utilized adhering to the principles of ALARA. MIP reconstructed images were created and reviewed. CONTRAST: Patient received 119 ml optiray 320 of IV contrast COMPARISON: None. FINDINGS: VASCULATURE: Right common carotid artery: Unremarkable. No occlusion or significant stenosis. No dissection. Right internal carotid artery: Unremarkable. Extracranial segment is patent with no occlusion or significant stenosis. No dissection. Right external carotid artery: Unremarkable. No occlusion. Right vertebral artery: Unremarkable. No occlusion or significant stenosis. No dissection. Left common carotid artery: Unremarkable. No occlusion or significant stenosis. No dissection. Left internal carotid artery: Unremarkable. Extracranial segment is patent with no occlusion or significant stenosis. No dissection. Left external carotid artery: Unremarkable. No occlusion. Left vertebral artery: Unremarkable. No occlusion or significant stenosis. No dissection. NECK: Bones/joints: Status post anterior fusion of C4-C6. No acute fracture. Soft tissues: Bilateral thyroid nodules. Lung apices: Bronchitis with pneumonitis.. CAROTID STENOSIS REFERENCE USING NASCET CRITERIA: % ICA stenosis = (1 - narrowest ICA diameter/diameter of distal cervical ICA) x 100. Mild - <50% stenosis. Moderate - 50-69% stenosis. Severe - 70-94% stenosis. Near occlusion - 95-99% stenosis. Occluded - 100% stenosis. IMPRESSION: Negative CTA neck. Electronically signed by: Kim Cutler MD 11/04/24 21:55 PM I & O Totals 24 Hours 11/04/24 11/05/24 11/06/24 06:59 06:59 06:59 Intake Total 3110 / 3110 Output Total 1600 / 1600 Balance 1510 / 1510 Cumulative 11/04/24 12:21 thru 11/05/24 03:52 Intake Total 3110 Output Total 1600 Balance 1510 RT Ventilator Mngmt (Last Documented) Ventilator Ordered Settings Ventilator Support Mode Assist Control 11/04/24 16:58 Respiratory Rate 0 11/05/24 06:03 Ventilator Tidal Volume 400 11/04/24 16:58 Setting Minute Ventilation 7.9 11/04/24 15:52 Positive End Expiratory 5 11/04/24 16:58 Pressure Fraction of Inspired Oxygen 40 11/04/24 16:58 Machine Comment weaned to 40%O2 11/04/24 15:52 Ventilator - PT Measurements Respiratory Rate 0 Exhaled Tidal Volume 355 Minute Ventilation 7.9 Peak Inspiratory Airway 22 Pressure Plateau Pressure 16 Respiratory Cycle Inspiratory: 1:2.3 Expiratory Ratio Inspiratory Phase Time 0.90 End-Tidal CO2 43 Static Lung Compliance 32.27 Dynamic Lung Compliance 20.88 Normal Static Lung Compliance 46.00 Patient Measurements Comment patient extubated to 4L oxy mask and SPO2 98% Coding Level of Care Code 54752 SUB INP/OBS CARE 3/50MIN Diagnoses Respiratory failure requiring intubation J96.90 Unresponsive state R41.89 Urinary tract infection N30.00 Hematuria presence: without hematuria Urinary tract infection type: acute cystitis (3) Urinary tract infection Hematuria presence: without hematuria Urinary tract infection type: acute cystitis Qualified Code(s): N30.00 - Acute cystitis without hematuria
[2024-11-05] MEDS: FLUTICASONE/VILANTEROL 100/25MCG 14 PUFFS/INHALER INH SCH (13:14)
[2024-11-05] MEDS: INSULIN ASPART PER UNIT CHARGE SC SCH (13:17)
[2024-11-05] MEDS: cefTRIAXone SODIUM 2,000 MG/50 ML BAG IV SCH (13:33)
[2024-11-05] MEDS ORDERED: ERTAPENEM 1000MG 1,000 MG/10 ML SYR IV SCH (14:00)
--- NOTE | 2024-11-05 14:27 | Pharmacy Report ---
Pharmacy Glycemic Short Note 2 - Date of Service November 05, 2024 - Glycemic Short BSG Results (Last 24 hours): 11/04/24 11/04/24 11/04/24 18:15 19:44 23:27 Glucose POC Glucose 173 H 182 H 181 H 11/05/24 11/05/24 11/05/24 04:35 04:39 11:28 Glucose 135 H POC Glucose 138 H 233 H OUTPATIENT ANTIDIABETIC REGIMEN: * n/a HbA1c: 9.1% (11/05/24) ASSESSMENT: * DR is a 54 year old female who presented to ED on 11/04 after being found at home unresponsive for unknown duration of time * Temporarily required mechanical ventilation yesterday, but is now extubated * Will be conservative with initial insulin dosing and utilize bolus insulin only for now (will start basal tomorrow if needed) * On ceftriaxone for treatment of UTI. Regular diet ordered. PLAN FOR INPATIENT GLYCEMIC CONTROL: * Basal insulin * hold for now * Bolus insulin * NovoLog per scale ACHS or Q6hrs while NPO * Goal Range: Low 110 mg/dL - High 140 mg/dL * Correction Factor: 30 mg/dL/unit * Nutritional / Prandial insulin per carb ratio of 1 unit per 10 grams CHO consumed
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
[2024-11-06] MEDS: INSULIN ASPART PER UNIT CHARGE SC SCH (01:48)
[2024-11-06 05:15] LABS: Basophils # (auto) 0.05 K/uL (0.00-0.20); Basophils % (auto) 0.4 %; Eosinophils # (auto) 0.17 K/uL (0.00-0.50); Eosinophils % (auto) 1.4 %; Hematocrit (blood only) 37.7 % (37.0-47.0); Hemoglobin 12.3 g/dl (12.0-16.0); Immature Granulocytes # (auto) 0.03 K/uL (0.01-0.20); Immature Granulocytes % (auto) 0.3 %; Lymphocytes # (auto) 3.44 K/uL (1.20-3.40); Lymphocytes % (auto) 29.2 %; Mean Corpuscular Hemoglobin 27.8 pg (25.0-34.0); Mean Corpuscular Hgb Conc 32.6 g/dL (32.0-36.0); Mean Corpuscular Volume 85.3 fL (80.0-100.0); Mean Platelet Volume 11.4 fL (9.4-12.4); Monocytes # (auto) 0.94 K/uL (0.11-0.59); Neutrophils # (auto) 7.15 K/uL (1.40-6.50); Neutrophils % (auto) 60.7 %; Platelet Count 241 K/uL (130-400); RDW Coefficient of Variation 13.2 % (11.5-14.5); RDW Standard Deviation 41.1 fL (36.4-46.3); Red Blood Count 4.42 M/uL (4.20-5.40); White Blood Count 11.78 K/ul (4.8-10.8)
[2024-11-06 05:24] LABS: BUN Creatinine Ratio 17.2 (10-20); Calcium 9.9 mg/dl (8.6-10.3); Creatinine Clr Calc Pharmacy 53.1 ml/min; Magnesium 1.7 mg/dl (1.7-2.4); Phosphorus 2.8 mg/dl (2.5-4.9); Potassium 4.6 mmol/L (3.5-5.1)
--- NOTE | 2024-11-06 10:28 | Critical Care Progress Note ---
Date of Service November 06, 2024 Assessment & Plan (1) Respiratory failure requiring intubation: (2) Unresponsive state: (3) Urinary tract infection: Plan Reason Critically Ill: found unresponsive for unknown duration, nonresponsive to pain or suction, unable to respirate on her own requiring mechanical ventilation. Extubated after arrival in the ICU. Questionable seizure activity noted last evening. EEG, MRI, and neurology consultation pending PLAN: Neuro: MRI unremarkable, CTA is reported as unremarkable, EEG being read today and neurology following History of seizure disorder continue Keppra Resp: Greater than 24 hours since extubation Cardiovascular: No current issues Fluids/Renal: Kidney function improved. Continue to trend. ICU electrolyte replacement protocol ID: E. coli in urine. Tolerating cephalosporin afebrile greater than 24 hours GI/Nutrition: Advance diet as tolerated : Flowers catheter. Can likely discontinue: Follow nursing driven protocol Heme: No current issues Endocrine: Poorly controlled diabetes. Continue glycemic control Lines: R upper arm peripheral IV VTE Prophylaxis - heparin SQ Diet -type II diabetic diet tolerating Physical therapy and Occupational Therapy consulted Disposition critical care needs have resolved, stable for downgrade out of ICU critical care will sign off Admission and Anticipated Discharge Date Admission Date: November 04, 2024 Subjective Denies any significant complaint, reports she can now lift her leg which she was unable to do previously Physical Exam Physical Exam: General: Alert. nontoxic. Skin: Warm, dry, Head: Atraumatic Ears, nose, mouth and throat: airway patent Cardiovascular: Normal peripheral perfusion Respiratory: no respiratory distress Gastrointestinal: Non distended Musculoskeletal: Inward rotation of left lower extremity, suspect ambulatory dysfunction Results & Data Results & Data Vital Signs (Past 12 Hours) Vital Signs Temp Pulse Resp BP Pulse Ox O2 Del Method 11/06/24 08:00 101 H 11/06/24 07:21 98 H 18 92 11/06/24 07:12 88 24 93 11/06/24 07:08 129/85 11/06/24 07:03 93 H 25 H 92 11/06/24 06:36 96 H 23 91 11/06/24 06:30 93 H 24 92 11/06/24 06:21 92 H 19 92 11/06/24 06:09 95 H 25 H 93 11/06/24 06:00 158/100 H 11/06/24 06:00 158/100 H 11/06/24 05:54 91 H 19 94 11/06/24 05:42 94 H 20 95 11/06/24 05:33 97 H 20 96 11/06/24 05:00 37.4 C 85 12 95 Room Air 11/06/24 04:30 81 22 93 11/06/24 04:06 84 22 95 11/06/24 04:00 149/106 H 11/06/24 03:57 83 26 H 91 11/06/24 03:36 83 21 93 11/06/24 03:01 156/76 H 11/06/24 03:01 156/76 H 11/06/24 03:00 84 22 94 11/06/24 02:30 80 19 93 11/06/24 02:06 79 18 94 11/06/24 02:00 164/118 H 11/06/24 01:48 80 24 93 11/06/24 01:33 76 22 93 11/06/24 01:15 84 21 93 11/06/24 00:51 85 24 175/110 H 91 11/06/24 00:42 82 18 96 11/06/24 00:30 79 19 93 11/06/24 00:24 83 20 93 11/06/24 00:12 86 15 93 11/06/24 00:00 37.0 C 84 23 92 11/06/24 00:00 79 11/05/24 23:54 83 17 93 11/05/24 23:30 78 25 H 94 11/05/24 23:00 83 14 176/106 H 97 11/05/24 22:36 81 18 94 Critical Care Results & Data Vital Signs (Past 12 Hours) Vital Signs Temp Pulse Resp BP Pulse Ox O2 Del Method 11/06/24 08:00 101 H 11/06/24 07:21 98 H 18 92 11/06/24 07:12 88 24 93 11/06/24 07:08 129/85 11/06/24 07:03 93 H 25 H 92 11/06/24 06:36 96 H 23 91 11/06/24 06:30 93 H 24 92 11/06/24 06:21 92 H 19 92 11/06/24 06:09 95 H 25 H 93 11/06/24 06:00 158/100 H 11/06/24 06:00 158/100 H 11/06/24 05:54 91 H 19 94 11/06/24 05:42 94 H 20 95 11/06/24 05:33 97 H 20 96 11/06/24 05:00 37.4 C 85 12 95 Room Air 11/06/24 04:30 81 22 93 11/06/24 04:06 84 22 95 11/06/24 04:00 149/106 H 11/06/24 03:57 83 26 H 91 11/06/24 03:36 83 21 93 11/06/24 03:01 156/76 H 11/06/24 03:01 156/76 H 11/06/24 03:00 84 22 94 11/06/24 02:30 80 19 93 11/06/24 02:06 79 18 94 11/06/24 02:00 164/118 H 11/06/24 01:48 80 24 93 11/06/24 01:33 76 22 93 11/06/24 01:15 84 21 93 11/06/24 00:51 85 24 175/110 H 91 11/06/24 00:42 82 18 96 11/06/24 00:30 79 19 93 11/06/24 00:24 83 20 93 11/06/24 00:12 86 15 93 11/06/24 00:00 37.0 C 84 23 92 11/06/24 00:00 79 11/05/24 23:54 83 17 93 11/05/24 23:30 78 25 H 94 11/05/24 23:00 83 14 176/106 H 97 11/05/24 22:36 81 18 94 Lab & Micro Results (Past 24 Hours) RBC 4.42 M/uL (4.20-5.40) 11/06/24 WBC 11.78 K/ul (4.8-10.8) H 11/06/24 Hgb 12.3 g/dl (12.0-16.0) 11/06/24 Hct 37.7 % (37.0-47.0) 11/06/24 MCV 85.3 fL (80.0-100.0) 11/06/24 MCH 27.8 pg (25.0-34.0) 11/06/24 MCHC 32.6 g/dL (32.0-36.0) 11/06/24 RDW Standard Deviation 41.1 fL (36.4-46.3) 11/06/24 RDW Coefficient of Variation 13.2 % (11.5-14.5) 11/06/24 Plt Count 241 K/uL (130-400) 11/06/24 MPV 11.4 fL (9.4-12.4) 11/06/24 Neutrophils (%) (Auto) 60.7 % 11/06/24 Lymphocytes (%) (Auto) 29.2 % 11/06/24 Monocytes # (Auto) 0.94 K/uL (0.11-0.59) H 11/06/24 Eosinophils # (Auto) 0.17 K/uL (0.00-0.50) 11/06/24 Immature Granulocyte % (Auto) 0.3 % 11/06/24 Neutrophils # (Auto) 7.15 K/uL (1.40-6.50) H 11/06/24 Lymphocytes # (Auto) 3.44 K/uL (1.20-3.40) H 11/06/24 Monocytes # (Auto) 0.94 K/uL (0.11-0.59) H 11/06/24 Eosinophils # (Auto) 0.17 K/uL (0.00-0.50) 11/06/24 Basophils # (Auto) 0.05 K/uL (0.00-0.20) 11/06/24 Immature Granulocyte # (Auto) 0.03 K/uL (0.01-0.20) 5 2 Na 139 mmol/L (136-145) 11/06/24 K 4.6 mmol/L (3.5-5.1) 11/06/24 Cl 105 mmol/L (98-107) 11/06/24 CO2 24 mmol/L (21-32) 11/06/24 Anion Gap 10 (3-11) 11/06/24 BUN 21 mg/dl (6-23) 11/06/24 Creatinine 1.22 mg/dl (0.6-1.2) H 11/06/24 BUN/Creatinine Ratio 17.2 (10-20) 11/06/24 Glu 152 mg/dl (70-99(Fasting)) H 11/06/24 Ca 9.9 mg/dl (8.6-10.3) 11/06/24 Phosphorus Level 2.8 mg/dl (2.5-4.9) 11/06/24 Mg 1.7 mg/dl (1.7-2.4) 11/06/24 04:22 Calcium Level 9.9 mg/dl (8.6-10.3) 11/06/24 04:22 Microbiology 11/04/24 12:57 Urine Culture - Final Urine,Straight Cath Escherichia coli 11/04/24 14:15 Aerobic Blood Culture - Preliminary Blood No growth in Aerobic bottle after 24 hours. Anaerobic Blood Culture - Final 11/04/24 13:15 Aerobic Blood Culture - Preliminary Blood No growth in Aerobic bottle after 24 hours. Anaerobic Blood Culture - Final I & O Totals 24 Hours 11/05/24 11/06/24 11/07/24 06:59 06:59 06:59 Intake Total 3110 / 3110 1040 / 1040 100 / 100 Output Total 1600 / 1600 2825 / 2825 400 / 400 Balance 1510 / 1510 -1785 / -1785 -300 / -300 Cumulative 11/04/24 12:21 thru 11/06/24 08:00 Intake Total 4250 Output Total 4825 Balance -575 RT Ventilator Mngmt (Last Documented) Ventilator Ordered Settings Ventilator Support Mode Assist Control 11/04/24 16:58 Respiratory Rate 18 11/06/24 07:21 Ventilator Tidal Volume 400 11/04/24 16 :58 Setting Minute Ventilation 7.9 11/04/24 15:52 Positive End Expiratory 5 11/04/24 16:58 Pressure Fraction of Inspired Oxygen 40 11/04/24 16:58 Machine Comment weaned to 40%O2 11/04/24 15:52 Ventilator - PT Measurements Respiratory Rate 18 Exhaled Tidal Volume 355 Minute Ventilation 7.9 Peak Inspiratory Airway 22 Pressure Plateau Pressure 16 Respiratory Cycle Inspiratory: 1:2.3 Expiratory Ratio Inspiratory Phase Time 0.90 End-Tidal CO2 45 Static Lung Compliance 32.27 Dynamic Lung Compliance 20.88 Normal Static Lung Compliance 46.00 Patient Measurements Comment patient extubated to 4L oxy mask and SPO2 98% Coding Level of Care Code 61955 SUB INP/OBS CARE 2/35MIN Diagnoses Respiratory failure requiring intubation J96.90 Unresponsive state R41.89 Urinary tract infection N30.00 Hematuria presence: without hematuria Urinary tract infection type: acute cystitis (3) Urinary tract infection Hematuria presence: without hematuria Urinary tract infection type: acute cystitis Qualified Code(s): N30.00 - Acute cystitis without hematuria
--- NOTE | 2024-11-06 13:54 | Hospitalist Progress Note ---
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 In the ED, patient was not responsive to painful stimuli and was intubated in the ED. Acute metabolic/toxic encephalopathy Loss of consciousness Complicated urinary tract Infection Seizures Pt presenting with concern for LOC Required intubation in the ED Head CT unremarkable Head CTA unremarkable Neck CTA noting no acute pathology but noting thyroid nodules and bronchitis Brain MRI unremarkable VBG with pH 7.32, CO2 43, HCO3 22 Respiratory panel negative Chest XRAY unremarkable UA suggestive of infection, urine cx currently growing E coli Blood cx x 2 sets NGTD CK, TSH, prolactin, ammonia levels all within normal range Toxicology screen unremarkable Admitted to the ICU, intubated and currently extubated On IV Rocephin currently for UTI Reports of seizures overnight, continue with Keppra Delirium precautions. Frequent reorientation, avoid sedating medications as able Continue to monitor Possible sepsis Complicated Urinary tract Infection Bronchitis Pt presented unconscious, with leukocytosis and hypothermia UA suggestive of infection, urine cx currently growing E coli Neck CTA noting "bronchitis with pneumonitis" at the lung apices Blood Cx x 2 sets NGTD Was initially on Ertpenem, has been transitioned to Rocephin Continue to monitor Acute Kidney Injury Cr 1.39 on admission, baseline ~0.7 On IV fluids Avoid nephrotoxic meds Improving Prolonged qtc EKG noting qtc of 491 Avoid qtc prolonging meds Continue to monitor Thyroid Nodules Neck CTA noting bilateral thyroid nodules TSH normal PCP followup History of CVA with left hemiplegia On asa 81mg and statin at home DM II A1c 9.1 Hold home agents Glycemic consult while in ICU BSG Q6H Basal/bolus insulin DVT Ppx: SQ heparin Code status: DNR/DNI per ICU PCP: Killian Dispo: per PT/OT once medically stable Admission and Anticipated Discharge Date Admission Date: November 04, 2024 Subjective She was seen sitting up in bed Had hallucinations overnight Review of Systems Review of Systems: All systems reviewed & are unremarkable except as noted in Subjective Physical Exam Physical Exam: General: Alert. No acute distress Skin: warts noted on plantar side of right foot Neuro: AAOx 2 HEENT: difficulty with neck movements CV: RRR Resp: Breath sounds clear bilaterally, no increased effort of breathing Abdomen:Soft, nontender Extremities: warts noted on plantar side of right foot Results & Data Results & Data Vital Signs (Past 12 Hours) Vital Signs Temp Pulse Resp BP Pulse Ox O2 Del Method 11/06/24 10:06 94 H 15 93 11/06/24 09:48 102 H 26 H 95 11/06/24 09:12 97 H 22 92 11/06/24 09:00 124/84 11/06/24 08:45 97 H 25 H 91 11/06/24 08:22 145/98 H 11/06/24 08:09 100 H 25 H 96 11/06/24 08:00 101 H 11/06/24 07:30 Room Air 11/06/24 07:21 98 H 18 92 11/06/24 07:12 88 24 93 11/06/24 07:08 129/85 11/06/24 07:03 93 H 25 H 92 11/06/24 06:36 96 H 23 91 11/06/24 06:30 93 H 24 92 11/06/24 06:21 92 H 19 92 11/06/24 06:09 95 H 25 H 93 11/06/24 06:00 158/100 H 11/06/24 06:00 158/100 H 11/06/24 05:54 91 H 19 94 11/06/24 05:42 94 H 20 95 11/06/24 05:33 97 H 20 96 11/06/24 05:00 37.4 C 85 12 95 Room Air 11/06/24 04:30 81 22 93 11/06/24 04:06 84 22 95 11/06/24 04:00 149/106 H 11/06/24 03:57 83 26 H 91 11/06/24 03:36 83 21 93 11/06/24 03:01 156/76 H 11/06/24 03:01 156/76 H 11/06/24 03:00 84 22 94 11/06/24 02:30 80 19 93 11/06/24 02:06 79 18 94 11/06/24 02:00 164/118 H Diagnostic Findings Chest X-Ray 11/04/24 12:51 XR chest 1V portable HISTORY: 54 years-old Female post intub acute respiratory failure COMPARISON: 07/09/2021 TECHNIQUE: AP view of the chest FINDINGS: Cardiac silhouette is enlarged. Endotracheal tube overlies the midline: 0.5 cm superior to the isa. Mild linear bibasilar opacities. No pneumothorax, pleural effusion or overt pulmonary edema. Cholecystectomy clips. Bones appear grossly intact. Cervical spinal fusion hardware. IMPRESSION: 1. Endotracheal tube overlies the midline, 1.5 cm superior to the isa. 2. Mild bibasilar opacities suggest atelectasis. ACT 112: Negative or not required by law. The above report was generated using voice recognition software. It may contain grammatical, syntax or spelling errors. Electronically signed by: Venkat Isaacs M.D. 11/04/2024 1:[address] 11/04/24 12:51 CT head/brain wo con CLINICAL HISTORY: altered. TECHNIQUE: Multiple axial CT images of the head were obtained without contrast. A dose lowering technique was utilized adhering to the principles of ALARA. CT DOSE: 657.02 mGy.cm COMPARISON: 07/10/2021 FINDINGS: Stable mild right periventricular encephalomalacia with mild ex vacuo dilatation of the right lateral ventricle. No intracranial hemorrhage seen. No mass effect, midline shift, or progressive hydrocephalus. No skull fracture. Visualized paranasal sinuses and mastoid air cells are clear. IMPRESSION: No acute findings. ACT 112: Negative or not required by law. The above report was generated using voice recognition software. It may contain grammatical, syntax or spelling errors. Electronically signed by: Martin Thrasher M.D. 11/04/2024 1:15 PM Brain MRI 11/04/24 16:14 MR brain seizure wo/w con CLINICAL HISTORY: unresponsive . Possible seizure. Clinical concern for infarction. TECHNIQUE: Ultimately planar multisequence MRI of the brain before and after IV gadolinium. COMPARISON STUDY: 06/17/[address] yesterday. FINDINGS: There is motion artifact. There is stable right periventricular encephalomalacia ankylosis consistent with given history of prior infarction with stable ex vacuo dilatation of the right lateral ventricle. No restricted diffusion seen to suggest acute infarction. No mass effect, midline shift, or progressive hydrocephalus. No abnormal enhancement seen in the brain. IMPRESSION: 1. No evidence of acute infarction. 2. Stable chronic findings with no adverse change seen. ACT 112: Negative or not required by law. Electronically signed by: Martin Thrasher M.D. 11/05/2024 9:22 AM Head CTA 11/04/24 16:27 Exam(s): CTA HEAD With Contrast IV Amt: 119 ml optiray 320 EXAM: CT Angiography Head With Intravenous Contrast CLINICAL HISTORY: Reason for exam: obtunded. TECHNIQUE: Axial computed tomographic angiography images of the head with intravenous contrast. CTDI is 16.61 mGy and DLP is 468.03 mGy-cm. Automated exposure control was utilized for the study. A dose lowering technique was utilized adhering to the principles of ALARA. MIP reconstructed images were created and reviewed. CONTRAST: Patient received 119 ml optiray 320 of IV contrast COMPARISON: No relevant prior studies available. FINDINGS: The dural venous sinuses are patent. Right internal carotid artery: No acute findings. Intracranial segment is patent with no significant stenosis. No aneurysm. Right anterior cerebral artery: Unremarkable. No occlusion or significant stenosis. No aneurysm. Right middle cerebral artery: Unremarkable. No occlusion or significant stenosis. No aneurysm. Right posterior cerebral artery: Unremarkable. No occlusion or significant stenosis. No aneurysm. Right vertebral artery: Unremarkable as visualized. Left internal carotid artery: No acute findings. Intracranial segment is patent with no significant stenosis. No aneurysm. Left anterior cerebral artery: Unremarkable. No occlusion or significant stenosis. No aneurysm. Left middle cerebral artery: Unremarkable. No occlusion or significant stenosis. No aneurysm. Left posterior cerebral artery: Unremarkable. No occlusion or significant stenosis. No aneurysm. Left vertebral artery: Unremarkable as visualized. Basilar artery: Unremarkable. No occlusion or significant stenosis. No aneurysm. IMPRESSION: Negative CT angiogram of the head. Electronically signed by: Kim Cutler MD 11/04/24 21:49 PM Neck CTA 11/04/24 16:27 Exam(s): CTA NECK With Contrast IV Amt: 119 ml optiray 320 EXAM: CT Angiography Neck With Intravenous Contrast CLINICAL HISTORY: Reason for exam: obtunded. TECHNIQUE: Routine carotid CT angiography protocol was performed with intravenous contrast. NASCET criteria using the distal ICAs for comparison were used for evaluation of stenoses. CTDI is 16.61 mGy and DLP is 468.03 mGy-cm. Automated exposure control was utilized for the study. A dose lowering technique was utilized adhering to the principles of ALARA. MIP reconstructed images were created and reviewed. CONTRAST: Patient received 119 ml optiray 320 of IV contrast COMPARISON: None. FINDINGS: VASCULATURE: Right common carotid artery: Unremarkable. No occlusion or significant stenosis. No dissection. Right internal carotid artery: Unremarkable. Extracranial segment is patent with no occlusion or significant stenosis. No dissection. Right external carotid artery: Unremarkable. No occlusion. Right vertebral artery: Unremarkable. No occlusion or significant stenosis. No dissection. Left common carotid artery: Unremarkable. No occlusion or significant stenosis. No dissection. Left internal carotid artery: Unremarkable. Extracranial segment is patent with no occlusion or significant stenosis. No dissection. Left external carotid artery: Unremarkable. No occlusion. Left vertebral artery: Unremarkable. No occlusion or significant stenosis. No dissection. NECK: Bones/joints: Status post anterior fusion of C4-C6. No acute fracture. Soft tissues: Bilateral thyroid nodules. Lung apices: Bronchitis with pneumonitis.. CAROTID STENOSIS REFERENCE USING NASCET CRITERIA: % ICA stenosis = (1 - narrowest ICA diameter/diameter of distal cervical ICA) x 100. Mild - <50% stenosis. Moderate - 50-69% stenosis. Severe - 70-94% stenosis. Near occlusion - 95-99% stenosis. Occluded - 100% stenosis. IMPRESSION: Negative CTA neck. Electronically signed by: Kim Cutler MD 11/04/24 21:55 PM (3) Urinary tract infection Hematuria presence: without hematuria Urinary tract infection type: acute cystitis Qualified Code(s): N30.00 - Acute cystitis without hematuria
[2024-11-06] MEDS: SODIUM CHLORIDE 0.9% 1,000 ML IV SCH (14:26)
--- NOTE | 2024-11-06 17:12 | Communication Note ---
Date of Service: November 06, 2024 EMR reviewed Communicated directly with primary/hospitalist team EEG reviewed- no evidence of epileptiform discharges Patient appears to have ongoing hallucinations Concern for delirium remains in setting of infection Agree with continued current therapies
[2024-11-07] MEDS: hydrOXYzine HCl 10 MG TAB PO STA (01:15)
[2024-11-07] MEDS: cloNIDine HCL 0.1 MG TAB PO ONE (01:15)
[2024-11-07 08:52] LABS: Basophils # (auto) 0.04 K/uL (0.00-0.20); Basophils % (auto) 0.4 %; Eosinophils # (auto) 0.07 K/uL (0.00-0.50); Eosinophils % (auto) 0.7 %; Hematocrit (blood only) 40.9 % (37.0-47.0); Hemoglobin 13.6 g/dl (12.0-16.0); Immature Granulocytes # (auto) 0.04 K/uL (0.01-0.20); Immature Granulocytes % (auto) 0.4 %; Lymphocytes % (auto) 24.2 %; Mean Corpuscular Hemoglobin 28.2 pg (25.0-34.0); Mean Corpuscular Hgb Conc 33.3 g/dL (32.0-36.0); Mean Corpuscular Volume 84.9 fL (80.0-100.0); Mean Platelet Volume 11.1 fL (9.4-12.4); Monocytes # (auto) 0.71 K/uL (0.11-0.59); Monocytes % (auto) 6.9 %; Neutrophils # (auto) 6.99 K/uL (1.40-6.50); Neutrophils % (auto) 67.4 %; Platelet Count 256 K/uL (130-400); RDW Coefficient of Variation 13.3 % (11.5-14.5); RDW Standard Deviation 41.2 fL (36.4-46.3); Red Blood Count 4.82 M/uL (4.20-5.40); White Blood Count 10.35 K/ul (4.8-10.8)
--- NOTE | 2024-11-07 08:53 | Pharmacy Report ---
Pharmacy Glycemic Short Note 2 - Date of Service November 07, 2024 - Glycemic Short BSG Results (Last 24 hours): 11/06/24 11/06/24 11/06/24 11:47 16:57 20:03 POC Glucose 147 H 161 H 160 H 11/07/24 08:03 POC Glucose 176 H OUTPATIENT ANTIDIABETIC REGIMEN: * n/a HbA1c: 9.1% (11/05/24) ASSESSMENT: 11/07/24: * Blood sugars reasonably controlled w/ elevated fasting blood sugar this morning * Patient downgraded out of ICU and is ordered T2DM diet * Remains on ceftriaxone for treatment of possible UTI (urine culture growing E.coli) and bronchitis 11/05/24: * is a 54 year old female who presented to ED on 11/04 after being found at home unresponsive for unknown duration of time * Temporarily required mechanical ventilation yesterday, but is now extubated * Will be conservative with initial insulin dosing and utilize bolus insulin only for now (will start basal tomorrow if needed) * On ceftriaxone for treatment of UTI. Regular diet ordered. PLAN FOR INPATIENT GLYCEMIC CONTROL: * Basal insulin * Lantus 8 units SC daily (~0.1 unit/kg) * Bolus insulin * NovoLog per scale ACHS or Q6hrs while NPO * Goal Range: Low 110 mg/dL - High 140 mg/dL * Correction Factor: 35 mg/dL/unit * Nutritional / Prandial insulin per carb ratio of 1 unit per 12 grams CHO consumed
[2024-11-07 09:14] LABS: Albumin Globulin Ratio 1.3 (0.9-2); Albumin Level 4.5 gm/dl (3.4-5.0); BUN Creatinine Ratio 19.7 (10-20); Bilirubin,Total 0.5 mg/dl (0.2-1.0); Calcium 9.7 mg/dl (8.6-10.3); Creatinine Clr Calc Pharmacy 50.6 ml/min; Globulin 3.6 gm/dl (2.5-4.0); Magnesium 1.9 mg/dl (1.7-2.4); Phosphorus 3.9 mg/dl (2.5-4.9); Potassium 4.3 mmol/L (3.5-5.1); Total Protein 8.1 gm/dl (6.0-8.3)
[2024-11-07] MEDS: LANTUS PER UNIT CHARGE SC SCH (10:05)
--- NOTE | 2024-11-07 10:11 | Electroencephalogram ---
EEG Procedure Note Date of Service November 04, 2024 Start / End Times Start Time: 1838 End Time: [address] galeano History a 54-year-old female with history of right MCA ischemic stroke an unresponsive episode. EEG performed for evaluation of epileptiform activity. Home Medication List Medication Instructions Recorded Confirmed Type omeprazole 20 mg capsule,delayed 20 mg PO BID 01/19/20 11/04/24 History release fluticasone furoate 100 1 inh inhalation DAILY 06/17/20 11/04/24 History mcg-vilanterol 25 mcg/dose inhalation powder (Breo Ellipta) gabapentin 300 mg capsule 300 mg PO DAILY 06/17/20 11/04/24 History levetiracetam 750 mg tablet 1,500 mg PO BID 06/17/20 11/04/24 History aspirin 81 mg chewable tablet 81 mg PO QAM 11/07/20 11/04/24 History duloxetine 60 mg capsule,delayed 60 mg PO QAM 11/07/20 11/04/24 History release rosuvastatin 40 mg tablet (Crestor) 40 mg PO DAILY 07/09/21 11/04/24 History ibuprofen 200 mg-diphenhydramine 1 cap PO HS PRN Pain 07/10/21 11/04/24 History HCl 25 mg capsule (Advil PM Liqui-Gels) lisinopril 10 mg tablet 10 mg PO DAILY #20 tabs 07/12/21 11/04/24 Rx gabapentin 300 mg capsule 600 mg PO HS 11/04/24 11/04/24 History quetiapine 200 mg tablet (Seroquel) 200 mg PO DAILY 11/04/24 11/04/24 History quetiapine 300 mg tablet 300 mg PO HS 11/04/24 11/04/24 History Inpatient Medication List Fluticasone/Vilanterol (Fluticasone/Vilanterol 100/25mcg 14 Puffs/Inhaler) 1 puffs INH DAILY ALICIA Stop: 12/05/24 08:59 Last Admin: 11/07/24 10:05 Dose: 1 puffs Documented By: KELLY Co-signed By: MARIE Admin: 11/06/24 09:18 Dose: 1 puffs Documented By: Admin: 11/05/24 13:14 Dose: 1 puffs Documented By: GISSEL Heparin Sodium (Porcine) (Heparin Sod 5,000 Unit/0.5 Ml Vial) 5,000 units SQ Q8 ALICIA Stop: 12/04/24 21:59 Last Admin: 11/07/24 06:18 Dose: 5,000 units Documented By: Admin: 11/06/24 21:42 Dose: 5,000 units Documented By: Admin: 11/06/24 14:26 Dose: 5,000 units Documented By: Admin: 11/06/24 04:58 Dose: 5,000 units Documented By: Admin: 11/05/24 20:58 Dose: 5,000 units Documented By: Admin: 11/05/24 14:35 Dose: 5,000 units Documented By: Admin: 11/05/24 05:11 Dose: 5,000 units Documented By: Admin: 11/04/24 22:38 Dose: 5,000 units Documented By: CP Thiamine HCl 500 mg/ Sodium (Chloride) 55 mls @ 210 mls/hr IV Q8H ALICIA Stop: 12/04/24 19:59 Last Infusion: 11/07/24 04:00 Dose: Infused Documented By: Admin: 11/07/24 03:44 Dose: 210 mls/hr Documented By: Infusion: 11/06/24 20:10 Dose: Infused Documented By: Admin: 11/06/24 19:54 Dose: 210 mls/hr Documented By: Infusion: 11/06/24 14:37 Dose: Infused Documented By: Admin: 11/06/24 13:00 Dose: 210 mls/hr Documented By: Infusion: 11/06/24 05:13 Dose: Infused Documented By: Admin: 11/06/24 04:57 Dose: 210 mls/hr Documented By: Infusion: 11/05/24 20:05 Dose: Infused Documented By: Admin: 11/05/24 19:49 Dose: 210 mls/hr Documented By: Infusion: 11/05/24 13:56 Dose: Infused Documented By: Admin: 11/05/24 13:15 Dose: 210 mls/hr Documented By: Infusion: 11/05/24 03:52 Dose: Infused Documented By: Admin: 11/05/24 03:36 Dose: 210 mls/hr Documented By: Infusion: 11/04/24 21:31 Dose: Infused Documented By: Admin: 11/04/24 21:15 Dose: 210 mls/hr Documented By: SIM Ceftriaxone Sodium (Rocephin) 2,000 mg in 50 mls @ 100 mls/hr IV Q24H ALICIA; Protocol Stop: 11/10/24 09:59 Last Admin: 11/07/24 10:06 Dose: 100 mls/hr Documented By: KELLY Co-signed By: MARIE Infusion: 11/06/24 10:51 Dose: Infused Documented By: Admin: 11/06/24 10:21 Dose: 100 mls/hr Documented By: Infusion: 11/05/24 18:17 Dose: Infused Documented By: Admin: 11/05/24 13:33 Dose: 100 mls/hr Documented By: GISSEL Insulin Aspart (Insulin Aspart Per Unit Charge) 0 units SC ACHS ALICIA Stop: 12/04/24 18:59 Last Admin: 11/07/24 10:04 Dose: 5 units Documented By: KELLY Co-signed By: MARIE Admin: 11/06/24 21:41 Dose: 1 units Documented By: JANICE Co-signed By: ALBERTO Admin: 11/06/24 17:50 Dose: 6 units Documented By: SOHAN Co-signed By: BABITA Admin: 11/06/24 13:00 Dose: 2 units Documented By: MTP Co-signed By: MIREYA Admin: 11/06/24 09:16 Dose: 2 units Documented By: GISSEL Co-signed By: MIREYA Admin: 11/05/24 20:57 Dose: 4 units Documented By: BLANCAP Co-signed By: [id number] Admin: 11/05/24 17:40 Dose: Not Given Documented By: Admin: 11/05/24 13:17 Dose: 8 units Documented By: MTP Co-signed By: MIREYA Insulin Glargine (Lantus Per Unit Charge) 8 units SC DAILY ALICIA Stop: 12/07/24 08:59 Last Admin: 11/07/24 10:05 Dose: 8 units Documented By: KELLY Co-signed By: MARIE Levetiracetam (Levetiracetam 500 Mg/5 Ml Vial) 1,500 mg IV Q12H ALICIA Stop: 12/04/24 19:14 Last Admin: 11/07/24 07:24 Dose: 1,500 mg Documented By: KELLY Co-signed By: CM Admin: 11/06/24 20:52 Dose: 1,500 mg Documented By: Admin: 11/06/24 09:06 Dose: 1,500 mg Documented By: Admin: 11/05/24 18:36 Dose: 1,500 mg Documented By: Admin: 11/05/24 08:11 Dose: 1,500 mg Documented By: Admin: 11/04/24 19:56 Dose: 1,500 mg Documented By: CP Discontinued Medications Clonidine HCl (Clonidine Hcl 0.1 Mg Tab) 0.1 mg PO NOW ONE Stop: 11/07/24 00:34 Last Admin: 11/07/24 01:15 Dose: 0.1 mg Documented By: HNT Gadobutrol (Gadobutrol 30ml Vial) 8 ml IV ONCE ONE Stop: 11/05/24 08:58 Last Admin: 11/05/24 08:58 Dose: 8 ml Documented By: PINEDA Hydroxyzine HCl (Hydroxyzine Hcl 10 Mg Tab) 10 mg PO NOW STA Stop: 11/07/24 00:34 Last Admin: 11/07/24 01:15 Dose: 10 mg Documented By: HNT Sodium Chloride (Nss) 500 mls @ 999 mls/hr IV .Q31M ONE Stop: 11/04/24 13:21 Last Infusion: 11/04/24 13:57 Dose: Infused Documented By: Admin: 11/04/24 13:22 Dose: 999 mls/hr Documented By: QGV Ertapenem (Invanz 1000mg) 1,000 mg in 10 mls @ 2 mls/min IV NOW STA Stop: 11/04/24 13:38 Last Admin: 11/04/24 13:50 Dose: 2 mls/min Documented By: QGV Sodium Chloride (Nss) 500 mls @ 999 mls/hr IV .Q31M ONE Stop: 11/04/24 14:14 Last Infusion: 11/04/24 14:36 Dose: Infused Documented By: Admin: 11/04/24 13:50 Dose: 999 mls/hr Documented By: QGV Parenteral Electrolytes (Plasma-Lyte A Ph 7.4) 2,000 mls @ 999 mls/hr IV .Q2H1M ONE Stop: 11/04/24 18:27 Last Infusion: 11/04/24 19:31 Dose: Infused Documented By: Admin: 11/04/24 16:45 Dose: 999 mls/hr Documented By: SHARDA Sodium Chloride (Nss) 1,000 mls @ 80 mls/hr IV .[id number] [facility] Stop: 11/07/24 02:44 Last Infusion: 11/07/24 03:58 Dose: Infused Documented By: Admin: 11/06/24 14:26 Dose: 80 mls/hr Documented By: MTP Insulin Aspart (Insulin Aspart Per Unit Charge) 0 units SC Q6 ALICIA Stop: 12/04/24 18:59 Last Admin: 11/05/24 05:11 Dose: Not Given Documented By: Admin: 11/04/24 23:31 Dose: 2 units Documented By: SIM Co-signed By: [id number] Admin: 11/04/24 19:54 Dose: 2 units Documented By: CP Co-signed By: [id number] Insulin Aspart (Insulin Aspart Per Unit Charge) 0 units SC TODAY@0200 ALICIA Stop: 11/06/24 02:01 Last Admin: 11/06/24 01:48 Dose: 2 units Documented By: LLP Co-signed By: [id number] Ioversol (Optiray 320 125ml) 119 ml IV ONCE ONE Stop: 11/04/24 20:28 Last Admin: 11/04/24 20:28 Dose: 119 ml Documented By: PLW Lorazepam (Lorazepam 2 Mg/1 Ml Vial) Confirm Administered Dose 2 mg .ROUTE .STK- MED ONE Stop: 11/05/24 02:34 Last Admin: 11/05/24 02:55 Dose: Not Given Documented By: SIM Lorazepam (Lorazepam 2 Mg/1 Ml Vial) 1 mg IV NOW STA Stop: 11/05/24 02:35 Last Admin: 11/05/24 02:55 Dose: 1 mg Documented By: SIM Miscellaneous (Rapid Sequence Induction Bag) Confirm Administered Dose 1 each N/A .STK-MED ONE Stop: 11/04/24 12:44 Last Admin: 11/04/24 13:50 Dose: 1 each Documented By: QGV Description This is a 21 electrode EEG with a single channel dedicated to limited EKG. The electrodes were placed in accordance with the International 10-20 system. Report: At the onset of the EEG the patient is awake. The background is disorganized with loss of the normal anterior to posterior gradient. Background is asymmetric with continuous focal slowing in the right hemisphere most predominantly in the temporal head region. The background predominantly consists of generalized theta activity with some intermixed delta activity. No stage 2 sleep transients are seen. Interpretation Impression: This is an abnormal awake and drowsy routine EEG due to 1. continuous focal slowing on the right suggestive of underlying structural abnormality or neuronal dysfunction, 2. generalized background slowing suggestive of a nonspecific encephalopathy.
--- NOTE | 2024-11-07 11:57 | Hospitalist Progress Note ---
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 In the ED, patient was not responsive to painful stimuli and was intubated in the ED. Acute metabolic/toxic encephalopathy Loss of consciousness Complicated urinary tract Infection Seizures Pt presenting with concern for LOC Required intubation in the ED Head CT unremarkable Head CTA unremarkable Neck CTA noting no acute pathology but noting thyroid nodules and bronchitis Brain MRI unremarkable VBG with pH 7.32, CO2 43, HCO3 22 Respiratory panel negative Chest XRAY unremarkable UA suggestive of infection, urine cx currently growing E coli Blood cx x 2 sets NGTD CK, TSH, prolactin, ammonia levels all within normal range Toxicology screen unremarkable Admitted to the ICU, intubated and currently extubated On IV Rocephin currently for UTI Reports of seizures overnight, continue with Keppra Delirium precautions. Frequent reorientation, avoid sedating medications as able held neuropsych meds-resumed Continue to monitor Possible sepsis Complicated Urinary tract Infection Bronchitis Pt presented unconscious, with leukocytosis and hypothermia UA suggestive of infection, urine cx currently growing E coli Neck CTA noting "bronchitis with pneumonitis" at the lung apices Blood Cx x 2 sets NGTD Was initially on Ertpenem, has been transitioned to Rocephin Continue to monitor Acute Kidney Injury Cr 1.39 on admission, baseline ~0.7 On IV fluids Avoid nephrotoxic meds Improving Prolonged qtc EKG noting qtc of 491 Avoid qtc prolonging meds Continue to monitor Thyroid Nodules Neck CTA noting bilateral thyroid nodules TSH normal PCP followup History of CVA with left hemiplegia On asa 81mg and statin at home DM II A1c 9.1 Hold home agents Glycemic consult while in ICU BSG Q6H Basal/bolus insulin DVT Ppx: SQ heparin Code status: DNR/DNI per ICU PCP: Killina Dispo: per PT/OT once medically stable Admission and Anticipated Discharge Date Admission Date: November 04, 2024 Subjective Pt with episodes of anxiety throughout the day Pt states she feels fine, was eating breakfast on her own in the AM with no acute concerns. Review of Systems Review of Systems: All systems reviewed & are unremarkable except as noted in Subjective Physical Exam Physical Exam: General: Alert. No acute distress Skin: warts noted on plantar side of right foot Neuro: AAOx 2 HEENT: difficulty with neck movements CV: RRR Resp: Breath sounds clear bilaterally, no increased effort of breathing Abdomen:Soft, nontender Extremities: warts noted on plantar side of right foot Results & Data Results & Data Vital Signs (Past 12 Hours) Vital Signs Temp Pulse Pulse Resp BP Pulse Ox O2 Del Method 11/07/24 11:42 37.5 C 117 H 20 160/95 H 93 Room Air 11/07/24 08:56 148/80 H 11/07/24 08:14 36.8 C 109 H 20 162/86 H 92 Room Air 11/07/24 08:00 Room Air 11/07/24 07:00 104 H 11/07/24 03:49 36.9 C 103 H 20 151/97 H 91 Room Air 11/07/24 00:53 Room Air 11/07/24 00:27 171/111 H (3) Urinary tract infection Hematuria presence: without hematuria Urinary tract infection type: acute cystitis Qualified Code(s): N30.00 - Acute cystitis without hematuria
[2024-11-07] MEDS: SODIUM CHLORIDE 0.9% 1,000 ML IV SCH (14:16)
[2024-11-07] MEDS: ACETAMINOPHEN 1,000 MG/100 ML VIAL IV PRN (14:16)
[2024-11-07] MEDS: METOPROLOL TARTRATE 1 MG/ML VIAL IV STA (15:35)
[2024-11-07] MEDS: PANTOprazole 40 MG TAB PO SCH (17:07)
[2024-11-07] MEDS: lisinopril 10 MG TAB PO SCH (17:07)
[2024-11-07] MEDS: levETIRAcetam 500 MG TAB PO SCH (20:15)
[2024-11-07] MEDS: GABAPENTIN 300 MG CAP PO SCH (20:15)
[2024-11-07] MEDS: QUEtiapine FUMARATE 300 MG TABLET PO SCH (21:06)
[2024-11-08] MEDS ORDERED: FLUTICASONE/VILANTEROL 100/25MCG 14 PUFFS/INHALER INH SCH (09:00)
[2024-11-08] MEDS: LANTUS PER UNIT CHARGE SC SCH (09:05)
[2024-11-08] MEDS: DULoxetine HCL 60 MG CAP PO SCH (09:06)
[2024-11-08] MEDS: ASPIRIN 81 MG CHEW PO SCH (09:06)
[2024-11-08] MEDS: GABAPENTIN 300 MG CAP PO SCH (09:07)
[2024-11-08] MEDS: ROSUVASTATIN CALCIUM 20 MG TAB PO SCH (09:08)
[2024-11-08 11:12] LABS: Basophils # (auto) 0.04 K/uL (0.00-0.20); Basophils % (auto) 0.3 %; Eosinophils # (auto) 0.26 K/uL (0.00-0.50); Eosinophils % (auto) 2.2 %; Hematocrit (blood only) 36.2 % (37.0-47.0); Hemoglobin 12.1 g/dl (12.0-16.0); Immature Granulocytes # (auto) 0.04 K/uL (0.01-0.20); Immature Granulocytes % (auto) 0.3 %; Lymphocytes # (auto) 3.32 K/uL (1.20-3.40); Lymphocytes % (auto) 28.5 %; Mean Corpuscular Hemoglobin 27.9 pg (25.0-34.0); Mean Corpuscular Hgb Conc 33.4 g/dL (32.0-36.0); Mean Corpuscular Volume 83.6 fL (80.0-100.0); Mean Platelet Volume 11.1 fL (9.4-12.4); Monocytes % (auto) 6.9 %; Neutrophils # (auto) 7.19 K/uL (1.40-6.50); Neutrophils % (auto) 61.8 %; Platelet Count 208 K/uL (130-400); RDW Coefficient of Variation 13.3 % (11.5-14.5); RDW Standard Deviation 40.9 fL (36.4-46.3); Red Blood Count 4.33 M/uL (4.20-5.40); White Blood Count 11.65 K/ul (4.8-10.8)
[2024-11-08 11:27] LABS: Albumin Globulin Ratio 1.3 (0.9-2); BUN Creatinine Ratio 20.4 (10-20); Bilirubin,Total 0.3 mg/dl (0.2-1.0); Calcium 8.6 mg/dl (8.6-10.3); Creatinine Clr Calc Pharmacy 57.8 ml/min; Magnesium 1.7 mg/dl (1.7-2.4); Phosphorus 2.9 mg/dl (2.5-4.9); Potassium 3.8 mmol/L (3.5-5.1)
--- NOTE | 2024-11-08 12:14 | Hospitalist Progress Note ---
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 In the ED, patient was not responsive to painful stimuli and was intubated in the ED. Acute metabolic/toxic encephalopathy Loss of consciousness Complicated urinary tract Infection Seizures Pt presenting with concern for LOC Required intubation in the ED Head CT unremarkable Head CTA unremarkable Neck CTA noting no acute pathology but noting thyroid nodules and bronchitis Brain MRI unremarkable VBG with pH 7.32, CO2 43, HCO3 22 Respiratory panel negative Chest XRAY unremarkable UA suggestive of infection, urine cx currently growing E coli Blood cx x 2 sets NGTD CK, TSH, prolactin, ammonia levels all within normal range Toxicology screen unremarkable Admitted to the ICU, intubated and currently extubated. Has since been downgraded. On IV Rocephin currently for UTI, consider 5 days of treatment Reports of seizures overnight, continue with Keppra Delirium precautions. Frequent reorientation, avoid sedating medications as able held neuropsych meds-resumed Continue to monitor Possible sepsis Complicated Urinary tract Infection Bronchitis Pt presented unconscious, with leukocytosis and hypothermia UA suggestive of infection, urine cx currently growing E coli Neck CTA noting "bronchitis with pneumonitis" at the lung apices Blood Cx x 2 sets NGTD Was initially on Ertpenem, has been transitioned to Rocephin Continue to monitor Acute Kidney Injury Cr 1.39 on admission, baseline ~0.7 On IV fluids Avoid nephrotoxic meds Improving Prolonged qtc EKG noting qtc of 491 Avoid qtc prolonging meds Continue to monitor Thyroid Nodules Neck CTA noting bilateral thyroid nodules TSH normal PCP followup History of CVA with left hemiplegia On asa 81mg and statin at home DM II A1c 9.1 Hold home agents Glycemic consult while in ICU BSG Q6H Basal/bolus insulin DVT Ppx: SQ heparin Code status: DNR/DNI per ICU PCP: Killian Dispo: per PT/OT once medically stable Admission and Anticipated Discharge Date Admission Date: November 04, 2024 Subjective Pt was seen in the AM Stated that she felt much better Notes she is agreeable to going to rehab Review of Systems Review of Systems: All systems reviewed & are unremarkable except as noted in Subjective Physical Exam Physical Exam: General: Alert. No acute distress Skin: warts noted on plantar side of right foot Neuro: AAOx 2, hand clenched, able to lift her left leg HEENT: NC/AT CV: RRR Resp: Breath sounds clear bilaterally, no increased effort of breathing Abdomen:Soft, nontender Extremities: warts noted on plantar side of right foot Results & Data Results & Data Vital Signs (Past 12 Hours) Vital Signs Temp Pulse Resp BP Pulse Ox O2 Del Method 11/08/24 11:56 37 C 92 H 18 160/102 H 92 Room Air 11/08/24 07:38 37 C 102 H 18 153/97 H 91 Room Air 11/08/24 07:25 Room Air 11/08/24 02:53 36.8 C 83 18 120/74 91 Room Air (3) Urinary tract infection Hematuria presence: without hematuria Urinary tract infection type: acute cystitis Qualified Code(s): N30.00 - Acute cystitis without hematuria
[2024-11-08] MEDS: NICOTINE 14 MG/24 HR PATCH TD SCH (15:25)
[2024-11-09 06:43] LABS: Basophils # (auto) 0.05 K/uL (0.00-0.20); Basophils % (auto) 0.7 %; Eosinophils # (auto) 0.49 K/uL (0.00-0.50); Eosinophils % (auto) 6.8 %; Hematocrit (blood only) 39.1 % (37.0-47.0); Hemoglobin 12.8 g/dl (12.0-16.0); Immature Granulocytes # (auto) 0.03 K/uL (0.01-0.20); Immature Granulocytes % (auto) 0.4 %; Lymphocytes % (auto) 36.1 %; Mean Corpuscular Hemoglobin 28.2 pg (25.0-34.0); Mean Corpuscular Hgb Conc 32.7 g/dL (32.0-36.0); Mean Corpuscular Volume 86.1 fL (80.0-100.0); Mean Platelet Volume 11.3 fL (9.4-12.4); Monocytes # (auto) 0.59 K/uL (0.11-0.59); Monocytes % (auto) 8.2 %; Neutrophils # (auto) 3.44 K/uL (1.40-6.50); Neutrophils % (auto) 47.8 %; Platelet Count 216 K/uL (130-400); RDW Coefficient of Variation 13.2 % (11.5-14.5); RDW Standard Deviation 41.2 fL (36.4-46.3); Red Blood Count 4.54 M/uL (4.20-5.40)
[2024-11-09 07:08] LABS: Albumin Globulin Ratio 1.1 (0.9-2); BUN Creatinine Ratio 22.1 (10-20); Bilirubin,Total 0.3 mg/dl (0.2-1.0); Calcium 9.6 mg/dl (8.6-10.3); Creatinine Clr Calc Pharmacy 61.1 ml/min; Globulin 3.5 gm/dl (2.5-4.0); Magnesium 2.1 mg/dl (1.7-2.4); Phosphorus 4.8 mg/dl (2.5-4.9); Potassium 3.9 mmol/L (3.5-5.1); Total Protein 7.5 gm/dl (6.0-8.3)
[2024-11-09] MEDS: QUEtiapine FUMARATE 200 MG TAB PO SCH (07:15)
[2024-11-09] MEDS: FOLIC ACID 1 MG TAB PO SCH (08:45)
[2024-11-09] MEDS: ACETAMINOPHEN 1,000 MG/100 ML VIAL IV STA (11:09)
--- NOTE | 2024-11-09 12:14 | Pharmacy Report ---
Pharmacy Glycemic Sign Off Nt - Date of Service November 09, 2024 - Assessment & Plan ASSESSMENT: * Minimal changes to glycemic regimen over 48hours, with BSG's ranging 123-177 mg/dL. * Low dose Lantus 10 units daily ordered, and Novolog at weight-based moderate stress estimate. * Stressors stable. * Pharmacy signing off - Dr. Lilly aware PLAN FOR INPATIENT GLYCEMIC CONTROL: No changes needed to current regimen. * Continue basal insulin with Lantus 10 units SQ daily * Continue NovoLog per scale ACHS/Q6hrs while NPO * Goal range = 110 140 mg/dl * CF = 30 mg/dl/unit * CR = 1 unit for ever 10 g CHO consumed * Pharmacy is signing off of glycemic consult and will no longer be making adjustments to inpatient regimen. Please feel free to re-consult if needed. Thank you.
--- NOTE | 2024-11-09 13:50 | Hospitalist Progress Note ---
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 In the ED, patient was not responsive to painful stimuli and was intubated in the ED. #Acute metabolic/toxic encephalopathy #Syncope #Complicated urinary tract Infection #Seizures -Pt presenting with concern for LOC -Required intubation in the ED -Head CT unremarkable -Head CTA unremarkable - CTA noting no acute pathology but noting thyroid nodules and bronchitis -Brain MRI unremarkable, chest xray/VBG/resp panel unremarkable -UA suggestive of infection, urine cx currently growing E coli -Blood cx x 2 sets NGTD -CK, TSH, prolactin, ammonia levels all within normal range -Toxicology screen unremarkable Plan: -discussed with neurology attending, concern for seizure as likely cause persists but would not rec med changes at this time -On IV Rocephin currently for UTI, continue 5 days of treatment -continue keppra -Delirium precautions. Frequent reorientation, avoid sedating medications as able -held neuropsych meds-resumed -Continue to monitor #Possible sepsis, ruled out #Bronchitis -Pt presented unconscious, with leukocytosis and hypothermia -UA suggestive of infection, urine cx currently growing E coli -Neck CTA noting "bronchitis with pneumonitis" at the lung apices -Continue to monitor #Acute Kidney Injury, resolved -Cr 1.39 on admission, baseline ~0.7 -Improving #Prolonged qtc -EKG noting qtc of 491 -Avoid qtc prolonging meds -Continue to monitor #Thyroid Nodules -Neck CTA noting bilateral thyroid nodules -TSH normal -PCP followup #History of CVA with left hemiplegia -On asa 81mg and statin at home #DM II -A1c 9.1 -Basal/bolus insulin #Left Hand Contractures #R/o Dystonia -concern for dystonia given signifcant seroquel use Plan: -psych consult, appreciate recs Feeding/fluids: diabetic Analgesia: tylenol Sedation: na Thromboprophylaxis: heparin Head up position: na Ulcer prophylaxis: na Glycemic control: insulin protocol Spontaneous breathing trial: na Bowel care: start miralax prn Indwelling catheter removal: remove today Deescalation of antibiotics: finish ceftraxone I spent a total of 50 minutes in direct patient care, including [id number] time with the patient and/or family, reviewing medical records, ordering and reviewing diagnostic tests, and coordinating care with other healthcare providers. This time includes: history taking, physical examination, medical decision making, counseling, ECG interpretation, imaging interpretation, lab interpretation, orders, and education, excluding time spent in the performance of separately billed services. Admission and Anticipated Discharge Date Admission Date: November 04, 2024 Subjective Patient seen and examined at bedside. Patient states she is doing well today, and is really looking forward to getting some rehab. No acute events overnight. Review of Systems Review of Systems: CONSTITUTIONAL: Patient denies fevers, chills, sweats and weight changes. EYES: Patient denies any visual symptoms. EARS, NOSE, AND THROAT: No difficulties with hearing. No symptoms of rhinitis or sore throat. CARDIOVASCULAR: Patient denies chest pains, palpitations, orthopnea and paroxysmal nocturnal dyspnea. RESPIRATORY: No dyspnea on exertion, no wheezing or cough. GI: No nausea, vomiting, diarrhea, constipation, abdominal pain, hematochezia or melena. : No urinary hesitancy or dribbling. No nocturia or urinary frequency. No abnormal urethral discharge. MUSCULOSKELETAL: left hand contractures noted NEUROLOGIC: No chronic headaches, no seizures. Patient denies numbness, tingling or weakness. PSYCHIATRIC: Patient denies problems with mood disturbance. No problems with anxiety. ENDOCRINE: No excessive urination or excessive thirst. DERMATOLOGIC: Patient denies any rashes or skin changes. Physical Exam Physical Exam: Gen: A&O 3 NAD HEENT: NCAT, EOMI, not icteric. External ears normal. No rhinorrhea. Moist mu cous membranes. Neck: Supple, full range of motion, no observable masses, No meningeal sign. Lungs: No Respiratory distress. CV: tachycardic, regular rhythm no edema. Abdomen: Soft, nondistended, No rebound tenderness. MSK: No joint swelling, no redness. Skin: No rashes, petechiae, lesions. Normal color per patient. Neuro: Normal Gait, Grossly intact. Psych: Appropriate for situation. Motivated. Results & Data Results & Data Vital Signs (Past 12 Hours) Vital Signs Temp Pulse Resp BP Pulse Ox O2 Del Method 11/09/24 11:33 36.4 C L 101 H 20 140/82 96 Room Air 11/09/24 07:34 36.6 C 78 16 172/97 H 97 Room Air 11/09/24 02:43 36.5 C 75 16 133/82 91 Room Air Laboratory Results -personally interpreted, patient is tachycardic but hemodynamically stable, labs unremarkable Medications Administered Aspirin (Aspirin 81 Mg Chew) 81 mg PO [facility] Stop: 12/08/24 08:59 Last Admin: 11/09/24 07:14 Dose: 81 mg Documented By: AERose Admin: 11/08/24 09:06 Dose: 81 mg Documented By: INOCENCIA Duloxetine HCl (Duloxetine Hcl 60 Mg Cap) 60 mg PO [facility] Stop: 12/08/24 08:59 Last Admin: 11/09/24 07:16 Dose: 60 mg Documented By: Admin: 11/08/24 09:06 Dose: 60 mg Documented By: INOCENCIA Fluticasone/Vilanterol (Fluticasone/Vilanterol 100/25mcg 14 Puffs/Inhaler) 1 puffs INH DAILY [facility] Stop: 12/05/24 08:59 Last Admin: 11/09/24 07:16 Dose: 1 puffs Documented By: Admin: 11/08/24 09:07 Dose: 1 puffs Documented By: Admin: 11/07/24 10:05 Dose: 1 puffs Documented By: KELLY Co-signed By: MARIE Admin: 11/06/24 09:18 Dose: 1 puffs Documented By: Admin: 11/05/24 13:14 Dose: 1 puffs Documented By: GISSEL Folic Acid (Folic Acid 1 Mg Tab) 1 mg PO [facility] Stop: 12/09/24 08:59 Last Admin: 11/09/24 08:45 Dose: 1 mg Documented By: INOCENCIA Gabapentin (Gabapentin 300 Mg Cap) 300 mg PO DAILY [facility] Stop: 12/08/24 08:59 Last Admin: 11/09/24 07:17 Dose: 300 mg Documented By: Admin: 11/08/24 09:07 Dose: 300 mg Documented By: INOCENCIA Gabapentin (Gabapentin 300 Mg Cap) 600 mg PO [facility] Stop: 12/07/24 20:59 Last Admin: 11/08/24 20:13 Dose: 600 mg Documented By: Admin: 11/07/24 20:15 Dose: 600 mg Documented By: MIGDALIA Heparin Sodium (Porcine) (Heparin Sod 5,000 Unit/0.5 Ml Vial) 5,000 units SQ Q8 [facility] Stop: 12/04/24 21:59 Last Admin: 11/09/24 04:44 Dose: 5,000 units Documented By: Admin: 11/08/24 20:13 Dose: 5,000 units Documented By: Admin: 11/08/24 14:18 Dose: 5,000 units Documented By: AERose Admin: 11/08/24 05:51 Dose: 5,000 units Documented By: Admin: 11/07/24 21:06 Dose: 5,000 units Documented By: Admin: 11/07/24 14:16 Dose: 5,000 units Documented By: Admin: 11/07/24 06:18 Dose: 5,000 units Documented By: Admin: 11/06/24 21:42 Dose: 5,000 units Documented By: Admin: 11/06/24 14:26 Dose: 5,000 units Documented By: Admin: 11/06/24 04:58 Dose: 5,000 units Documented By: Admin: 11/05/24 20:58 Dose: 5,000 units Documented By: Admin: 11/05/24 14:35 Dose: 5,000 units Documented By: Admin: 11/05/24 05:11 Dose: 5,000 units Documented By: Admin: 11/04/24 22:38 Dose: 5,000 units Documented By: SIM Thiamine HCl 500 mg/ Sodium (Chloride) 55 mls @ 210 mls/hr IV Q8H [facility] Stop: 12/04/24 19:59 Last Infusion: 11/09/24 11:50 Dose: Infused Documented By: AERose Admin: 11/09/24 11:34 Dose: 210 mls/hr Documented By: AERose Infusion: 11/09/24 05:06 Dose: Infused Documented By: Admin: 11/09/24 04:42 Dose: 210 mls/hr Documented By: Infusion: 11/08/24 20:38 Dose: Infused Documented By: Admin: 11/08/24 20:12 Dose: 210 mls/hr Documented By: Infusion: 11/08/24 11:36 Dose: Infused Documented By: Admin: 11/08/24 11:20 Dose: 210 mls/hr Documented By: Infusion: 11/08/24 04:02 Dose: Infused Documented By: Admin: 11/08/24 03:46 Dose: 210 mls/hr Documented By: Infusion: 11/07/24 20:38 Dose: Infused Documented By: Admin: 11/07/24 20:22 Dose: 210 mls/hr Documented By: Infusion: 11/07/24 11:57 Dose: Infused Documented By: Admin: 11/07/24 11:41 Dose: 210 mls/hr Documented By: REMIGIO Co-signed By: CM Infusion: 11/07/24 04:00 Dose: Infused Documented By: Admin: 11/07/24 03:44 Dose: 210 mls/hr Documented By: Infusion: 11/06/24 20:10 Dose: Infused Documented By: Admin: 11/06/24 19:54 Dose: 210 mls/hr Documented By: Infusion: 11/06/24 14:37 Dose: Infused Documented By: Admin: 11/06/24 13:00 Dose: 210 mls/hr Documented By: Infusion: 11/06/24 05:13 Dose: Infused Documented By: Admin: 11/06/24 04:57 Dose: 210 mls/hr Documented By: Infusion: 11/05/24 20:05 Dose: Infused Documented By: Admin: 11/05/24 19:49 Dose: 210 mls/hr Documented By: Infusion: 11/05/24 13:56 Dose: Infused Documented By: Admin: 11/05/24 13:15 Dose: 210 mls/hr Documented By: Infusion: 11/05/24 03:52 Dose: Infused Documented By: Admin: 11/05/24 03:36 Dose: 210 mls/hr Documented By: Infusion: 11/04/24 21:31 Dose: Infused Documented By: Admin: 11/04/24 21:15 Dose: 210 mls/hr Documented By: CP Ceftriaxone Sodium (Rocephin) 2,000 mg in 50 mls @ 100 mls/hr IV Q24H [facility]IC[facility]; Protocol Stop: 11/10/24 09:59 Last Infusion: 11/09/24 10:03 Dose: Infused Documented By: Admin: 11/09/24 09:33 Dose: 100 mls/hr Documented By: Infusion: 11/08/24 09:46 Dose: Infused Documented By: AERose Admin: 11/08/24 09:16 Dose: 100 mls/hr Documented By: Infusion: 11/07/24 10:36 Dose: Infused Documented By: Admin: 11/07/24 10:06 Dose: 100 mls/hr Documented By: KELLY Co-signed By: MARIE Infusion: 11/06/24 10:51 Dose: Infused Documented By: Admin: 11/06/24 10:21 Dose: 100 mls/hr Documented By: Infusion: 11/05/24 18:17 Dose: Infused Documented By: Admin: 11/05/24 13:33 Dose: 100 mls/hr Documented By: GISSEL Acetaminophen (Ofirmev) 1,000 mg in 100 mls @ 400 mls/hr IV Q8H PRN PRN Reason: pain or fever Stop: 11/10/24 13:51 Last Infusion: 11/08/24 20:22 Dose: Infused Documented By: Admin: 11/08/24 20:00 Dose: 400 mls/hr Documented By: Infusion: 11/07/24 14:31 Dose: Infused Documented By: Admin: 11/07/24 14:16 Dose: 400 mls/hr Documented By: FANTA Insulin Aspart (Insulin Aspart Per Unit Charge) 0 units SC ACHS [facility] Stop: 12/04/24 18:59 Last Admin: 11/09/24 12:27 Dose: 8 units Documented By: INOCENCIA Co-signed By: LILLIAN Admin: 11/09/24 08:46 Dose: 4 units Documented By: AERose Co-signed By: REINALDO Admin: 11/08/24 20:08 Dose: Not Given Documented By: Admin: 11/08/24 18:02 Dose: 5 units Documented By: AERose Co-signed By: TEO Admin: 11/08/24 12:46 Dose: 4 units Documented By: INOCENCIA Co-signed By: LUISA Admin: 11/08/24 09:05 Dose: 7 units Documented By: INOCENCIA Co-signed By: TEO Admin: 11/07/24 20:14 Dose: 4 units Documented By: MIDGALIA Co-signed By: GISELL Admin: 11/07/24 17:54 Dose: 4 units Documented By: FANTA Co-signed By: TEO Admin: 11/07/24 13:01 Dose: 3 units Documented By: FANTA Co-signed By: TEO Admin: 11/07/24 10:04 Dose: 5 units Documented By: KELLY Co-signed By: MARIE Admin: 11/06/24 21:41 Dose: 1 units Documented By: JANICE Co-signed By: HNTay Admin: 11/06/24 17:50 Dose: 6 units Documented By: EDS Co-signed By: BABITA Admin: 11/06/24 13:00 Dose: 2 units Documented By: GISSEL Co-signed By: MIREYA Admin: 11/06/24 09:16 Dose: 2 units Documented By: GISSEL Co-signed By: MIREYA Admin: 11/05/24 20:57 Dose: 4 units Documented By: IGNACIO Co-signed By: [id number] Admin: 11/05/24 17:40 Dose: Not Given Documented By: Admin: 11/05/24 13:17 Dose: 8 units Documented By: GISSEL Co-signed By: MIREYA Insulin Glargine (Lantus Per Unit Charge) 10 units SC DAILY [facility] Stop: 12/07/24 08:59 Last Admin: 11/09/24 08:45 Dose: 10 units Documented By: INOCENCIA Co-signed By: REINALDO Admin: 11/08/24 09:05 Dose: 10 units Documented By: INOCENCIA Co-signed By: TEO Levetiracetam (Levetiracetam 500 Mg Tab) 1,500 mg PO BID [facility] Stop: 12/07/24 20:59 Last Admin: 11/09/24 07:15 Dose: 1,500 mg Documented By: Admin: 11/08/24 20:13 Dose: 1,500 mg Documented By: Admin: 11/08/24 09:07 Dose: 1,500 mg Documented By: Admin: 11/07/24 20:15 Dose: 1,500 mg Documented By: MIGDALIA Lisinopril (Lisinopril 10 Mg Tab) 10 mg PO DAILY [facility] Stop: 12/07/24 15:29 Last Admin: 11/09/24 07:23 Dose: 10 mg Documented By: Admin: 11/08/24 09:08 Dose: 10 mg Documented By: Admin: 11/07/24 17:07 Dose: 10 mg Documented By: FANTA Miscellaneous (Remove Nicoderm Patch) 1 each N/A DAILY@0859 [facility] Stop: 12/09/24 08:58 Last Admin: 11/09/24 07:18 Dose: Not Given Documented By: INOCENCIA Nicotine (Nicotine 14 Mg/24 Hr Patch) [facility] [place] Stop: 12/08/24 14:29 Last Admin: 11/09/24 07:15 Dose: 1 patch Documented By: Admin: 11/08/24 15:25 Dose: 1 patch Documented By: INOCENCIA Pantoprazole Sodium (Pantoprazole 40 Mg Tab) 40 mg PO BIDM [facility] Stop: 12/07/24 16:59 Last Admin: 11/09/24 07:16 Dose: 40 mg Documented By: AERose Admin: 11/08/24 17:07 Dose: 40 mg Documented By: Admin: 11/08/24 09:05 Dose: 40 mg Documented By: Admin: 11/07/24 17:07 Dose: 40 mg Documented By: FANTA Quetiapine Fumarate (Quetiapine Fumarate 300 Mg Tablet) 300 mg PO HS [facility] Stop: 12/07/24 20:59 Last Admin: 11/08/24 20:13 Dose: 300 mg Documented By: Admin: 11/07/24 21:06 Dose: 300 mg Documented By: GISELL Quetiapine Fumarate (Quetiapine Fumarate 200 Mg Tab) 200 mg PO DAILY [facility] Stop: 12/09/24 08:59 Last Admin: 11/09/24 07:15 Dose: 200 mg Documented By: INOCENCIA Rosuvastatin Calcium (Rosuvastatin Calcium 20 Mg Tab) 40 mg PO DAILY [facility] Stop: 12/08/24 08:59 Last Admin: 11/09/24 07:16 Dose: 40 mg Documented By: AERose Admin: 11/08/24 09:08 Dose: 40 mg Documented By: INOCENCIA (3) Urinary tract infection Hematuria presence: without hematuria Urinary tract infection type: acute cystitis Qualified Code(s): N30.00 - Acute cystitis without hematuria
[2024-11-09] MEDS ORDERED: POLYETHYLENE (MIRALAX) 17 GM PACK PO PRN (14:04)
[2024-11-09 19:36] VITALS: RESP 18
--- NOTE | 2024-11-09 20:32 | Communication Note ---
Date of Service: November 09, 2024 Patient asking for home baclofen Rx for left hand pain. Not confused as per RN. Home baclofen not on outpatient med list reconciled on admission. Last refill 10/27/2024 by non-[facility] provider on review of records. History baclofen overdose resulting [facility] PCP stopping prescription in 2020 as per records. Patient admitted 11/04/2024 for unresponsiveness which led to intubation. Hold baclofen Rx for now given concern for recurrent overdose. Will add baclofen overdose to ADR list for now due to patient safety concerns. Defer decision regarding baclofen Rx to AM provider.
[2024-11-09] MEDS: tiZANidine HCL 4 MG TABLET PO STA (21:26)
[2024-11-10 04:28] VITALS: TEMP 97.9
[2024-11-10 06:56] LABS: Basophils # (auto) 0.05 K/uL (0.00-0.20); Basophils % (auto) 0.7 %; Eosinophils # (auto) 0.43 K/uL (0.00-0.50); Eosinophils % (auto) 5.9 %; Hematocrit (blood only) 35.6 % (37.0-47.0); Hemoglobin 11.8 g/dl (12.0-16.0); Immature Granulocytes # (auto) 0.06 K/uL (0.01-0.20); Immature Granulocytes % (auto) 0.8 %; Lymphocytes # (auto) 2.34 K/uL (1.20-3.40); Lymphocytes % (auto) 31.9 %; Mean Corpuscular Hemoglobin 28.4 pg (25.0-34.0); Mean Corpuscular Hgb Conc 33.1 g/dL (32.0-36.0); Mean Corpuscular Volume 85.6 fL (80.0-100.0); Monocytes # (auto) 0.65 K/uL (0.11-0.59); Monocytes % (auto) 8.9 %; Neutrophils # (auto) 3.81 K/uL (1.40-6.50); Neutrophils % (auto) 51.8 %; Platelet Count 226 K/uL (130-400); RDW Coefficient of Variation 13.2 % (11.5-14.5); RDW Standard Deviation 40.9 fL (36.4-46.3); Red Blood Count 4.16 M/uL (4.20-5.40); White Blood Count 7.34 K/ul (4.8-10.8)
[2024-11-10 07:26] LABS: Albumin Globulin Ratio 1.2 (0.9-2); Albumin Level 3.8 gm/dl (3.4-5.0); BUN Creatinine Ratio 18.2 (10-20); Bilirubin,Total 0.3 mg/dl (0.2-1.0); Calcium 9.4 mg/dl (8.6-10.3); Creatinine Clr Calc Pharmacy 65.1 ml/min; Globulin 3.2 gm/dl (2.5-4.0); Phosphorus 5.2 mg/dl (2.5-4.9); Potassium 3.6 mmol/L (3.5-5.1)
[2024-11-10 08:09] VITALS: O2SAT 92
[2024-11-10] MEDS: POLYETHYLENE (MIRALAX) 17 GM PACK PO PRN (09:43)
[2024-11-10 11:39] VITALS: BP 120/78; PULSE 108
--- NOTE | 2024-11-10 14:00 | Discharge Summary ---
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 In the ED, patient was not responsive to painful stimuli and was intubated in the ED. #Acute metabolic/toxic encephalopathy #Syncope #Complicated urinary tract Infection #Seizures -Pt presenting with concern for LOC -Required intubation in the ED -Head CT unremarkable -Head CTA unremarkable - CTA noting no acute pathology but noting thyroid nodules and bronchitis -Brain MRI unremarkable, chest xray/VBG/resp panel unremarkable -UA suggestive of infection, urine cx currently growing E coli -Blood cx x 2 sets NGTD -CK, TSH, prolactin, ammonia levels all within normal range -Toxicology screen unremarkable Plan: -discussed with neurology attending, concern for seizure as likely cause persists but would not rec med changes at this time -continue keppra -Delirium precautions. Frequent reorientation, avoid sedating medications as able -held neuropsych meds-resumed -Continue to monitor #Possible sepsis, ruled out #Bronchitis -Pt presented unconscious, with leukocytosis and hypothermia -UA suggestive of infection, urine cx currently growing E coli -Neck CTA noting "bronchitis with pneumonitis" at the lung apices -Continue to monitor #Acute Kidney Injury, resolved -Cr 1.39 on admission, baseline ~0.7 -Improving #Prolonged qtc -EKG noting qtc of 491 -Avoid qtc prolonging meds -Continue to monitor #Thyroid Nodules -Neck CTA noting bilateral thyroid nodules -TSH normal -PCP followup #History of CVA with left hemiplegia -On asa 81mg and statin at home #DM II -A1c 9.1 -Basal/bolus insulin #Left Hand Contractures #R/o Dystonia -concern for dystonia given signifcant seroquel use Plan: -psych consult, appreciate recs Notes For Next Care Provider Medication Changes From Visit -metformin Admission HPI Per Admitting Provider This is a 54-year-old female with PMH of type 2 diabetes, COPD, hypertension, 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 This was first noted around 0900 and initially thought she was just sleeping but when she remained unarousable he called EMS and she was brought in for further evaluation. History provided by ED physician secondary to patient being intubated no family at bedside. History of similar admission a few years ago in the setting of benzodiazepine overdose. In ED, patient afebrile but not responsive to painful stimuli and was intubated in the ED. Slight leukocytosis of 12.4 1K, ABG reassuring postintubation. BEAR noted with creatinine 1.39 (baseline 0.7). UA abnormal. Urine toxicology negative. Respiratory viral panel negative. CT head without acute intracranial abnormality. Does have history of partial seizures and is on Keppra. ROS unobtainable due to reduced consciousness. Was started on IV or ertapenem for possible UTI and given a total of 1 L normal saline. Discharge Exam Gen: A&O 3 NAD HEENT: NCAT, EOMI, not icteric. External ears normal. No rhinorrhea. Moist mucous membranes. Neck: Supple, full range of motion, no observable masses, No meningeal sign. Lungs: No Respiratory distress. CV: tachycardic, regular rhythm no edema. Abdomen: Soft, nondistended, No rebound tenderness. MSK: No joint swelling, no redness. Skin: No rashes, petechiae, lesions. Normal color per patient. Neuro: Normal Gait, Grossly intact. Psych: Appropriate for situation. Motivated. Updated Medication List Medication Instructions Recorded Confirmed Type omeprazole 20 mg capsule,delayed 20 mg PO BID 01/19/20 11/04/24 History release fluticasone furoate 100 1 inh inhalation DAILY 06/17/20 11/04/24 History mcg-vilanterol 25 mcg/dose inhalation powder (Breo Ellipta) gabapentin 300 mg capsule 300 mg PO DAILY 06/17/20 11/04/24 History levetiracetam 750 mg tablet 1,500 mg PO BID 06/17/20 11/04/24 History aspirin 81 mg chewable tablet 81 mg PO QAM 11/07/20 11/04/24 History duloxetine 60 mg capsule,delayed 60 mg PO QAM 11/07/20 11/04/24 History release rosuvastatin 40 mg tablet (Crestor) 40 mg PO DAILY 07/09/21 11/04/24 History lisinopril 10 mg tablet 10 mg PO DAILY #20 tabs 07/12/21 11/04/24 Rx gabapentin 300 mg capsule 600 mg PO HS 11/04/24 11/04/24 History quetiapine 200 mg tablet (Seroquel) 200 mg PO DAILY 11/04/24 11/04/24 History quetiapine 300 mg tablet 300 mg PO HS 11/04/24 11/04/24 History metformin 750 mg tablet,extended 750 mg PO DAILY #30 tabs 11/10/24 Rx release 24 hr Hospital Stay Data Consultations 11/04/24 14:35 ED Decision to Admit Stat 11/04/24 14:36 Consult Animal Killer Stat 11/04/24 14:42 Consult Animal Killer Routine 11/04/24 16:13 Consult Neurology Routine Diagnostic Imagining Performed 11/04/24 12:51 CT head/brain wo con Stat 11/04/24 16:14 MRI Brain [MR brain seizure wo/w con] Urgent 11/04/24 16:27 CTA head w con [CT angio head w con] Stat CTA neck with con [CT angio neck with con] Stat Pending Results Patient Have Any Pending Studies at Discharge: No Discharge Instructions Given to Patient (Per Discharging Provider) 1. Please utilize home PT/OT to get stronger. 2. Please greens picker metformin for your diabetes and follow up with PCP for this. 3. Please follow up with neurology and psychiatry. Total Time Total Time Spent Total Time Spent (In Minutes): I spent a total of 35 minutes in direct patient care, including [id number] time with the patient and/or family, reviewing medical records, ordering and reviewing diagnostic tests, and coordinating care with other healthcare providers. This time includes: history taking, physical examination, medical decision making, counseling, ECG interpretation, imaging interpretation, lab interpretation, orders, and education, excluding time spent in the performance of separately billed services.
== END 2024-11-10 16:00 | disposition home health service (06) | DRG 208 ==
LOC: ED 12:31 → INTOOBSV 14:42 → 1E 14:42 → SUATTDRO 14:42 → 1E 15:12 → 2N 11-06 15:06